=== PATIENT | male | born 1980 | race American Indian/Alaskan Native ===

== ENCOUNTER 2019-12-22 16:12 | Outpatient (REF) | payer MEDICAID, SELFPAY | END 2019-12-22 16:13 | disposition home or self-care (01) | LOC: HO.LAB 16:12 | PROVIDERS: Visit Provider Internal Medicine | DX: Z20.828 Contact with and (suspected) exposure to other viral communicable diseases (principal) | CPT/HCPCS: C9803; U0003 ==

== ENCOUNTER 2020-01-15 12:05 | Outpatient (REF) | payer MEDICAID, SELFPAY ==
--- NOTE | 2020-01-15 12:10 | XR_ITS ---
EXAMINATION: XR CHEST CLINICAL INFORMATION: Cough COMPARISON: Chest radiographs 09/25/2018 TECHNIQUE: 2 views of the chest were obtained. FINDINGS: The lungs are clear. There is no airspace consolidation or groundglass opacity or effusion. The heart is normal in size and the hilar and mediastinal contours are normal. No visible acute bony abnormality. XR/XR chest 2V IMPRESSION: Unremarkable examination.
== END 2020-01-15 12:06 | disposition home or self-care (01) ==
LOC: HO.XRAY 12:05
PROVIDERS: PCP Nurse Practitioner Family; Visit Provider Nurse Practitioner Family
DX: R05 Cough (principal)
CPT/HCPCS: 71046

== ENCOUNTER 2020-02-10 08:47 | Outpatient (REF) | payer MEDICAID, SELFPAY ==
--- NOTE | 2020-02-10 | PFT_ITS ---
INDICATION: Cough. SPIROMETRY: FEV1 to FVC 88% with an FEV1 of 3.21 L which is 83% predicted, and an FVC of 3.67 L, which is 77% predicted. No significant response to bronchodilators. Maximum voluntary ventilation 97% predicted. LUNG VOLUMES: Total lung capacity 75% predicted with an expiratory reserve volume of 50% predicted. DIFFUSION CAPACITY: DLCO 65% predicted. COMPARISONS: None. INTERPRETATION: No obstructive ventilatory defect. No significant response to bronchodilators noted. However, the patient does have a mild restrictive ventilatory defect, therefore underlying interstitial lung conditions and/or neuromuscular conditions cannot be ruled out. The patient also has a mild diffusion impairment secondary to the above. Further imaging will be warranted and pulmonary consultation will be helpful. Clinical correlation warranted. MD JAVIER Florez/MODKlaus / [id number]
== END 2020-02-10 08:48 | disposition home or self-care (01) ==
LOC: HO.RESP 08:47
PROVIDERS: PCP Nurse Practitioner Family; Visit Provider Nurse Practitioner Family
DX: R05 Cough (principal)
CPT/HCPCS: 94060; 94727; 94729

== ENCOUNTER → 2020-03-05 15:27 | Outpatient (BNVA) | payer MEDICAID, SELFPAY | PROVIDERS: PCP Internal Medicine; Visit Provider Hospitalist | DX: J98.4 Other disorders of lung (principal); J45.909 Unspecified asthma, uncomplicated; F17.200 Nicotine dependence, unspecified, uncomplicated | CPT/HCPCS: 99202 ==

== ENCOUNTER → 2020-05-28 15:25 | Outpatient (BNVA) | payer MEDICAID, SELFPAY | PROVIDERS: PCP Nurse Practitioner Family; Visit Provider Hospitalist | DX: J45.40 Moderate persistent asthma, uncomplicated (principal); J98.4 Other disorders of lung; F17.200 Nicotine dependence, unspecified, uncomplicated | CPT/HCPCS: 99212 ==

== ENCOUNTER 2020-07-17 09:47 | Emergency (ER) | payer MEDICAID, SELFPAY ==
--- NOTE | ~2020-07-17 | XR_ITS ---
EXAMINATION: 1. RADIOGRAPHS RIGHT ANKLE 2. RADIOGRAPHS LEFT ANKLE CLINICAL INFORMATION: Bilateral ankle trauma COMPARISON: None TECHNIQUE: 3 views of the right ankle and 3 views of the left ankle were obtained. FINDINGS: Right ankle: Visualized portion of the distal tibia and fibula demonstrate no fracture. Ankle mortise is maintained. Mild soft tissue swelling overlying the lateral malleolus. No gross ankle joint effusion. Left ankle: Visualized portion of the distal tibia and fibula demonstrate no fracture. Ankle mortise is well-maintained. There is no focal soft tissue swelling of the ankle. No ankle joint effusion. XR/XR ankle RT min 3V IMPRESSION: 1. Mild soft tissue swelling overlying the right lateral malleolus. No associated fracture. 2. Unremarkable radiographs of the left ankle.
--- NOTE | ~2020-07-17 | XR_ITS ---
EXAMINATION: 1. RADIOGRAPHS RIGHT ANKLE 2. RADIOGRAPHS LEFT ANKLE CLINICAL INFORMATION: Bilateral ankle trauma COMPARISON: None TECHNIQUE: 3 views of the right ankle and 3 views of the left ankle were obtained. FINDINGS: Right ankle: Visualized portion of the distal tibia and fibula demonstrate no fracture. Ankle mortise is maintained. Mild soft tissue swelling overlying the lateral malleolus. No gross ankle joint effusion. Left ankle: Visualized portion of the distal tibia and fibula demonstrate no fracture. Ankle mortise is well-maintained. There is no focal soft tissue swelling of the ankle. No ankle joint effusion. XR/XR ankle LT min 3V IMPRESSION: 1. Mild soft tissue swelling overlying the right lateral malleolus. No associated fracture. 2. Unremarkable radiographs of the left ankle.
[2020-07-17 10:15] VITALS: BP 138/85; PULSE 88; RESP 16; TEMP 36.9; O2SAT 96; BMI 28.1
--- NOTE | 2020-07-17 11:29 | ED.GENADULT ---
HPI - General Adult General Chief complaint: General Medical Stated complaint: fall Time Seen by Provider: 07/17/20 11:28 History of Present Illness HPI narrative: 39-year-old male status post fall yesterday. Complaining of bilateral ankle pain. The pain is sharp in nature. Worse with ambulation. No head injury. Patient not on blood thinners. No pain to the knees. Question back pain. Worse with movement. There is no bowel urinary incontinence. There is no focal weakness. Patient is from home. Related Data Home Medications Medication Instructions Recorded Confirmed ibuprofen 200 mg tablet 200 mg PO Q6H PRN 03/05/20 05/28/20 Previous Rx's Medication Instructions Recorded fluticasone propionate 110 2 puff INHALATION DAILY 30 Days 03/05/20 mcg/actuation HFA aerosol inhaler #12 g nicotine 10 mg inhalation cartridge 1 inh INHALATION Q2-4H PRN #168 ea 03/05/20 azithromycin 250 mg tablet 250 mg PO 3XW 28 Days #12 tab 05/28/20 fluticasone propionate 50 2 spray INTRANASAL DAILY 30 Days 05/28/20 mcg/actuation nasal #15.8 ml spray,suspension ibuprofen 400 mg PO Q6H PRN #20 tab 07/17/20 Allergies Allergy/AdvReac Type Severity Reaction Status Date / Time Penicillins [PCN] Allergy Unknown HIVES AND Verified 05/28/20 15:59 EDEMA Review of Systems Review of Systems: Constitutional: No Weight loss, No Fever, No Chills, No Night Sweats, No Fatigue, No Malaise ENT/Mouth: No Hearing loss, No Ear Pain, No Nasal Congestion, No Sinus Pain, No Hoarseness, No sore throat, No Rhinorrhea, No Swallowing Difficulty Eyes: No Eye Pain, No Swelling, No Redness, No Foreign Body, No Discharge, No Vision Changes Cardiovascular: No Chest Pain, No SOB, No Dyspnea on Exertion, No Orthopnea, No Edema, No Palpitations Respiratory: No Cough, No Sputum, No Wheezing, No Smoke Exposure, No Dyspnea Gastrointestinal: No Nausea, No Vomiting, No Diarrhea, No Constipation, No abdominal Pain, No Hematochezia, No Melena Genitourinary: no irregular bleeding, No Dysuria, No Urinary Frequency, No Hematuria, No Urinary Incontinence, No Urgency, No Flank Pain, No Urinary Flow Changes, No Hesitancy Musculoskeletal: Positive bilateral ankle pain. Positive back pain Neuro: No Weakness, No Numbness, No Paresthesias, No Loss of Consciousness, No Dizziness, No Headache Psych: No Anxiety/Panic, No Depression, No SI/HI/AH/VH, No Social Issues, Heme/Lymph: No Bruising, No Bleeding,No Lymphadenopathy Endocrine: No Polyuria, No Polydipsia, No Temperature Intolerance [facility] Past Medical History Medical History Asthma Chronic restrictive lung disease Tobacco dependence Social History Social History Cigarettes Per Day: 1 Years Smoked: 18 years old Advance Directives: No Advance Directives Information Provided: No Physical Exam Vital Signs: Vital Signs: Last Vital Signs Temp 98.5 F 07/17/20 10:15 Pulse 88 07/17/20 10:15 Resp 16 07/17/20 10:15 BP 138/85 07/17/20 10:15 Pulse Ox 96 07/17/20 10:15 Body Mass Index 28.1 Appearance: Alert. Oriented X3. No acute distress. Eyes: Pupils equal, round and reactive to light. ENT: Pharynx normal. Neck: Normal inspection. Neck supple. No lymph nodes noted. No crepitus CVS: Normal heart rate and rhythm. Pulses normal. Normal S1 and S2 Respiratory: No respiratory distress. Breath sounds normal. No Wheezing. No rales Abdomen: Soft and nontender. No rigidity. No distention. good BS x4 Skin: Skin warm and dry. Normal skin color. Normal skin turgor. Extremities: Positive pain on palpation of the posterior aspect of the right lateral malleolus. There is no tenderness on palpation of the medial malleolus. There is no tenderness on palpation at the base of the 5th metatarsal. Patient has good sensation. Distal movement intact. Patient also has pain on palpation of the lateral malleolus on the left. There is no tenderness on palpation at the base of the 5th metatarsal. Patient has sensation intact. Capillary refill less than 2 seconds. Skin intact. Neurovascular intact to all extremities. No Lacerations. No Rash Neuro: Oriented X 3. No motor deficit. No sensory deficit. Moving all extermities. No slurred speech Medical Decision Making MDM Narrative Medical decision making narrative: X-ray showed no evidence of fracture. Will discharge patient home. Kee bandage rest close follow-up on outpatient basis. In stable condition. Discharge Plan Discharge Clinical Impression: Sprain and strain of ankle Patient Disposition: Home, Self-Care Instructions: Ankle Sprain (ED) Prescriptions: New ibuprofen 400 mg tablet 400 mg PO Q6H PRN (Reason: pain) Qty: 20 RF: 0 No Action ibuprofen [Advil] 200 mg tablet 200 mg PO Q6H PRNRF: 0 Flovent HFA 110 mcg/actuation HFA aerosol inhaler 2 puff inhalation DAILY 30 Days Qty: 12 RF: 6 Nicotrol 10 mg cartridge 1 inh inhalation Q2-4H PRN (Reason: nicotine cravings) Qty: 168 RF: 6 fluticasone propionate [Flonase Allergy Relief] 50 mcg/actuation spray,suspension 2 spray intranasal DAILY 30 Days Qty: 15.8 RF: 12 azithromycin 250 mg tablet 250 mg PO 3XW 28 Days Qty: 12 RF: 0 Referrals: [facility] [Primary Care Provider] - 2 days
== END 2020-07-17 14:30 | disposition home or self-care (01) ==
PROVIDERS: Emergency Provider Emergency Medicine Emergency Medical Services
DX: S93.402A Sprain of unspecified ligament of left ankle, initial encounter (principal); S93.401A Sprain of unspecified ligament of right ankle, initial encounter; M54.5 Low back pain; M25.572 Pain in left ankle and joints of left foot; M25.571 Pain in right ankle and joints of right foot; F17.210 Nicotine dependence, cigarettes, uncomplicated; X58.XXXA Exposure to other specified factors, initial encounter; Y93.9 Activity, unspecified; Y92.9 Unspecified place or not applicable; Y99.9 Unspecified external cause status; Z79.899 Other long term (current) drug therapy; Z71.6 Tobacco abuse counseling
CPT/HCPCS: 73610; 99283

== ENCOUNTER 2020-08-03 10:20 | Outpatient (REF) | payer MEDICAID, SELFPAY ==
[2020-08-03 12:38] LABS: Anion Gap 12 (12-20); Blood Urea Nitrogen 20 mg/dL (9-16); Calcium 9.3 mg/dL (8.4-10.2); Carbon Dioxide 27 mmol/L (22-29); Chloride 106 mmol/L (96-108); Estimated Glomerular Filt Rate > 60; Glucose Random 125 mg/dL (60-115); Potassium 4.5 mmol/L (3.3-5.1); Sodium 140 mmol/L (135-145)
[2020-08-03 13:13] LABS: Erythrocyte Sedimentation Rate 5 MM/HR (0-15)
[2020-08-05 13:32] LABS: Anti Nuclear Antibody Screen NEGATIVE (NEGATIVE)
[2020-08-08 18:18] LABS: Asperg fumigatus Precip Abs NEGATIVE (NEGATIVE); Micropoly faeni Abs NEGATIVE (NEGATIVE); Pigeon serum Abs NEGATIVE (NEGATIVE); Saccharo pora viridis Abs NEGATIVE (NEGATIVE); Thermo candidus Abs NEGATIVE (NEGATIVE); Thermoa vulgaris #1 NEGATIVE (NEGATIVE)
== END 2020-08-03 10:21 | disposition home or self-care (01) ==
LOC: HO.LAB 10:20
PROVIDERS: PCP Nurse Practitioner Family; Visit Provider Hospitalist
DX: J98.4 Other disorders of lung (principal)
CPT/HCPCS: 36415; 80048; 82785; 85652; 86003; 86038; 86039; 86331; 86606; 86609

== ENCOUNTER → 2020-09-01 10:56 | Outpatient (BNVA) | payer MEDICAID, SELFPAY | PROVIDERS: PCP Nurse Practitioner Family; Visit Provider Hospitalist | DX: J98.4 Other disorders of lung (principal); J45.40 Moderate persistent asthma, uncomplicated; R94.2 Abnormal results of pulmonary function studies; J84.9 Interstitial pulmonary disease, unspecified; R05 Cough | CPT/HCPCS: 99212 ==

== ENCOUNTER 2020-09-13 09:38 | Emergency (ER) | payer MEDICAID, SELFPAY ==
[2020-09-13 10:28] VITALS: BP 132/83; PULSE 77; RESP 18; TEMP 36.8; O2SAT 98; BMI 28.0
--- NOTE | 2020-09-13 11:40 | ED_ITS ---
HPI - Skin/Abscess/Foreign Bdy General Chief complaint: Skin/Abscess/Foreign Body Stated complaint: abcess Time Seen by Provider: 09/13/20 10:44 Source: patient Mode of arrival: ambulatory History of Present Illness HPI narrative: 40-year-old male with a past medical history of asthma, cough, chronic restrictive lung disease, tobacco dependence, to the ED complaining of two abscesses to buttock area x2 days. Admits tried to drain 1 yesterday with minimal improvement, now with worsening pain. Denies fever, chills complaint: abscess/boil Related Data Home Medications Medication Instructions Recorded Confirmed ibuprofen 200 mg tablet (Advil) 200 mg PO Q6H PRN 03/05/20 09/02/20 Previous Rx's Medication Instructions Recorded fluticasone propionate 110 2 puff INHALATION DAILY 30 Days 03/05/20 mcg/actuation HFA aerosol inhaler #12 g (Flovent HFA) nicotine 10 mg inhalation 1 inh INHALATION Q2-4H PRN #168 ea 03/05/20 cartridge (Nicotrol) azithromycin 250 mg tablet 250 mg PO 3XW 28 Days #12 tab 05/28/20 fluticasone propionate 50 2 spray INTRANASAL DAILY 30 Days 05/28/20 mcg/actuation nasal #15.8 ml spray,suspension (Flonase Allergy Relief) ibuprofen 400 mg tablet 400 mg PO Q6H PRN #20 tab 07/17/20 fluticasone fur. 200 mcg-umeclid 1 inh INHALATION DAILY 30 Days #60 09/01/20 62.5 mcg-vilant 25 mcg ea inhalat.powder (Trelegy Ellipta) doxycycline hyclate 100 mg tablet 100 mg PO BID 7 Days #14 tab 09/13/20 Allergies Allergy/AdvReac Type Severity Reaction Status Date / Time Penicillins [PCN] Allergy Severe HIVES AND Verified 09/02/20 08:11 EDEMA Review of Systems Review of Systems: Constitutional: No Fever, No Chills Cardiovascular: No Chest Pain, No SOB Musculoskeletal: No joint pain, No Myalgias Skin: + Skin Lesions, No rash Neuro: No Weakness, No Numbness, No Paresthesias Yes all other systems are reviewed and are negative [facility] Past Medical History Attestation statement: The following information was validated with the patient. Medical History (Updated 09/13/20 @ 11:43 by NEDA Elliott) Abnormal PFTs (pulmonary function tests) Asthma Chronic cough Chronic restrictive lung disease ILD (interstitial lung disease) Tobacco dependence Social History Social History Cigarettes Per Day: 1 Years Smoked: 18 years old Advance Directives: Yes Advance Directives Information Provided: Yes Advance Directives on File: No Physical Exam Vital Signs: Vital Signs: Last Vital Signs Temp 98.2 F 09/13/20 10:28 Pulse 77 09/13/20 10:28 Resp 18 09/13/20 10:28 BP 132/83 09/13/20 10:28 Pulse Ox 98 09/13/20 10:28 Body Mass Index 28.0 Const: General: cooperative and healthy appearing Orientatio n/consciousness: patient oriented x3 Limitations: no limitations HENMT: Head: Yes normal to inspection Ears: hearing grossly normal bilaterally General nose exam: Normal external nose present Face and sinus: Yes normal facial exam Eyes: General: appearance normal, both eyes and all related structures EOM: EOMs intact bilaterally Neck: Neck: Yes normal visual inspection Resp: Effort & Inspection: normal respiratory effort Cardio: Rate: regular rate GI: Inspection: Yes normal to inspection Palpation (GI): Soft to palpation and nontender Skin: Other: + 2 small indurated abscesses noted to top right and left buttock, no fluctuance, no surrounding cellulitis. No rectal involvement, no active drainage Rashes: no rashes Neuro: General: patient oriented x3 Gait exam (Neuro): Normal gait present Extrem: General: Yes normal to inspection MDM - Skin/Abscess/Foreign Bdy MDM Narrative Medical decision making narrative: 40-year-old male with a past medical history of asthma, cough, chronic restrictive lung disease, tobacco dependence, to the ED complaining of two abscesses to buttock area x2 days. On exam vital signs stable, NAD/nontoxic, physical exam as above. Two indurated abscess is noted, unable to I&D at this time Plan to discharge with doxycycline and close follow-up Discharge Plan Discharge Clinical Impression: Abscess of skin or subcutaneous tissue Patient Disposition: Home, Self-Care Instructions: Abscess (ED), Abscess Follow-up (ED) Additional Instructions: You have a couple abscesses on your buttock, doxycycline is an antibiotic, please take as prescribed Keep a close eye on area, begins to grow, worsen, become red, have drainage, or have fever please return to the ED Please follow-up with your doctor Prescriptions: New doxycycline hyclate 100 mg tablet 100 mg PO BID 7 Days Qty: 14 RF: 0 No Action ibuprofen 400 mg tablet 400 mg PO Q6H PRN (Reason: pain) Qty: 20 RF: 0 ibuprofen [Advil] 200 mg tablet 200 mg PO Q6H PRNRF: 0 Flovent HFA 110 mcg/actuation HFA aerosol inhaler 2 puff inhalation DAILY 30 Days Qty: 12 RF: 6 Nicotrol 10 mg cartridge 1 inh inhalation Q2-4H PRN (Reason: nicotine cravings) Qty: 168 RF: 6 fluticasone propionate [Flonase Allergy Relief] 50 mcg/actuation spray,suspension 2 spray intranasal DAILY 30 Days Qty: 15.8 RF: 12 azithromycin 250 mg tablet 250 mg PO 3XW 28 Days Qty: 12 RF: 0 Trelegy Ellipta 200-62.5-25 mcg blister with device 1 inh inhalation DAILY 30 Days Qty: 60 RF: 12 Referrals: Physician,Unknown [Primary Care Provider] - 2 days (For re-evaluation)
== END 2020-09-13 11:51 | disposition home or self-care (01) ==
PROVIDERS: Emergency Provider Emergency Medicine
DX: L02.31 Cutaneous abscess of buttock (principal)
CPT/HCPCS: 99283

== ENCOUNTER 2020-09-15 13:09 | Outpatient (REF) | payer MEDICAID, SELFPAY ==
--- NOTE | ~2020-09-15 | CT_ITS ---
EXAMINATION: CT CHEST WITHOUT CONTRAST CLINICAL INFORMATION: Other disorders of lung. COMPARISON: None. TECHNIQUE: Multidetector volumetric CT imaging of the chest was done. Axial MIP volume rendering provided. Sagittal and coronal reformatted images were obtained. This CT examination was performed using dose optimization techniques as appropriate, variously including the following: *Automated exposure control *Adjustment of mA and/or kV according to patient size (this includes techniques or standardized protocols for targeted exams where dose is matched to indication/reason for exam; i.e. extremities or head) *Use of iterative reconstruction technique DLP: 174 mGy-cm. FINDINGS: NATUROPATHIC ONCOLOGY PROVIDER: Well-inflated lungs. LUNGS: The lungs are well expanded and clear of acute pneumonic process. Patchy reticular/cystic changes seen in the right upper lobe, anteromedial segment. There are no pulmonary nodules, mass or consolidation. MEDIASTINUM: The thyroid lobes are symmetrical and normal. The central trachea and the bronchi are widely patent. Heart size and the great vessels are normal caliber. There are small shotty lymph nodes in the pretracheal and precarinal space. PLEURA: There is no pleural effusion. No pleural mass or thickening. AXILLA: There is a 1.8 x 1.1 cm left axillary lymph node. The chest wall appears unremarkable. UPPER ABDOMEN: Visualized liver, spleen, pancreas and bilateral adrenal glands are unremarkable. OSSEOUS STRUCTURES: No lytic or sclerotic process seen. The paravertebral soft tissues are normal. CT/CT chest wo con IMPRESSION: Patchy reticular/cystic changes in right upper lobe anteromedial segment, likely scarring or atelectasis. The rest of the lungs are clear.
== END 2020-09-15 13:10 | disposition home or self-care (01) ==
LOC: HO.CT 13:09
PROVIDERS: Visit Provider Internal Medicine Pulmonary Disease
DX: J98.4 Other disorders of lung (principal); R05 Cough; R94.2 Abnormal results of pulmonary function studies
CPT/HCPCS: 71250

== ENCOUNTER 2020-10-02 15:33 | Emergency (ER) | payer MEDICAID, SELFPAY ==
[2020-10-02 15:50] VITALS: BP 117/75; PULSE 84; RESP 16; TEMP 37.1; O2SAT 98; BMI 30.5
[2020-10-02 16:29] LABS: COVID-19 Test Negative (Negative); IDNOW Serial# 08D9AD1C
--- NOTE | 2020-10-02 17:53 | ED.GENADULT ---
HPI - General Adult General Chief complaint: Upper Respiratory Symptoms Stated complaint: COVID SYMPTOMS Time Seen by Provider: 10/02/20 17:53 History of Present Illness HPI narrative: Patient complains of mild headache, is concerned as 1 of his children has been mildly sick with a cough and a cold and he is worried about COVID and wants to be checked, no fever no cough no difficulty breathing Related Data Home Medications Medication Instructions Recorded Confirmed ibuprofen 200 mg tablet (Advil) 200 mg PO Q6H PRN 03/05/20 09/02/20 Previous Rx's Medication Instructions Recorded fluticasone propionate 110 2 puff INHALATION DAILY 30 Days 03/05/20 mcg/actuation HFA aerosol inhaler #12 g (Flovent HFA) nicotine 10 mg inhalation 1 inh INHALATION Q2-4H PRN #168 ea 03/05/20 cartridge (Nicotrol) azithromycin 250 mg tablet 250 mg PO 3XW 28 Days #12 tab 05/28/20 fluticasone propionate 50 2 spray INTRANASAL DAILY 30 Days 05/28/20 mcg/actuation nasal #15.8 ml spray,suspension (Flonase Allergy Relief) ibuprofen 400 mg tablet 400 mg PO Q6H PRN #20 tab 07/17/20 fluticasone fur. 200 mcg-umeclid 1 inh INHALATION DAILY 30 Days #60 09/01/20 62.5 mcg-vilant 25 mcg ea inhalat.powder (Trelegy Ellipta) doxycycline hyclate 100 mg tablet 100 mg PO BID 7 Days #14 tab 09/13/20 fluticasone furoate 100 1 inh INHALATION DAILY 30 Days #60 10/05/20 mcg-vilanterol 25 mcg/dose ea inhalation powder (Breo Ellipta) umeclidinium 62.5 mcg/actuation 1 inh INHALATION DAILY 30 Days #30 10/05/20 blister powder for inhalation ea (Incruse Ellipta) Allergies Allergy/AdvReac Type Severity Reaction Status Date / Time Penicillins [PCN] Allergy Severe HIVES AND Verified 10/08/20 10:48 EDEMA Review of Systems Review of Systems: Positive for mild headache Negatives are no fever no chills no dizziness or weakness no fainting no feeling faint no abrupt onset no confusion no vision changes no stiff neck no nausea or vomiting no runny nose no sinus pain no sore throat no cough no chest pain no shortness of breath no abdominal pain no nausea vomiting or diarrhea no skin rashes Yes all other systems are reviewed and are negative [facility] Past Medical History Source: nursing notes reviewed Medical History (Updated 10/10/20 @ 21:27 by Chavez Figueroa MD) Abnormal PFTs (pulmonary function tests) Asthma Chronic cough Chronic restrictive lung disease Emphysema (subcutaneous) (surgical) resulting from a procedure ILD (interstitial lung disease) Tobacco dependence Social History Social History Cigarettes Per Day: 1 Years Smoked: 18 years old Physical Exam Vital Signs: Vital Signs: Last Vital Signs Temp 98.7 F 10/02/20 15:50 Pulse 84 10/02/20 15:50 Resp 16 10/02/20 15:50 BP 117/75 10/02/20 15:50 Pulse Ox 98 10/02/20 15:50 Body Mass Index 30.5 General appearance is comfortable no distress The pupils equal round reactive to light extraocular motions are intact the pharynx is clear with no redness swelling or exudate The nose has no congestion no sinus tenderness The neck is supple The chest is clear to auscultation bilateral Heart no murmur Abdomen soft nontender Extremities full range of motion x4 Neuro gait and balance are normal, interaction both comprehension and expression are normal, cranial nerves 2-12 intact as tested, motor is 5/5 x4, no facial asymmetry Course Course Course Narrative: Well-appearing patient afebrile with mild headache similar to prior with gradual onset has a negative COVIDtest and is discharged Medical Decision Making Lab Data Labs: Lab Results 10/02/20 Range/Units 16:00 COVID-19 (MIKO) Negative (Negative) COVID-19 Clin Com See Note Discharge Plan Discharge Clinical Impression: Headache Patient Disposition: Home, Self-Care Additional Instructions: COVID testing was negative Vital signs were normal as was physical exam Return any time any worse condition or any concerns Tylenol or Motrin can be used if needed Prescriptions: No Action Breo Ellipta 100-25 mcg/dose blister with device 1 inh inhalation DAILY 30 Days Qty: 60 RF: 11 Incruse Ellipta 62.5 mcg/actuation blister with device 1 inh inhalation DAILY 30 Days Qty: 30 RF: 11 ibuprofen 400 mg tablet 400 mg PO Q6H PRN (Reason: pain) Qty: 20 RF: 0 doxycycline hyclate 100 mg tablet 100 mg PO BID 7 Days Qty: 14 RF: 0 ibuprofen [Advil] 200 mg tablet 200 mg PO Q6H PRNRF: 0 Flovent HFA 110 mcg/actuation HFA aerosol inhaler 2 puff inhalation DAILY 30 Days Qty: 12 RF: 6 Nicotrol 10 mg cartridge 1 inh inhalation Q2-4H PRN (Reason: nicotine cravings) Qty: 168 RF: 6 fluticasone propionate [Flonase Allergy Relief] 50 mcg/actuation spray,suspension 2 spray intranasal DAILY 30 Days Qty: 15.8 RF: 12 azithromycin 250 mg tablet 250 mg PO 3XW 28 Days Qty: 12 RF: 0 Trelegy Ellipta 200-62.5-25 mcg blister with device 1 inh inhalation DAILY 30 Days Qty: 60 RF: 12 Stand Alone Forms: Work/School Release Interventions: ED Discharge Assessment Last Done: 10/02/20 18:20 Discharge Date/Time: 10/02/20 18:20
== END 2020-10-02 18:20 | disposition home or self-care (01) ==
PROVIDERS: Emergency Provider Internal Medicine
DX: R51.9 Headache, unspecified (principal); Z20.822 Contact with and (suspected) exposure to COVID-19
CPT/HCPCS: 36415; 87635; 99283

== ENCOUNTER → 2020-10-08 10:40 | Outpatient (BNVA) | payer MEDICAID, SELFPAY | PROVIDERS: Visit Provider Hospitalist | DX: J98.4 Other disorders of lung (principal); J45.40 Moderate persistent asthma, uncomplicated; J84.9 Interstitial pulmonary disease, unspecified; F17.200 Nicotine dependence, unspecified, uncomplicated; R05 Cough; R94.2 Abnormal results of pulmonary function studies; T81.82XA Emphysema (subcutaneous) resulting from a procedure, initial encounter; Z71.6 Tobacco abuse counseling | CPT/HCPCS: 99212 ==

== ENCOUNTER 2020-10-15 08:59 | Emergency (ER) | payer MEDICAID, SELFPAY ==
[2020-10-15 09:02] VITALS: BP 142/87; PULSE 87; RESP 18; TEMP 36.6; O2SAT 96; BMI 30.5
--- NOTE | 2020-10-15 09:10 | ED_ITS ---
HPI - Eye Problem General Chief complaint: Eye Problems Stated complaint: L EYE PAIN Time Seen by Provider: 10/15/20 09:08 Source: patient Mode of arrival: ambulatory Limitations: no limitations History of Present Illness MD chief complaint: eye pain, eye redness and eye injury Onset (ago): day(s) (3) Onset description: sudden Duration: constant Location: left eye Eye Symptoms: redness and pain Place: home Mechanism: direct trauma (reports FB while working with equipment but thinks he got it out) Severity: mild If Pain, Quality: aching Context: trauma Associated symptoms: none Treatments Prior to Arrival: none Related Data Home Medications Medication Instructions Recorded Confirmed ibuprofen 200 mg tablet (Advil) 200 mg PO Q6H PRN 03/05/20 09/02/20 Previous Rx's Medication Instructions Recorded fluticasone propionate 110 2 puff INHALATION DAILY 30 Days 03/05/20 mcg/actuation HFA aerosol inhaler #12 g (Flovent HFA) nicotine 10 mg inhalation 1 inh INHALATION Q2-4H PRN #168 ea 03/05/20 cartridge (Nicotrol) azithromycin 250 mg tablet 250 mg PO 3XW 28 Days #12 tab 05/28/20 fluticasone propionate 50 2 spray INTRANASAL DAILY 30 Days 05/28/20 mcg/actuation nasal #15.8 ml spray,suspension (Flonase Allergy Relief) ibuprofen 400 mg tablet 400 mg PO Q6H PRN #20 tab 07/17/20 fluticasone fur. 200 mcg-umeclid 1 inh INHALATION DAILY 30 Days #60 09/01/20 62.5 mcg-vilant 25 mcg ea inhalat.powder (Trelegy Ellipta) doxycycline hyclate 100 mg tablet 100 mg PO BID 7 Days #14 tab 09/13/20 fluticasone furoate 100 1 inh INHALATION DAILY 30 Days #60 10/05/20 mcg-vilanterol 25 mcg/dose ea inhalation powder (Breo Ellipta) umeclidinium 62.5 mcg/actuation 1 inh INHALATION DAILY 30 Days #30 10/05/20 blister powder for inhalation ea (Incruse Ellipta) doxycycline hyclate 100 mg capsule 100 mg PO BID 7 Days #14 cap 10/15/20 erythromycin 5 mg/gram (0.5 %) eye 0.5 inch OPHTHALMIC (EYE) BID #3.5 10/15/20 ointment g Allergies Allergy/AdvReac Type Severity Reaction Status Date / Time Penicillins [PCN] Allergy Severe HIVES AND Verified 10/08/20 10:48 EDEMA Review of Systems Review of Systems: Constitutional : No Fever, No Chills, Eyes: pos irritation, swelling HENT: no sore throat, no rhinorrhea Cardiovascular : No Chest Pain, No SOB Respiratory : No Dyspnea Gastrointestinal : No abdominal pain Musculoskeletal : No Joint Swelling Skin : No rash, no skin laceration Neuro : No Weakness, No Numbness PMFSH Past Medical History Attestation statement: The following information was validated with the patient. Medical History Abnormal PFTs (pulmonary function tests) Asthma Chronic cough Chronic restrictive lung disease Emphysema (subcutaneous) (surgical) resulting from a procedure ILD (interstitial lung disease) Tobacco dependence Social History Social History Cigarettes Per Day: 1 Years Smoked: 18 years old Advance Directives: No Advance Directives Information Provided: No Physical Exam Vital Signs: Vital Signs: Last Vital Signs Temp 97.9 F 10/15/20 09:02 Pulse 87 10/15/20 09:02 Resp 18 10/15/20 09:02 BP 142/87 H 10/15/20 09:02 Pulse Ox 96 10/15/20 09:02 Body Mass Index 30.5 Appearance: Alert. Oriented X3. No acute distress. Eyes: Pupils equal, round and reactive to light. L eye mild periorbital edema and erythema EOMi, normal sclera ENT: Pharynx normal. Neck: Normal inspection. Neck supple. CVS: Normal heart rate and rhythm. Pulses normal. Respiratory: No respiratory distress. Breath sounds normal. Abdomen: Soft and nontender. Skin: Skin warm and dry. Normal skin color. Extremities: No lower extremity edema. Neuro: Oriented X 3. No motor deficit. No sensory deficit. MDM - Eye Problem MDM Narrative Medical decision making narrative: 40 yo male with eye trauma 3 days ago no contact lens use, thinks FB in eye now with mild periorbital edema no signs of orbital cellulitis, normal vision reported, likely abrasion with mild p eriorbital celluiltis - will stain eye and start on ointment/oral antibiotics Discharge Plan Discharge Clinical Impression: Periorbital cellulitis Qualifiers: Laterality: left Qualified Code(s): L03.213 - Periorbital cellulitis Abrasion, corneal Qualifiers: Encounter type: initial encounter Laterality: left Qualified Code(s): S05.02XA - Injury of conjunctiva and corneal abrasion without foreign body, left eye, initial encounter Patient Disposition: Home, Self-Care Instructions: Corneal Abrasion (ED), Periorbital Cellulitis in Adults (ED) Additional Instructions: return to ED for any worsening symptoms or concerns Prescriptions: New doxycycline hyclate 100 mg capsule 100 mg PO BID 7 Days Qty: 14 RF: 0 erythromycin 5 mg/gram (0.5 %) ointment 0.5 inch ophthalmic (eye) BID Qty: 3.5 RF: 0 No Action Breo Ellipta 100-25 mcg/dose blister with device 1 inh inhalation DAILY 30 Days Qty: 60 RF: 11 Incruse Ellipta 62.5 mcg/actuation blister with device 1 inh inhalation DAILY 30 Days Qty: 30 RF: 11 ibuprofen 400 mg tablet 400 mg PO Q6H PRN (Reason: pain) Qty: 20 RF: 0 doxycycline hyclate 100 mg tablet 100 mg PO BID 7 Days Qty: 14 RF: 0 ibuprofen [Advil] 200 mg tablet 200 mg PO Q6H PRNRF: 0 Flovent HFA 110 mcg/actuation HFA aerosol inhaler 2 puff inhalation DAILY 30 Days Qty: 12 RF: 6 Nicotrol 10 mg cartridge 1 inh inhalation Q2-4H PRN (Reason: nicotine cravings) Qty: 168 RF: 6 fluticasone propionate [Flonase Allergy Relief] 50 mcg/actuation spray,suspension 2 spray intranasal DAILY 30 Days Qty: 15.8 RF: 12 azithromycin 250 mg tablet 250 mg PO 3XW 28 Days Qty: 12 RF: 0 Trelegy Ellipta 200-62.5-25 mcg blister with device 1 inh inhalation DAILY 30 Days Qty: 60 RF: 12 Referrals: Physician,Unknown [Physician] - 2 days (if not better)
[2020-10-15] MEDS: Tetracaine HCl/PF 0.5% Oph Sol 4 ML DROPS 3 DROP EYE-LEFT (09:18)
[2020-10-15] MEDS: Fluorescein Sodium STRIP 1 STRIP EYE-LEFT (09:18)
== END 2020-10-15 09:38 | disposition home or self-care (01) ==
PROVIDERS: Emergency Provider Emergency Medicine
DX: S05.02XA Injury of conjunctiva and corneal abrasion without foreign body, left eye, initial encounter (principal); L03.213 Periorbital cellulitis; X58.XXXA Exposure to other specified factors, initial encounter; Y93.9 Activity, unspecified; Y92.9 Unspecified place or not applicable; Y99.9 Unspecified external cause status; Z79.899 Other long term (current) drug therapy
CPT/HCPCS: 99283

== ENCOUNTER → 2021-01-10 10:57 | Outpatient (BNVA) | payer MEDICAID, SELFPAY | PROVIDERS: Visit Provider Hospitalist | DX: J98.4 Other disorders of lung (principal); J45.40 Moderate persistent asthma, uncomplicated; R05.9 Cough, unspecified; R07.9 Chest pain, unspecified; R59.0 Localized enlarged lymph nodes; F17.200 Nicotine dependence, unspecified, uncomplicated | CPT/HCPCS: 99212 ==

== ENCOUNTER → 2021-01-13 12:57 | Outpatient (BNVA) | payer MEDICAID, SELFPAY | PROVIDERS: Visit Provider Internal Medicine Cardiovascular Disease | DX: R06.00 Dyspnea, unspecified (principal); R07.9 Chest pain, unspecified | CPT/HCPCS: 93005; 99202 ==

== ENCOUNTER → 2021-02-02 10:38 | Outpatient (REF) | payer MEDICAID, SELFPAY ==
--- NOTE | 2021-02-02 10:41 | CA_ITS ---
Acquisition Time: 2021-02-02 11:42:33 Total Exercise Time: 00:06:31 Test Indications: CP, SOB Medications: SEE CHART Protocol: JAYLIN Max HR: 155 BPM 86% of Pred: 180 BPM Max BP: 186/062 mmHG Max Work Load: 7.8 METS Exercise stress test with exercise 6 min 31 sec of Jaylin protocol, with moderate shortness of breath, with minimal right chest pressure at baseline which resolved with exercise, with rare isolated PVC, with normotensive response to exercise, without EKGchanges of ischemia at peak exercise, with nonspecific T wave abnormality at baseline then with T wave inversions inferiorly, V4-V6 in recovery. In recovery his sob resolved and EKG changes gradually improved. Test reviewed with Dr Taylor. Stress echocardiogram ordered for further evaluation. Referred By: Claudio Sherman Overread By: SHARLENE WINN
== END ==
LOC: HO.CARD 10:38
PROVIDERS: Visit Provider Internal Medicine Cardiovascular Disease
DX: R06.00 Dyspnea, unspecified (principal)
CPT/HCPCS: 93017

== ENCOUNTER → 2021-03-02 09:17 | Outpatient (REF) | payer MEDICAID, SELFPAY ==
--- NOTE | 2021-03-02 09:21 | CA_ITS ---
Transthoracic Echocardiogram Patient (Last, First, Middle): Chris Lugo C Gender: Male Date of : 1980 Age: 40 Procedure Date: 03/02/2021 Procedure Type: Transthoracic Echocardiogram Location: OP Height: 170.18 cm Weight: 84.82 kg BSA: 1.97 m2 Heart Rate: bpm BP: 127 / 88 mmHg Field Checker: DEEPA Referring MD: Claudio Sherman MD Supply Aide: Claudio Sherman MD Symptoms: R06.00 - Dyspnea, unspecified Study Quality: Good Conclusions: - Normal left ventricular size and systolic function. - Diastolic function is normal for age. - Normal right ventricular cavity size and systolic function. Findings Left Ventricle Normal left ventricular size and systolic function. There is mildly increased left ventricular wall thickness. The visually estimated ejection fraction is between 60-65%. Diastolic function is normal for age. Right Ventricle Normal right ventricular cavity size and systolic function. Atria Both atria are normal in size. Aortic Valve There is a normal trileaflet aortic valve. There is mild thickening of the aortic valve. There is no aortic valve stenosis. There is no aortic valve regurgitation. Mitral Valve Normal mitral valve structure and function. There is no mitral valve regurgitation. There is no mitral valve stenosis. Pulmonic Valve Normal pulmonic valve structure and function. There is trace pulmonic valve regurgitation. Tricuspid Valve Normal tricuspid valve structure and function. There is trace tricuspid valve regurgitation. Normal right atrial pressure. There is no evidence of pulmonary hypertension. Great Vessels All visible segments of the aorta are normal in size. The visualized portions of the pulmonary artery and branches are normal. Venous The inferior vena cava is normal in size and collapses greater than 50% with inspiration. Pericardium/Pleural There is no evidence of pericardial effusion. Prior Study Comparison No prior study available for comparison. Measurements 2D Linear Measurements IVSd: 1.08 0.6-0.9/0.6-1.0 cm LVIDd: 4.56 3.9-5.3/4.2-5.9 cm LVIDd Index: 2.31 2.4-3.2/2.2-3.1 cm/m2 LVIDs: 3.03 2.0-3.6 cm LVPWd: 1.20 0.7-1.1 cm Ao Root: 3.30 2.1-3.5 cm LA Diam: 3.10 2.7-3.8/3.0-4.0 cm LAIDs Index: 1.57 1.5-2.3 cm/m2 LV Mass: 234.20 67-162/88-224 g LV Mass Index: 118.88 43-95/49-115 g/m2 LVOT Diam: 2.10 3.0+(-)1.3 cm 2D Systolic Function EF 4C: 57.90 >55% EF 2C: 59.50 >55% EF BiP: 59.30 >55% Mitral Valve MV Pk E: 0.89 MV PK A: 0.66 MV Decel Time: 178.00 E/A: 1.30 E'Lateral: 11.50 E'Medial: 8.70 E/E' Med: 10.20 E/E' Lat: 7.70 PHT: 52.00 MVA PHT: 4.23 Decel [place]: 4.98 Aortic Valve AoV Pk Bipin: 1.25 AoV Mn Bipin: 0.96 AoV VTI: 0.28 AoV Pk Grad: 6.00 Aov Mn Grad: 4.00 BOONE Cont.VTI: 2.78 LVOT LVOT Pk Bipin: 1.00 LVOT Mn Bipin: 0.69 LVOT VTI: 0.22 LVOT Pk Grad: 4.00 LVOT Mn Grad: 2.00 LVOT Diam: 2.10 LVOT Area: 3.46 Diastolic Function MV Pk E: 0.89 MV Pk A: 0.66 E/A: 1.30 E'Medial: 8.70 E/E' Med: 10.20 E' Laterial: 11.50 E/E' Lat: 7.70 Right Ventricle TAPSE (mm): 21.90 TVS' Bipin: 13.40 Tricuspid Valve TR Pk Bipin: 2.23 TR Pk Grad: 20.00 RA Press: 8.00 RVSP: 28.00 Great Vessels Aorta Ao Root-2D: 3.30 2.0-3.7 cm Ao Asc: 2.90 2.1-3.4 cm Updated in Other Vendor System with Status of Final Claudio Sherman MD electronically signed on 03/03/2021 4:30:52 PM with status of Final
--- NOTE | 2021-03-02 09:21 | CA_ITS ---
Acquisition Time: 2021-03-02 10:37:11 Total Exercise Time: 00:08:30 Test Indications: CP, SOB, ABN ETT Medications: SEE CHART Protocol: JAYLIN Max HR: 184 BPM 102% of Pred: 180 BPM Max BP: 178/084 mmHG Max Work Load: 10.1 METS Exercise stress test with exercise 8 min 30 sec of Jaylin protocol with moderate shortness of breath, no chest discomfort, without arrythmia, with normotensive response to exercise, without EKG changes meeting criteria for ischemia with exercise, at peak and in early recovery, starting at 5 min recovery there are asymptomatic T wave inversions inferiorly and V3-V6 which persistented throughout remainder of 10 min recovery. Echo images obtained by tech at rest and immediately post peak exercise. Definity contrast used. Test reviewed with Dr Sherman. Referred By: Patricia Brennan Overread By: PATRICIA BRENNAN
== END ==
LOC: HO.CARD 09:17
PROVIDERS: Visit Provider Internal Medicine Cardiovascular Disease
DX: R06.00 Dyspnea, unspecified (principal); R94.39 Abnormal result of other cardiovascular function study
CPT/HCPCS: 93306; 93350; Q9957

== ENCOUNTER → 2021-03-10 10:59 | Outpatient (BNVA) | payer MEDICAID, SELFPAY | PROVIDERS: PCP Internal Medicine; Visit Provider Hospitalist | DX: R05.9 Cough, unspecified (principal); R07.9 Chest pain, unspecified; R06.00 Dyspnea, unspecified; J45.40 Moderate persistent asthma, uncomplicated; J98.4 Other disorders of lung | CPT/HCPCS: 99212 ==

== ENCOUNTER 2021-05-16 11:30 | Outpatient (REF) | payer MEDICAID, SELFPAY ==
--- NOTE | ~2021-05-16 | XR_ITS ---
EXAMINATION: XR SHOULDER, LEFT CLINICAL INFORMATION: Pain COMPARISON: None TECHNIQUE: AP external rotation, Grashey, scapular Y, and axillary views of the left shoulder. FINDINGS: Bone alignment is normal. No fracture or dislocation is seen. There is mild joint space narrowing at the glenohumeral and acromioclavicular joints. There are small osteophytes projecting over the superior glenohumeral joint questionable for intra-articular loose bodies. Soft tissues are otherwise unremarkable. XR/XR shoulder LT min 2V IMPRESSION: Mild joint space narrowing at the glenohumeral and acromioclavicular joints. Several soft tissue ossifications projecting over the superior glenohumeral joint questionable for intra-articular loose bodies.
--- NOTE | ~2021-05-16 | XR_ITS ---
EXAMINATION: XR LUMBOSACRAL SPINE CLINICAL INFORMATION: Low back pain COMPARISON: None TECHNIQUE: Three views of the lumbosacral spine. FINDINGS: The vertebral bodies and posterior elements are normal. The disc spaces are preserved and the vertebral alignment is normal. The paraspinal soft tissues are normal. XR/XR lumbar spine 2-3V IMPRESSION: Unremarkable examination.
--- NOTE | ~2021-05-16 | XR_ITS ---
EXAMINATION: XR CERVICAL SPINE CLINICAL INFORMATION: Neck pain COMPARISON: None TECHNIQUE: 5 views of the cervical spine were obtained. FINDINGS: Bone alignment is normal. No fracture or dislocation is seen. Disc spaces are normal. Neural foramen are patent. Prevertebral soft tissues are normal. XR/XR cervical spine 4V IMPRESSION: Unremarkable examination.
== END 2021-05-16 11:31 | disposition home or self-care (01) ==
LOC: HO.XRAY 11:30
PROVIDERS: PCP Registered Nurse; Visit Provider Registered Nurse
DX: M25.512 Pain in left shoulder (principal); M54.2 Cervicalgia; M54.50 Low back pain, unspecified
CPT/HCPCS: 72050; 72100; 73030

== ENCOUNTER 2021-11-16 09:19 | Emergency (ER) | payer MEDICAID, SELFPAY ==
[2021-11-16 09:38] VITALS: BP 144/84; PULSE 77; RESP 18; TEMP 36.6; O2SAT 98; BMI 29.0
== END 2021-11-16 12:34 | disposition left against medical advice (07) ==
PROVIDERS: Emergency Provider Emergency Medicine; PCP Registered Nurse
DX: R10.9 Unspecified abdominal pain (principal)
CPT/HCPCS: 99281

== ENCOUNTER 2021-12-19 10:28 | Outpatient (REF) | payer MEDICAID, SELFPAY ==
--- NOTE | ~2021-12-19 | XR_ITS ---
EXAMINATION: XR CHEST CLINICAL INFORMATION: Epigastric pain COMPARISON: Previous chest x-ray January 2020 TECHNIQUE: 2 views of the chest were obtained. FINDINGS: No significant abnormality is noted involving the heart, lungs, mediastinum, bony thorax or soft tissues. XR/XR chest 2V IMPRESSION: Unremarkable examination.
[2021-12-19 10:36] LABS: MANUAL DIFF FLAG NO
--- NOTE | 2021-12-19 10:38 | ECG_ITS ---
Test Reason : r07.9 cp Blood Pressure : / mmHG Vent. Rate : 081 BPM Atrial Rate : 081 BPM P-R Int : 142 ms QRS Dur : 082 ms QT Int : 376 ms P-R-T Axes : 073 044 036 degrees QTc Int : 436 ms Normal sinus rhythm Normal ECG No previous ECGs available Referred By: Chavez Figueroa Electronically Signed By:BLANCA BLACKWOOD MD
[2021-12-19 10:58] LABS: Basophils Absolute Auto 0.1 X10*3/uL (0.0-0.2); Eosinophils Absolute Auto 0.1 X10*3/uL (0.0-0.4); Eosinophils Percent Auto 1.4 % (0-4); Hematocrit 44.8 % (42.0-52.0); Hemoglobin 14.3 g/dl (14.0-18.0); Imm Gran Abs Auto 0.04 X10*3/uL (0.00-0.03); Imm Gran Pct Auto 0.5 % (0.0-0.4); Lymphocytes Absolute Auto 2.7 X10*3/uL (1.2-4.9); Lymphocytes Percent Auto 34.7 % (20-40); Mean Corpuscular HGB Conc 31.9 g/dl (31.0-36.0); Mean Corpuscular Hemoglobin 29.9 pg (27.0-33.0); Mean Corpuscular Volume 93.7 fL (80.0-98.0); Mean Platelet Volume 8.8 fL (9.4-12.4); Monocytes Absolute Auto 0.5 X10*3/uL (0.1-1.2); Monocytes Percent Auto 6.5 % (2-11); Neutrophils Absolute Auto 4.4 x10*3/uL (2.0-8.3); Neutrophils Percent Auto 55.9 % (45-73); Platelet Count 336 X10*3/uL (160-400); Red Blood Count 4.78 X10*6/uL (4.60-5.80); Red Cell Distribution Width 12.8 % (11.0-16.0); White Blood Count 7.8 X10*3/uL (4.8-10.8)
[2021-12-19 11:22] LABS: Troponin-I High Sensitivity < 3.5 ng/L (<3.5-35.0)
[2021-12-19 11:24] LABS: Alanine Aminotransferase 20 U/L (0-40); Albumin Level 4.3 g/dL (3.5-5.0); Alkaline Phosphatase 76 U/L (39-117); Anion Gap 16 (12-20); Aspartate Amino Transferase 18 U/L (5-37); Bilirubin Direct < 0.2 mg/dL (0.0-0.5); Bilirubin Total 0.4 mg/dL (0.0-1.0); Blood Urea Nitrogen 22 mg/dL (9-16); Calcium 9.6 mg/dL (8.4-10.2); Carbon Dioxide 25 mmol/L (22-29); Chloride 105 mmol/L (96-108); Estimated Glomerular Filt Rate > 60; Glucose Random 105 mg/dL (60-115); Lipase 36 U/L (8-78); Potassium 4.7 mmol/L (3.3-5.1); Sodium 141 mmol/L (135-145); Total Protein 7.1 g/dL (6.5-8.0)
[2021-12-19 11:37] LABS: Erythrocyte Sedimentation Rate 6 MM/HR (0-15)
== END 2021-12-19 10:29 | disposition home or self-care (01) ==
LOC: HO.LAB 10:28
PROVIDERS: PCP Registered Nurse; Visit Provider Hospitalist
DX: J45.40 Moderate persistent asthma, uncomplicated (principal); J98.4 Other disorders of lung; R05.9 Cough, unspecified; R06.00 Dyspnea, unspecified; R07.9 Chest pain, unspecified; R07.81 Pleurodynia; R10.13 Epigastric pain
CPT/HCPCS: 36415; 71046; 80048; 80076; 83690; 84484; 85025; 85652; 93005; 99212

== ENCOUNTER 2022-01-09 17:23 | Emergency (ER) | payer MEDICAID, SELFPAY ==
--- NOTE | ~2022-01-09 | XR_ITS ---
EXAMINATION: XR FINGER, RIGHT CLINICAL INFORMATION: Laceration to right index finger COMPARISON: None TECHNIQUE: 3 views of the right index finger. FINDINGS: The bones and soft tissues are unremarkable aside from the presence of osteophyte arising from the dorsal surface of the distal phalanx. No fracture. Alignment is anatomic. Joint spaces are maintained. No radiopaque foreign bodies. XR/XR finger RT min 2V IMPRESSION: No evidence of an acute osseous injury.
[2022-01-09 18:30] VITALS: BP 123/80; PULSE 91; RESP 16; TEMP 36.4; O2SAT 96; BMI 27.3
--- NOTE | 2022-01-09 19:11 | ED_ITS ---
HPI - Wound/Laceration General Chief Complaint: Wound/Laceration Stated Complaint: finger lac Time Seen by Provider: 01/09/22 18:55 Source: patient Mode of arrival: ambulatory Limitations: no limitations History of Present Illness HPI narrative: Patient is a 41-year-old male who presents to emergency department for evaluation of a right 2nd digit laceration over the radial aspect of PIP. States that he accidentally cut it on a radiator while at work. 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 States he is able to flex the finger though it is painful, he is holding it in extension. Bleeding is actively controlled. Related Data Previous Rx's Medication Instructions Recorded nicotine 10 mg inhalation 1 inh inhalation Q2-4H PRN 03/05/20 cartridge (Nicotrol) nicotine cravings #168 ea ibuprofen 400 mg tablet 400 mg PO Q6H PRN pain #20 tabs 07/17/20 albuterol sulfate 90 mcg/actuation 2 inh inhalation Q6H PRN shortness 01/10/21 aerosol inhaler of breath or wheezing 30 days #18 grams fluticasone furoate 100 1 inh inhalation DAILY 30 days #60 10/18/21 mcg-vilanterol 25 mcg/dose ea inhalation powder (Breo Ellipta) aluminum-mag hydroxide-simethicone 5 ml PO QID PRN indigestion 30 12/19/21 400 mg-400 mg-40 mg/5 mL oral susp days #355 mL (Maalox Maximum Strength) benzonatate 200 mg capsule 200 mg PO BID PRN cough 30 days 12/19/21 #60 caps omeprazole 40 mg capsule,delayed 40 mg PO BID 30 days #60 caps 12/19/21 release cephalexin 500 mg capsule 500 mg PO QID #28 caps 01/09/22 Allergies Allergy/AdvReac Type Severity Reaction Status Date / Time Penicillins [PCN] Allergy Severe HIVES AND Verified 01/09/22 18:34 EDEMA Review of Systems Review of Systems: Constitutional: No fever, chills Skin: No rash or itching. Positive laceration Cardiovascular: No chest pain. Respiratory: No shortness of breath. No cough Musculoskeletal: No muscle pain, back pain, joint pain. Yes all other systems are reviewed and are negative PMFSH Past Medical History Attestation statement: The following information was validated with the patient. Source: old records reviewed Medical History Abnormal PFTs (pulmonary function tests) Asthma Axillary adenopathy Chest pain Chronic cough Chronic restrictive lung disease Emphysema (subcutaneous) (surgical) resulting from a procedure ILD (interstitial lung disease) Tobacco dependence Surgical History History of vasectomy (~2016) Family History Family History Mother Diabetes Asthma Father No problems noted. Maternal Grandmother Cancer Maternal Aunt Breast cancer Social History Social History Alcohol intake: unknown Patient Tobacco Use Status: Current everyday Tobacco user Tobacco use type: Cigarette Cigarettes Per Day: 7 Years Smoked: 35 +/- Use of substances other than those prescribed or required for medical reasons: Unknown Advance Directives: No Advance Directives Information Provided: No Physical Exam Vital Signs: Vital Signs: Last Vital Signs Temp 97.5 F 01/09/22 18:30 Pulse 91 01/09/22 18:30 Resp 16 01/09/22 18:30 BP 123/80 01/09/22 18:30 Pulse Ox 96 01/09/22 18:30 O2 Del Method 01/09/22 18:30 BMI result Body Mass Index 27.3 Vital signs have been reviewed as normal and appeared to be correct. Blood pressure normal.? Heart rate normal.? Respiration rate normal. Temperature helen l.? Oxygen saturation normal. Appearance: Alert.?Oriented to person, place and time. No acute distress.?Normal affect. Eyes: Pupils equal, round and reactive to light.? ENT: Pharynx normal.?? Neck: Normal inspection.? Neck supple.?? CVS: Heart sounds normal. Normal heart rate and rhythm.? Pulses normal.?? Respiratory: No respiratory distress.? Lung sounds clear to auscultation bilaterally?? Abdomen: Soft and non-tender. Skin: Skin warm and dry.? Normal skin color. Laceration to right second PIP radial aspect, 2cm, bleeding controlled.? ?? Extremities: No lower extremity edema.? Neuro: Moves all extremities spontaneously. Sensation intact bilaterally. No motor deficits.. Ambulates with normal steady gait. Course Course Course Narrative: Patient is a 41 year old male presenting to the emergency department for evaluation of laceration to right hand, he is right-hand dominant. The 2nd digit is held in full extension able to flex the MCP, PIP, DIP although slightly decreased reportedly due to pain. Patient is status post laceration repair with 5 5-0 sutures which will need to be removed in 10 days, cleansed with normal saline, repaired under aseptic technique. Tolerated procedure well. XR Reveals no acute osseous abnormality. TDAP updated. Prophylactic antibiotics sent to patient's pharmacy. Discussed worrisome signs and symptoms to return back to the emergency department for including signs of infection. All questions answered and patient discharged in stable condition. Medications Administered Discontinued Medications Generic Name Dose Route Start Last Admin Trade Name Freq PRN Reason Stop Dose Admin Diphtheria/Tetanus/Acell Pertussis 0.5 ml 01/09/22 19:14 01/09/22 19:32 Diphth,Pertus(Acell),Tet Adult 0.5 Ml Syringe IM 01/09/22 19:15 0.5 ml .ONCE ONE Administration Lidocaine HCl 5 ml 01/09/22 19:14 01/09/22 19:36 Lidocaine Hcl 2 % Mpf 5 Ml Vial INFILTRATI 01/09/22 19:15 5 ml ONCE ONE Administration MDM - Wound/Laceration Medical Records Attestation: I reviewed the patient's medical records. Imaging Data XR hand: Radiologist's impression: XR/XR finger RT min 2V IMPRESSION: No evidence of an acute osseous injury. Procedures Laceration Laceration 1: Site: hand (2nd digit) Side (If applicable): right Size (cm): 2 Description: linear Depth: simple, single layer Local Anesthetic: lidocaine 2% Amount of anesthesia used (mL): 5 Pre-repair: wound explored and irrigated extensively Skin layer closed with: nylon Size (cm): 5-0 Number of sutures: 5 Technique: simple, interrupted Discharge Plan Discharge Clinical Impression: Laceration Patient Disposition: Home, Self-Care Instructions: Laceration (ED) Additional Instructions: Cleanse the wound twice daily with warm water and mild non scented soap. Apply topical bacitracin Sutures need to be removed in 8-10 days, this may be done at your primary care office or return back to the emergency department Your tetanus was updated today. Complete the entire course of antibiotics as prescribed If you develop worsening pain, swelling, redness, pus-like drainage, fevers, chills then this needs to be re-evaluated. Prescriptions: New cephalexin 500 mg capsule 500 mg PO QID Qty: 28 0RF No Action fluticasone furoate-vilanterol [Breo Ellipta] 100-25 mcg/dose blister with device 1 inh inhalation DAILY 30 Days Qty: 60 11RF ibuprofen 400 mg tablet 400 mg PO Q6H PRN (Reason: pain) Qty: 20 0RF Nicotrol 10 mg cartridge 1 inh inhalation Q2-4H PRN (Reason: nicotine cravings) Qty: 168 6RF albuterol sulfate 90 mcg/actuation HFA aerosol inhaler 2 inh inhalation Q6H PRN (Reason: shortness of breath or wheezing) 30 Days Qty: 18 12RF benzonatate 200 mg capsule 200 mg PO BID PRN (Reason: cough) 30 Days Qty: 60 4RF omeprazole 40 mg capsule,delayed release(DR/EC) 40 mg PO BID 30 Days Qty: 60 0RF alum-mag hydroxide-simeth [Maalox Maximum Strength] 400-400-40 mg/5 mL suspension 5 ml PO QID PRN (Reason: indigestion) 30 Days Qty: 355 1RF Referrals: Physician,Unknown J [Primary Care Provider] - Stand Alone Forms: Work/School Release Interventions: ED Discharge Assessment Last Done: 01/09/22 20:54 Discharge Date/Time: 01/09/22 20:56
[2022-01-09] MEDS: Diphth,Pertus(ACell),Tet Adult 0.5 ML SYRINGE IM (19:32)
[2022-01-09] MEDS: Lidocaine HCl 2 % MPF 5 ML VIAL INFILTRATI (19:36)
== END 2022-01-09 20:56 | disposition home or self-care (01) ==
PROVIDERS: Emergency Provider Internal Medicine
DX: S61.210A Laceration without foreign body of right index finger without damage to nail, initial encounter (principal); W31.89XA Contact with other specified machinery, initial encounter; Y93.89 Activity, other specified; Y92.59 Other trade areas as the place of occurrence of the external cause; Y99.0 Civilian activity done for income or pay
CPT/HCPCS: 12041; 73140; 90471; 90715; 99283; 99284

== ENCOUNTER 2022-01-31 09:13 | Outpatient (REF) | payer MEDICAID, SELFPAY ==
--- NOTE | ~2022-01-31 | FL_ITS ---
PROCEDURE: FL BARIUM SWALLOW CLINICAL INFORMATION: Gastroesophageal reflux disease without esophagitis. COMPARISON: None TECHNIQUE: Barium swallow examination is performed using fluoroscopic evaluation in addition to multiple fluoroscopic spot views. The patient is imaged both upright and prone and using both thick and thin sulfate along with effervescent granules. Fluoroscopy time: 1.7 minutes DAP: 13.593 Gycm2 Images: 47 FINDINGS: Following oral administration of thick barium and barium-coated turkey there is normal propagation of bolus from the oral cavity through the pharynx, esophagus into stomach without any evidence of obstruction, narrowing or stricture. The course, caliber and peristalsis of the esophagus is normal. On placing patient prone lying and oral administration of thin barium there is normal distention of the esophagus without obstruction or narrowing. FL/FL barium swallow IMPRESSION: Unremarkable barium swallow exam.
== END 2022-01-31 09:14 | disposition home or self-care (01) ==
LOC: HO.XRAY 09:13
PROVIDERS: PCP Registered Nurse; Visit Provider Hospitalist
DX: K21.9 Gastro-esophageal reflux disease without esophagitis (principal)
CPT/HCPCS: 74220

== ENCOUNTER → 2022-02-21 14:40 | Outpatient (BNVA) | payer MEDICAID, SELFPAY | PROVIDERS: PCP Registered Nurse; Visit Provider Hospitalist | DX: Z23 Encounter for immunization (principal); J45.40 Moderate persistent asthma, uncomplicated; R06.00 Dyspnea, unspecified; R07.9 Chest pain, unspecified; R07.81 Pleurodynia; R10.13 Epigastric pain; R05.3 Chronic cough; J98.4 Other disorders of lung | CPT/HCPCS: 90471; 90686; 99212 ==

== ENCOUNTER → 2022-03-23 12:52 | Outpatient (BNVA) | payer MEDICAID, SELFPAY | PROVIDERS: PCP Registered Nurse; Visit Provider Nurse Practitioner Family | DX: M62.838 Other muscle spasm (principal); M47.816 Spondylosis without myelopathy or radiculopathy, lumbar region; M54.16 Radiculopathy, lumbar region; M47.812 Spondylosis without myelopathy or radiculopathy, cervical region; M53.3 Sacrococcygeal disorders, not elsewhere classified; G56.03 Carpal tunnel syndrome, bilateral upper limbs | CPT/HCPCS: 99202 ==

== ENCOUNTER 2022-04-17 10:47 | Outpatient (REF) | payer MEDICAID, SELFPAY ==
--- NOTE | ~2022-04-17 | XR_ITS ---
EXAMINATION: ORBITS CLINICAL INFORMATION: Pre-MRI screening. History of radiopaque foreign body. COMPARISON: None TECHNIQUE: 3 views of orbits were obtained FINDINGS: There are no radiopaque metallic foreign body seen in the orbits. The paranasal sinuses are well-aerated. XR/XR pre mri screening IMPRESSION: No radiopaque metallic foreign body seen in the orbits.
--- NOTE | ~2022-04-17 | MR_ITS ---
EXAMINATION: MR LUMBAR SPINE WITHOUT CONTRAST CLINICAL INFORMATION: Radiculopathy, lumbar region. COMPARISON: None TECHNIQUE: MRI of the lumbar spine was obtained using routine sequences without contrast. FINDINGS: The lumbar vertebral bodies maintain normal heights and alignment. The disc heights are preserved. No bone marrow edema is seen. There is focal prominence of the central ependymal canal at the L1-L2 level. The conus medullaris is normal in signal and terminates at the L2 level. The cauda equina nerve roots appear normally distributed within the thecal sac. The extraspinal soft tissues appear normal. SPINAL LEVELS: L1-L2: No posterior disc abnormality. No spinal canal or neural foraminal stenosis. L2-L3: No posterior disc abnormality. No spinal canal or neural foraminal stenosis. L3-L4: Mild disc bulging with shallow right foraminal protrusion causing abutment of the exiting right L3 nerve root. No spinal canal stenosis. L4-L5: Disc bulging with shallow central protrusion and moderate facet arthropathy. No spinal canal or neural foraminal stenosis. L5-S1: No posterior disc abnormality. Moderate to severe right and mild to moderate left facet arthropathy. No spinal canal or neural foraminal stenosis. MR/MR lumbar spine wo con IMPRESSION: At L3-L4 there is shallow right foraminal protrusion causing abutment of the exiting right L3 nerve root. At L4-L5 there is shallow central protrusion and moderate facet arthropathy but no spinal canal or neural foraminal stenosis. At L5-S1 there is moderate to severe right and mild to moderate left facet arthropathy. Mild prominence of the central ependymal canal incidentally seen at the L1-L2 level.
== END 2022-04-17 10:48 | disposition home or self-care (01) ==
LOC: HO.MRI 10:47
PROVIDERS: PCP Registered Nurse; Visit Provider Nurse Practitioner Family
DX: M54.16 Radiculopathy, lumbar region (principal); M47.816 Spondylosis without myelopathy or radiculopathy, lumbar region; M62.838 Other muscle spasm
CPT/HCPCS: 72148

== ENCOUNTER → 2022-04-18 14:14 | Outpatient (BNVA) | payer MEDICAID, SELFPAY | PROVIDERS: PCP Registered Nurse; Visit Provider Orthopaedic Surgery | DX: R20.0 Anesthesia of skin (principal); L60.8 Other nail disorders | CPT/HCPCS: 99202 ==

== ENCOUNTER → 2022-05-19 13:35 | Outpatient (BNVA) | payer MEDICAID, SELFPAY | PROVIDERS: PCP Registered Nurse; Visit Provider Physician Assistant | DX: G95.0 Syringomyelia and syringobulbia (principal) | CPT/HCPCS: 99202 ==

== ENCOUNTER 2022-06-08 11:00 | Outpatient (RCR) | payer MEDICAID, SELFPAY ==
--- NOTE | 2022-04-20 15:26 | MHC.PT.EP ---
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 He reports his back is typically worse than his neck. He presents to PT with current impairments in pain, decreased lumbar ROM, decreased neck ROM, soft tissue restrictions, impaired posture, decreased core strength, decreased LE strength. He is limited functionally by prolonged sitting, prolonged standing, bending, head rotation and laying. He is a good candidate for skilled PT in order to address current impairments to facilitate return to PLOF. He is recommended to be seen 2x/week for 4 weeks and will be reassessed at that time. Frequency and Duration: The patient will be seen 2x/week for 4 weeks Short Term Goals: Pt will be I with HEP to promote self management of symptoms Pt will demonstrate improvements in postural awareness throughout the day [employer] Goals: Pt will tolerate sitting with improved posture > 30 min with pain < 4/10 Pt will demonstrate ability to squat and pick object up from the floor with proper mechanics Pt will tolerate prolonged standing and walking > 30 min with pain < 4/10 Treatment Plan: Modalities to reduce pain, spasms and effusion. Manual therapy to restore motion and function. Therapeutic exercise to improve strength and flexibility. Neuromuscular re-education for posture and balance. Therapeutic activities to return to functional activities of daily living. Electronically signed by: Emerita Myers, PT, DPT Please sign and return to therapist. Thank you for your referral.
--- NOTE | 2022-07-19 08:16 | MHC.PT.DC ---
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 His last attended appointment was 06/08/22. Pt is being D/C from skilled PT as he has not attended or called to schedule in > 30 days. Pt current level of function unknown at this time. Electronically signed by: Emerita Myers, PT, DPT Please sign and return to therapist. Thank you for your referral.
== END 2022-07-19 08:16 | disposition home or self-care (01) ==
LOC: HO.PT 11:00
PROVIDERS: PCP Registered Nurse; Visit Provider Nurse Practitioner Family
DX: M47.812 Spondylosis without myelopathy or radiculopathy, cervical region (principal); M47.816 Spondylosis without myelopathy or radiculopathy, lumbar region; M54.16 Radiculopathy, lumbar region; M62.838 Other muscle spasm
CPT/HCPCS: 97110; 97140; 97163

== ENCOUNTER 2022-06-13 13:53 | Outpatient (REF) | payer MEDICAID, SELFPAY ==
--- NOTE | ~2022-06-13 | MR_ITS ---
EXAMINATION: MR CERVICAL AND THORACIC SPINE WITHOUT CONTRAST CLINICAL INFORMATION: Syringomyelia and syringobulbia. COMPARISON: Lumbar spine MRI 04/17/2022. TECHNIQUE: MRI of the cervical and thoracic spine was performed using routine sequences without contrast. FINDINGS: Cervical spine: The cervical vertebral bodies maintain normal heights and alignment. The disc heights are preserved. No bone marrow edema is seen. Allowing for motion artifact, the cervical cord signal appears normal. There is no syrinx. No syringobulbia is seen. There is no significant disc herniation. The spinal canal and neural foramina are patent. The imaged intracranial contents are unremarkable. There is no evidence of Chiari I malformation. The extraspinal soft tissues are unremarkable. Thoracic spine: The thoracic vertebral bodies maintain normal heights. There is mild to moderate disc height loss at T3-T4 and mild disc height loss at T4-T5. There is no bone marrow edema. There is redemonstration of focal dilatation of the central ependymal canal/short segment syrinx at the L1 level, measuring up to 6 mm in maximal transverse dimension and unchanged compared with the MRI from 04/17/2022. The thoracic cord signal is otherwise unremarkable. There is no significant narrowing of spinal canal. There is small central protrusion at T3-T4 and T4-T5 without associated stenosis. There is a small left paracentral protrusion at T9-T10. The neural foramina appear patent. The extraspinal soft tissues are unremarkable. MR/MR cervical spine wo con IMPRESSION: CERVICAL SPINE: No cord signal abnormality, syrinx, or syringobulbia. THORACIC SPINE: Stable appearance of short segment syrinx at the L1 level measuring up to 6 mm in maximal transverse dimension. No significant narrowing of the spinal canal or neural foramina. Small disc protrusions are seen at T3-T4, T4-T5, and T9-T10.
== END 2022-06-13 13:54 | disposition home or self-care (01) ==
LOC: HO.MRI 13:53
PROVIDERS: PCP Registered Nurse; Visit Provider Physician Assistant
DX: G95.0 Syringomyelia and syringobulbia (principal)
CPT/HCPCS: 72141; 72146

== ENCOUNTER 2022-06-28 01:50 | Observation (INO) | payer MEDICAID, SELFPAY ==
[2022-06-28] VITALS (10 sets, daily range): BP systolic 120–141; BP diastolic 70–100; PULSE 92–114; RESP 12–23; TEMP 37.1–39.2; O2SAT 92–98; BMI 28.5
--- NOTE | ~2022-06-28 | CT_ITS ---
EXAMINATION: CT ABDOMEN AND PELVIS WITH CONTRAST CLINICAL INFORMATION: Right lower quadrant pain. Evaluate for appendicitis. COMPARISON: 04/23/2019 TECHNIQUE: Multidetector volumetric images were obtained from the superior aspect of the liver through the pubic symphysis following administration 85 mL of Omnipaque 350 intravenous contrast. Sagittal and coronal reformatted images were obtained on the technologist's workstation. Oral contrast: No This CT examination was performed using dose optimization techniques as appropriate, variously including the following: *Automated exposure control *Adjustment of mA and/or kV according to patient size (this includes techniques or standardized protocols for targeted exams where dose is matched to indication/reason for exam; i.e. extremities or head) *Use of iterative reconstruction technique DLP: 494 mGy-cm FINDINGS: LUNG BASES: Mild lower lung bronchiectatic changes. LIVER, GALLBLADDER, AND BILIARY TREE: The liver is normal in size, shape, and attenuation. No focal hepatic lesion or biliary ductal dilatation is present. The gallbladder is unremarkable with no evidence of radiopaque gallstones, gallbladder wall thickening, or obvious pericholecystic inflammatory changes. PANCREAS: Unremarkable. SPLEEN: Unremarkable. ADRENAL GLANDS: Unremarkable. KIDNEYS AND URETERS: The kidneys are normal in size, shape, and attenuation. No hydronephrosis, hydroureter, or calculi seen. No perinephric stranding. BLADDER: Unremarkable. GASTROINTESTINAL TRACT: Marked submucosal edema within the ascending colon and proximal half of the transverse colon with mild pericolic fat stranding. Mild submucosal edema within the terminal ileum. Normal appendix. Stomach and small bowel unremarkable. ABDOMINAL WALL: No significant hernia is appreciated. LYMPH NODES: Normal. VASCULAR: Unremarkable. PELVIC VISCERA: Unremarkable. OSSEOUS STRUCTURES: No acute or suspicious osseous abnormalities. CT/CT abdomen pelvis w IV con IMPRESSION: * Marked submucosal edema within the ascending colon and proximal half of the transverse colon, with mild submucosal edema and terminal ileum compatible with an enterocolitis whether infectious or inflammatory. * Normal appendix. * Mild lower lung bronchiectatic changes.
--- NOTE | 2022-06-28 02:09 | ECG_ITS ---
Test Reason : abdominal pain Blood Pressure : / mmHG Vent. Rate : 095 BPM Atrial Rate : 095 BPM P-R Int : 128 ms QRS Dur : 084 ms QT Int : 338 ms P-R-T Axes : 071 033 035 degrees QTc Int : 424 ms Normal sinus rhythm with sinus arrhythmia Normal ECG When compared with ECG of 19-DEC-2021 10:44, No significant change was found Referred By: Generic ED Physician Electronically Signed By:Claudio Sherman
--- NOTE | 2022-06-28 02:15 | PC.NURSE ---
Pt A&Ox4, reports 10/10 intermittent epigatric pain and RLQ pain. Pt reports pain as stabbing pain and worsening with movement. Pt reports last BM was today, some what normal, very soft . Pt denies N/V. Pt tender to touch to mid upper ABD and RLQ. IV line placed, blood work collected and sent to lab.
[2022-06-28 02:37] LABS: Basophils Absolute Auto 0.1 X10*3/uL (0.0-0.2); Basophils Percent Auto 0.8 % (0-2); Eosinophils Absolute Auto 0.1 X10*3/uL (0.0-0.4); Eosinophils Percent Auto 0.5 % (0-4); Hematocrit 43.1 % (42.0-52.0); Hemoglobin 14.5 g/dl (14.0-18.0); Imm Gran Abs Auto 0.02 X10*3/uL (0.00-0.03); Imm Gran Pct Auto 0.2 % (0.0-0.4); Lymphocytes Absolute Auto 2.2 X10*3/uL (1.2-4.9); Lymphocytes Percent Auto 24.4 % (20-40); MANUAL DIFF FLAG NO; Mean Corpuscular HGB Conc 33.6 g/dl (31.0-36.0); Mean Corpuscular Volume 92.3 fL (80.0-98.0); Mean Platelet Volume 8.7 fL (9.4-12.4); Monocytes Absolute Auto 0.7 X10*3/uL (0.1-1.2); Monocytes Percent Auto 7.4 % (2-11); Neutrophils Absolute Auto 6.1 x10*3/uL (2.0-8.3); Neutrophils Percent Auto 66.7 % (45-73); Platelet Count 284 X10*3/uL (160-400); Red Blood Count 4.67 X10*6/uL (4.60-5.80); Red Cell Distribution Width 12.6 % (11.0-16.0); White Blood Count 9.1 X10*3/uL (4.8-10.8)
[2022-06-28 03:21] LABS: Alanine Aminotransferase 25 U/L (0-40); Albumin Level 3.9 g/dL (3.5-5.0); Alkaline Phosphatase 86 U/L (39-117); Anion Gap 10 (12-20); Aspartate Amino Transferase 16 U/L (5-37); Bilirubin Total 0.3 mg/dL (0.0-1.0); Blood Urea Nitrogen 12 mg/dL (9-16); Carbon Dioxide 28 mmol/L (22-29); Chloride 107 mmol/L (96-108); Creatinine Clr Calc Pharmacy 109.7; Estimated Glomerular Filt Rate > 60; Glucose Random 100 mg/dL (60-115); Lipase 31 U/L (8-78); Potassium 4.4 mmol/L (3.3-5.1); Sodium 141 mmol/L (135-145); Total Protein 6.5 g/dL (6.5-8.0)
--- NOTE | 2022-06-28 05:28 | ED.ABDPAIN ---
HPI - Abdominal Pain General Chief Complaint: Abdominal Pain Stated Complaint: stomach pain Time Seen by Provider: 06/28/22 05:19 Source: patient Mode of arrival: ambulatory Limitations: no limitations History of Present Illness HPI narrative: 41-year-old male who presents emergency department for evaluation abdominal pain x3 days. Patient states that this pain started 3 days prior after you drink a homemade fruit juice which consisted one pear, two green apples, one orange and two limes that he put through a juicer. He states that the pain started 2-3 hours after you drink the for juice. He states the pain was in his upper stomach, the pain is a constant, stabbing, twisting pain which is greater than 10/10. Patient states that yesterday he did developed loose diarrheal stools, at least 10 stools. Denied any blood in the stools. He has not traveled outside of the country and he has not been on antibiotics recently. He denied fever, chills, nausea, or vomiting. He states that he is passing gas. His pain got worse today so he came to emergency department for evaluation. Patient has no past surgical history. Related Data Home Medications Medication Instructions Recorded Confirmed valacyclovir 1 gram tablet 1,000 mg PO DAILY PRN 04/18/22 acetaminophen 500 mg capsule 500 - 1,000 mg PO Q6H PRN pain 05/19/22 (Mapap (acetaminophen)) umeclidinium 62.5 mcg/actuation 1 inh inhalation DAILY 05/19/22 blister powder for inhalation (Incruse Ellipta) Previous Rx's Medication Instructions Recorded albuterol sulfate 90 mcg/actuation 2 inh inhalation Q6H PRN shortness 01/10/21 aerosol inhaler of breath or wheezing 30 days #18 grams fluticasone furoate 100 1 inh inhalation DAILY 30 days #60 10/18/21 mcg-vilanterol 25 mcg/dose ea inhalation powder (Breo Ellipta) aluminum-mag hydroxide-simethicone 5 ml PO QID PRN indigestion 30 12/19/21 400 mg-400 mg-40 mg/5 mL oral susp days #355 mL (Maalox Maximum Strength) benzonatate 200 mg capsule 200 mg PO BID PRN cough 30 days 12/19/21 #60 caps gabapentin 300 mg capsule 300 mg PO BID for pain 30 days #60 04/24/22 caps omeprazole 40 mg capsule,delayed 40 mg PO DAILY 30 days #30 caps 06/05/22 release tizanidine 4 mg tablet 4 mg PO BID PRN muscle spasticity 06/16/22 30 days #60 tabs Allergies Allergy/AdvReac Type Severity Reaction Status Date / Time Penicillins [PCN] Allergy Severe HIVES AND Verified 06/28/22 02:01 EDEMA Review of Systems Review of Systems Yes all other systems are reviewed and are negative [facility] Past Medical History [facility] Narrative: Social history: The patient smokes 1 pack of cigarettes per day times 31 years. He occasionally drinks alcohol. He denies drug use. Medical History Abnormal PFTs (pulmonary function tests) Asthma Axillary adenopathy Chest pain Chronic cough Chronic restrictive lung disease Emphysema (subcutaneous) (surgical) resulting from a procedure ILD (interstitial lung disease) Tobacco dependence Surgical History History of vasectomy (~2015) Family History Family History Mother Diabetes Asthma Father No problems noted. Maternal Grandmother Cancer Maternal Aunt Breast cancer Social History Social History Alcohol intake: current Alcohol intake frequency: holidays/special occasions only Patient Tobacco Use Status: Current everyday Tobacco user Tobacco use type: Cigarette Cigarettes Per Day: 7 Years Smoked: 35 +/- Smoked in Last 30 Days: No Use of substances other than those prescribed or required for medical reasons: No Advance Directives: No Advance Directives Information Provided: No Physical Exam ED Vital Signs: Vital Signs - 24 hr 06/28/22 02:01 06/28/22 04:00 06/28/22 05:55 Temperature 98.8 F 99.0 F Pulse Rate 103 H 96 Respiratory Rate 20 16 18 Blood Pressure 139/100 H 141/84 H Pulse Oximetry 97 95 Oxygen Delivery Method Room Air Room Air 06/28/22 06:02 06/28/22 07:11 Temperature 99.5 F 99.4 F Pulse Rate 102 H 92 Respiratory Rate 18 12 Blood Pressure 122/74 120/70 Pulse Oximetry 93 95 Oxygen Delivery Method Room Air Room Air BMI result Body Mass Index 28.5 Const General: cooperative and no acute distress Orientation/consciousness: oriented to person and oriented to place Limitations: no limitations HENMT Head: Yes normal to inspection, Yes normocephalic and Yes atraumatic Ears: external ears normal General nose exam: Normal external nose present Face and sinus: Yes normal facial exam Mouth: Normal oral and palatal mucosa present Throat: Yes posterior oropharynx normal Eyes General: appearance normal, both eyes and all related structures Pupils: Equal, round and reactive pupils present Neck Neck: Yes normal visual inspection, Yes no lymphadenopathy, Yes trachea midline and Yes supple Chest Chest palpation & inspection: normal inspection of the chest and normal palpation of entire chest wall Resp Effort & Inspection: normal respiratory effort and able to speak in complete sentences Auscultation: clear to auscultation bilaterally Cardio Rate: regular rate Rhythm: regular rhythm Heart sounds: S1 normal heart sound present, S2 normal heart sound present and no murmurs GI Other: Patient's abdomen does appear to be distended, has hyperactive bowel sounds, the patient has very localized moderate to severe right lower quadrant tenderness, has referred pain to the right with palpation of the left lower quadrant (Rovsing sign). Palpation (GI): Tenderness to palpation present (GI) General: Yes no CVA tenderness Back/Spine/Pelvis Back: no CVA tenderness Skin General skin exam: no rashes or lesions noted Neuro General: oriented to person and oriented to place Cranial nerves: Yes CN's II-XII intact bilaterally and Yes Equal, round and reactive pupils present Cognition (Neuro): normal cognition Motor exam (neuro): 5/5 motor strength present throughout Extrem General: Yes normal to inspection Psych Appearance: grossly normal Speech and movement: Normal speech and movement present Affect: normal affect Attitude: cooperative Medical Decision Making Medical Decision Making MDM Narrative: 41-year-old male who presents emergency department for evaluation of 3 days epigastric pain which started several hours after he made a homemade juice drinking with his juicer. The next day the pain got worse he developed 10 loose diarrheal stools.. Vital signs revealed an elevated blood pressure of 139/100 and elevated pulse of 103 otherwise were unremarkable. Patient's abdomen is distended, he has moderate to severe right lower quadrant tenderness and hyper active bowel sounds. I ordered a CBC, CMP, lipase, CT scan of the abdomen pelvis with IV contrast. Patient's pain was treated with morphine 4 mg IV, Toradol 15 mg IV and Zofran 4 mg IV. Patient was also ordered to get normal saline x1 L 0735: My interpretation patient's laboratory evaluation: CBC was normal. CMP normal except for elevated glucose of 140. Lipase normal. Urinalysis was normal. CT scan of the abdomen pelvis with IV contrast revealed a normal appendix. Patient however does have marked submucosal edema of the terminal ileum, the ascending colon, proximal half the transverse colon. Given this finding, I will treat the patient with Levaquin 500 mg IV and metronidazole 500 mg IV. Differential includes Crohn's disease versus infectious colitis. I will add blood cultures x2, C diff and GI panel. His pain initially improved with the above treatment but he required a 2nd dose of morphine 4 mg IV. I will discuss admission with the covering hospitalist. Differential Diagnosis Differential diagnosis includes was not limited to gastritis, pancreatitis, biliary disease, small-bowel obstruction, diverticulitis, appendicitis, Crohn disease, ulcerative colitis, infectious colitis Admission/Observation Consideration of admission/observation: Escalation of care including admission/observation considered Consult Healthcare Provider Management of the patient was discussed with: Hospitalist Lab Data 06/28/22 02:28 06/28/22 02:28 Labs: Lab Results 06/28/22 06/28/22 06/28/22 Range/Units 02:28 02:28 07:16 WBC 9.1 (4.8-10.8) X10*3/uL RBC 4.67 (4.60-5.80) X10*6/uL Hgb 14.5 (14.0-18.0) g/dl Hct 43.1 (42.0-52.0) % MCV 92.3 (80.0-98.0) fL MCH 31.0 (27.0-33.0) pg MCHC 33.6 (31.0-36.0) g/dl RDW 12.6 (11.0-16.0) % Plt Count 284 (160-400) X10*3/uL MPV 8.7 L (9.4-12.4) fL Immature Gran % (Auto) 0.2 (0.0-0.4) % Neut % (Auto) 66.7 (45-73) % Lymph % (Auto) 24.4 (20-40) % Colbert % (Auto) 7.4 (2-11) % Eos % (Auto) 0.5 (0-4) % Baso % (Auto) 0.8 (0-2) % Lymph # (Auto) 2.2 (1.2-4.9) X10*3/uL Colbert # (Auto) 0.7 (0.1-1.2) X10*3/uL Eos # (Auto) 0.1 (0.0-0.4) X10*3/uL Baso # (Auto) 0.1 (0.0-0.2) X10*3/uL Abs Immat Gran (auto) 0.02 (0.00-0.03) X10*3/uL Absolute Neuts (auto) 6.1 (2.0-8.3) x10*3/uL Absolute Nucleated RBC 0.000 (0.0-0.012) X10*3/uL Nucleated RBC % (auto) 0.0 (0.0-0.2) /100WBC Sodium 141 (135-145) mmol/L Potassium 4.4 (3.3-5.1) mmol/L Chloride 107 (96-108) mmol/L Carbon Dioxide 28 (22-29) mmol/L Anion Gap 10 L (12-20) BUN 12 (9-16) mg/dL Creatinine 0.91 (0.5-1.4) mg/dL Estim Creat Clear Calc 109.7 Estimated GFR > 60 POC Glucose 140 H (60-115) mg/dL Random Glucose 100 (60-115) mg/dL Calcium 9.0 D (8.4-10.2) mg/dL Total Bilirubin 0.3 (0.0-1.0) mg/dL AST 16 (5-37) U/L ALT 25 (0-40) U/L Alkaline Phosphatase 86 (39-117) U/L Total Protein 6.5 (6.5-8.0) g/dL Albumin 3.9 (3.5-5.0) g/dL Lipase 31 (8-78) U/L Medications Administered Discontinued Medications Generic Name Dose Route Start Last Admin Trade Name Freq PRN Reason Stop Dose Admin Sodium Chloride 1,000 mls @ 999 mls/hr 06/28/22 05:28 06/28/22 07:07 Ns IV 06/28/22 06:28 Infused .Q1H1M STA Infusion Iohexol 85 ml 06/28/22 05:46 06/28/22 05:47 Iohexol 350 Mg/Ml 100 Ml Infus..Btl IV 06/28/22 05:47 85 ml ONCE ONE Administration Ketorolac Tromethamine 15 mg 06/28/22 05:28 06/28/22 05:52 Ketorolac Tromethamine 15 Mg/Ml Vial IVPUSH 06/28/22 05:29 15 mg ONCE STA Administration Morphine Sulfate 4 mg 06/28/22 05:28 06/28/22 05:55 Morphine Sulfate 4 Mg/Ml Cartridge IVPUSH 06/28/22 05:29 4 mg ONCE STA Administration Protocol Ondansetron HCl 4 mg 06/28/22 05:28 06/28/22 05:50 Ondansetron Hcl 4 Mg/2 Ml Vial IVPUSH 06/28/22 05:29 4 mg ONCE ONE Administration Discharge Plan Discharge Clinical Impression: Colitis, Abdominal pain, Diarrhea Patient Disposition: Admitted As Inpatient
[2022-06-28] MEDS: iohexoL 350 MG/ML 100 ML INFUS..BTL 85 ML IV (05:47)
[2022-06-28] MEDS: ondansetron HCL 4 MG/2 ML VIAL IVPUSH (05:50)
[2022-06-28] MEDS: Ketorolac Tromethamine 15 MG/ML VIAL IVPUSH (05:52)
[2022-06-28] MEDS: Morphine Sulfate 4 MG/ML CARTRIDGE IVPUSH ×2 (05:55→08:17)
[2022-06-28] MEDS: 0.9 % Sodium Chloride 1,000 ML 999 ML IV (05:58)
--- NOTE | 2022-06-28 06:07 | PC.NURSE ---
Pt states immediate relief after meds given as documented.
--- NOTE | 2022-06-28 07:20 | MHC.EDTECH ---
Patient states he is hypoglycemic. His last food intake was at 11:30pm last night (coffee with extra sugar) his blood sugar was 140. Geeta O
[2022-06-28 07:21] LABS: Glucose, Whole Blood 140 mg/dL (60-115)
[2022-06-28] MEDS: metroNIDAZOLE/NS 500 MG/100 ML PIGGYBACK 100 MG IV ×2 (08:18→17:30)
[2022-06-28] MEDS: levoFLOXacin/D5W 500 MG/100 ML PIGGYBACK 100 MG IV (08:51)
--- NOTE | 2022-06-28 09:31 | PHA.MEDREC ---
Pharmacy Consult ? Medication Reconciliation Pharmacy has completed the medication reconciliation. pATIENT TAKES TIZANIDINE PRN (ONLY ONCE A DAY VS TWICE A DAY) AND ONLY USES VALTREX PRN COLD SORE OUTBREAK DREW
--- NOTE | 2022-06-28 11:14 | PC.NURSE ---
Patient laying on stretcher calm and cooperative. Patient is alert and oriented, denies pain at this time but is feeling cold. Patient with temp 99.8.
--- NOTE | 2022-06-28 11:40 | P.HPHOSP_ITS ---
History of Present Illness Date of Service: 06/28/22 Attending physician on admission: Alverto Gallagher Chief Complaint: abd pain 41-year-old M with copd,active smoker-came with abdominal pain x3 days.? Patient states that this pain started 3 days prior after you drink a homemade fruit juice which consisted one pear, two green apples, one orange and two limes that he put through a juicer.? He states that the pain started 2-3 hours after you drink the for juice. He also ate steak somewhat undercooked- He states the pain was in his upper stomach, the pain is a constant, stabbing, twisting pain which is greater than 10/10.? Patient states that yesterday he did developed loose diarrheal stools, at least 10 stools.? Denied any blood in the stools.? He denied fever, chills, nausea, or vomiting.? He states that he is passing gas.? His pain got worse today so he came to emergency department for evaluation. On further questioning: After receiving antibiotics and pain medications in ED patient still Feels somewhat nauseated and has abdominal pain Denies any new complaint of chest pain or shortness of breath or abdominal pain or fever or chills or vomiting ? He has not traveled outside of the country and he has not been on antibiotics recently, denies to eat anything from outside. Denies any cough Denies any weakness or numbness. Lab imaging reviewed: No leukocytosis, BMP seems fine, CT abdomen: Marked submucosal edema within the ascending colon and proximal half of the transverse colon, with mild submucosal edema and terminal ileum compatible with an enterocolitis whether infectious or inflammatory. Patient got morphine, antibiotics Levaquin and metronidazole in the ED and requested admission for colitis. Review of Systems Review of Systems: As above. [facility] Medical History Abnormal PFTs (pulmonary function tests) Asthma Axillary adenopathy Chest pain Chronic cough Chronic restrictive lung disease Emphysema (subcutaneous) (surgical) resulting from a procedure ILD (interstitial lung disease) Tobacco dependence Family History Mother Diabetes Asthma Father No problems noted. Maternal Grandmother Cancer Maternal Aunt Breast cancer Surgical History History of vasectomy (~2016) Social History Alcohol intake: current Alcohol intake frequency: holidays/special occasions only Patient Tobacco Use Status: Current everyday Tobacco user Tobacco use type: Cigarette Cigarettes Per Day: 7 Years Smoked: 35 +/- Smoked in Last 30 Days: No Use of substances other than those prescribed or required for medical reasons: No Advance Directives: No Advance Directives Information Provided: No Meds Allergies Allergy/AdvReac Type Severity Reaction Status Date / Time Penicillins [PCN] Allergy Severe HIVES AND Verified 06/28/22 02:01 EDEMA Active Medications: Current Medications Albuterol Sulfate (Albuterol Sulfate 90 Mcg 8 Gm Inhaler) 2 puff INHALE Q6H PRN PRN Reason: shortness of breath or wheezing Fluticasone/Vilanterol (Fluticasone/Vilanterol 100/25 Blst.W.Dev) 1 puff INHALE DAILY [facility] Gabapentin (Gabapentin 300 Mg Capsule) 300 mg PO BID [facility] Levofloxacin (Levaquin) 500 mg in 100 mls @ 100 mls/hr IV Q24H [facility] Metronidazole (Flagyl) 500 mg in 100 mls @ 100 mls/hr IV Q8H [facility] Lactated Ringer's (Lr) 1,000 mls @ 80 mls/hr IVCONT .[id number] [facility] Non-Formulary Medication (Acetaminophen [Mapap (Acetaminophen)]) 500 - 1,000 mg PO Q6H PRN PRN Reason: pain Non-Formulary Medication (Umeclidinium [Incruse Ellipta]) 1 inhalation INHALE DAILY [facility] Omeprazole (Omeprazole 40 Mg Capsule.Dr) 40 mg PO BID [facility] Pharmacy Consult (Consult Rx Perform Med Rec) 1 each MISCELLANE ONCE PRN PRN Reason: Consult order Sodium Chloride (0.9 % Sodium Chloride Flush 3 Ml Syringe) 3 ml IVFLUSH QSHIFT [facility] Tizanidine HCl (Tizanidine Hcl 4 Mg Tablet) 4 mg PO DAILY PRN PRN Reason: muscle spasticity Valacyclovir HCl (Valacyclovir Hcl 1,000 Mg Tablet) 1,000 mg PO DAILY PRN PRN Reason: Cold Sores Home Medications Medication Instructions Recorded Confirmed Last Taken Type valacyclovir 1 gram tablet 1,000 mg PO DAILY PRN Cold Sores 04/18/22 06/28/22 2 Days Ago History ~06/26/22 acetaminophen 500 mg capsule 500 - 1,000 mg PO Q6H PRN pain 05/19/22 06/28/22 2 Days Ago History (Mapap (acetaminophen)) ~06/26/22 umeclidinium 62.5 mcg/actuation 1 inh inhalation DAILY 05/19/22 06/28/22 2 Days Ago History blister powder for inhalation ~06/26/22 (Incruse Ellipta) omeprazole 40 mg capsule,delayed 40 mg PO BID 06/28/22 06/28/22 2 Days Ago History release ~06/26/22 tizanidine 4 mg tablet 4 mg PO DAILY PRN muscle spasticity 06/28/22 06/28/22 2 D ays Ago History ~06/26/22 Physical Exam Vital Signs and Narrative: Vital Signs: Last Vital Signs Temp 99.8 F 06/28/22 11:11 Pulse 96 06/28/22 11:11 Resp 15 06/28/22 11:11 BP 138/83 06/28/22 11:11 Pulse Ox 98 06/28/22 11:11 O2 Del Method Room Air 06/28/22 11:11 BMI result Body Mass Index 28.5 Appearance: Alert.? Oriented X3.? has abd pain. Eyes: Pupils equal, round and reactive to light.? Sclera nonicteric.? ENT: Pharynx normal.? Moist mucous membranes. cvs: rrr, [id number]. res: clear to auscultation ,no rhonchii or wheezing abd: no rebound or guarding ,right sided , bs present. ext pulses present , no cyanosis . neuro: axo3 , nonfocal. Results Labs 06/28/22 02:28 06/28/22 02:28 Labs: Laboratory Results - last 24 hr 06/28/22 06/28/22 06/28/22 02:28 02:28 07:16 MCV 92.3 MCH 31.0 MCHC 33.6 RDW 12.6 Plt Count 284 MPV 8.7 L Immature Gran % (Auto) 0.2 Neut % (Auto) 66.7 Lymph % (Auto) 24.4 [place] % (Auto) 7.4 Eos % (Auto) 0.5 Baso % (Auto) 0.8 Lymph # (Auto) 2.2 [place] # (Auto) 0.7 Eos # (Auto) 0.1 Baso # (Auto) 0.1 Abs Immat Gran (auto) 0.02 Absolute Neuts (auto) 6.1 Absolute Nucleated RBC 0.000 Nucleated RBC % (auto) 0.0 Anion Gap 10 L Estim Creat Clear Calc 109.7 Estimated GFR > 60 POC Glucose 140 H Random Glucose 100 Calcium 9.0 D Total Bilirubin 0.3 AST 16 ALT 25 Alkaline Phosphatase 86 Total Protein 6.5 Albumin 3.9 Lipase 31 Imaging Radiologist's Impressions: Impressions Abdomen/Pelvis CT 06/28/22 05:55 IMPRESSION: * Marked submucosal edema within the ascending colon and proximal half of the transverse colon, with mild submucosal edema and terminal ileum compatible with an enterocolitis whether infectious or inflammatory. * Normal appendix. * Mild lower lung bronchiectatic changes. Assessment and Plan (1) Colitis: Status: Acute (2) Abdominal pain: Qualifiers: Abdominal location: right lower quadrant Qualified Code(s): R10.31 - Right lower quadrant pain Status: Acute Plan 41-year-old M with copd,active smoker-came with abdominal pain. 1. Colitis : Patient says that he had previously 1 episode few years ago by eating steak which was slightly undercooked. esr ,crp,blood cultures pending added iv hydration,pain ,antibiotics Levaquin/flagyl day1(06/28/22) GI evaluation 2. copd: not hypoxic continue home meds 3. smoker added nicotein patch Avoid [place] to abstain from smoking dvt prophylax:low risk, ambulation Patient will benefit from stay-due to colitis -significant abdominal pain even with pain medications and unable to tolerate the diet yet, also need GI evaluation. Time Spent With Patient Time: Total time managing care of this patient today ____ minutes. Quality Stroke Does the patient have a stroke diagnosis?: No VTE Prior VTE?: No VTE Risk Level:: Medical - moderate - high VTE Device Contraindication: N/A - Device Ordered VTE Drug Contraindication: N/A - Med Ordered
[2022-06-28] MEDS: Lactated Ringers 1,000 ML 80 ML IVCONT (11:48)
[2022-06-28] MEDS: Acetaminophen 325 MG TABLET 650 MG PO ×2 (11:54→17:29)
[2022-06-28] MEDS: Nicotine 21 MG PATCH.TD24 TRANSDERMA (12:14)
[2022-06-28 12:43] LABS: Erythrocyte Sedimentation Rate 10 MM/HR (0-15)
--- NOTE | 2022-06-28 15:27 | PM.EVENT ---
Event Note Date of Service: 06/28/22 Event Note: GI consult dictated Presentation is c/w acute colitis, likely infectious. Agree with abx await stool studies. Time Spent With Patient Time: Total time managing care of this patient today ____ minutes.
[2022-06-28] MEDS: Omeprazole 40 MG CAPSULE.DR PO (17:29)
[2022-06-28] MEDS: 0.9 % Sodium Chloride Flush 3 ML SYRINGE IVFLUSH (17:30)
[2022-06-28 19:25] LABS: CDiff Gene PCR NEGATIVE (Negative)
--- NOTE | 2022-06-28 20:13 | MHC.EDTECH ---
i took over assignment from giovany,, vitals taken , pt ambulated to restroom he had a med BM he stated
[2022-06-28] MEDS: Gabapentin 300 MG CAPSULE PO (21:59)
[2022-06-29] VITALS (7 sets, daily range): BP systolic 119–148; BP diastolic 73–88; PULSE 78–107; RESP 16–20; TEMP 36–38.7; O2SAT 90–96
[2022-06-29] MEDS: metroNIDAZOLE/NS 500 MG/100 ML PIGGYBACK 100 MG IV ×4 (00:06→23:57)
[2022-06-29] MEDS: Acetaminophen 325 MG TABLET 650 MG PO (00:06)
[2022-06-29] MEDS: Morphine Sulfate 4 MG/ML CARTRIDGE IVPUSH ×3 (00:24→16:33)
[2022-06-29] MEDS: Lactated Ringers 1,000 ML 80 ML IVCONT (00:27)
--- NOTE | 2022-06-29 02:00 | CONS_ITS ---
DATE OF SERVICE: 06/28/2022 REFERRING PHYSICIAN: Alverto Gallagher MD REASON FOR CONSULTATION: Colitis. HISTORY OF PRESENT ILLNESS: The patient is a pleasant 41-year-old man, who was admitted to the hospital after presenting to the emergency room yesterday with complaints of abdominal pain and diarrhea. Symptoms began approximately 3 days prior to admission after he had a homemade food drink. He denies any recent unusual travel, ill contacts, or history of colitis. He was evaluated in the emergency department because he had worsening abdominal pain over the 3-day period that persisted. He did not have nausea or vomiting, but did have some diarrheal symptoms prior to arriving in the emergency department. There was no rectal bleeding. He was evaluated with laboratory studies and CT imaging, which are reviewed. The CT is interpreted as showing changes consistent with an antral colitis. Appendix was normal and bronchiectasis was seen in lung bases. The patient has been started on antibiotics and stool specimens have been ordered. He denies any prior history of colitis. He did have a gastroenteritis over the past year, but this was associated with nausea and vomiting as well. He has never undergone colonoscopy. PAST MEDICAL HISTORY: 1. Asthma. 2. Restrictive lung disease. 3. Chronic cough, for which he takes omeprazole. CURRENT MEDICATIONS: His current medication list is reviewed in the chart. ALLERGIES: PENICILLIN. FAMILY HISTORY: This is reviewed with the patient and is noncontributory. SOCIAL HISTORY: He smokes one pack of cigarettes per day. He denies other substance use. REVIEW OF SYSTEMS: SKIN: No pruritus. HEENT: Negative. CARDIOPULMONARY: No shortness of breath or chest pain currently. GASTROINTESTINAL: As above. GENITOURINARY: Negative. NEUROPSYCHIATRIC: Negative. PHYSICAL EXAMINATION: GENERAL: A pleasant male, lying comfortably on a stretcher. VITAL SIGNS: Reviewed in the electronic medical record and are stable. SKIN: Anicteric. HEENT: No scleral icterus. NECK: Without lymphadenopathy or thyromegaly. LUNGS: Clear. HEART: Regular rate and rhythm. S1, S2. No murmur. ABDOMEN: Slightly protuberant. There seems to be some tenderness to palpation in the right side of the abdomen. Bowel sounds are present. There is no guarding or rebound. No organomegaly is noted. EXTREMITIES: Without edema. LABORATORY AND IMAGING DATA: Laboratory data and CT scanning are reviewed. IMPRESSION: Colitis. His presentation is consistent with acute colitis, likely infectious. Stool studies have been ordered and are pending. I agree with treating him with antibiotics as you are doing. If his symptoms persist and stool studies are nondiagnostic, colonoscopy could be considered, but this may be best deferred until after his acute colitis is over given the degree of submucosal edema on the CAT scan. Thanks for asking me to see him. I will follow him in the hospital with you. MD FATIMAH Wolf/CHANEL / [id number] MTDD
[2022-06-29 02:19] LABS: Lactic Acid 1.2 mmol/L (0.5-2.0)
[2022-06-29] MEDS: Omeprazole 40 MG CAPSULE.DR PO ×2 (06:35→16:27)
[2022-06-29 07:15] LABS: Anion Gap 13 (12-20); Blood Urea Nitrogen 10 mg/dL (9-16); Calcium 8.7 mg/dL (8.4-10.2); Carbon Dioxide 23 mmol/L (22-29); Chloride 106 mmol/L (96-108); Creatinine Clr Calc Pharmacy 117.5; Estimated Glomerular Filt Rate > 60; Glucose Random 96 mg/dL (60-115); Potassium 4.1 mmol/L (3.3-5.1); Sodium 138 mmol/L (135-145)
[2022-06-29] MEDS: Nicotine 21 MG PATCH.TD24 TRANSDERMA (08:24)
[2022-06-29] MEDS: Gabapentin 300 MG CAPSULE PO ×2 (08:26→21:12)
[2022-06-29] MEDS: levoFLOXacin/D5W 500 MG/100 ML PIGGYBACK 100 MG IV (09:37)
[2022-06-29] MEDS: 0.9 % Sodium Chloride Flush 3 ML SYRINGE IVFLUSH ×3 (09:37→21:12)
--- NOTE | 2022-06-29 09:42 | MHC.CM.PN ---
CASTRO 06/29/22 Male 41 DX Numbness+ tingling [place] hands. He lives with his and kids. He uses a cane r/t chronic back pain. He is independent with ADLs. Vaxxed x 3. Declined the offer to document a HCP. DP home self care. Patients will transport home.
--- NOTE | 2022-06-29 12:22 | PM.GIPN ---
Subjective Subjective Date of Service: 06/29/22 Interval History: hungry pain improved Critical Care Time (minutes): 0 Physical Exam Vital Signs: Vital Signs: Last Vital Signs Temp 99.4 F 06/29/22 07:37 Pulse 97 06/29/22 07:37 Resp 18 06/29/22 07:37 BP 135/83 06/29/22 07:37 Pulse Ox 90 L 06/29/22 07:37 O2 Del Method Room Air 06/29/22 07:37 BMI result Body Mass Index 28.5 GI: Other: abdomen is soft without focal tenderness Objective Data Labs 06/28/22 02:28 06/29/22 06:07 Labs: Laboratory Results - last 24 hr 06/28/22 06/28/22 06/29/22 02:28 18:00 01:52 ESR 10 Sodium Potassium Chloride Carbon Dioxide Anion Gap BUN Creatinine Estim Creat Clear Calc Estimated GFR Random Glucose Lactic Acid 1.2 Calcium C. difficile Tox B Gene NEGATIVE 06/29/22 06:07 ESR Sodium 138 Potassium 4.1 Chloride 106 Carbon Dioxide 23 Anion Gap 13 BUN 10 Creatinine 0.85 Estim Creat Clear Calc 117.5 Estimated GFR > 60 Random Glucose 96 Lactic Acid Calcium 8.7 C. difficile Tox B Gene Microbiology Microbiology Results: Microbiology 06/28/22 07:58 Blood - Venous Blood Culture - Preliminary No growth after 24 hours. 06/28/22 08:05 Blood - Venous Blood Culture - Preliminary No growth after 24 hours. Procedures Date of Service Date of Service: 06/29/22 Progress Note: A&P Assessment and plan (1) Colitis: Status: Acute Assessment and Plan: overall improvement advance diet outpatient colonoscopy in about 8 weeks Time Spent With Patient Time: Total time managing care of this patient today ____ minutes. Quality Stroke Does the patient have a stroke diagnosis?: No VTE Prior VTE?: No VTE Risk Level:: Medical - moderate - high VTE Device Contraindication: N/A - Device Ordered VTE Drug Contraindication: N/A - Med Ordered
--- NOTE | 2022-06-29 15:50 | P.PNIM_ITS ---
Subjective Subjective Date of Service: 06/29/22 Interval History: abd pain Review of Systems Still feel nauseated has abdominal pain, overnight also has fever. Blood cultures So far during the day no fevers Physical Exam Vital Signs: Vital Signs: Last Vital Signs Temp 96.8 F 06/29/22 15:35 Pulse 83 06/29/22 15:35 Resp 20 06/29/22 15:35 BP 124/82 06/29/22 15:35 Pulse Ox 96 06/29/22 15:35 O2 Del Method Room Air 06/29/22 15:35 BMI result Body Mass Index 28.5 Appearance: Alert.? Oriented X3.? has abd pain. cvs: rrr, [id number]. res: clear to auscultation ,no rhonchii or wheezing abd: no rebound or guarding ,right sided mild pain, bs present. ext pulses present , no cyanosis . neuro: axo3 , nonfocal. Objective Data Active Medications Acetaminophen (Acetaminophen 325 Mg Tablet) 650 mg PO Q6H PRN PRN Reason: pain Last Admin: 06/29/22 00:06 Dose: 650 mg Documented By: CLAIRE Albuterol Sulfate (Albuterol Sulfate 90 Mcg 8 Gm Inhaler) 2 puff INHALE Q6H PRN PRN Reason: shortness of breath or wheezing Fluticasone/Vilanterol (Fluticasone/Vilanterol 100/25 Blst.W.Dev) 1 puff INHALE RDAILY [facility] Last Admin: 06/29/22 08:31 Dose: Not Given Documented By: JERO Non-Admin Reason: pharmacy called Gabapentin (Gabapentin 300 Mg Capsule) 300 mg PO BID [facility] Last Admin: 06/29/22 08:26 Dose: 300 mg Documented By: JOE Levofloxacin (Levaquin) 500 mg in 100 mls @ 100 mls/hr IV Q24H [facility] Last Infusion: 06/29/22 10:50 Dose: 0 mls/hr Documented By: JOE Metronidazole (Flagyl) 500 mg in 100 mls @ 100 mls/hr IV Q8H [facility] Last Infusion: 06/29/22 09:48 Dose: 0 mls/hr Documented By: JOE Lactated Ringer's (Lr) 1,000 mls @ 80 mls/hr IVCONT .[id number] [facility] Last Admin: 06/29/22 00:27 Dose: 80 mls/hr Documented By: CLAIRE Morphine Sulfate (Morphine Sulfate 4 Mg/Ml Cartridge) 4 mg IVPUSH Q4H PRN; Protocol PRN Reason: Pain, Severe (Pain Scale 7-10) Last Admin: 06/29/22 08:25 Dose: 4 mg Documented By: JOE Nicotine (Nicotine 21 Mg Patch.Td24) 21 mg TRANSDERMA DAILY [facility] Last Admin: 06/29/22 08:24 Dose: 21 mg Documented By: JOE Omeprazole (Omeprazole 40 Mg Capsule.Dr) 40 mg PO BID@0630,1630 [facility] Last Admin: 06/29/22 06:35 Dose: 40 mg Documented By: CLAIRE Pharmacy Consult (Consult Rx Perform Med Rec) 1 each MISCELLANE ONCE PRN PRN Reason: Consult order Sodium Chloride (0.9 % Sodium Chloride Flush 3 Ml Syringe) 3 ml IVFLUSH QSHIFT [facility] Last Admin: 06/29/22 09:37 Dose: 3 ml Documented By: JOE Tiotropium [place] (Tiotropium [place] 18 Mcg Cap.W.Dev) 1 puff INHALE RDAILY [facility] Last Admin: 06/29/22 08:32 Dose: Not Given Documented By: JERO Non-Admin Reason: pharmacy called Tizanidine HCl (Tizanidine Hcl 4 Mg Tablet) 4 mg PO DAILY PRN PRN Reason: muscle spasticity Valacyclovir HCl (Valacyclovir Hcl 1,000 Mg Tablet) 1,000 mg PO DAILY PRN PRN Reason: Cold Sores Labs 06/28/22 02:28 06/29/22 06:07 Labs: Laboratory Results - last 24 hr 06/28/22 06/29/22 06/29/22 18:00 01:52 06:07 Anion Gap 13 Estim Creat Clear Calc 117.5 Estimated GFR > 60 Random Glucose 96 Lactic Acid 1.2 Calcium 8.7 C. difficile Tox B Gene NEGATIVE Microbiology Microbiology Results: Microbiology 06/28/22 07:58 Blood Culture - Preliminary Blood - Venous No growth after 24 hours. 06/28/22 08:05 Blood Culture - Preliminary Blood - Venous No growth after 24 hours. Assessment and Plan (1) Colitis: Status: Acute Plan 41-year-old M with copd,active smoker-came with abdominal pain. 1. Colitis :? has fevers, esr-normal ,crp elevated ,blood cultures pending added iv hydration,pain ,antibiotics Levaquin/flagyl day1(06/28/22) GI evaluation-noted: Ordered GB panel, continue above management with antibiotic, will try to advanced diet. May need outpatient colonoscopy after acute episode colitis subsides 2. copd: not hypoxic continue home meds 3. smoker added nicotein patch Avoid [place] to abstain from smoking dvt prophylax:low risk, ambulation Patient will benefit from stay-due to? colitis -significant abdominal pain even with pain medications and unable to tolerate the diet yet, need to wait for blood cultures negative. Time Spent With Patient Time: Total time managing care of this patient today ____ minutes. Quality Stroke Does the patient have a stroke diagnosis?: No VTE Prior VTE?: No VTE Risk Level:: Medical - moderate - high VTE Device Contraindication: N/A - Device Ordered VTE Drug Contraindication: N/A - Med Ordered
[2022-06-29 16:47] LABS: E. coli EPEC Detected (Not Detect.); Plesiomonas shigelloides Not Detected (Not Detect.); Salmonella Not Detected (Not Detect.); Vibrio Not Detected (Not Detect.); Vibrio Cholerae Not Detected (Not Detect.)
[2022-06-29 16:48] LABS: Adenovirus F 40/41 Not Detected (Not Detect.); Astrovirus Not Detected (Not Detect.); Cryptosporidium Not Detected (Not Detect.); Cyclospora cayetanensis Not Detected (Not Detect.); E. coli EAEC Not Detected (Not Detect.); E. coli ETEC Not Detected (Not Detect.); E. coli STEC Not Detected (Not Detect.); Entamoeba histolytica Not Detected (Not Detect.); Giardia lamblia Not Detected (Not Detect.); Norovirus GI/GII Not Detected (Not Detect.); Rotavirus A Not Detected (Not Detect.); Sapovirus Not Detected (Not Detect.); Shigella sp./EIEC Not Detected (Not Detect.); Yersinia enterocolitica Not Detected (Not Detect.)
[2022-06-29 16:50] LABS: Campylobacter Detected (Not Detect.)
[2022-06-30 02:59] VITALS: BP 149/92; PULSE 84; RESP 18; TEMP 36.2; O2SAT 96
[2022-06-30] MEDS: Morphine Sulfate 4 MG/ML CARTRIDGE IVPUSH (03:10)
[2022-06-30] MEDS: Omeprazole 40 MG CAPSULE.DR PO (06:31)
[2022-06-30] MEDS: metroNIDAZOLE/NS 500 MG/100 ML PIGGYBACK 100 MG IV (07:31)
[2022-06-30] MEDS: 0.9 % Sodium Chloride Flush 3 ML SYRINGE IVFLUSH (07:36)
[2022-06-30 08:00] VITALS: BP 137/93; PULSE 91; RESP 18; TEMP 36.1; O2SAT 97
[2022-06-30] MEDS: Gabapentin 300 MG CAPSULE PO (08:28)
[2022-06-30] MEDS: Nicotine 21 MG PATCH.TD24 TRANSDERMA (08:28)
[2022-06-30] MEDS: levoFLOXacin/D5W 500 MG/100 ML PIGGYBACK 100 MG IV (08:28)
[2022-06-30] MEDS: Fluticasone/Vilanterol 100/25 BLST.W.DEV 1 PUFF INHALE (08:31)
[2022-06-30 08:36] VITALS: PULSE 78; RESP 18; O2SAT 97
[2022-06-30 12:00] VITALS: BP 136/95; PULSE 87; RESP 18; TEMP 36.4; O2SAT 99
--- NOTE | 2022-06-30 12:50 | P.DS_ITS ---
DS: Providers Provider Date of Service: 06/30/22 Date of admission: 06/28/22 11:30 Date of discharge: 06/30/22 Primary care physician: [facility] Consults: 06/28/22 11:39 Consult to Gastroenterology Routine Consulting Provider: [facility] Reason for consultation: colitis Attending physician on discharge: Alverto Gallagher Discharging clinician: Alverto Gallagher DS: Diagnosis Discharge Diagnosis (1) Colitis: Status: Acute DS: Summary Hospital Course Hospital Course: 41-year-old M with copd,active smoker-came with abdominal pain x3 days.? Patient states that this pain started 3 days prior after you drink a homemade fruit juice which consisted one pear, two green apples, one orange and two limes that he put through a juicer.? He states that the pain started 2-3 hours after you drink the for juice.? He also?ate steak somewhat undercooked-?He states the pain was in his upper stomach, the pain is a constant, stabbing, twisting pain which is greater than 10/10.? Patient states that yesterday he did developed loose diarrheal stools, at least 10 stools.? Denied any blood in the stools.? He denied fever, chills, nausea, or vomiting.? He states that he is passing gas.? His pain got worse today so he came to emergency department for evaluation. On further questioning:? After receiving antibiotics and pain medications in ED ?patient still?Feels somewhat nauseated and has abdominal pain Denies any new complaint of chest pain or shortness of breath or abdominal pain or fever or chills or? vomiting ? He has not traveled outside of the country and he has not been on antibiotics recently, denies to eat anything from outside. Denies any cough Denies any weakness or numbness. Lab imaging reviewed: No leukocytosis, BMP seems fine, CT abdomen:??Marked submucosal edema within the ascending colon and proximal half of the transverse colon, with mild submucosal edema and terminal ileum compatible with an enterocolitis whether infectious or inflammatory. Patient got? morphine, antibiotics Levaquin and metronidazole in the ED and requested admission for colitis. Hospital course: Patient came to the hospital because of abdominal pain after eating undercooked steak: Patient was given bowel rest, IV hydration and IV antibiotics and CT abdomen was done in addition blood cultures sent. Patient had fever initially which is subsided. Blood culture negative at [address] of the abdomen: Showed colitis. With supportive care hydration, antibiotics and bowel rest patient seems to be improved significantly, his gastrointestinal panel positive for Campylobacter and E coli: Seen by GI-switched to p.o. antibiotics upon discharge since patient is improved, GI also recommended outpatient colonoscopy once the acute episode of colitis subsided. Patient was strongly advised not to eat undercooked food. Above management discussed with the patient in detail length she understand in agreement with the above plan, time spent 50 minute. Time Spent with Patient Time attestation: Total time managing care of this patient today ____ minutes. Discharge coordination time: Greater than 30 minutes Quality: Safe Use of Opioids Does Pt have an Active Cancer Diagnosis on the Problem List?: No Quality: Stroke Does the patient have a stroke diagnosis?: No Physical Exam Vital Signs: Vital Signs: Last Vital Signs Temp 97.5 F 06/30/22 12:00 Pulse 87 06/30/22 12:00 Resp 18 06/30/22 12:00 BP 136/95 H 06/30/22 12:00 Pulse Ox 99 06/30/22 12:00 O2 Del Method Room Air 06/30/22 12:00 BMI result Body Mass Index 28.5 Appearance: Alert.? Oriented X3.?not any acute distress. cvs: rrr, [id number]. res: clear to auscultation ,no rhonchii or wheezing abd: no rebound or guarding , bs present. ext pulses present , no cyanosis . neuro: axo3 , nonfocal. DS: Data Data Completed and Pending Labs on day of discharge: Laboratory Results - last 24 hr 06/29/22 13:30 Stl C. cayetanensis PCR Not Detected Stool Rotavirus A PCR Not Detected Stl Adenov F 40/41 PCR Not Detected Stool Astrovirus (PCR) Not Detected Stool Campylobacter PCR Detected A Stool Cryptosporidium PCR Not Detected Stl Sh Tox Pr E STEC PCR Not Detected Stool E coli O157 PCR Not applicable Stl Enterotoxigenic E PCR Not Detected Stool EPEC (PCR) Detected A Stool EAEC (PCR) Not Detected Stl E. histolytica PCR Not Detected Stool Giardia Lamblia PCR Not Detected Stl P. shigelloides PCR Not Detected Stool Salmonella PCR Not Detected Stool Sapovirus (PCR) Not Detected Stl Shigella/EIEC PCR Not Detected St Y.enterocolitica PCR Not Detected Stool Vibrio (PCR) Not Detected Stl Vibrio cholerae PCR Not Detected Stl Norovirus GI/GII PCR Not Detected Preliminary micro results at discharge 06/28/22 07:58 Blood Culture - Preliminary Blood - Venous No growth after 48 hours. 06/28/22 08:05 Blood Culture - Preliminary Blood - Venous No growth after 48 hours. 06/29/22 01:03 Blood Culture - Preliminary Blood - Venous No growth after 24 hours. 06/29/22 01:04 Blood Culture - Preliminary Blood - Venous No growth after 24 hours. Discharge Plan Discharge Anticipated Discharge Date/Time: 06/30/22 12:42 Patient Disposition: Home, Self-Care Discharge Diagnosis: COLITIS Referrals: [place] [Primary Care Provider] - 1 Week Discharge Medications: New levofloxacin 500 mg tablet 500 mg PO DAILY Qty: 7 0RF Continued fluticasone furoate-vilanterol [Breo Ellipta] 100-25 mcg/dose blister with device 1 inh inhalation DAILY 30 Days Qty: 60 11RF gabapentin 300 mg capsule 300 mg PO BID 30 Days Qty: 60 2RF omeprazole 40 mg capsule,delayed release(DR/EC) 40 mg PO BID tizanidine 4 mg tablet 4 mg PO DAILY PRN (Reason: muscle spasticity) albuterol sulfate 90 mcg/actuation HFA aerosol inhaler 2 inh inhalation Q6H PRN (Reason: shortness of breath or wheezing) 30 Days Qty: 18 12RF valacyclovir 1 gram tablet 1,000 mg PO DAILY PRN (Reason: Cold Sores) Rx Instructions: use for 5 days Incruse Ellipta 62.5 mcg/actuation blister with device 1 inh inhalation DAILY acetaminophen [Mapap (acetaminophen)] 500 mg capsule 500 - 1,000 mg PO Q6H PRN (Reason: pain) Discharge Orders: Discharge Order (Routine); Ordered 06/30/22 Ordered By: Alverto Gallagher Diet: Advance to usual diet Activity on Discharge: As tolerated Stand Alone Forms: Patient Portal Discharge page Care Plan Goals: Patient came to the hospital because of abdominal pain after eating undercooked steak: Patient was given bowel rest, IV hydration and IV antibiotics and CT abdomen was done in addition blood cultures sent. Patient had fever initially which is subsided. Blood culture negative at [address] of the abdomen: Showed colitis. With supportive care hydration, antibiotics and bowel rest patient seems to be improved significantly, his gastrointestinal panel positive for Campylobacter and E coli: Seen by GI-switched to p.o. antibiotics upon discharge since patient is improved, GI also recommended outpatient colonoscopy once the acute episode of colitis subsided. Patient was strongly advised not to eat undercooked food. Above management discussed with the patient in detail length she understand in agreement with the above plan, time spent 50 minute. Health Concerns: As above. Plan of Treatment: As above. Assessment: As above.
--- NOTE | 2022-06-30 13:00 | MHC.CM.PN ---
CASTRO 06/29/22 Patient is discharged home today self-care. He has arranged for is to drive him home.
[2022-07-07 22:39] LABS: Calprotectin, Fecal 558 mcg/g
== END 2022-06-30 13:05 | disposition home or self-care (01) ==
LOC: HO.ED 07:41 → HO.EDOVER 12:33 → HO.S3 18:50
PROVIDERS: Internal Medicine; Internal Medicine Gastroenterology; Admitting Provider Internal Medicine; Emergency Provider Emergency Medicine Emergency Medical Services; Visit Provider Internal Medicine
DX: K52.9 Noninfective gastroenteritis and colitis, unspecified (principal); R10.31 Right lower quadrant pain; F17.210 Nicotine dependence, cigarettes, uncomplicated; Z79.899 Other long term (current) drug therapy
CPT/HCPCS: 36415; 74177; 80048; 80053; 82947; 83605; 83690; 83993; 85025; 85652; 86140; 87040; 87177; 87209; 87493; 87507; 93005; 94640; 96361; 96365; 96366; 96368; 96375; 96376; 99221; 99285; J1885; J1956; J2270; J2405; Q9967

== ENCOUNTER 2022-08-25 14:44 | Outpatient (AMB) | payer MEDICAID, SELFPAY ==
[2022-08-25 14:50] VITALS: BP 110/70; PULSE 89; O2SAT 97; BMI 28.2
--- NOTE | 2022-08-25 14:50 | MHC.OFFVIS ---
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 The cough tends to be mixed. Typically productive in the morning and nonproductive during the rest of the day. Moderate severity. He does have a rescue inhaler that he uses intermittently with partial resolution of the symptoms. He has been cognizant of the smoke is been bother his breathing so therefore has been trying to cut down. In the meantime he was sent for pulmonary function studies that was personally reviewed by me in the office with him. It appears that he does have a restrictive ventilatory defect of unclear etiology. He did have a repeat chest x-ray that was also personally by me demonstrating some slight increased haziness bilaterally compared to his previous CT scan from a year ago. This suggests the possibility mild pneumonitis which could be resulting in cough. We did talk about smoking related interstitial lung conditions. The patient denies any birds at home he denies any exposure to any fumes or toxins. Denies any significant occupational hazards. Therefore, will have him start a inhaled cortical steroid. He does not like the symptoms or the side effects of the beta agonist so therefore hold off on long-acting beta agonist at this time. Additional blood work with warranted. In the meantime also we did talk about trying out the Nicotrol inhaler as a way to provide tobacco cessation. 10/08/2020 the patient is here for a pulmonary follow-up visit. He continues to have shortness of breath in addition to productive cough. Unfortunately he could also continues to smoke cigarettes. He is in smoking since he was 10 years old. He did have abnormal pulmonary function studies I had him get a CT scan of the chest it appears that he does have the beginnings of emphysema but also has what appears to be some reticular changes suggesting some interstitial lung disease with some cystic changes. In addition to that he does have history small 1 mm pulmonary nodules that are likely to be insignificant. 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 The patient understands that it productive cough will be from the smoking and his lungs she is trying to clear out the smoke and tar. 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 He could have been related to getting vaccinated. In the meantime will follow-up with a ultrasound of the left axilla lymph node and 3 months. If his to enlarge then consider biopsy. 01/10/2021 the patient is here for a pulmonary follow-up visit. Since we last spoke he continues to have significant dyspnea on exertion. He is also describing chest discomfort. He is concerned that when he is performing physical activity such as going up a flight of stairs in even having intimacy with his significant other he is developing significant shortness of breath. Sometimes associated with the left-sided discomfort. The patient continues to smoke cigarettes. He has a hard time cutting down although he has cut down significantly. We did go for brief walking oximetry in the patient did have an increased heart rate up to 130 beats per minute with activity. His pulse ox was between 95-97% during the activity. his symptoms did improve after he rested. At this point the patient will go for blood work in addition to an EKG. I will also refer him to Cardiology for full cardiac evaluation. The other issue was that he had a significant lymphadenopathy based on a CT scan that he had over the summer. Therefore will have to get an ultrasound just to follow up with that lymph node in the near future. The patient stopped using all inhalers. Will make sure that he goes back on maintenance therapy. Also on Wixela to hopefully is covered by his insurance. He should also have her rescue inhaler to have as needed. 03/10/2021 the patient is here for a pulmonary follow-up visit. He still complaining of significant coughing which is productive in nature in addition to dyspnea on exertion. He did follow-up with cardiology and had a full workup which is reassuring. At this point most of his symptoms are pulmonary in nature. The patient does have increased wheezing today on examination. Unfortunately, the patient continues to smoke cigarettes. Explained to him that as he continues to smoke cigarettes his respiratory symptoms will be continued to be present. He did request a letter regarding his respiratory issues which I provided for him. In the meantime the patient will need a prednisone taper to see if he gets any relief in addition to that we will optimize his respiratory therapy. The patient will continue to work on smoking cessation. 12/19/2021 the patient is here for a pulmonary follow-up visit. The patient is complaining of significant pleuritic chest discomfort. He was so uncomfortable that he went to an urgent care. There he had an EKG and was told that he has EKG was well. The patient was given omeprazole for epigastric discomfort. Has not had any significant improvement. He complains of the shortness of breath in addition to the pleuritic discomfort. He is pointing more towards the epigastric area. He also has tenderness over the abdomen epigastric area. He has been using Motrin which may be affecting his stomach. Denies any history of blood clots. Denies any significant cough. Will go ahead and order a chest x-ray for the patient in addition to blood work. I will increase his PPI to twice a day with hopes of improving his symptoms and he is going to stop the nonsteroidal. Will follow-up after his blood work and additional imaging studies. He has been confused about status inhalers. Initially I sent him Trelegy although it was not covered so I sent Breo and Incruse. He has been only using Incruse. Will be starting Breo soon. Therefore, I will go ahead and stop the Incruse and having just use Breo for now. The patient continues smoking cigarettes. 02/21/2022 the patient is here for pulmonary follow-up visit. Again has multiple complaints. Complains of shortness of breath with minimal activity. He is having chest tightness as well. Does get some relief with his inhalers. Unfortunately continues to smoke cigarettes. In addition to that he has had significant issues with his back pain. Previously which is noted to be adjust the lower part and now is extending further to the full back. Complains of neck pain. He has not been able to work because of the pain. he is trying to get to his primary care doctor's office. Unfortunately back pain and his discomfort is limiting him from being able to take deep breaths. Continues with the Trelegy inhaler. In addition to that did undergo a barium swallow which is reassuring. He was taking the additional PPI for the epigastric discomfort before. The patient stop taking nonsteroidals. I will refer him to Pain Management to see that can help him with all this discomfort. 08/25/2022 the patient is here for a pulmonary follow-up visit. The patient continues to complain of cough. Moderate severity. Typically productive in the morning. Explained to him that is likely from his smoking. The patient is still struggling with smoking cessation. We had been maximizing his respiratory therapy at this time with only partial resolution of the symptoms. The patient has tried nicotine patches but have not been helpful. We also talked about considering Chantix. The family member is with him. Explained to the family that if he goes on Chantix he needs to be monitoring closely for any signs of depression. The patient is considering it. I will send the prescription to the pharmacy and he was started without understanding. In the meantime will go ahead and continue to cut my maximize his respiratory therapy. The his chest pain seems to be better at this time. His epigastric discomfort also has been better this time. [facility] Medical History (Updated 08/29/22 @ 08:41 by Chavez Figueroa MD) Abnormal PFTs (pulmonary function tests) Asthma Axillary adenopathy Bronchitis Chest pain Chronic cough Chronic restrictive lung disease COPD (chronic obstructive pulmonary disease) Emphysema (subcutaneous) (surgical) resulting from a procedure ILD (interstitial lung disease) Tobacco dependence Surgical History History of vasectomy (~2015) Family History Mother Diabetes Asthma Father No problems noted. Maternal Grandmother Cancer Maternal Aunt Breast cancer Social History Household Members: Spouse Housing: Apartment Do you presently have visiting nurse or other home services: Yes Alcohol intake: current Alcohol intake frequency: holidays/special occasions only Patient Tobacco Use Status: Current someday Tobacco user Tobacco use type: Cigarette Cigarette Packs Per Day: 1 Cigarettes Per Day: 20.0 Years Smoked: 35 +/- Second Hand Smoke Exposure: No service: No Current occupational status: disabled Review of Systems Const Denies night sweats ENT Denies change in voice, Denies lip swelling, Denies mouth pain, Reports nasal congestion, Reports nasal discharge and Denies tongue swelling Card Denies chest pain and Reports dyspnea on exertion Resp Reports cough, Reports pain on inspiration, Reports pain with cough and Reports dyspnea on exertion GI Reports abdominal pain Musc Denies no additional complaints, Reports back pain and Reports myalgias Neuro Denies Neuro-related abnormal movements Psych Denies no additional complaints Rogers/Lymph Denies easy bleeding and Denies lymphadenopathy Aller/Immun Denies lip swelling and Denies tongue swelling Physical Exam Vital Signs: Last Vital Signs Pulse 89 08/25/22 14:50 BP 110/70 08/25/22 14:50 Pulse Ox 97 08/25/22 14:50 Oxygen Delivery Method Room Air 08/25/22 14:50 BMI result Body Mass Index 28.2 Const General: alert Neck Neck: Yes normal visual inspection, Yes full ROM and Yes no lymphadenopathy Chest Chest palpation & inspection: normal inspection of the chest Resp Auscultation: no wheezes and diminished lung sounds Cardio Rate: regular rate Rhythm: regular rhythm Heart sounds: S1 normal heart sound present and S2 normal heart sound present GI Palpation (GI): Soft to palpation and Tenderness to palpation present (GI) in the epigastrum and in the RUQ Auscultation: normal bowel sounds Skin General skin exam: rashes and/or lesions noted Assessment & Plan Assessment & Plan (1) SUTTON (dyspnea on exertion): Code(s): R06.00 - Dyspnea, unspecified (2) Chest pain: Comment: better Code(s): R07.9 - Chest pain, unspecified (3) Chronic cough: Code(s): R05 - Cough (4) Chronic restrictive lung disease: Code(s): J98.4 - Other disorders of lung (5) Asthma: Code(s): J45.909 - Unspecified asthma, uncomplicated Qualifiers: Asthma complication type: uncomplicated Asthma persistence: persistent Asthma severity: moderate Qualified Code(s): J45.40 - Moderate persistent asthma, uncomplicated Plan continue Breo continue Incruse start azithromycin start chantix short-acting beta agonist as needed continue with tobacco cessation. Needs to quit completely CXR follow-up in 3-4 months Orders: Orders XR chest 2V 08/25/22 J40 - Bronchitis, not specified as acute or chronic Medications: New varenicline (Chantix Starting Month Box) PO PER PKG DIR 42 ea 0RF azithromycin Take 1 tablet on Sunday/Sunday/Sunday 250 mg PO 3XW 28 days 12 tabs 6RF K21.9 - Gastro-esophageal reflux disease without esophagitis Discontinued levofloxacin Discontinued Reason: None 500 mg PO DAILY 7 tabs 0RF tizanidine 4 mg PO BID 30 days PRN 60 tabs 1RF muscle spasticity M47.812 - Spondylosis without myelopathy or radiculopathy, cervical region, M54.16 - Radiculopathy, lumbar region, M62.838 - Other muscle spasm omeprazole 40 mg PO DAILY 30 days 30 caps 0RF Quality Reporting (2019) Adult ([facility] ) Smoking risk assessment performed?: Yes Patient Tobacco Use Status: Current someday Tobacco user Coding Level of Care Code Est Pt Level 4 (41331) Diagnoses SUTTON (dyspnea on exertion) R06.00 Chest pain R07.9 Chronic cough R05 Chronic restrictive lung disease J98.4 Asthma J45.40 Asthma complication type: uncomplicated Asthma persistence: persistent Asthma severity: moderate Time Spent (min) 18
== END 2022-08-25 15:19 | disposition home or self-care (01) ==
PROVIDERS: Visit Provider Hospitalist
DX: R06.00 Dyspnea, unspecified (principal); J98.4 Other disorders of lung; J45.40 Moderate persistent asthma, uncomplicated; R07.9 Chest pain, unspecified
CPT/HCPCS: 99214

== ENCOUNTER → 2022-08-25 14:44 | Outpatient (BNVA) | payer MEDICAID, SELFPAY | PROVIDERS: Visit Provider Hospitalist | DX: R05.3 Chronic cough (principal); J98.4 Other disorders of lung; J45.40 Moderate persistent asthma, uncomplicated; R06.00 Dyspnea, unspecified; R07.9 Chest pain, unspecified | CPT/HCPCS: 99212 ==

== ENCOUNTER 2022-09-07 10:25 | Outpatient (REF) | payer MEDICAID, SELFPAY ==
--- NOTE | 2022-09-07 10:29 | EMG_ITS ---
Bilateral tibial and peroneal motor studies were performed. Bilateral radial sensory studies were performed and paraspinal muscles were tested with a needle. IMPRESSION: 1. [id number] bilateral median neuropathy across carpal tunnel. 2. 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 MD SHERRY Sellers/CHANEL / [id number]
== END 2022-09-07 10:26 | disposition home or self-care (01) ==
LOC: HO.NEURO 10:25
PROVIDERS: Visit Provider Orthopaedic Surgery
DX: R20.0 Anesthesia of skin (principal); R20.2 Paresthesia of skin
CPT/HCPCS: 95886; 95911

== ENCOUNTER 2022-09-12 06:04 | Outpatient (REF) | payer MEDICAID, SELFPAY | END 2022-09-12 06:05 | disposition home or self-care (01) | LOC: HO.LNP 06:04 | PROVIDERS: Visit Provider Hospitalist | DX: J40 Bronchitis, not specified as acute or chronic (principal) | CPT/HCPCS: 87070; 87205 ==

== ENCOUNTER 2023-01-12 13:34 | Outpatient (AMB) | payer MEDICAID, SELFPAY ==
[2023-01-12 13:49] VITALS: BP 126/84; PULSE 97; O2SAT 96
--- NOTE | 2023-01-12 13:49 | A.OFFVIS_ITS ---
Intake Vital Signs 01/12/23 13:49 Weight 179 lb 10.828 oz BP 126/84 Blood Pressure Location Rt brachial Position Sitting Pulse 97 Pulse Source Pulse Oximeter Pulse Oximetry (%) 96 Oxygen Delivery Method Room Air Intake Visit Reasons: cough Allergies Penicillins [PCN] Allergy (Severe, Verified 01/12/23 13:53) HIVES AND EDEMA Medication List - Last Reconciled 01/12/23 by Dianne Washington LPN acetaminophen (Mapap (acetaminophen)) 500 - 1,000 mg PO Q6H PRN albuterol sulfate 90 mcg/actuation 2 inhalations inhalation Q6H PRN 30 days azithromycin 250 mg PO 3XW 28 days fluticasone furoate-vilanterol 100-25 mcg/dose (Breo Ellipta) 1 inh inhalation DAILY 30 days gabapentin 300 mg PO BID PRN omeprazole 40 mg PO DAILY 90 days tizanidine 4 mg PO DAILY PRN umeclidinium 62.5 mcg/actuation (Incruse Ellipta) 1 inh inhalation DAILY valacyclovir 1,000 mg PO DAILY PRN varenicline (Chantix Starting Month Box) PO PER PKG DIR varenicline 1 mg PO BID HPI HPI Comments History of Present Illness Details The patient is a 42-year-old gentleman with a known history of asthma and tobacco dependency who apparently has been complaining of worsening cough in the last several months. The cough tends to be mixed. Typically productive in the morning and nonproductive during the rest of the day. Moderate severity. He does have a rescue inhaler that he uses intermittently with partial resolution of the symptoms. He has been cognizant of the smoke is been bother his breathing so therefore has been trying to cut down. In the meantime he was sent for pulmonary function studies that was personally reviewed by me in the office with him. It appears that he does have a restrictive ventilatory defect of unclear etiology. He did have a repeat chest x-ray that was also personally by me demonstrating some slight increased haziness bilaterally compared to his previous CT scan from a year ago. This suggests the possibility mild pneumonitis which could be resulting in cough. We did talk about smoking related interstitial lung conditions. The patient denies any birds at home he denies any exposure to any fumes or toxins. Denies any significant occupational hazards. Therefore, will have him start a inhaled cortical steroid. He does not like the symptoms or the side effects of the beta agonist so therefore hold off on long-acting beta agonist at this time. Additional blood work with warranted. In the meantime also we did talk about trying out the Nicotrol inhaler as a way to provide tobacco cessation. 10/08/2020 the patient is here for a pul monary follow-up visit. He continues to have shortness of breath in addition to productive cough. Unfortunately he could also continues to smoke cigarettes. He is in smoking since he was 10 years old. He did have abnormal pulmonary function studies I had him get a CT scan of the chest it appears that he does have the beginnings of emphysema but also has what appears to be some reticular changes suggesting some interstitial lung disease with some cystic changes. In addition to that he does have history small 1 mm pulmonary nodules that are likely to be insignificant. He did sisal picker the Trelegy inhaler needs to use it regularly. The patient understands that it productive cough will be from the smoking and his lungs she is trying to clear out the smoke and tar. More significantly the CT scan did sisal picker a large left axillary lymph node of approximately 2 cm. He could have been related to getting vaccinated. In the meantime will follow-up with a ultrasound of the left axilla lymph node and 3 months. If his to enlarge then consider biopsy. 01/10/2021 the patient is here for a pulmonary follow-up visit. Since we last spoke he continues to have significant dyspnea on exertion. He is also describing chest discomfort. He is concerned that when he is performing physical activity such as going up a flight of stairs in even having intimacy with his significant other he is developing significant shortness of breath. Sometimes associated with the left-sided discomfort. The patient continues to smoke cigarettes. He has a hard time cutting down although he has cut down significantly. We did go for brief walking oximetry in the patient did have an increased heart rate up to 130 beats per minute with activity. His pulse ox was between 95-97% during the activity. his symptoms did improve after he rested. At this point the patient will go for blood work in addition to an EKG. I will also refer him to Cardiology for full cardiac evaluation. The other issue was that he had a significant lymphadenopathy based on a CT scan that he had over the summer. Therefore will have to get an ultrasound just to follow up with that lymph node in the near future. The patient stopped using all inhalers. Will make sure that he goes back on maintenance therapy. Also on Wixela to hopefully is covered by his insurance. He should also have her rescue inhaler to have as needed. 03/10/2021 the patient is here for a pulmonary follow-up visit. He still complaining of significant coughing which is productive in nature in addition to dyspnea on exertion. He did follow-up with cardiology and had a full workup which is reassuring. At this point most of his symptoms are pulmonary in nature. The patient does have increased wheezing today on examination. Unfortunately, the patient continues to smoke cigarettes. Explained to him that as he continues to smoke cigarettes his respiratory symptoms will be continued to be present. He did request a letter regarding his respiratory issues which I provided for him. In the meantime the patient will need a prednisone taper to see if he gets any relief in addition to that we will optimize his respiratory therapy. The patient will continue to work on smoking cessation. 12/19/2021 the patient is here for a pulmonary follow-up visit. The patient is complaining of significant pleuritic chest discomfort. He was so uncomfortable that he went to an urgent care. There he had an EKG and was told that he has EKG was well. The patient was given omeprazole for epigastric discomfort. Has not had any significant improvement. He complains of the shortness of breath in addition to the pleuritic discomfort. He is pointing more towards the epigastric area. He also has tenderness over the abdomen epigastric area. He has been using Motrin which may be affecting his stomach. Denies any history of blood clots. Denies any significant cough. Will go ahead and order a chest x- ray for the patient in addition to blood work. I will increase his PPI to twice a day with hopes of improving his symptoms and he is going to stop the nonsteroidal. Will follow-up after his blood work and additional imaging studies. He has been confused about status inhalers. Initially I sent him Trelegy although it was not covered so I sent Breo and Incruse. He has been only using Incruse. Will be starting Breo soon. Therefore, I will go ahead and stop the Incruse and having just use Breo for now. The patient continues smoking cigarettes. 02/21/2022 the patient is here for pulmonary follow-up visit. Again has multiple complaints. Complains of shortness of breath with minimal activity. He is having chest tightness as well. Does get some relief with his inhalers. Unfortunately continues to smoke cigarettes. In addition to that he has had significant issues with his back pain. Previously which is noted to be adjust the lower part and now is extending further to the full back. Complains of neck pain. He has not been able to work because of the pain. he is trying to get to his primary care doctor's office. Unfortunately back pain and his discomfort is limiting him from being able to take deep breaths. Continues with the Trelegy inhaler. In addition to that did undergo a barium swallow which is reassuring. He was taking the additional PPI for the epigastric discomfort before. The patient stop taking nonsteroidals. I will refer him to Pain Management to see that can help him with all this discomfort. 08/25/2022 the patient is here for a pulm onary follow-up visit. The patient continues to complain of cough. Moderate severity. Typically productive in the morning. Explained to him that is likely from his smoking. The patient is still struggling with smoking cessation. We had been maximizing his respiratory therapy at this time with only partial resolution of the symptoms. The patient has tried nicotine patches but have not been helpful. We also talked about considering Chantix. The family member is with him. Explained to the family that if he goes on Chantix he needs to be monitoring closely for any signs of depression. The patient is considering it. I will send the prescription to the pharmacy and he was started without understanding. In the meantime will go ahead and continue to cut my maximize his respiratory therapy. The his chest pain seems to be better at this time. His epigastric discomfort also has been better this time. 01/12/2023 the patient is here for a pulmonary follow-up visit. He continues to have similar complaints. Complains of productive cough moderate severity. Explained to him that is related to his smoking. He is also dealing with issues with his elevated blood pressures. The patient understands that also related to smoking. The patient did start Chantix although he continues to smoke while taking Chantix. We did talk about other potential smoking cessation or drug cessation medications such as clonidine patch. We can try that in conjunction with the Chantix see this provides better tobacco cessation. He does have a blood pressure cough and will measure and monitor his blood pressure closely while taking the clonidine patch. Is at the lowest dose but the patient understands that it can lower his blood pressure and if he develops any dizziness or any symptoms that are new for him he should check his blood pressure stop patch. He continues his respiratory therapy. He still complains of dyspnea on exertion difficulty going up flight of stairs. Partly due to his deconditioning. [facility] Medical History (Updated 01/12/23 @ 13:58 by Chavez Figueroa MD) Bronchitis COPD (chronic obstructive pulmonary disease) Axillary adenopathy Chest pain Emphysema (subcutaneous) (surgical) resulting from a procedure ILD (interstitial lung disease) Abnormal PFTs (pulmonary function tests) Chronic cough Tobacco dependence Asthma Chronic restrictive lung disease Surgical History History of vasectomy (~2015) Family History Mother Diabetes Asthma Father No problems noted. Maternal Grandmother Cancer Maternal Aunt Breast cancer Social History Household Members: Spouse Housing: Apartment Do you presently have visiting nurse or other home services: Yes Alcohol intake: current Alcohol intake frequency: holidays/special occasions only Patient Tobacco Use Status: Current someday Tobacco user Tobacco use type: Cigarette Cigarette Packs Per Day: 1 Cigarettes Per Day: 20.0 Years Smoked: 35 +/- Second Hand Smoke Exposure: No service: No Current occupational status: disabled Review of Systems Const Denies night sweats ENT Denies change in voice, Denies lip swelling, Denies mouth pain, Reports nasal congestion, Reports nasal discharge and Denies tongue swelling Card Denies chest pain and Reports dyspnea on exertion Resp Reports cough, Reports pain on inspiration, Reports pain with cough and Reports dyspnea on exertion GI Reports abdominal pain Musc Denies no additional complaints, Reports back pain and Reports myalgias Neuro Denies Neuro-related abnormal movements Psych Denies no additional complaints Rogers/Lymph Denies easy bleeding and Denies lymphadenopathy Aller/Immun Denies lip swelling and Denies tongue swelling Physical Exam Vital Signs: Last Vital Signs Pulse 97 01/12/23 13:49 BP 126/84 01/12/23 13:49 Pulse Ox 96 01/12/23 13:49 Oxygen Delivery Method Room Air 01/12/23 13:49 Const General: alert Neck Neck: Yes normal visual inspection, Yes full ROM and Yes no lymphadenopathy Chest Chest palpation & inspection: normal inspection of the chest Resp Auscultation: no wheezes and diminished lung sounds Cardio Rate: regular rate Rhythm: regular rhythm Heart sounds: S1 normal heart sound present and S2 normal heart sound present GI Palpation (GI): Soft to palpation and Tenderness to palpation present (GI) in the epigastrum and in the RUQ Auscultation: normal bowel sounds Skin General skin exam: rashes and/or lesions noted Assessment & Plan Assessment & Plan (1) SUTTON (dyspnea on exertion): Code(s): R06.00 - Dyspnea, unspecified (2) Chest pain: Comment: better Code(s): R07.9 - Chest pain, unspecified Qualifiers: Chest pain type: chest pain on breathing Qualified Code(s): R07.1 - Chest pain on breathing (3) Chronic cough: Code(s): R05 - Cough (4) Chronic restrictive lung disease: Code(s): J98.4 - Other disorders of lung (5) Asthma: Code(s): J45.909 - Unspecified asthma, uncomplicated Qualifiers: Asthma complication type: uncomplicated Asthma persistence: persistent Asthma severity: moderate Qualified Code(s): J45.40 - Moderate persistent asthma, uncomplicated Plan continue Breo continue Incruse continue chantix start clonidine patch for smoking cessation too, will monitor BP short-acting beta agonist as needed continue with tobacco cessation. Needs to quit completely CXR follow-up in 3-4 months Medications: New clonidine 1 patch transdermal QWEEK 4 ea 2RF Quality Reporting (2019) Adult ([facility] 138/04/05/68) Smoking risk assessment performed?: Yes Patient Tobacco Use Status: Current someday Tobacco user Coding Level of Care Code Est Pt Level 4 (92865) Diagnoses SUTTON (dyspnea on exertion) R06.00 Chest pain on breathing R07.1 Chest pain type: chest pain on breathing Chronic cough R05 Chronic restrictive lung disease J98.4 Moderate persistent asthma without complication J45.40 Asthma complication type: uncomplicated Asthma persistence: persistent Asthma severity: moderate Time Spent (min) 18
== END 2023-01-12 14:08 | disposition home or self-care (01) ==
PROVIDERS: PCP Registered Nurse; Visit Provider Hospitalist
DX: R06.00 Dyspnea, unspecified (principal); R07.1 Chest pain on breathing; R05.9 Cough, unspecified; J98.4 Other disorders of lung; J45.40 Moderate persistent asthma, uncomplicated
CPT/HCPCS: 99214

== ENCOUNTER → 2023-01-12 13:34 | Outpatient (BNVA) | payer MEDICAID, SELFPAY | PROVIDERS: PCP Registered Nurse; Visit Provider Hospitalist | DX: J45.40 Moderate persistent asthma, uncomplicated (principal); R06.00 Dyspnea, unspecified; R07.1 Chest pain on breathing; R05.3 Chronic cough; J98.4 Other disorders of lung | CPT/HCPCS: 99212 ==

== ENCOUNTER 2023-06-13 12:27 | Emergency (ER) | payer MEDICAID, SELFPAY ==
--- NOTE | ~2023-06-13 | CT_ITS ---
EXAMINATION: CT ABDOMEN AND PELVIS WITH CONTRAST CLINICAL INFORMATION: Right lower quadrant and left flank pain and tenderness. COMPARISON: CT abdomen and pelvis dated 06/28/2022. TECHNIQUE: Multidetector volumetric images were obtained from the superior aspect of the liver through the pubic symphysis following administration 85 mL of Omnipaque 350 intravenous contrast. Sagittal and coronal reformatted images were obtained on the technologist's workstation. Oral contrast: No This CT examination was performed using dose optimization techniques as appropriate, variously including the following: *Automated exposure control *Adjustment of mA and/or kV according to patient size (this includes techniques or standardized protocols for targeted exams where dose is matched to indication/reason for exam; i.e. extremities or head) *Use of iterative reconstruction technique DLP: 653 mGy-cm FINDINGS: LUNG BASES: There is mild bibasilar dependent hypoaeration. LIVER, GALLBLADDER, AND BILIARY TREE: The liver is normal in size, shape, and attenuation. No focal hepatic lesion or biliary ductal dilatation is present. The gallbladder is unremarkable with no evidence of radiopaque gallstones, gallbladder wall thickening, or obvious pericholecystic inflammatory changes. PANCREAS: Unremarkable. SPLEEN: Unremarkable. ADRENAL GLANDS: Unremarkable. KIDNEYS AND URETERS: The kidneys are normal in size, shape, and attenuation. No hydronephrosis, hydroureter, or calculi seen. No perinephric stranding. BLADDER: Decompressed and otherwise unremarkable. GASTROINTESTINAL TRACT: There is a mild to moderate stool burden. There is mild diverticulosis, without acute diverticulitis. No bowel obstruction, free intraperitoneal air or abscess is seen. There is no focal bowel wall thickening. The vermiform appendix appears normal. The small and large bowel are unremarkable. The appendix is unremarkable. ABDOMINAL WALL: No significant hernia is appreciated. LYMPH NODES: Normal. VASCULAR: Unremarkable. PELVIC VISCERA: The prostate and seminal vesicles are unremarkable. OSSEOUS STRUCTURES: There is multi-level thoracolumbar endplate Schmorl's node formation. No acute or aggressive osseous finding is noted. CT/CT abdomen pelvis w IV con IMPRESSION: 1. There is a mild to moderate stool burden. No obstruction, free intraperitoneal air or abscess is seen. There is mild diverticulosis, without acute diverticulitis. The vermiform appendix is normal. 2. No urinary calculus or obstruction is seen. 3. There is no abdominopelvic mass, free fluid or lymphadenopathy. 4. No acute or aggressive osseous finding is seen. Fleischner guidelines were followed.
[2023-06-13 13:11] VITALS: BP 133/88; PULSE 81; RESP 16; TEMP 36.3; O2SAT 97; BMI 30.7
--- NOTE | 2023-06-13 13:12 | ED.GENADULT ---
HPI - General Adult General Chief complaint: Abdominal Pain Stated complaint: Abd & back pain Time Seen by Provider: 06/13/23 16:06 History of Present Illness HPI narrative: The patient is a 42-year-old male who comes to the emergency room for evaluation of pains that started yesterday. He says that he has pains in his left flank region and he also has a separate pain in his right lower abdomen. He denies any trauma or injury. He denies any straining. He says the pain at the left flank is worse when he takes a deep breath and also worse with palpation. He has had some nausea but no vomiting. He says he had some diarrhea yesterday. No dysuria. No fever. He has never had either these pains before. The patient says that he has a smoker's cough generally but does not report an acute coughing event. The patient has surgical history as a vasectomy. He takes omeprazole. He also takes valacyclovir as needed. Related Data Home Medications ?Medication ?Instructions ?Recorded ?Confirmed valacyclovir 1 gram tablet 1,000 mg PO DAILY PRN Cold Sores 04/18/22 01/12/23 acetaminophen 500 mg capsule 500 - 1,000 mg PO Q6H PRN pain 05/19/22 01/12/23 (Mapap (acetaminophen)) umeclidinium 62.5 mcg/actuation 1 inh inhalation DAILY 05/19/22 01/12/23 blister powder for inhalation (Incruse Ellipta) tizanidine 4 mg tablet 4 mg PO DAILY PRN muscle spasticity 06/28/22 01/12/23 Previous Rx's ?Medication ?Instructions ?Recorded albuterol sulfate 90 mcg/actuation 2 inh inhalation Q6H PRN shortness 01/10/21 aerosol inhaler of breath or wheezing 30 days #18 grams omeprazole 40 mg capsule,delayed 40 mg PO DAILY 90 days #90 caps 07/03/22 release azithromycin 250 mg tablet 250 mg PO 3XW 28 days #12 tabs 08/25/22 gabapentin 300 mg capsule 300 mg PO BID PRN for pain #60 caps 08/25/22 varenicline 0.5 mg (11)-1 mg (42) See Rx Instructions PO PER PKG DIR 08/25/22 tablets in a dose pack (Chantix #42 ea Starting Month Box) fluticasone furoate 100 1 inh inhalation DAILY 30 days #60 11/06/22 mcg-vilanterol 25 mcg/dose ea inhalation powder (Breo Ellipta) clonidine 0.1 mg/24 hr weekly 1 patch transdermal QWEEK #4 ea 01/12/23 transdermal patch varenicline 1 mg tablet 1 mg PO BID #56 tabs 01/25/23 ibuprofen 600 mg tablet 600 mg PO Q6H PRN pain #14 tabs 06/13/23 Allergies Allergy/AdvReac Type Severity Reaction Status Date / Time Penicillins [PCN] Allergy Severe HIVES AND Verified 06/13/23 13:12 EDEMA Review of Systems Review of Systems: Yes all other systems are reviewed and are negative [facility] Past Medical History Medical History (Updated 06/14/23 @ 00:01 by Ashkan Anderson) Bronchitis COPD (chronic obstructive pulmonary disease) Axillary adenopathy Chest pain Emphysema (subcutaneous) (surgical) resulting from a procedure ILD (interstitial lung disease) Abnormal PFTs (pulmonary function tests) Chronic cough Tobacco dependence Asthma Chronic restrictive lung disease Surgical History History of vasectomy (~2015) Family History Family History Mother Diabetes Asthma Father No problems noted. Maternal Grandmother Cancer Maternal Aunt Breast cancer Social History Social History Household Members: Spouse Housing: Apartment Do you presently have visiting nurse or other home services: Yes Alcohol intake: current Alcohol intake frequency: holidays/special occasions only Patient Tobacco Use Status: Current someday Tobacco user Tobacco use type: Cigarette Cigarette Packs Per Day: 1 Cigarettes Per Day: 20.0 Years Smoked: 35 +/- Second Hand Smoke Exposure: No Advance Directives: No Advance Directives Information Provided: No Do you have a plan to hurt others: No Plan service: No Current occupational status: disabled Physical Exam ED Vital Signs: Vital Signs - 24 hr 06/13/23 13:11 06/13/23 18:27 06/13/23 22:36 Temperature 97.3 F 98.0 F 97.0 F Pulse Rate 81 76 80 Respiratory Rate 16 16 16 Blood Pressure 133/88 153/97 H 147/105 H Pulse Oximetry 97 97 97 Oxygen Delivery Method Room Air Room Air Room Air 06/13/23 22:42 Temperature 97 F Pulse Rate 80 Respiratory Rate 16 Blood Pressure 147/105 H Pulse Oximetry 97 Oxygen Delivery Method BMI result Body Mass Index 30.7 Const Other: The patient is a healthy looking 42-year-old. He is quite muscular. He looks mildly uncomfortable. HENMT Other: Pupils are round equal, conjunctivae are clear, extraocular movements intact Eyes Other: Pupils are round equal, conjunctivae are clear, extraocular movements intact Neck Other: No JVD Chest Other: Palpation of the left chest wall at the costal margin at the axillary line seems to reproduce the patient's pain. Resp Effort & Inspection: normal respiratory effort Auscultation: clear to auscultation bilaterally Cardio Rate: regular rate Rhythm: regular rhythm Heart sounds: S1 normal heart sound present and S2 normal heart sound present GI Other: Left lower quadrant is nontender. The right lower quadrant is tender. Back/Spine/Pelvis Other: No distinct CVA percussion tenderness on either side Skin Other: Skin is dry and unremarkable Neuro Other: Awake, alert, pleasant, normal mental status, grossly neurologically intact. Extrem Other: No peripheral edema Course Course Course Narrative: RME- 42-year-old male presents for evaluation left flank pain and right lower abdominal pain since yesterday. Reports he had some diarrhea which has resolved. Denies any other complaints or concerns. Plan for labs. Will defer any potential imaging primary provider Medications Administered Discontinued Medications Generic Name Dose Route Start Last Admin Trade Name Freq PRN Reason Stop Dose Admin Sodium Chloride 1,000 mls @ 999 mls/hr 06/13/23 16:15 06/13/23 17:29 Ns IV 06/13/23 17:15 Infused .Q1H1M CHUCKY Infusion Iohexol 85 ml 06/13/23 19:17 06/13/23 19:18 Iohexol 350 Mg/Ml 100 Ml Infus..Btl IV 06/13/23 19:18 85 ml ONCE ONE Administration Ketorolac Tromethamine 10 mg 06/13/23 16:13 06/13/23 16:23 Ketorolac Tromethamine 15 Mg/Ml Vial IVPUSH 06/13/23 16:14 10 mg ONCE ONE Administration Polyethylene Glycol 17 gm 06/13/23 22:22 06/13/23 22:31 Polyethylene Glycol 3350 17 Gm Powd.Pack PO 06/13/23 22:23 17 gm ONCE ONE Administration Medical Decision Making Medical Decision Making [facility] Narrative: The patient is a very pleasant 42-year-old who is generally in good health although he is a smoker. The patient presents with pain in the left flank and left side region and also has what seems to be a separate complaint of right lower quadrant abdominal pain. On his exam he seems to have a lot of reproducible tenderness at the left lower ribcage. His right lower quadrant was distinctly tender. Labs show a white count of 8.8, normal hemoglobin, unremarkable differential on his white count. CRP mildly elevated at 2.44. Urinalysis showed no ketones and no blood. A CT scan of the abdomen and pelvis with IV contrast was done to evaluate either for appendicitis (given the patient's right lower quadrant tenderness) and also to possibly evaluate for a left renal issue. The CT of the abdomen and pelvis does not show any acute surgical or other findings to account for either of the patient's pains. Since the patient's pain was quite reproducible with palpation I think that the left-sided pain is probably musculoskeletal. He says he does a lot of sit-ups and perhaps he strained himself doing sit-ups. I think it is unlikely that he might have a pulmonary source of his pain. Specifically I think it is unlikely has a pulmonary embolism. He is PERC negative. The patient will be discharged with instructions to use ibuprofen and acetaminophen as needed for pain. The CT scan of the abdomen and pelvis suggested the possibility of some degree of constipation although I think his symptoms are probably not related constipation. In any event the patient was eager to take something for possible constipation and he was advised to use propylene glycol. The patient will therefore plan on following up with his regular doctor or return to the ER if worse. Lab Data 06/13/23 14:07 06/13/23 14:07 Labs: Lab Results 06/13/23 06/13/23 Range/Units 14: 19:08 WBC 8.8 (4.8-10.8) X10*3/uL RBC 4.57 L (4.60-5.80) X10*6/uL Hgb 14.1 (14.0-18.0) g/dl Hct 42.4 (42.0-52.0) % MCV 92.8 (80.0-98.0) fL MCH 30.9 (27.0-33.0) pg MCHC 33.3 (31.0-36.0) g/dl RDW 12.8 (11.0-16.0) % Plt Count 299 (160-400) X10*3/uL MPV 8.8 L (9.4-12.4) fL Immature Gran % (Auto) 0.2 (0.0-0.4) % Neut % (Auto) 48.4 (45-73) % Lymph % (Auto) 42.3 H (20-40) % [place] % (Auto) 6.2 (2-11) % Eos % (Auto) 1.6 (0-4) % Baso % (Auto) 1.3 (0-2) % Lymph # (Auto) 3.7 (1.2-4.9) X10*3/uL [place] # (Auto) 0.5 (0.1-1.2) X10*3/uL Eos # (Auto) 0.1 (0.0-0.4) X10*3/uL Baso # (Auto) 0.1 (0.0-0.2) X10*3/uL Abs Immat Gran (auto) 0.02 (0.00-0.03) X10*3/uL Absolute Neuts (auto) 4.2 (2.0-8.3) x10*3/uL Absolute Nucleated RBC 0.000 (0.0-0.012) X10*3/uL Nucleated RBC % (auto) 0.0 (0.0-0.2) /100WBC Sodium 139 (135-145) mmol/L Potassium 4.2 (3.3-5.1) mmol/L Chloride 107 (96-108) mmol/L Carbon Dioxide 25 (22-29) mmol/L Anion Gap 11 L (12-20) BUN 15 (9-16) mg/dL Creatinine 0.99 (0.5-1.4) mg/dL Estim Creat Clear Calc 96.7 Estimated GFR > 60 Random Glucose 123 H (60-115) mg/dL Calcium 9.6 D (8.4-10.2) mg/dL Total Bilirubin 0.5 (0.0-1.0) mg/dL AST 27 (5-37) U/L ALT 17 (0-40) U/L Alkaline Phosphatase 75 (39-117) U/L C-Reactive Protein 2.44 H (< or = 0.50) mg/dL Total Protein 7.1 (6.5-8.0) g/dL Albumin 4.0 (3.5-5.0) g/dL Lipase 33 (8-78) U/L Urine Color Yellow Urine Appearance Clear Urine pH 5.5 (5.0-9.0) Ur Specific [place] 1.020 (1.005-1.025) Urine Protein Negative (Neg-Trace) mg/dL Urine Glucose (UA) Negative (Negative) mg/dL Urine Ketones Negative (Negative) mg/dL Urine Blood Negative (Negative) Urine Nitrite Negative (Negative) Ur Leukocyte Esterase Negative (Negative) Urine RBC 0-2 (0-2) /HPF Urine WBC 0-5 (0-5) /HPF Ur Squamous Epith Cells 0-2 (0-2) /HPF Urine Bacteria None Seen (None Seen) Hyaline Casts 0-2 (0-2) /LPF Discharge Plan Discharge Clinical Impression: Left-sided chest wall pain, Right lower quadrant abdominal pain Patient Disposition: Home, Self-Care Additional Instructions: I think the pain on your left side is probably a musculoskeletal pain. You may use ibuprofen and acetaminophen as needed for this pain. Your CT scan suggested you might be somewhat constipated. You may use MiraLax on a daily basis for a few days to see if this helps with your bowel movements. There are usually store brands of polyethylene glycol which is the same thing as MiraLax. The store brands are usually less expensive. The dose is 1 cap full per day and a large glass of water. Plan on contacting your regular doctor to make a follow up appointment to discuss this further. Please do your best to minimize or eliminate smoking. Point you feel significantly worse, especially if you feel short of breath, return to the emergency room for more evaluation Prescriptions: New ibuprofen 600 mg tablet 600 mg PO Q6H PRN (Reason: pain) Qty: 14 0RF No Action omeprazole 40 mg capsule,delayed release(DR/EC) 40 mg PO DAILY 90 Days Qty: 90 3RF gabapentin 300 mg capsule 300 mg PO BID PRN (Reason: for pain) Qty: 60 2RF fluticasone furoate-vilanterol [Breo Ellipta] 100-25 mcg/dose blister with device 1 inh inhalation DAILY 30 Days Qty: 60 11RF varenicline 1 mg tablet 1 mg PO BID Qty: 56 2RF tizanidine 4 mg tablet 4 mg PO DAILY PRN (Reason: muscle spasticity) albuterol sulfate 90 mcg/actuation HFA aerosol inhaler 2 inh inhalation Q6H PRN (Reason: shortness of breath or wheezing) 30 Days Qty: 18 12RF varenicline [Chantix Starting Month Box] 0.5 mg (11)- 1 mg (42) tablets,dose pack See Rx Instructions PO PER PKG DIR Qty: 42 0RF Rx Instructions: PO PER PKG DIR azithromycin 250 mg tablet 250 mg PO 3XW 28 Days Qty: 12 6RF Rx Instructions: Take 1 tablet on Sunday/Sunday/Sunday valacyclovir 1 gram tablet 1,000 mg PO DAILY PRN (Reason: Cold Sores) Rx Instructions: use for 5 days Incruse Ellipta 62.5 mcg/actuation blister with device 1 inh inhalation DAILY acetaminophen [Mapap (acetaminophen)] 500 mg capsule 500 - 1,000 mg PO Q6H PRN (Reason: pain) clonidine 0.1 mg/24 hr patch weekly 1 patch transdermal QWEEK Qty: 4 2RF Referrals: Umm Huang FNP [Primary Care Provider] - (Left flank pain) Stand Alone Forms: Work/School Release Interventions: ED Discharge Assessment Last Done: 06/13/23 22:42 Discharge Date/Time: 06/13/23 22:43 Print Language: Mauritian
[2023-06-13 14:11] LABS: MANUAL DIFF FLAG NO
[2023-06-13 14:12] LABS: Basophils Absolute Auto 0.1 X10*3/uL (0.0-0.2); Basophils Percent Auto 1.3 % (0-2); Eosinophils Absolute Auto 0.1 X10*3/uL (0.0-0.4); Eosinophils Percent Auto 1.6 % (0-4); Hematocrit 42.4 % (42.0-52.0); Hemoglobin 14.1 g/dl (14.0-18.0); Imm Gran Abs Auto 0.02 X10*3/uL (0.00-0.03); Imm Gran Pct Auto 0.2 % (0.0-0.4); Lymphocytes Absolute Auto 3.7 X10*3/uL (1.2-4.9); Lymphocytes Percent Auto 42.3 % (20-40); Mean Corpuscular HGB Conc 33.3 g/dl (31.0-36.0); Mean Corpuscular Hemoglobin 30.9 pg (27.0-33.0); Mean Corpuscular Volume 92.8 fL (80.0-98.0); Mean Platelet Volume 8.8 fL (9.4-12.4); Monocytes Absolute Auto 0.5 X10*3/uL (0.1-1.2); Monocytes Percent Auto 6.2 % (2-11); Neutrophils Absolute Auto 4.2 x10*3/uL (2.0-8.3); Neutrophils Percent Auto 48.4 % (45-73); Platelet Count 299 X10*3/uL (160-400); Red Blood Count 4.57 X10*6/uL (4.60-5.80); Red Cell Distribution Width 12.8 % (11.0-16.0); White Blood Count 8.8 X10*3/uL (4.8-10.8)
[2023-06-13 14:27] LABS: Alanine Aminotransferase 17 U/L (0-40); Alkaline Phosphatase 75 U/L (39-117); Anion Gap 11 (12-20); Aspartate Amino Transferase 27 U/L (5-37); Bilirubin Total 0.5 mg/dL (0.0-1.0); Blood Urea Nitrogen 15 mg/dL (9-16); Calcium 9.6 mg/dL (8.4-10.2); Carbon Dioxide 25 mmol/L (22-29); Chloride 107 mmol/L (96-108); Creatinine Clr Calc Pharmacy 96.7; Estimated Glomerular Filt Rate > 60; Glucose Random 123 mg/dL (60-115); Lipase 33 U/L (8-78); Potassium 4.2 mmol/L (3.3-5.1); Sodium 139 mmol/L (135-145); Total Protein 7.1 g/dL (6.5-8.0)
[2023-06-13] MEDS: Ketorolac Tromethamine 15 MG/ML VIAL 10 MG IVPUSH (16:23)
[2023-06-13] MEDS: 0.9 % Sodium Chloride 1,000 ML 999 ML IV (16:24)
[2023-06-13 18:23] LABS: C Reactive Protein 2.44 mg/dL (< or = 0.50)
[2023-06-13 18:27] VITALS: BP 153/97; PULSE 76; RESP 16; TEMP 36.7; O2SAT 97
--- NOTE | 2023-06-13 19:01 | PC.NURSE ---
Assumed care of pt.
--- NOTE | 2023-06-13 19:07 | PC.NURSE ---
Assumed care of pt. pt lyuing on stretcher, family at bedside, no acute distress. urine sample sent for testing oper orders. Pt preparing for CT scan.
[2023-06-13 19:16] LABS: Appearance Urine Clear; Color Urine Yellow; Glucose Urine UA Negative (Negative); Leukocyte Esterase Urine Negative (Negative); Nitrite Urine Negative (Negative); PH 5.5 (5.0-9.0); Urine Blood Negative (Negative); Urine Ketones Negative (Negative); Urine Protein Negative (Neg-Trace)
[2023-06-13] MEDS: iohexoL 350 MG/ML 100 ML INFUS..BTL 85 ML IV (19:18)
[2023-06-13 19:19] LABS: Bacteria Urine None Seen (None Seen); Hyaline Casts Urine 0-2 /LPF (0-2); RBC Urine 0-2 /HPF (0-2); Squamous Epithelial Cell Urine 0-2 /HPF (0-2); WBC Urine 0-5 /HPF (0-5)
[2023-06-13] MEDS: polyethylene glycoL 3350 17 GM POWD.PACK PO (22:31)
[2023-06-13 22:36] VITALS: BP 147/105; PULSE 80; RESP 16; TEMP 36.1; O2SAT 97
[2023-06-13 22:42] VITALS: BP 147/105; PULSE 80; RESP 16; TEMP 36.1; O2SAT 97
== END 2023-06-13 22:43 | disposition home or self-care (01) ==
PROVIDERS: Physician Assistant; Emergency Provider Emergency Medicine; PCP Registered Nurse
DX: R07.89 Other chest pain (principal); R10.31 Right lower quadrant pain; J44.9 Chronic obstructive pulmonary disease, unspecified; R05.3 Chronic cough; F17.210 Nicotine dependence, cigarettes, uncomplicated; Z79.899 Other long term (current) drug therapy; R06.00 Dyspnea, unspecified
CPT/HCPCS: 36415; 74177; 80053; 81001; 83690; 85025; 86140; 96361; 96374; 99284; 99285; J1885; Q9967

== ENCOUNTER 2023-06-28 13:08 | Outpatient (AMB) | payer MEDICAID, SELFPAY ==
[2023-06-28 13:20] VITALS: PULSE 86; O2SAT 97; BMI 30.3
--- NOTE | 2023-06-28 13:20 | A.OFFVIS_ITS ---
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 The cough tends to be mixed. Typically productive in the morning and nonproductive during the rest of the day. Moderate severity. He does have a rescue inhaler that he uses intermittently with partial resolution of the symptoms. He has been cognizant of the smoke is been bother his breathing so therefore has been trying to cut down. In the meantime he was sent for pulmonary function studies that was personally reviewed by me in the office with him. It appears that he does have a restrictive ventilatory defect of unclear etiology. He did have a repeat chest x-ray that was also personally by me demonstrating some slight increased haziness bilaterally compared to his previous CT scan from a year ago. This suggests the possibility mild pneumonitis which could be resulting in cough. We did talk about smoking related interstitial lung conditions. The patient denies any birds at home he denies any exposure to any fumes or toxins. Denies any significant occupational hazards. Therefore, will have him start a inhaled cortical steroid. He does not like the symptoms or the side effects of the beta agonist so therefore hold off on long-acting beta agonist at this time. Additional blood work with warranted. In the meantime also we did talk about trying out the Nicotrol inhaler as a way to provide tobacco cessation. 02/21/2022 the patient is here for pulmonary follow-up visit. Again has multiple complaints. Complains of shortness of breath with minimal activity. He is having chest tightness as well. Does get some relief with his inhalers. Unfortunately continues to smoke cigarettes. In addition to that he has had significant issues with his back pain. Previously which is noted to be adjust the lower part and now is extending further to the full back. Complains of neck pain. He has not been able to work because of the pain. he is trying to get to his primary care doctor's office. Unfortunately back pain and his discomfort is limiting him from being able to take deep breaths. Continues with the Trelegy inhaler. In addition to that did undergo a barium swallow which is reassuring. He was taking the additional PPI for the epigastric discomfort before. The patient stop taking nonsteroidals. I will refer him to Pain Management to see that can help him with all this discomfort. 08/25/2022 the patient is here for a pulmonary follow-up visit. The patient continues to complain of cough. Moderate severity. Typically productive in the morning. Explained to him that is likely from his smoking. The patient is still struggling with smoking cessation. We had been maximizing his respiratory therapy at this time with only partial resolution of the symptoms. The patient has tried nicotine patches but have not been helpful. We also talked about considering Chantix. The family member is with him. Explained to the family that if he goes on Chantix he needs to be monitoring closely for any signs of depression. The patient is considering it. I will send the prescription to the pharmacy and he was started without understanding. In the meantime will go ahead and continue to cut my maximize his respiratory therapy. The his chest pain seems to be better at this time. His epigastric discomfort also has been better this time. 01/12/2023 the patient is here for a pulmonary follow-up visit. He continues to have similar complaints. Complains of productive cough moderate severity. Explained to him that is related to his smoking. He is also dealing with issues with his elevated blood pressures. The patient understands that also related to smoking. The patient did start Chantix although he continues to smoke while taking Chantix. We did talk about other potential smoking cessation or drug cessation medications such as clonidine patch. We can try that in conjunction with the Chantix see this provides better tobacco cessation. He does have a blood pressure cough and will measure and monitor his blood pressure closely while taking the clonidine patch. Is at the lowest dose but the patient unders tands that it can lower his blood pressure and if he develops any dizziness or any symptoms that are new for him he should check his blood pressure stop patch. He continues his respiratory therapy. He still complains of dyspnea on exertion difficulty going up flight of stairs. Partly due to his deconditioning. 06/28/2023 the patient is here for a pulmonary follow-up visit. He has been having hard time breathing for the last few days. Developed increasing chest congestion. Also having chest tightness and wheezing. He had not been using his inhalers as prescribed. His is with him. She is trying to make sure that he is more he went with his therapy. We talked about the importance of using the Breo and Incruse in the morning. He also has a nebulizer and a rescue inhaler they can use as needed. Unfortunately, he continues to smoke cigarettes. He has tried multiple different medications to try to quit but he has not been able to do so. He is willing to try the nicotine patch at this time. I will send her the nicotine patch but he knows not to smoke on it. The patient did have a CT scan of the abdomen recently for abdominal discomfort. I did review it personally with him. Looked at the lung windows demonstrating some atelectasis at the bases but otherwise the lung windows local okay. Is about a 4th of the lung though. He also had a chest x-ray back in the fall without any acute disease. On examination he has significant rhonchi and wheezing. Will go ahead and treat him with a Medrol pack and also will require antibiotics. He will be more adherent with therapy and if he has any difficulties worsening of disease he will call for an earlier assessment. The patient should return in 3-4 months with PFTs otherwise. [facility] Medical History (Updated 06/28/23 @ 21:54 by Chavez Figueroa MD) Bronchitis COPD (chronic obstructive pulmonary disease) Axillary adenopathy Chest pain Emphysema (subcutaneous) (surgical) resulting from a procedure ILD (interstitial lung disease) Abnormal PFTs (pulmonary function tests) Chronic cough Tobacco dependence Asthma Chronic restrictive lung disease Surgical History History of vasectomy (~2016) Family History Mother Diabetes Asthma Father No problems noted. Maternal Grandmother Cancer Maternal Aunt Breast cancer Social History Household Members: Spouse Housing: Apartment Do you presently have visiting nurse or other home services: Yes Alcohol intake: current Alcohol intake frequency: holidays/special occasions only Patient Tobacco Use Status: Current someday Tobacco user Tobacco use type: Cigarette Cigarette Packs Per Day: 1 Cigarettes Per Day: 20.0 Years Smoked: 35 +/- Second Hand Smoke Exposure: No service: No Current occupational status: disabled Review of Systems Const Denies night sweats ENT Denies change in voice, Denies lip swelling, Denies mouth pain, Reports nasal congestion, Reports nasal discharge and Denies tongue swelling Card Denies chest pain and Reports dyspnea on exertion Resp Reports chest congestion, Reports cough, Reports dyspnea on exertion and Reports wheezing GI Reports abdominal pain Musc Denies no additional complaints, Reports back pain and Reports myalgias Neuro Denies Neuro-related abnormal movements Psych Denies no additional complaints Rogers/Lymph Denies easy bleeding and Denies lymphadenopathy Aller/Immun Denies lip swelling, Denies tongue swelling and Reports wheezing Physical Exam Vital Signs: Last Vital Signs Pulse 86 06/28/23 13:20 Pulse Ox 97 06/28/23 13:20 Oxygen Delivery Method Room Air 06/28/23 13:20 BMI result Body Mass Index 30.3 Const General: alert Neck Neck: Yes normal visual inspection, Yes full ROM and Yes no lymphadenopathy Chest Chest palpation & inspection: normal inspection of the chest Resp Effort & Inspection: prolonged expiratory phase Auscultation: rhonchi, wheezes and diminished lung sounds Cardio Rate: regular rate Rhythm: regular rhythm Heart sounds: S1 normal heart sound present and S2 normal heart sound present GI Palpation (GI): Soft to palpation and Tenderness to palpation present (GI) in the epigastrum and in the RUQ Auscultation: normal bowel sounds Skin General skin exam: rashes and/or lesions noted Quality Reporting (2019) Adult ([facility] 138/04/05/68) Smoking risk assessment performed?: Yes Patient Tobacco Use Status: Current someday Tobacco user Assessment & Plan Assessment & Plan (1) Asthma: Code(s): J45.909 - Unspecified asthma, uncomplicated Category: Medical Qualifiers: Asthma complication type: with acute exacerbation Asthma persistence: persistent Asthma severity: moderate Qualified Code(s): J45.41 - Moderate persistent asthma with (acute) exacerbation (2) SUTTON (dyspnea on exertion): Code(s): R06.00 - Dyspnea, unspecified Category: Medical (3) Chest pain: Comment: better Code(s): R07.9 - Chest pain, unspecified Category: Medical Qualifiers: Chest pain type: chest pain on breathing Qualified Code(s): R07.1 - Chest pain on breathing (4) Chronic cough: Code(s): R05 - Cough Category: Medical (5) Chronic restrictive lung disease: Code(s): J98.4 - Other disorders of lung Category: Medical (6) Tobacco dependence: Code(s): F17.200 - Nicotine dependence, unspecified, uncomplicated Category: Medical Plan start Doxycycline start medrol pack continue Breo continue Incruse short-acting beta agonist as needed start nicotine patch follow-up in 4-6 months Medications: New doxycycline hyclate 100 mg PO BID 20 caps 0RF 10 days methylprednisolone (Medrol (Renato)) PO PER PKG DIR 21 ea 0RF 6 days nicotine (Nicoderm CQ) 1 patch transdermal DAILY 28 ea 6RF 28 days umeclidinium 62.5 mcg/actuation (Incruse Ellipta) 1 inh inhalation DAILY 30 ea 11RF Coding Level of Care Code Est Pt Level 4 (31901) Diagnoses Moderate persistent asthma with acute exacerbation J45.41 Asthma complication type: with acute exacerbation Asthma persistence: persistent Asthma severity: moderate SUTTON (dyspnea on exertion) R06.00 Chest pain on breathing R07.1 Chest pain type: chest pain on breathing Chronic cough R05 Chronic restrictive lung disease J98.4 Tobacco dependence F17.200 Time Spent (min) 17
== END 2023-06-28 13:44 | disposition home or self-care (01) ==
PROVIDERS: PCP Registered Nurse; Visit Provider Hospitalist
DX: J45.41 Moderate persistent asthma with (acute) exacerbation (principal); R06.00 Dyspnea, unspecified; R07.1 Chest pain on breathing; R05.9 Cough, unspecified; J98.4 Other disorders of lung; F17.200 Nicotine dependence, unspecified, uncomplicated
CPT/HCPCS: 99214

== ENCOUNTER → 2023-06-28 13:08 | Outpatient (BNVA) | payer MEDICAID, SELFPAY | PROVIDERS: PCP Registered Nurse; Visit Provider Hospitalist | DX: J45.41 Moderate persistent asthma with (acute) exacerbation (principal); J98.4 Other disorders of lung; R06.00 Dyspnea, unspecified; R07.1 Chest pain on breathing; R05.3 Chronic cough; F17.210 Nicotine dependence, cigarettes, uncomplicated | CPT/HCPCS: 99212 ==

== ENCOUNTER 2023-08-03 15:22 | Emergency (ER) | payer MEDICAID, SELFPAY ==
[2023-08-03 15:25] VITALS: BP 157/94; PULSE 100; RESP 18; TEMP 36.3; O2SAT 97; BMI 31.5
--- NOTE | 2023-08-03 15:25 | ED.GENADULT ---
HPI - General Adult General Chief complaint: General Medical Stated complaint: Sore throat Time Seen by Provider: 08/03/23 16:03 Source: patient Mode of arrival: ambulatory Limitations: no limitations History of Present Illness ED Provider: María Parr PA-C HPI narrative: Patient is a 43 year old assigned male at with a history of asthma presenting to the emergency department today with a sore throat. Patient states that over the last 2 days he had been having a sore throat. Patient denies any dizziness, lightheadedness, abdominal pain, nausea, vomiting, fever, chills, blurry vision, double vision, loss of vision, chest pain, difficulty breathing, shortness of breath, back pain, night sweats, pain with urination, increased urinary frequency, increased urinary urgency, blood in his urine or stool, syncope or a near syncopal episode, recent trauma or falls, bowel incontinence, bladder incontinence, or any other complaints at this time. Onset (ago): day(s) (2) Severity: mild Severity scale (1-10): 2 Relieving factors: none Exacerbating factors: none Associated symptoms: denies other symptoms Treatments prior to arrival: none Related Data Home Medications ?Medication ?Instructions ?Recorded ?Confirmed valacyclovir 1 gram tablet 1,000 mg PO DAILY PRN Cold Sores 04/18/22 01/12/23 acetaminophen 500 mg capsule 500 - 1,000 mg PO Q6H PRN pain 05/19/22 01/12/23 (Mapap (acetaminophen)) tizanidine 4 mg tablet 4 mg PO DAILY PRN muscle spasticity 06/28/22 01/12/23 Previous Rx's ?Medication ?Instructions ?Recorded albuterol sulfate 90 mcg/actuation 2 inh inhalation Q6H PRN shortness 01/10/21 aerosol inhaler of breath or wheezing 30 days #18 grams gabapentin 300 mg capsule 300 mg PO BID PRN for pain #60 caps 08/25/22 varenicline 0.5 mg (11)-1 mg (42) See Rx Instructions PO PER PKG DIR 08/25/22 tablets in a dose pack (Chantix #42 ea Starting Month Box) fluticasone furoate 100 1 inh inhalation DAILY 30 days #60 11/06/22 mcg-vilanterol 25 mcg/dose ea inhalation powder (Breo Ellipta) clonidine 0.1 mg/24 hr weekly 1 patch transdermal QWEEK #4 ea 01/12/23 transdermal patch varenicline 1 mg tablet 1 mg PO BID #56 tabs 01/25/23 ibuprofen 600 mg tablet 600 mg PO Q6H PRN pain #14 tabs 06/13/23 doxycycline hyclate 100 mg capsule 100 mg PO BID 10 days #20 caps 06/28/23 methylprednisolone 4 mg tablets in See Rx Instructions PO PER PKG DIR 06/28/23 a dose pack (Medrol (Renato)) 6 days #21 ea nicotine 21 mg/24 hr daily 1 patch transdermal DAILY 28 days 06/28/23 transdermal patch (Nicoderm CQ) #28 ea umeclidinium 62.5 mcg/actuation 1 inh inhalation DAILY #30 ea 06/28/23 blister powder for inhalation (Incruse Ellipta) omeprazole 40 mg capsule,delayed 40 mg PO DAILY 90 days #90 caps 07/22/23 release clindamycin HCl 300 mg capsule 300 mg PO TID 10 days #30 caps 08/03/23 Allergies Allergy/AdvReac Type Severity Reaction Status Date / Time Penicillins [PCN] Allergy Severe HIVES AND Verified 08/03/23 15:26 EDEMA Review of Systems Constitutional: Constitutional: Reports no additional constitutional complaints, Denies chills, Denies fever(s) and Denies night sweats Eyes: Eyes: Reports no additional eye complaints, Denies blurry vision, Denies change in vision, Denies diplopia, Denies eye discharge, Denies loss of vision and Denies eye pain ENT: Denies dizziness and Reports sore throat Cardiovascular: Cardiovascular: Reports no additional cardiovascular complaints, Denies chest pain, Denies lightheadedness, Denies Loss of Consciousness and Denies dyspnea Respiratory: Respiratory: Reports no additional respiratory complaints and Denies dyspnea Gastrointestinal: Gastrointestinal: Reports no additional gastrointestinal complaints, Denies abdominal pain, Denies melena, Denies hematochezia, Denies change in bowel habits and Denies change in stool character Genitourinary: Genitourinary: Reports no additional male genitourinary complaints, Denies hematuria, Denies oliguria, Denies difficulty urinating, Denies dysuria, Denies urinary frequency, Denies urinary hesitancy, Denies urinary incontinence and Denies urinary urgency Musculoskeletal: Musculoskeletal: Reports no additional musculoskeletal complaints, Denies numbness and Denies tingling Neurologic: Denies dizziness, Denies loss of vision, Denies numbness and Denies tingling Psychiatric: Psychiatric: Reports no additional psychiatric complaints Endocrine: Endocrine: Reports no additional endocrine complaints Hematologic/Lymphatic: Hematologic/Lymphatic: Reports no additional hematologic/lymphatic complaints Allergic/Immunologic: Allergic/Immunologic: Reports no additional allergic/immunologic complaints PMFSH Past Medical History Attestation statement: The following information was validated with the patient. Source: old records reviewed and nursing notes reviewed Medical History Bronchitis COPD (chronic obstructive pulmonary disease) Axillary adenopathy Chest pain Emphysema (subcutaneous) (surgical) resulting from a procedure ILD (interstitial lung disease) Abnormal PFTs (pulmonary function tests) Chronic cough Tobacco dependence Asthma Chronic restrictive lung disease Surgical History History of vasectomy (~2015) Family History Family History Mother Diabetes Asthma Father No problems noted. Maternal Grandmother Cancer Maternal Aunt Breast cancer Social History Social History Household Members: Spouse Housing: Apartment Do you presently have visiting nurse or other home services: Yes Alcohol intake: current Alcohol intake frequency: holidays/special occasions only Patient Tobacco Use Status: Current someday Tobacco user Tobacco use type: Cigarette Cigarette Packs Per Day: 1 Cigarettes Per Day: 20.0 Years Smoked: 35 +/- Second Hand Smoke Exposure: No Advance Directives: No Advance Directives Information Provided: No Do you have a plan to hurt others: No Plan service: No Current occupational status: disabled Physical Exam ED Vital Signs: Vital Signs - 24 hr 08/03/23 15:25 08/03/23 16:05 Temperature 97.4 F 97.4 F Pulse Rate 100 100 Respiratory Rate 18 18 Blood Pressure 157/94 H 157/94 H Pulse Oximetry 97 97 Oxygen Delivery Method Room Air Room Air BMI result Body Mass Index 31.5 Const General: cooperative, no acute distress, alert and awake Nutritional Appearance: well nourished Orientation/consciousness: patient oriented x3 Limitations: no limitations HENMT Head: Yes normal to inspection and Yes atraumatic Ears: hearing grossly normal bilaterally and external ears normal General nose exam: Normal external nose present, no nasal discharge noted and no epistaxis Face and sinus: Yes normal facial exam, No abrasion and No laceration Mouth: Normal oral and palatal mucosa present, no drooling and no muffled voice Throat: Yes abnormal tonsil (bilateral erythema and exudates) Eyes General: appearance normal, both eyes and all related structures Periorbital: periorbital findings normal Eyelids: Yes eyelids normal Conjunctivae: conjunctivae normal Pupils: Equal, round and reactive pupils present EOM: EOMs intact bilaterally Neck Neck: Yes normal visual inspection, Yes full ROM and Yes no lymphadenopathy Chest Chest palpation & inspection: normal inspection of the chest Resp Effort & Inspection: normal respiratory effort and able to speak in complete sentences GI Inspection: Yes normal to inspection Neuro General: patient oriented x3 and moves all extremities Cranial nerves: Yes Equal, round and reactive pupils present Cognition (Neuro): normal cognition Motor exam (neuro): 5/5 motor strength present throughout Sensory Exam: Normal double simultaneous stimulation for sensation Coordination: [id number] test normal Extrem General: Yes normal to inspection, Yes full ROM and Yes capillary refill normal Psych Appearance: grossly normal Mental Status: mental status grossly normal Affect: normal affect Attitude: cooperative Thought process: Normal thought process present Thought content: Normal thought content present Insight: Good insight present (Psych) Course Course Course Narrative: RME performed by María Parr PA-C. Patient is a 43 year old assigned male at presenting to the emergency department with a sore throat. Patient states he has had a sore throat over the last few days. Detailed physical exam and review of systems are deferred to the rotary shear cutter. Swabs ordered. Patient placed back in the waiting room pending room availability and results. Medical Decision Making Medical Decision Making MDM Narrative: Patient is a 43 year old assigned male at with a history of asthma presenting to the emergency department today with a sore throat. Patient's physical exam was as noted in the physical exam portion of this note. Patient's strep test was positive. Patient's COVID-19, influenza, and RSV tests were negative. I explained my physical exam findings as well as all test results to the patient. I answered all questions asked by the patient. I stressed the importance of the patient taking his medication as prescribed. I stressed the importance of the patient following up with his primary care provider. I stressed the importance of the patient returning to the emergency department immediately if his symptoms were to worsen or if he were to develop any dizziness, shortness of breath, difficulty breathing, chest pain, blurry vision, loss of vision, nausea, vomiting, abdominal pain, fever, chills, back pain, or any other complaints. Patient verbalized agreement and understanding with this treatment plan and discharge. Differential Diagnosis Differential Diagnoses: The differential diagnosis associated with the presentation includes Strep pharyngitis COVID-19 Influenza RSV URI Admission/Observation Consideration of admission/observation: Escalation of care including admission/observation considered Patient would have been admitted to the hospital had his work up had any findings where hospital admission was appropriate and his clinical presentation warranted hospital admission. Lab Data [facility] Lab Attestation statement: I reviewed the patient's lab results. My interpretation of these results are in the [facility] Rationale portion of this note. Labs: Lab Results 08/03/23 Range/Units 15:45 Influenza Type A (PCR) NEGATIVE (Negative) Influenza Type B (PCR) NEGATIVE (Negative) RSV RNA Qual (PCR) NEGATIVE (Negative) SARS-CoV-2 RNA (RT-PCR) NEGATIVE (Negative) S. pyogenes GrpA ALHAJI Positive A (Negative) Prescription Management I considered prescription management with: Antibiotic (patient prescribed an antibiotic for strep pharyngitis) Discharge Plan Discharge Clinical Impression: Strep pharyngitis Patient Disposition: Home, Self-Care Instructions: Strep Throat (DC) Additional Instructions: Take your antibiotic as prescribed. Follow up with your primary care provider. Return to the emergency department immediately if your symptoms worsen or if you develop any dizziness, shortness of breath, difficulty breathing, chest pain, blurry vision, loss of vision, nausea, vomiting, abdominal pain, fever, chills, back pain, or any other complaints. Prescriptions: New clindamycin HCl 300 mg capsule 300 mg PO TID 10 Days Qty: 30 0RF No Action gabapentin 300 mg capsule 300 mg PO BID PRN (Reason: for pain) Qty: 60 2RF fluticasone furoate-vilanterol [Breo Ellipta] 100-25 mcg/dose blister with device 1 inh inhalation DAILY 30 Days Qty: 60 11RF varenicline 1 mg tablet 1 mg PO BID Qty: 56 2RF omeprazole 40 mg capsule,delayed release(DR/EC) 40 mg PO DAILY 90 Days Qty: 90 3RF tizanidine 4 mg tablet 4 mg PO DAILY PRN (Reason: muscle spasticity) ibuprofen 600 mg tablet 600 mg PO Q6H PRN (Reason: pain) Qty: 14 0RF albuterol sulfate 90 mcg/actuation HFA aerosol inhaler 2 inh inhalation Q6H PRN (Reason: shortness of breath or wheezing) 30 Days Qty: 18 12RF varenicline [Chantix Starting Month Box] 0.5 mg (11)- 1 mg (42) tablets,dose pack See Rx Instructions PO PER PKG DIR Qty: 42 0RF Rx Instructions: PO PER PKG DIR valacyclovir 1 gram tablet 1,000 mg PO DAILY PRN (Reason: Cold Sores) Rx Instructions: use for 5 days acetaminophen [Mapap (acetaminophen)] 500 mg capsule 500 - 1,000 mg PO Q6H PRN (Reason: pain) clonidine 0.1 mg/24 hr patch weekly 1 patch transdermal QWEEK Qty: 4 2RF doxycycline hyclate 100 mg capsule 100 mg PO BID 10 Days Qty: 20 0RF methylprednisolone [Medrol (Renato)] 4 mg tablets,dose pack See Rx Instructions PO PER PKG DIR 6 Days Qty: 21 0RF Rx Instructions: PO PER PKG DIR nicotine [Nicoderm CQ] 21 mg/24 hr patch 24 hour 1 patch transdermal DAILY 28 Days Qty: 28 6RF Incruse Ellipta 62.5 mcg/actuation blister with device 1 inh inhalation DAILY Qty: 30 11RF Referrals: Umm Huang FNP [Primary Care Provider] - Stand Alone Forms: Work/School Release Interventions: ED Discharge Assessment Last Done: 08/03/23 16:05 Discharge Date/Time: 08/03/23 16:06 Print Language: Martiniquais
--- NOTE | 2023-08-03 15:49 | MHC.EDTECH ---
rsv/covid swab and strep swab all sent to lab .
[2023-08-03 15:56] LABS: IDNOW Serial# 08D9AD1C; Strep A Nucleic Acid Positive (Negative)
[2023-08-03 16:05] VITALS: BP 157/94; PULSE 100; RESP 18; TEMP 36.3; O2SAT 97
[2023-08-03 16:28] LABS: Influenza A PCR NEGATIVE (Negative); Influenza B PCR NEGATIVE (Negative); Resp Syncy Virus RNA Qual PCR NEGATIVE (Negative); SARS COV2 PCR INHOUSE NEGATIVE (Negative)
== END 2023-08-03 16:06 | disposition home or self-care (01) ==
PROVIDERS: Physician Assistant Medical; Emergency Provider Emergency Medicine; PCP Registered Nurse
DX: J02.0 Streptococcal pharyngitis (principal); Z03.818 Encounter for observation for suspected exposure to other biological agents ruled out
CPT/HCPCS: 0241U; 87651; 99282; 99283

== ENCOUNTER 2023-09-16 13:55 | Emergency (ER) | payer MEDICAID, SELFPAY ==
[2023-09-16 13:57] VITALS: BP 136/91; PULSE 105; RESP 18; TEMP 36.9; O2SAT 97; BMI 27.3
--- NOTE | 2023-09-16 14:03 | ED.GENADULT ---
HPI - General Adult General Chief complaint: Upper Respiratory Symptoms Stated complaint: flu like symptoms Time Seen by Provider: 09/16/23 14:03 Source: patient Mode of arrival: ambulatory Limitations: no limitations History of Present Illness ED Provider: Yesica Morris APRN HPI narrative: 43-year-old male with no known medical history presents the ER with 5 days of body aches, chills, sore throat, headache, back pain, neck pain, cough. Patient denies any shortness of breath, chest pain, fever, vomiting, diarrhea, abdominal pain, skin rash. Related Data Home Medications ?Medication ?Instructions ?Recorded ?Confirmed valacyclovir 1 gram tablet 1,000 mg PO DAILY PRN Cold Sores 04/18/22 01/12/23 acetaminophen 500 mg capsule 500 - 1,000 mg PO Q6H PRN pain 05/19/22 01/12/23 (Mapap (acetaminophen)) tizanidine 4 mg tablet 4 mg PO DAILY PRN muscle spasticity 06/28/22 01/12/23 Previous Rx's ?Medication ?Instructions ?Recorded albuterol sulfate 90 mcg/actuation 2 inh inhalation Q6H PRN shortness 01/10/21 aerosol inhaler of breath or wheezing 30 days #18 grams gabapentin 300 mg capsule 300 mg PO BID PRN for pain #60 caps 08/25/22 varenicline 0.5 mg (11)-1 mg (42) See Rx Instructions PO PER PKG DIR 08/25/22 tablets in a dose pack (Chantix #42 ea Starting Month Box) fluticasone furoate 100 1 inh inhalation DAILY 30 days #60 11/06/22 mcg-vilanterol 25 mcg/dose ea inhalation powder (Breo Ellipta) clonidine 0.1 mg/24 hr weekly 1 patch transdermal QWEEK #4 ea 01/12/23 transdermal patch varenicline 1 mg tablet 1 mg PO BID #56 tabs 01/25/23 ibuprofen 600 mg tablet 600 mg PO Q6H PRN pain #14 tabs 06/13/23 doxycycline hyclate 100 mg capsule 100 mg PO BID 10 days #20 caps 06/28/23 methylprednisolone 4 mg tablets in See Rx Instructions PO PER PKG DIR 06/28/23 a dose pack (Medrol (Renato)) 6 days #21 ea nicotine 21 mg/24 hr daily 1 patch transdermal DAILY 28 days 06/28/23 transdermal patch (Nicoderm CQ) #28 ea umeclidinium 62.5 mcg/actuation 1 inh inhalation DAILY #30 ea 06/28/23 blister powder for inhalation (Incruse Ellipta) omeprazole 40 mg capsule,delayed 40 mg PO DAILY 90 days #90 caps 07/22/23 release clindamycin HCl 300 mg capsule 300 mg PO TID 10 days #30 caps 08/03/23 Allergies Allergy/AdvReac Type Severity Reaction Status Date / Time Penicillins [PCN] Allergy Severe HIVES AND Verified 09/16/23 14:00 EDEMA Review of Systems Review of Systems: Yes all other systems are reviewed and are negative Constitutional: Constitutional: Reports no additional constitutional complaints, Reports body ache(s), Reports chills, Reports fatigue, Denies fever(s), Reports headache(s) and Denies weakness Eyes: Eyes: Reports no additional eye complaints and Denies change in vision ENT: Reports system reviewed and no additional complaints, except as documented, Denies dizziness, Reports headache(s), Denies nasal congestion, Denies nasal discharge, Denies neck pain and Reports sore throat Cardiovascular: Cardiovascular: Reports no additional cardiovascular complaints, Denies chest pain, Denies leg edema and Denies dyspnea Respiratory: Respiratory: Reports no additional respiratory complaints, Reports cough and Denies dyspnea Gastrointestinal: Gastrointestinal: Reports no additional gastrointestinal complaints, Denies abdominal pain, Denies diarrhea, Denies nausea and Denies vomiting Genitourinary: Genitourinary: Denies urinary incontinence Musculoskeletal: Musculoskeletal: Reports no additional musculoskeletal complaints, Denies back pain, Denies arthralgias, Denies joint swelling, Denies neck pain, Denies numbness and Denies tingling Integumentary/Breasts: Skin/Breast: Reports system reviewed and no additional complaints, except as docu and Denies rash Neurologic: Reports system reviewed and no additional complaints, except as documented, Denies Abnormal speech present, Denies dizziness, Reports headache(s), Denies numbness, Denies tingling and Denies weakness Endocrine: Endocrine: Reports fatigue PMFSH Past Medical History Attestation statement: The following information was validated with the patient. Source: old records reviewed and nursing notes reviewed Medical History Bronchitis COPD (chronic obstructive pulmonary disease) Axillary adenopathy Chest pain Emphysema (subcutaneous) (surgical) resulting from a procedure ILD (interstitial lung disease) Abnormal PFTs (pulmonary function tests) Chronic cough Tobacco dependence Asthma Chronic restrictive lung disease Surgical History History of vasectomy (~2016) Family History Family History Mother Diabetes Asthma Father No problems noted. Maternal Grandmother Cancer Maternal Aunt Breast cancer Social History Social History Household Members: Spouse Housing: Apartment Do you presently have visiting nurse or other home services: Yes Alcohol intake: current Alcohol intake frequency: holidays/special occasions only Patient Tobacco Use Status: Current someday Tobacco user Tobacco use type: Cigarette Cigarette Packs Per Day: 1 Cigarettes Per Day: 20.0 Years Smoked: 35 +/- Second Hand Smoke Exposure: No Advance Directives: Yes Advance Directives Information Provided: Yes Advance Directives on File: No Do you have a plan to hurt others: No Plan service: No Current occupational status: disabled Physical Exam ED Vital Signs: Vital Signs - 24 hr 09/16/23 13:57 Temperature 98.5 F Pulse Rate 105 H Respiratory Rate 18 Blood Pressure 136/91 H Pulse Oximetry 97 Oxygen Delivery Method Room Air BMI result Body Mass Index 27.3 Const General: cooperative, healthy appearing, comfortable and no acute distress Orientation/consciousness: patient oriented x3 Limitations: no limitations HENMT Head: Yes normal to inspection Ears: hearing grossly normal bilaterally and TM's normal bilaterally General nose exam: Normal external nose present Face and sinus: Yes normal facial exam Mouth: Normal oral and palatal mucosa present Throat: Yes posterior oropharynx normal, Yes tonsils normal and Yes uvula midline Eyes General: appearance normal, both eyes and all related structures Pupils: Equal, round and reactive pupils present Neck Neck: Yes normal visual inspection, Yes full ROM, Yes no lymphadenopathy and Yes no meningeal signs Chest Chest palpation & inspection: normal inspection of the chest Resp Effort & Inspection: normal respiratory effort Auscultation: clear to auscultation bilaterally Cardio Rate: regular rate Rhythm: regular rhythm Peripheral pulses: Peripheral pulses 2+ throughout GI Inspection: Yes normal to inspection Palpation (GI): Soft to palpation and nontender Auscultation: normal bowel sounds Back/Spine/Pelvis Thoracic/Lumbar Spine: thoracic and lumbar spine normal to inspection Skin General skin exam: no rashes or lesions noted Neuro General: patient oriented x3, no meningeal signs, no focal motor deficits and normal sensation to monofilament Cranial nerves: Yes Equal, round and reactive pupils present Cognition (Neuro): normal cognition Speech: No Abnormal speech present Gait exam (Neuro): Normal gait present Motor exam (neuro): 5/5 motor strength present throughout Extrem General: Yes normal to inspection, Yes no pedal edema and Yes no calf tenderness Course Course Course Narrative: RME: done by Alison Pacheco. 43 yold amel rpesents to the ED for coughing, headache, bodyaches, sore throat, and fatigue for couple of days. lungs clear. no pitting edema of legs. no signs of Peritonsillar abscess on oral exams. SARS and strep ordered Reevaluation(s) Reevaluation #1: COVID screen is positive. Patient instructed of test results. Recommend supportive care at home. Reviewed worrisome signs and symptoms of when to return to the emergency room. Comfortable plan for discharge home Medical Decision Making Medical Decision Making [facility] Narrative: 43-year-old male with no known medical history presents the ER with 5 days of body aches, chills, sore throat, headache, back pain, neck pain, cough. Patient denies any shortness of breath, chest pain, fever, vomiting, diarrhea, abdominal pain, skin rash. Exam is benign. Vitals are stable. Will send viral testing, strep test Differential Diagnosis Differential Diagnoses: The differential diagnosis associated with the presentation includes Viral syndrome, influenza, strep pharyngitis Low suspicion for RPA, CHIP TUNER, epiglottitis, Mango's angina, meningitis Admission/Observation Consideration of admission/observation: Escalation of care including admission/observation considered COVID screen is positive with no hypoxia or tachypnea requiring supplemental oxygen and or admission Lab Data [facility] Lab Attestation statement: I reviewed the patient's lab results. Labs: Lab Results 09/16/23 Range/Units 14:12 Influenza Type A (PCR) NEGATIVE (Negative) Influenza Type B (PCR) NEGATIVE (Negative) RSV RNA Qual (PCR) NEGATIVE (Negative) SARS-CoV-2 RNA (RT-PCR) POSITIVE A (Negative) S. pyogenes GrpA ALHAJI Negative (Negative) Tests considered The following testing was considered but not selected: No hypoxia or tachypnea to suggest need for chest x-ray Prescription Management I considered prescription management with: Antiviral Discharge Plan Discharge Clinical Impression: COVID-19 Patient Disposition: Home, Self-Care Instructions: COVID-19 (Coronavirus Disease 2019) (ED) Additional Instructions: Take Motrin or Tylenol for any pain or fever Increase fluids, rest Return for any worsening symptoms The CDC recommends quarantine for 5 days and then masking up for an additional 5 more days Prescriptions: No Action gabapentin 300 mg capsule 300 mg PO BID PRN (Reason: for pain) Qty: 60 2RF fluticasone furoate-vilanterol [Breo Ellipta] 100-25 mcg/dose blister with device 1 inh inhalation DAILY 30 Days Qty: 60 11RF varenicline 1 mg tablet 1 mg PO BID Qty: 56 2RF omeprazole 40 mg capsule,delayed release(DR/EC) 40 mg PO DAILY 90 Days Qty: 90 3RF tizanidine 4 mg tablet 4 mg PO DAILY PRN (Reason: muscle spasticity) ibuprofen 600 mg tablet 600 mg PO Q6H PRN (Reason: pain) Qty: 14 0RF clindamycin HCl 300 mg capsule 300 mg PO TID 10 Days Qty: 30 0RF albuterol sulfate 90 mcg/actuation HFA aerosol inhaler 2 inh inhalation Q6H PRN (Reason: shortness of breath or wheezing) 30 Days Qty: 18 12RF varenicline [Chantix Starting Month Box] 0.5 mg (11)- 1 mg (42) tablets,dose pack See Rx Instructions PO PER PKG DIR Qty: 42 0RF Rx Instructions: PO PER PKG DIR valacyclovir 1 gram tablet 1,000 mg PO DAILY PRN (Reason: Cold Sores) Rx Instructions: use for 5 days acetaminophen [Mapap (acetaminophen)] 500 mg capsule 500 - 1,000 mg PO Q6H PRN (Reason: pain) clonidine 0.1 mg/24 hr patch weekly 1 patch transdermal QWEEK Qty: 4 2RF doxycycline hyclate 100 mg capsule 100 mg PO BID 10 Days Qty: 20 0RF methylprednisolone [Medrol (Renato)] 4 mg tablets,dose pack See Rx Instructions PO PER PKG DIR 6 Days Qty: 21 0RF Rx Instructions: PO PER PKG DIR nicotine [Nicoderm CQ] 21 mg/24 hr patch 24 hour 1 patch transdermal DAILY 28 Days Qty: 28 6RF Incruse Ellipta 62.5 mcg/actuation blister with device 1 inh inhalation DAILY Qty: 30 11RF Referrals: Umm Huang FNP [Primary Care Provider] - 1 week Stand Alone Forms: Work/School Release Print Language: Albanian
[2023-09-16 14:33] LABS: IDNOW Serial# 08D9AD1C; Strep A Nucleic Acid Negative (Negative)
[2023-09-16 15:10] LABS: Influenza A PCR NEGATIVE (Negative); Influenza B PCR NEGATIVE (Negative); Resp Syncy Virus RNA Qual PCR NEGATIVE (Negative); SARS COV2 PCR INHOUSE POSITIVE (Negative)
[2023-09-16 15:26] VITALS: BP 122/74; PULSE 89; RESP 16; TEMP 36.7; O2SAT 97
[2023-09-16 15:47] VITALS: BP 122/74; PULSE 89; RESP 16; TEMP 36.7; O2SAT 97
== END 2023-09-16 15:48 | disposition home or self-care (01) ==
PROVIDERS: Physician Assistant; Emergency Provider Emergency Medicine; PCP Registered Nurse
DX: U07.1 COVID-19 (principal); M79.10 Myalgia, unspecified site; J02.9 Acute pharyngitis, unspecified; R51.9 Headache, unspecified; M54.50 Low back pain, unspecified; M54.2 Cervicalgia; R05.9 Cough, unspecified
CPT/HCPCS: 0241U; 87651; 99283

== ENCOUNTER 2023-10-12 15:07 | Outpatient (REF) | payer MEDICAID, SELFPAY ==
[2023-10-12 16:24] LABS: MANUAL DIFF FLAG NO
[2023-10-12 16:31] LABS: Basophils Percent Auto 1.4 % (0-2); Eosinophils Percent Auto 1.1 % (0-4); Hematocrit 42.6 % (42.0-52.0); Hemoglobin 14.2 g/dl (14.0-18.0); Imm Gran Pct Auto 0.2 % (0.0-0.4); Lymphocytes Percent Auto 45.6 % (20-40); Mean Corpuscular HGB Conc 33.3 g/dl (31.0-36.0); Mean Corpuscular Hemoglobin 31.2 pg (27.0-33.0); Mean Corpuscular Volume 93.6 fL (80.0-98.0); Mean Platelet Volume 9.2 fL (9.4-12.4); Monocytes Percent Auto 6.2 % (2-11); Neutrophils Percent Auto 45.5 % (45-73); Platelet Count 305 X10*3/uL (160-400); Red Blood Count 4.55 X10*6/uL (4.60-5.80); Red Cell Distribution Width 13.8 % (11.0-16.0); White Blood Count 6.7 X10*3/uL (4.8-10.8)
[2023-10-12 16:32] LABS: Basophils Absolute Auto 0.1 X10*3/uL (0.0-0.2); Eosinophils Absolute Auto 0.1 X10*3/uL (0.0-0.4); Imm Gran Abs Auto 0.01 X10*3/uL (0.00-0.03); Monocytes Absolute Auto 0.4 X10*3/uL (0.1-1.2)
[2023-10-12 16:51] LABS: Alanine Aminotransferase 22 U/L (0-40); Albumin Level 4.3 g/dL (3.5-5.0); Alkaline Phosphatase 72 U/L (39-117); Anion Gap 12 (12-20); Aspartate Amino Transferase 18 U/L (5-37); Bilirubin Total 0.4 mg/dL (0.0-1.0); Blood Urea Nitrogen 10 mg/dL (9-16); Calcium 10.2 mg/dL (8.4-10.2); Carbon Dioxide 25 mmol/L (22-29); Chloride 106 mmol/L (96-108); Cholesterol 168 mg/dL (<200); Estimated Glomerular Filt Rate > 60; Glucose Random 98 mg/dL (60-115); HDL Cholesterol 37 mg/dL (>40); LDL Cholesterol Calculated 108 mg/dL (<100); Potassium 3.9 mmol/L (3.3-5.1); Sodium 139 mmol/L (135-145); Total Protein 7.5 g/dL (6.5-8.0); Triglycerides 116 mg/dL (<150)
[2023-10-12 17:07] LABS: TSH reflex Free T4 1.36 uIU/mL (0.32-4.0); Vitamin D 25-OH Total 54.7 ng/mL (>30)
[2023-10-12 17:36] LABS: Reflex LDLD? No
[2023-10-13 04:18] LABS: HBS Num1 101.59 mIU/mL (0-7.99); HBc Num1 0.08 S/CO (0.00-0.79); HBsAGNum1 0.38 S/CO (0.00-0.99); HIV AB/AG Nonreactive (Nonreactive); HIV Num 1 0.05 S/CO (0.00-0.99); Hepatitis A Antibody IgM 0.22 Index (0-0.79); Hepatitis B Core Antibody Nonreactive (Nonreactive); Hepatitis B Surface Antigen Negative (Negative); ~HepC Num1 0.12 S/CO (0.00-0.79); ~Hepatitis A Antibody IgM Nonreactive (Nonreactive); ~Hepatitis B Surface Antibody REACTIVE (Nonreactive); ~Hepatitis C Antibody Nonreactive (Nonreactive)
[2023-10-14 13:53] LABS: Hepatitis B Surface Ab Qnt 154 mIU/mL (> OR = 10)
[2023-10-15 05:03] LABS: TS Negative Control Passed; TS Panel A 0; TS Panel B 0; TS Positive Control Passed; TSpotTB Negative (Negative)
[2023-10-16 16:32] LABS: RPR Rapid Plasma Reagin NON-REACTIVE (NON-REACTIVE)
[2023-10-16 18:28] LABS: Rubella IgG Antibody 5.38 Index
== END 2023-10-12 15:08 | disposition home or self-care (01) ==
LOC: HO.HHCL 15:07
PROVIDERS: Visit Provider Internal Medicine
DX: Z00.00 Encounter for general adult medical examination without abnormal findings (principal)
CPT/HCPCS: 36415; 80053; 80061; 82306; 84443; 85025; 86317; 86481; 86592; 86704; 86706; 86709; 86735; 86762; 86765; 86787; 86803; 87340; 87389

== ENCOUNTER 2023-11-21 00:42 | Emergency (ER) | payer MEDICAID, SELFPAY ==
--- NOTE | ~2023-11-21 | CT_ITS ---
EXAMINATION: CT ABDOMEN AND PELVIS WITH CONTRAST CLINICAL INFORMATION: Diffuse abdominal pain COMPARISON: 06/13/2023 TECHNIQUE: Multidetector volumetric images were obtained from the superior aspect of the liver through the pubic symphysis following administration 85 mL of Omnipaque 350 intravenous contrast. Sagittal and coronal reformatted images were obtained on the technologist's workstation. Oral contrast: No This CT examination was performed using dose optimization techniques as appropriate, variously including the following: *Automated exposure control *Adjustment of mA and/or kV according to patient size (this includes techniques or standardized protocols for targeted exams where dose is matched to indication/reason for exam; i.e. extremities or head) *Use of iterative reconstruction technique DLP: 417 mGy-cm FINDINGS: LUNG BASES: Minor dependent densities. LIVER, GALLBLADDER, AND BILIARY TREE: The liver is prominent in the left lobe extends into the left upper quadrant. There may be mild fatty change. No focal mass or intrahepatic biliary dilatation. The gallbladder is unremarkable with no evidence of radiopaque gallstones, gallbladder wall thickening, or obvious pericholecystic inflammatory changes. PANCREAS: Unremarkable. SPLEEN: Unremarkable. ADRENAL GLANDS: Unremarkable. KIDNEYS AND URETERS: The kidneys are normal in size, shape, and attenuation. No hydronephrosis, hydroureter, or calculi seen. No perinephric stranding. BLADDER: The bladder is decompressed us suboptimally evaluated. GASTROINTESTINAL TRACT: Appendix is elongated but unremarkable. Moderate stool burden in the colon. No bowel obstruction or right or left lower quadrant inflammatory change. ABDOMINAL WALL: No significant hernia is appreciated. LYMPH NODES: Normal. VASCULAR: Minor atherosclerotic change in the iliac bifurcation. PELVIC VISCERA: Unremarkable. OSSEOUS STRUCTURES: Unremarkable. CT/CT abdomen pelvis w IV con IMPRESSION: Hepatomegaly with mild steatosis. Mild atherosclerotic change observed at the iliac bifurcation, which may be concerning in a patient of this young age. Fleischner guidelines were followed. Electronically signed by: Mc Green MD 11/21/2023 09:10 AM EDT
[2023-11-21 00:43] VITALS: BP 147/76; PULSE 84; RESP 18; TEMP 36.8; O2SAT 100; BMI 28.2
[2023-11-21 01:03] LABS: MANUAL DIFF FLAG NO
[2023-11-21 01:04] LABS: Basophils Absolute Auto 0.1 X10*3/uL (0.0-0.2); Basophils Percent Auto 0.8 % (0-2); Eosinophils Absolute Auto 0.1 X10*3/uL (0.0-0.4); Eosinophils Percent Auto 0.8 % (0-4); Hemoglobin 13.5 g/dl (14.0-18.0); Imm Gran Abs Auto 0.03 X10*3/uL (0.00-0.03); Imm Gran Pct Auto 0.3 % (0.0-0.4); Lymphocytes Absolute Auto 2.8 X10*3/uL (1.2-4.9); Lymphocytes Percent Auto 25.3 % (20-40); Mean Corpuscular HGB Conc 34.6 g/dl (31.0-36.0); Mean Corpuscular Hemoglobin 32.1 pg (27.0-33.0); Mean Corpuscular Volume 92.9 fL (80.0-98.0); Mean Platelet Volume 8.7 fL (9.4-12.4); Monocytes Absolute Auto 0.6 X10*3/uL (0.1-1.2); Monocytes Percent Auto 5.6 % (2-11); Neutrophils Absolute Auto 7.5 x10*3/uL (2.0-8.3); Neutrophils Percent Auto 67.2 % (45-73); Platelet Count 309 X10*3/uL (160-400); Red Cell Distribution Width 12.9 % (11.0-16.0); White Blood Count 11.1 X10*3/uL (4.8-10.8)
[2023-11-21 01:18] LABS: Alanine Aminotransferase 16 U/L (0-40); Albumin Level 4.1 g/dL (3.5-5.0); Alkaline Phosphatase 84 U/L (39-117); Anion Gap 16 (12-20); Aspartate Amino Transferase 17 U/L (5-37); Bilirubin Total 0.3 mg/dL (0.0-1.0); Blood Urea Nitrogen 16 mg/dL (9-16); Calcium 9.9 mg/dL (8.4-10.2); Carbon Dioxide 21 mmol/L (22-29); Chloride 107 mmol/L (96-108); Creatinine Clr Calc Pharmacy 98.4; Estimated Glomerular Filt Rate > 60; Glucose Random 146 mg/dL (60-115); Lipase 18 U/L (8-78); Potassium 3.9 mmol/L (3.3-5.1); Sodium 140 mmol/L (135-145); Total Protein 7.3 g/dL (6.5-8.0)
[2023-11-21 01:41] LABS: Influenza A PCR NEGATIVE (Negative); Influenza B PCR NEGATIVE (Negative); Resp Syncy Virus RNA Qual PCR NEGATIVE (Negative); SARS COV2 PCR INHOUSE NEGATIVE (Negative)
[2023-11-21 02:47] VITALS: BP 131/77; PULSE 85; RESP 16; TEMP 36.8; O2SAT 96
--- NOTE | 2023-11-21 02:50 | PC.NURSE ---
pt is alert and oriented, skin appropriate for ethnicity, respirations even and unlabored, pt reports abd pain that starts on the lower/mid abd and runs all the way to the epigastric area and down to the lef/middle, nausea but no vomiting, denies diarrhea, last bowel movement was yesterday morning, abd soft but tender, bowel sounds in all quadrants
[2023-11-21 04:46] LABS: Appearance Urine Clear; Color Urine Yellow; Glucose Urine UA Negative (Negative); Leukocyte Esterase Urine Trace (Negative); Nitrite Urine Negative (Negative); PH 5.5 (5.0-9.0); Specific Gravity - Urine 1.025 (1.005-1.025); UMIC TRIGGER UACC YES; Urine Blood Negative (Negative); Urine Ketones Trace mg/dL (Negative); Urine Protein Negative (Neg-Trace)
[2023-11-21 04:54] LABS: Bacteria Urine None Seen (None Seen); Hyaline Casts Urine 0-2 /LPF (0-2); RBC Urine 0-2 /HPF (0-2); Squamous Epithelial Cell Urine 0-2 /HPF (0-2); WBC Urine 0-5 /HPF (0-5)
[2023-11-21 06:44] VITALS: BP 124/78; PULSE 78; RESP 16; TEMP 36.9; O2SAT 94
--- NOTE | 2023-11-21 06:53 | ED.ABDPAIN ---
HPI - Abdominal Pain General Chief Complaint: Abdominal Pain Stated Complaint: abd pain Time Seen by Provider: 11/21/23 06:30 Source: patient Mode of arrival: ambulatory Limitations: no limitations History of Present Illness ED Provider: Mayo Schrader PA-C HPI narrative: 43 yo M PMH of pediatric murmur, HTN, cervical and lumbar spondylosis, colitis, HLD, asthma, chronic restrictive lung disease, presents to the ED c/o abdominal pain x3 days. Patient states that since onset 3 days ago pain has been intermittent and worsening. Describes pain as stabbing and a 9/10 currently. Endorses nausea, chills, diarrhea/softer stools. Patient also endorses chronic CP and SOB that is unchanged from baseline currently. Last bowel movement was yesterday. Last PO intake was yesterday night. Denies fevers, vomiting, black or bloody stools, urinary symptoms including pain, burning with urination. No past abdominal surgeries. Patient describes similar symptoms in past after he ate a bad piece of steak, but that time he had nausea, vomiting, diarrhea. Patient has not tried any new foods, new restaurants. No further complaints at this time. MD elicited complaint: abdominal pain Pertinent past history: other (colitis) Onset (ago): day(s) Pain Consistency: intermittent Location: diffuse Severity: moderate Quality: cramping Radiation: none Migration to: no migration Exacerbating factors: eating Relieving factors: nothing Associated symptoms: nausea and diarrhea Related Data Home Medications ?Medication ?Instructions ?Recorded ?Confirmed valacyclovir 1 gram tablet 1,000 mg PO DAILY PRN Cold Sores 04/18/22 01/12/23 acetaminophen 500 mg capsule 500 - 1,000 mg PO Q6H PRN pain 05/19/22 01/12/23 (Mapap (acetaminophen)) tizanidine 4 mg tablet 4 mg PO DAILY PRN muscle spasticity 06/28/22 01/12/23 Previous Rx's ?Medication ?Instructions ?Recorded albuterol sulfate 90 mcg/actuation 2 inh inhalation Q6H PRN shortness 01/10/21 aerosol inhaler of breath or wheezing 30 days #18 grams gabapentin 300 mg capsule 300 mg PO BID PRN for pain #60 caps 08/25/22 varenicline 0.5 mg (11)-1 mg (42) See Rx Instructions PO PER PKG DIR 08/25/22 tablets in a dose pack (Chantix #42 ea Starting Month Box) fluticasone furoate 100 1 inh inhalation DAILY 30 days #60 11/06/22 mcg-vilanterol 25 mcg/dose ea inhalation powder (Breo Ellipta) clonidine 0.1 mg/24 hr weekly 1 patch transdermal QWEEK #4 ea 01/12/23 transdermal patch varenicline 1 mg tablet 1 mg PO BID #56 tabs 01/25/23 ibuprofen 600 mg tablet 600 mg PO Q6H PRN pain #14 tabs 06/13/23 doxycycline hyclate 100 mg capsule 100 mg PO BID 10 days #20 caps 06/28/23 methylprednisolone 4 mg tablets in See Rx Instructions PO PER PKG DIR 06/28/23 a dose pack (Medrol (Renato)) 6 days #21 ea nicotine 21 mg/24 hr daily 1 patch transdermal DAILY 28 days 06/28/23 transdermal patch (Nicoderm CQ) #28 ea umeclidinium 62.5 mcg/actuation 1 inh inhalation DAILY #30 ea 06/28/23 blister powder for inhalation (Incruse Ellipta) omeprazole 40 mg capsule,delayed 40 mg PO DAILY 90 days #90 caps 07/22/23 release clindamycin HCl 300 mg capsule 300 mg PO TID 10 days #30 caps 08/03/23 dicyclomine 10 mg capsule 10 mg PO TID PRN abdominal pain 11/21/23 #10 caps ondansetron 4 mg disintegrating 4 mg PO Q8H PRN nausea and 11/21/23 tablet vomiting #7 tabs Allergies Allergy/AdvReac Type Severity Reaction Status Date / Time Penicillins [PCN] Allergy Severe HIVES AND Verified 11/21/23 00:45 EDEMA Review of Systems Review of Systems Yes all other systems are reviewed and are negative [facility] Past Medical History Medical History Bronchitis COPD (chronic obstructive pulmonary disease) Axillary adenopathy Chest pain Emphysema (subcutaneous) (surgical) resulting from a procedure ILD (interstitial lung disease) Abnormal PFTs (pulmonary function tests) Chronic cough Tobacco dependence Asthma Chronic restrictive lung disease Surgical History History of vasectomy (~2015) Family History Family History Mother Diabetes Asthma Father No problems noted. Maternal Grandmother Cancer Maternal Aunt Breast cancer Social History Social History Household Members: Spouse Housing: Apartment Do you presently have visiting nurse or other home services: Yes Alcohol intake: current Alcohol intake frequency: holidays/special occasions only Patient Tobacco Use Status: Current someday Tobacco user Tobacco use type: Cigarette Cigarette Packs Per Day: 1 Cigarettes Per Day: 20.0 Years Smoked: 35 +/- Smoked in Last 30 Days: Yes Second Hand Smoke Exposure: No Use of substances other than those prescribed or required for medical reasons: No Advance Directives: No Do you have a plan to hurt others: No Plan service: No Current occupational status: disabled Physical Exam ED Vital Signs: Vital Signs - 24 hr 11/21/23 00:43 11/21/23 02:47 11/21/23 06:44 Temperature 98.2 F 98.2 F 98.4 F Pulse Rate 84 85 78 Respiratory Rate 18 16 16 Blood Pressure 147/76 H 131/77 124/78 Pulse Oximetry 100 96 94 Oxygen Delivery Method Room Air Room Air Room Air BMI result Body Mass Index 28.2 Appearance: Alert. Oriented X3. Lying on stretcher in moderate distress, appears to be in pain. HEENT: Normal external inspection. Neck: Normal inspection. Neck supple. CVS: Normal heart rate. Pulses normal. Respiratory: No respiratory distress. Abdomen: Soft, tender to light and deep palpation in all 4 quadrants, guarding and rebound tenderness especially in right upper and lower quadrants. +BS x4 Skin: Skin warm and dry. Normal skin color. Normal skin turgor. No rashes. Extremities: No lower extremity edema. No joint swelling. Neuro/psych: Oriented X 3. CN II-XII grossly intact. Normal speech and cognition. Medical Decision Making Medical Decision Making MDM Narrative: 43 yo M PMH of murmur, HTN, cervical and lumbar spondylosis, colitis, HLD, asthma, chronic restrictive lung disease, presents to the ED c/o abdominal pain x3. On exam, patient is lying on the stretcher, nontoxic appearing, abdomen is soft, tender to light and deep palpation in all 4 quadrants, positive guarding and rebound tenderness especially in right upper and lower quadrants, +BS x4 with concern for acute appendicitis, acute cholecystitis, pancreatitis, colitis, gastro enteritis, gastritis, diverticulitis, nephrolithiasis, pyelonephritis, acute cystitis. Patient's vital signs are stable with a BP of 124/78, a HR of 78, afebrile at 98.4 F, saturating 94% on room air. Labs show mild leukocytosis, mild anemia. Plan:Pain control morphine, CT scan abdomen pelvis. Patient was given morphine and Zofran with improvement in his pain and nausea. He was tolerating p.o.. Abdominal exam is improved on re-evaluation. CT scan returning with no significant acute abnormality. He does have some atherosclerotic disease in his iliac bifurcation. This is not causing any of his symptoms today. Patient reassured of his abdominal workup today. At this time is stable for discharge home with symptomatic and supportive care. Encourage outpatient follow-up with his PCP. Encouraged bland p.o. diet until he is feeling better. Stable for discharge home. Differential Diagnosis Differential Diagnoses: The differential diagnosis associated with the presentation includes acute appendicitis, acute cholecystitis, pancreatitis, colitis, gastro enteritis, gastritis, diverticulitis, nephrolithiasis, pyelonephritis, acute cystitis. Admission/Observation Consideration of admission/observation: Escalation of care including admission/observation considered Lab Data MDM Lab Attestation statement: I reviewed the patient's lab results. mild leukocytosis, normal LFTs and lipase 11/21/23 00:57 11/21/23 00:57 Labs: Lab Results 11/21/23 11/21/23 Range/Units 00:57 04:37 WBC 11.1 H (4.8-10.8) X10*3/uL RBC 4.20 L (4.60-5.80) X10*6/uL Hgb 13.5 L (14.0-18.0) g/dl Hct 39.0 L (42.0-52.0) % MCV 92.9 (80.0-98.0) fL MCH 32.1 (27.0-33.0) pg MCHC 34.6 (31.0-36.0) g/dl RDW 12.9 (11.0-16.0) % Plt Count 309 (160-400) X10*3/uL MPV 8.7 L (9.4-12.4) fL Immature Gran % (Auto) 0.3 (0.0-0.4) % Neut % (Auto) 67.2 (45-73) % Lymph % (Auto) 25.3 (20-40) % [place] % (Auto) 5.6 (2-11) % Eos % (Auto) 0.8 (0-4) % Baso % (Auto) 0.8 (0-2) % Lymph # (Auto) 2.8 (1.2-4.9) X10*3/uL [place] # (Auto) 0.6 (0.1-1.2) X10*3/uL Eos # (Auto) 0.1 (0.0-0.4) X10*3/uL Baso # (Auto) 0.1 (0.0-0.2) X10*3/uL Abs Immat Gran (auto) 0.03 (0.00-0.03) X10*3/uL Absolute Neuts (auto) 7.5 (2.0-8.3) x10*3/uL Absolute Nucleated RBC 0.000 (0.0-0.012) X10*3/uL Nucleated RBC % (auto) 0.0 (0.0-0.2) /100WBC Sodium 140 (135-145) mmol/L Potassium 3.9 (3.3-5.1) mmol/L Chloride 107 (96-108) mmol/L Carbon Dioxide 21 L (22-29) mmol/L Anion Gap 16 (12-20) BUN 16 (9-16) mg/dL Creatinine 0.99 (0.5-1.4) mg/dL Estim Creat Clear Calc 98.4 Estimated GFR > 60 Random Glucose 146 H (60-115) mg/dL Calcium 9.9 (8.4-10.2) mg/dL Total Bilirubin 0.3 (0.0-1.0) mg/dL AST 17 (5-37) U/L ALT 16 (0-40) U/L Alkaline Phosphatase 84 (39-117) U/L Total Protein 7.3 (6.5-8.0) g/dL Albumin 4.1 (3.5-5.0) g/dL Lipase 18 (8-78) U/L Urine Color Yellow Urine Appearance Clear Urine pH 5.5 (5.0-9.0) Ur Specific [place] 1.025 (1.005-1.025) Urine Protein Negative (Neg-Trace) mg/dL Urine Glucose (UA) Negative (Negative) mg/dL Urine Ketones Trace (Negative) mg/dL Urine Blood Negative (Negative) Urine Nitrite Negative (Negative) Ur Leukocyte Esterase Trace H (Negative) Urine RBC 0-2 (0-2) /HPF Urine WBC 0-5 (0-5) /HPF Ur Squamous Epith Cells 0-2 (0-2) /HPF Urine Bacteria None Seen (None Seen) Hyaline Casts 0-2 (0-2) /LPF Influenza Type A (PCR) NEGATIVE (Negative) Influenza Type B (PCR) NEGATIVE (Negative) RSV RNA Qual (PCR) NEGATIVE (Negative) SARS-CoV-2 RNA (RT-PCR) NEGATIVE (Negative) Independent Interpretation I performed an independent interpretation of an: CT Scan Interpretation: CT scan without any air-fluid levels to suggest ileus or small-bowel obstruction, no significant colonic wall thickening or abscess visualized. Radiology Impression Discussion of test interpretation with radiology: I have reviewed the radiologist's reading. Radiologist Impression: CT/CT abdomen pelvis w IV con IMPRESSION: Hepatomegaly with mild steatosis. Mild atherosclerotic change observed at the iliac bifurcation, which may be concerning in a patient of this young age. External Record Review External record reviewed: Outpatient record, Prior outpatient labs and Prior outpatient radiology Prescription Management I considered prescription management with: Pain Medication and Antibiotic Chronic Conditions Patient?s care impacted by: Other (ILD, asthma, recurrent abd pain) Medications Administered Discontinued Medications Generic Name Dose Route Start Last Admin Trade Name Ruddy PRN Reason Stop Dose Admin Iohexol 100 ml 11/21/23 08:22 11/21/23 08:24 Iohexol 350 Mg/Ml 100 Ml Infus..Btl IV 11/21/23 08:23 85 ml ONCE ONE Administration Morphine Sulfate 4 mg 11/21/23 07:22 11/21/23 07:43 Morphine Sulfate 4 Mg/Ml Cartridge IVPUSH 11/21/23 07:23 4 mg ONCE ONE Administration Protocol Ondansetron HCl 4 mg 11/21/23 07:22 11/21/23 07:43 Ondansetron Hcl 4 Mg/2 Ml Vial IVPUSH 11/21/23 07:23 4 mg ONCE ONE Administration Critical Care Time Critical Care Time Critical Care Time: No Discharge Plan Discharge Clinical Impression: Abdominal pain Qualifiers: Abdominal location: generalized Qualified Code(s): R10.84 - Generalized abdominal pain Patient Disposition: Home, Self-Care Instructions: Abdominal Pain (ED) Additional Instructions: Your CT scan today was unremarkable. No acute processes were seen. Your lab work was also unremarkable with normal liver functions, kidney functions, pancreas number. Your urinalysis did not show any evidence of infection. You most likely have a viral GI bug also known as gastroenteritis. Treatment is supportive care, symptoms usually resolve on their own in 48-72 hours. Recommend rest and plenty of oral hydration. Stick to a bland diet like soup and toast while you are not feeling well. Take the prescribed medication as needed for nausea. Recommend over the counter Pepto Bismol or Imodium for upset stomach and diarrhea. Follow up with your doctor as needed. If you develop new or worsening symptoms call 911 or come back to the ER for further evaluation. Prescriptions: New ondansetron 4 mg tablet,disintegrating 4 mg PO Q8H PRN (Reason: nausea and vomiting) Qty: 7 0RF dicyclomine 10 mg capsule 10 mg PO TID PRN (Reason: abdominal pain) Qty: 10 0RF No Action gabapentin 300 mg capsule 300 mg PO BID PRN (Reason: for pain) Qty: 60 2RF fluticasone furoate-vilanterol [Breo Ellipta] 100-25 mcg/dose blister with device 1 inh inhalation DAILY 30 Days Qty: 60 11RF varenicline 1 mg tablet 1 mg PO BID Qty: 56 2RF omeprazole 40 mg capsule,delayed release(DR/EC) 40 mg PO DAILY 90 Days Qty: 90 3RF tizanidine 4 mg tablet 4 mg PO DAILY PRN (Reason: muscle spasticity) ibuprofen 600 mg tablet 600 mg PO Q6H PRN (Reason: pain) Qty: 14 0RF clindamycin HCl 300 mg capsule 300 mg PO TID 10 Days Qty: 30 0RF albuterol sulfate 90 mcg/actuation HFA aerosol inhaler 2 inh inhalation Q6H PRN (Reason: shortness of breath or wheezing) 30 Days Qty: 18 12RF varenicline [Chantix Starting Month Box] 0.5 mg (11)- 1 mg (42) tablets,dose pack See Rx Instructions PO PER PKG DIR Qty: 42 0RF Rx Instructions: PO PER PKG DIR valacyclovir 1 gram tablet 1,000 mg PO DAILY PRN (Reason: Cold Sores) Rx Instructions: use for 5 days acetaminophen [Mapap (acetaminophen)] 500 mg capsule 500 - 1,000 mg PO Q6H PRN (Reason: pain) clonidine 0.1 mg/24 hr patch weekly 1 patch transdermal QWEEK Qty: 4 2RF doxycycline hyclate 100 mg capsule 100 mg PO BID 10 Days Qty: 20 0RF methylprednisolone [Medrol (Renato)] 4 mg tablets,dose pack See Rx Instructions PO PER PKG DIR 6 Days Qty: 21 0RF Rx Instructions: PO PER PKG DIR nicotine [Nicoderm CQ] 21 mg/24 hr patch 24 hour 1 patch transdermal DAILY 28 Days Qty: 28 6RF Incruse Ellipta 62.5 mcg/actuation blister with device 1 inh inhalation DAILY Qty: 30 11RF Referrals: Savannah Milner MD [Primary Care Provider] - Stand Alone Forms: Work/School Release Print Language: Bhutanese
[2023-11-21] MEDS: Morphine Sulfate 4 MG/ML CARTRIDGE IVPUSH (07:43)
[2023-11-21] MEDS: ondansetron HCL 4 MG/2 ML VIAL IVPUSH (07:43)
[2023-11-21] MEDS: iohexoL 350 MG/ML 100 ML INFUS..BTL IV (08:24)
[2023-11-21 09:57] VITALS: BP 116/80; PULSE 67; RESP 16; TEMP 36.4; O2SAT 95
[2023-11-21 10:17] VITALS: BP 116/80; PULSE 67; RESP 16; TEMP 36.4; O2SAT 95
== END 2023-11-21 10:18 | disposition home or self-care (01) ==
PROVIDERS: Emergency Provider Emergency Medicine; PCP Internal Medicine
DX: R10.84 Generalized abdominal pain (principal); F17.210 Nicotine dependence, cigarettes, uncomplicated; Z03.818 Encounter for observation for suspected exposure to other biological agents ruled out; J45.909 Unspecified asthma, uncomplicated
CPT/HCPCS: 0241U; 74177; 80053; 81001; 83690; 85025; 96374; 96375; 99284; J2270; J2405; Q9967

== ENCOUNTER 2023-12-05 13:01 | Outpatient (REF) | payer MEDICAID, SELFPAY ==
--- NOTE | ~2023-12-05 | XR_ITS ---
EXAMINATION: CERVICAL SPINE, LUMBOSACRAL SPINE CLINICAL INFORMATION: Chronic neck pain and chronic low back pain with right-sided sciatica COMPARISON: CT abdomen pelvis 11/21/2023, x-ray cervical spine 05/16/2021 TECHNIQUE: 3 views cervical spine, 3 views lumbar spine FINDINGS: Cervical spine: No abnormality is seen. No significant disc space narrowing is seen. Vertebral body heights are well maintained. No prevertebral soft tissue swelling Lumbar spine: There is some very minimal endplate changes with a tiny osteophyte arising from the ventral superior endplate of L4. There is mild narrowing at L3-L4. There is minimal anterior wedging of T11 and T12. No fractures, subluxations or bony destructive lesions are seen. There is spina bifida occulta present at L5, better seen on prior CT imaging. XR/XR lumbar spine 2-3V IMPRESSION: 1. No significant abnormality is seen in the cervical spine. 2. Minimal degenerative changes in the lumbar spine. Electronically signed by: Rock Mckeon MD 12/06/2023 09:31 AM EDT
--- NOTE | ~2023-12-05 | XR_ITS ---
EXAMINATION: CERVICAL SPINE, LUMBOSACRAL SPINE CLINICAL INFORMATION: Chronic neck pain and chronic low back pain with right-sided sciatica COMPARISON: CT abdomen pelvis 11/21/2023, x-ray cervical spine 05/16/2021 TECHNIQUE: 3 views cervical spine, 3 views lumbar spine FINDINGS: Cervical spine: No abnormality is seen. No significant disc space narrowing is seen. Vertebral body heights are well maintained. No prevertebral soft tissue swelling Lumbar spine: There is some very minimal endplate changes with a tiny osteophyte arising from the ventral superior endplate of L4. There is mild narrowing at L3-L4. There is minimal anterior wedging of T11 and T12. No fractures, subluxations or bony destructive lesions are seen. There is spina bifida occulta present at L5, better seen on prior CT imaging. XR/XR cervical spine 3V IMPRESSION: 1. No significant abnormality is seen in the cervical spine. 2. Minimal degenerative changes in the lumbar spine. Electronically signed by: Rock Mckeon MD 12/06/2023 09:31 AM EDT
== END 2023-12-05 13:02 | disposition home or self-care (01) ==
LOC: HO.HHCX 13:01
PROVIDERS: Visit Provider Internal Medicine
DX: M54.2 Cervicalgia (principal); G89.29 Other chronic pain
CPT/HCPCS: 72040; 72100

== ENCOUNTER 2024-03-11 12:59 | Outpatient (REF) | payer MEDICAID, SELFPAY ==
--- NOTE | 2024-03-11 13:04 | PFT_ITS ---
Flows: FEV1: 80 % of predicted at 3.01 L FVC: 77 % of predicted at 3.61 L FEV1/FVC: 83 % Bronchodilator response: Present in small to medium airways only Volumes: Total lung capacity: 76 % of predicted at 4.91 L Residual volume: 86 % of predicted at 1.31 L Slow vital capacity: 72 % of predicted at 3.60 L Expiratory reserve volume: 62 % of predicted at 0.83 L Diffusion capacity: Mildly decreased, corrects to normal after adjustment for alveolar ventilation. Impression: Mild restrictive ventilatory defect with bronchodilator response present in small to medium airways only. Decreased expiratory reserve volume suggests extrathoracic restriction likely secondary to abdominal obesity. Combination of restrictive ventilatory defect with decreased diffusion capacity suggests pulmonary parenchymal disease. Clinical correlation is advised. [facility]
--- OUTSIDE RECORDS SUMMARY | 2024-03-11 13:53 | XMS_ITS | Clinical Summary ---
Author Organization [employer] Address [address] 7[address] [place] [address] Care Team Providers Care Delimer Name Role Phone Savannah Milner MD Primary Care Provide r Allergies Active Allergy Reactions Criticality Noted Date Comments Penicillin G Hives 12/18/2018 Medications * This document contains information received from the source organization and may not represent a complete record from that organization. omeprazole (PriLOSEC) [address] capsule TAKE 1 CAPSULE BY MOUTH EVERY DAY 30 MINUTES TO 1 HOUR BEFORE A MEAL 90 capsule 05/20/19 23 Active Incruse Ellipta 62.5 MCG/ACT aerosol powder INHALE 1 PUFF BY MOUTH DAILY FOR 30 DAYS 07/31/19 23 Active albuterol (2.5 MG/3ML) 0.083% nebulizer solution Take 3 mL (2.5 mg) by nebulization every 6 (six) hours if needed for wheezing or shortness of breath. 75 mL 1 12/30/19 23 Active psyllium (Metamucil) 400 MG capsule Take 6 capsules (2.4 g) by mouth Once per day. 180 capsule 1 10/19/19 24 2024 Active losartan (Cozaar) 25 MG tabletIndicatio ns:Primary hypertension Take 1 tablet (25 mg) by mouth Once per day. 30 tablet 11 12/05/19 24 2024 Active sildenafil (Viagra) 50 MG tabletIndicatio ns:Erectile dysfunction, unspecified erectile dysfunction type Take 1 tablet (50 mg) by mouth if needed each day for erectile dysfunction. 10 tablet 12/05/19 24 Active pravastatin (Pravachol) 20 MG tabletIndicatio ns:Primary hypertension Take 1 tablet (20 mg) by mouth Once per day. 30 tablet 11 12/05/19 24 2024 Active traZODone (Desyrel) 50 MG tabletIndicatio ns:Depression with anxiety TAKE 1 TABLET BY MOUTH AT BEDTIME 30 tablet 1 03/10/19 25 Active traZODone (Desyrel) 50 MG tabletIndicatio ns:Depression with anxiety TAKE 1 TABLET BY MOUTH AT BEDTIME 30 tablet 1 01/02/20 24 2024 Discontinued Active Problems Problem Noted Date Diagnosed Date Erectile dysfunction 12/05/2023 Depression with anxiety 12/05/2023 Assessment & Plan (12/05/2023 1:49 PM EDT): Counseling done I will start him on trazodone 50mg at bed time [facility] referral today Chronic neck pain 12/05/2023 Chronic bilateral low back pain with right-sided sciatica 12/05/2023 Epigastric pain 12/05/2023 Assessment & Plan (12/05/2023 1:48 PM EDT): I advise patient to avoid NSAIDs, spicy and acid food, I advise to eat at the same time every day, I advise to elevate the head of the bed and take medications as prescribe H pylori test and GI referral Diminished vision 12/05/2023 Encounter for preventive care 10/12/2023 Assessment & Plan (10/12/2023 2:43 PM EDT): See HPI Primary hypertension 10/12/2023 Assessment & Plan (12/05/2023 1:49 PM EDT): I discontinue his amlodipine and I started him on losartan 25mg daily I will start him on pravastatin 20mg daily Assessment & Plan (10/12/2023 2:42 PM EDT): Maintenance: BMP: ordered today Lipid Panel: ordered today ASCVD Risk: Calculate pending updated labs -I started him on amlodipine 5mg daily and ask him to bring BP log for next appointment - Aerobic exercise to reduce BP. Initial goal of 30 min walk 3-5x/week. Increase as tolerated. - low-sodium diet (goal: <2g/day) and heart healthy diet such as DASH to reduce BP and prevent ASCVD. - Home BP monitoring 1-2 x day with goal of <140/90. - Seek immediate medical attention for chest pain, palpitations, SOB, syncope, or sudden changes in mental status. - Do not change or discontinue current prescriptions without first consulting health care provider COPD (chronic obstructive pulmonary disease) Assessment & Plan (10/12/2023 2:40 PM EDT): Being follow closely by pulmonology Other constipation 10/12/2023 Assessment & Plan (10/12/2023 2:42 PM EDT): Increase water and fiber on diet Fiber supplements Heart murmur 12/29/2022 12/29/2022 Prediabetes 12/29/2022 12/29/2022 Assessment & Plan (10/12/2023 2:43 PM EDT): Today extensive discussion was done about life style modifications I advise healthy diet (low calorie) and cardiovascular exercise Vitamin D deficiency 12/29/2022 12/29/2022 Carpal tunnel syndrome 12/29/2022 Chronic cough 12/29/2022 12/29/2022 Herpes simplex 12/29/2022 12/29/2022 Moderate persistent asthma 03/13/202112/29 Encounters Date Type Department Care Team Description 03/08/2024 Refill [facility] [address] [place], [place] [phone] Savannah Milner MD Depression with anxiety 02/04/2024 Telephone [facility] [address] [place], [place] [phone] Sri Ariza [place] Provider Out 01/02/2024 Refill [facility] [address] [place], [place] [phone] Savannah Milner MD Depression with anxiety 01/01/2024 Orders Only [facility] [address] [place], [place] [phone] Savannah Milner MD Diminished vision (Primary Dx) 12/28/2023 Telephone [facility] [address] [facility], [place] [phone] Savannah Milner MD Referral 12/12/2023 Telephone [facility] [address] [facility], [place] [phone] Savannah Milner MD from Last 3 Months Immunizations Name Administration Dates Next Due HepB-CpG 10/10/2023 Influenza Injectable Quadriv alant Preservative Free IIV4 MDCK 09/30/2022,11/13/2018 Influenza injectable quadriv alent preservative free 02/21/2022,11/25/2020,01/13/2020 Influenza, Recombinant, inje ctable, preservative free 09/29/2023 Meningococcal Polysaccharide A,C,Y,W-135 TT Conjugate 10/18/2023 TD (adult), 2 Lf tetanus tox oid, preservative free, adsorbed 06/03/2018 Tdap 01/09/2022,01/13/2020 Social History Tobacco Use Types Packs/Day Years Used Date Smoking Tobacco: Every Day Cigarettes Passive Smoke Exposure: Past Tobacco Cessation:Ready to Q uit: Not Asked; Counseling Given: Not Answered Alcohol Use Standard Drinks/Week Comments Never 0 (1 standard drink = 0.6 oz pur e alcohol) Alcohol Answer Date Recorded Frequency of Alcohol Consumption Not on file 12/05/2023 Average Number of Drinks Not on file 024 Frequency of Binge Drinking Not on file 11/13 Score 0 12/05/2023 Depression Answer Date Recorded Patient Health Questionnaire-9 Score 8 10/12/2023 Patient Health Questionnaire-9 Score 8 10/12/2023 Last PHQ-9: Questionnaire Data Not on file 0 10/12/2023 Housing Stability Answer Date Recorded What is your housing situation today? I have mary ann sterling 10/12/[address] you li ve. Do you have problems with any of the following? None of the above 10/12/2023 Food Insecurity Answer Date Recorded Within the past 12 months, y ou worried that your food would run out before you got money to buy more: Never True 10/12/2023 Within the past 12 months,th e food you bought just didn't last and you didn't have enough money to get more: Never True Transportation Answer Date Recorded In the past 12 months, has l ack of transportation kept you from medical appts, meetings, work or from getting things needed for daily living? No 10/12/2023 Utilities Answer Date Recorded In the past 12 months, has t he electric, gas, oil or water company threatened to shut off services in your home? No 10/12/2023 Depression Answer Date Recorded Patient Health Questionnaire-2 Score 1 10/12/2023 Internet Access Answer Date Recorded Internet Access Q1 No 12/05/2023 Internet Access Q2 I do not want or need it 11/13 Sex and Gender Information Value Date Recorded Sex Assigned at Male 12/12/2021 10:36 AM EDT Legal Sex Male 10:36 AM EDT Gender Identity Male 12/12/2021 10:36 AM EDT Sexual Orientation Straight 12/12/2021 10 :36 AM EDT Last Filed Vital Signs Vital Sign Reading Time Taken Comments Blood Pressure 145/92 12/05/2023 10:56 AM EDT Pulse 89 12/05/2023 10:56 AM EDT Temperature 37.1 ??C (98.7 ??F) 12/05/2023 10:56 AM E DT Respiratory Rate 14 12/05/2023 10:56 AM EDT Oxygen Saturation 97% 12/05/2023 10:56 AM EDT Inhaled Oxygen Concentration - - Weight 79.9 kg (176 lb 3.2 oz) 12/05/2023 10:56 AM EDT Height 170.2 cm (5' 7 ) 12/05/2023 10:56 AM EDT Body Mass Index 27.6 12/05/2023 10:56 AM EDT Plan of Treatment Upcoming Encounters Date Type Department Care Team (Late st Contact Info) Description 03/20/2024 9:45 AM EST Office Visit [facility] [address] [place] [address] Mare Luna, OD [address] [place] [address] 03/27/2024 9:00 AM EST Office Visit [facility] [address] [place] [address] Savannah Milner MD [address] [place] [address] Health Maintenance Due Date Last Done Comments Pneumococcal Vaccine: Pediatrics (0 to 5 Years) and At-Risk Patients (6 to 64 Years) (1 of 2 - PCV) 1986 Family Planning (PISQ) 07/29/1995 Depression Screening 10/11/2024 10/12/2023, 10/12/19 24 Diabetes: Hemoglobin A1C 10/11/2024 024, 04/01/2021, 07/18/2019 Alcohol/Substance Use Screening 12/04/2024 12/05/2023 SDOH Screening 12/04/2024 12/05/2023 Tobacco Screening 12/04/2024 12/05/2023 Lipid Panel 10/11/2028 10/12/2023, 03/15, 07/18/2019 Zoster Vaccines (1 of 2) 2030 DTaP/Tdap/Td Vaccines (3 - Td or Tdap) 01/10/2032 01/09/2022, 01/13/2020, 06/03/2018 RSV Patients and Patients Aged 60 years or older (1 - 1-dose 75+ series) 07/29/2055 Influenza Vaccine Completed 09/29/2023, , 02/21/2022, Additional history exists COVID-19 Vaccine Completed 10/10/2023, , 08/19/2020, Additional history exists HIV Screening Completed 10/12/2023, 04/01/2021 Hepatitis C Screening Completed 10/12/2023 , 04/01/2021, 07/18/2019 Meningococcal Vaccine Aged Out 10/18/2023 No jd leela eligible based on patient's age to complete this topic Hepatitis B Vaccines Completed 11/09/2023, 10/10/19 24 HIB Vaccines Aged Out No longer eligi ble based on patient's age to complete this topic HPV Vaccines Aged Out No longer eligi ble based on patient's age to complete this topic Hepatitis A Vaccines Aged Out No long er eligible based on patient's age to complete this topic IPV Vaccines Aged Out No longer eligi ble based on patient's age to complete this topic RSV under 20 months Aged Out No longe r eligible based on patient's age to complete this topic Rotavirus Vaccines Aged Out No longer eligible based on patient's age to complete this topic Procedures Procedure Name Priority Date/Time Associated Diagnosis Comments HEPATITIS PANEL, GENERAL Routine 10/12/2023 3:08 PM EDT Encounter for preventive care HIV 1/2 ANTIGEN/ANTIBODY, FOURTH GENERATION W/RFL Routine 10/12/2023 3:08 PM EDT Encounter for preventive care LIPID PANEL WITH REFLEX TO DIRECT LDL Routine 10/12/2023 3:08 PM EDT Encounter for preventive care POCT GLYCATED HEMOGLOBIN, TOTAL Routine 10/12/2023 2:22 PM EDT Prediabetes from Last 3 Months or Most Recently Relevant to Health Maintenance Results * (ABNORMAL) Lipid Panel with Reflex to Direct LDL (10/12/2023 3:08 PM EDT) Triglycerides 116 <150 mg/dL [facility] Comment:Desirable Triglyceri de: less than 150 mg/dLBorderline High Triglyceride 150-199 mg/dLHigh Triglyceride: 200-499 mg/dLVery High Triglyceride: greater than or equal to 5OO mg/dL Cholesterol 168 <200 mg/dL [facility] Comment:Desirable Cholestero l: less than 200 mg/dLBorderline High Cholesterol: 200-239 mg/dLHigh Cholesterol: greater than 239 mg/dL LDL Cholesterol Calculated 108(H) <100 mg/dL [facility] Comment:Desirable LDL: less than 100 mg/dLNear Optimal/Above Optimal LDL: 110- 129 mg/dLBorderline High LDL: 130-159 mg/dLHigh LDL: 160-189 mg/dLVery High LDL: greater than or equal to 190 mg/dL HDL Cholesterol 37(L) >40 mg/dL [facility] Comment:Desirable HDL: great er than 40 mg/dL Note: This HDL assay may give artificially low results in patients with liver disease. Blood 10/12/2023 3:08 PM EDT 10/12/2023 4:18 PM EDT Savannah Licea MD LAB BLOOD ORDERABLES Final Result Performing Organization Address [facility] de Phone Number [facility] [address] [place] [phone] * Hepatitis Panel, General (10/12/2023 3:08 PM EDT) Hepatitis A IgM Nonreactive Nonreactive [facility] Comment:IgM antibodies to FLORES V not detected; does not exclude earlyacute or recovered HAV infection. ~Hepatitis B Surface Antibody REACTIVE Nonreactive [facility] Comment:REACTIVE: > 11.99 mI U/mL Hepatitis B Core Antibody Nonreactive Nonreactive [facility] Hepatitis C Antibody Nonreactive Nonreactive [facility] Comment:Antibodies to HCV no t detected; does not exclude early acuteHCV infection. Hepatitis B Surface Ag Negative Negative [facility] Blood 10/12/2023 3:08 PM EDT 10/12/2023 4:18 PM EDT Savannah Licea MD LAB BLOOD ORDERABLES Final Result Performing Organization Address [facility] Phone Number [facility] [address] [place] [phone] * HIV-1/2 Antigen and Antibodies, Fourth Generation, with Reflexes (10/12/2023 3:08 PM EDT) HIV AB/AG Nonreactive Nonreactive [facility] Comment:HIV-1 p24 Ag and/or HIV-1/HIV-2 Ab not detected.A test result that is nonreactive does not exclude thepossibility of exposure to or infection with HIV-1 and/orHIV-2. Nonreactive results in this assay for individualswith prior exposure to HIV-1 and/or HIV-2 may be due toantigen and antibody levels that are below the limit ofdetection of this assay.The [employer] HIV Ag/Ab Combo assay result andsupplemental assay results should be interpreted inconjunction with the patient's clinical presentation,history and other laboratory results. If the results areinconsistent with clinical evidence, additional testing issuggested to confirm the result. Blood Venous blood specimen / Unknown 10/12/2023 3:08 PM EDT 10/12/2023 4:18 PM EDT us Savannah Licea MD LAB BLOOD ORDERABLES Final Result [facility] [address] [place] [phone] * (ABNORMAL) POCT HGB A1C (10/12/2023 2:22 PM EDT) Hemoglobin A1C 6.3(A) 4.0 - 6.0 % QC Media Lot # [id number] Lot# Expiration Date [id number] Blood 10/12/2023 2:22 PM EDT Savannah Licea MD POINT OF CARE TEST EN TER/EDIT ORDERABLES Final Result from Last 3 Months or Most Recently Relevant to Health Maintenance Insurance [facility] C3 Care Teams Delimer Relationship Specialty Start Date End Date Savannah Milner MD [address] [place] [phone] PCP - General Internal Medicine 10/19/23
--- OUTSIDE RECORDS SUMMARY | 2024-03-11 13:53 | XMS_ITS | Encounter Summary ---
Author Organization [employer] Address [address] [place] [address] Care Team Providers Care Ornamental Ironworker Name Role Phone Savannah Milner MD Primary Care Provide r Reason for Visit * Reason Comments Med Refill Encounter Details Date Type Department Care Team ([facility] st Contact Info) Description 03/08/2024 Refill [facility] [address] [place] [address] Savannah Milner MD [address] [place] [address] Depression with anxiety Social History Tobacco Use Types Packs/Day Years Used Date Smoking Tobacco: Every Day Cigarettes Passive Smoke Exposure: Past Alcohol Use Standard Drinks/Week Comments Never 0 [...] Orientation Straight 12/12/2021 10 :36 AM EDT documented as of this encounter Plan of Treatment Upcoming Encounters Date Type Department Care Team (Late st Contact Info) Description 03/20/2024 9:45 AM EST Office Visit [facility] [address] [place] [address] Mare Luna, OD [address] [place] [address] 03/27/2024 9:00 AM EST Office Visit [facility] [address] [place] [address] Savannah Milner MD [address] [place] [address] documented as of this encounter Visit Diagnoses Diagnosis Depression with anxiety Dysthymic disorder documented in this encounter Additional Health Concerns Assessment Noted Time PHQ-9 Depression Total Score: 8 10/12/19 24 2:03 PM EDT documented as of this encounter Care Teams Ornamental Ironworker Relationship Specialty Start Date End Date Savannah Milner MD [address] [place] [phone] PCP - General Internal Medicine 10/19/23 documented as of this encounter
--- OUTSIDE RECORDS SUMMARY | 2024-03-11 13:53 | XMS_ITS | Encounter Summary ---
Author Organization [employer] Address [address] [place] [address] Care Team Providers Care Goldsmith Apprentice Name Role Phone Umm Huang ISABEL Primary Care Provider [phone] Savannah Milner MD Primary Care Provide r Encounter Details Date Type Department Care Team (Late st Contact Info) Description 02/24/2022 Orders Only [facility] [address] [place] [address] Annabel Peoples LPN Social History Tobacco Use Types Packs/Day Years Used Date Smoking Tobacco: Never Assessed Sex and Gender Information Value Date Recorded Sex Assigned at Male 12/12/2021 10:36 AM EDT Legal Sex Male 10:36 AM EDT Gender Identity Male 12/12/2021 10:36 AM EDT Sexual Orientation Straight 12/12/2021 10 :36 AM EDT documented as of this encounter Plan of Treatment Upcoming Encounters Date Type Department Care Team (Late Contact Info) Description 03/20/2024 9:45 AM EST Office Visit [facility] OPTOMETRY [address] [place] [address] Mare Luna, OD [address] [place] [address] 03/27/2024 9:00 AM EST Office Visit [facility] MEDICINE [address] [place] [address] Savannah Milner MD [address] [place], [place] [phone] documented as of this encounter Procedures Procedure Name Priority Date/Time Associated Diagnosis Comments GRAM STAIN Routine 09/12/2022 6:04 AM EDT GLUCOSE, WHOLE BLOOD Routine 06/28/2022 7:16 AM EDT CBC WITH AUTO DIFFERENTIAL Routine 06/28/2022 2:28 AM EDT C-REACTIVE PROTEIN Routine 06/28/2022 2: 28 AM EDT LIPASE Routine 06/28/2022 2:28 AM EDT COMPREHENSIVE METABOLIC PANEL Routine 06/28/2022 2:28 AM EDT documented in this encounter Results * Gram stain (09/12/2022 6:04 AM EDT) 09/12/2022 6:04 AM EDT 09/13/2022 12:45 PM EDT Comment:Sputum Narrative [facility] - 09/15/2022 11:47 AM EDT Gram stain results: 1+ polys 2+ Gram-positive cocci Sputum Culture BAP Sputum Culture 3+ Mixed respiratory tyler. Specimen Source: Sputum [facility] Exter nal Provider LAB MICROBIOLOGY - GENERAL ORDERABLES Final Result Performing Organization Address City/[facility]/ZIP Co de Phone Number [facility] [address] [place] [address] [phone] * (ABNORMAL) GLUCOSE, WHOLE BLOOD (06/28/2022 7:16 AM EDT) Glucose, Whole Blood 140(H) 60 - 115 mg/dL [facility] Comment:METER #: [id number] 06/28/2022 7:16 AM EDT 06/28/2022 7:20 AM EDT [facility] External Provider LAB BLO OD ORDERABLES Final Result [facility] [address] [place] [address] [phone] * (ABNORMAL) C-reactive Protein (06/28/2022 2:28 AM EDT) Pathologist [facility] C Reactive Protein 7.80(H) < or = 0.50 mg/dL [facility] 06/28/2022 2:28 AM EDT 06/28/2022 3:04 AM EDT [facility] External Provider LAB BLO OD ORDERABLES Final Result Performing Organization Address [facility] Co de Phone Number [facility] [address] [place] [phone] * Lipase (06/28/2022 2:28 AM EDT) Pathologist [facility] Lipase 31 8 - 78 U/L [facility] 06/28/2022 2:28 AM EDT 06/28/2022 3:04 AM EDT [facility] External Provider LAB BLO OD ORDERABLES Final Result Performing Organization Address [facility] Co de Phone Number [facility] [address] [place] [phone] * (ABNORMAL) Comprehensive Metabolic Panel (06/28/2022 2:28 AM EDT) Pathologist [facility] Sodium 141 135 - 145 mmol/L [facility] Potassium 4.4 3.3 - 5.1 mmol/L [facility] Chloride 107 96 - 108 mmol/L [facility] Carbon Dioxide 28 22 - 29 mmol/L [facility] Anion Gap 10(L) 12 - 20 [facility] Urea Nitrogen (BUN) 12 9 - 16 mg/dL [facility] Creatinine, Serum 0.91 0.5 - 1.4 mg/dL [facility] Creatinine Clr Calc Pharmacy 109.7 [facility] Comment:eGFR (calculated fro m the MDRD study equation) and eCrCl(calculated from the Cockcroft-Gault equation) are based ondifferent parameters and may not yield comparable results.If eCrCl result is absurd, please check patient'sheight/weight. Estimated Glomerular Filt Rate >60 [facility] Comment:NOTE: For -Am erican individuals, multiply the result by 1.210.Chronic Kidney Disease: Estimated GFR < 60 mL/min/1.68d9Vyaugl Kidney Disease: Estimated GFR < 15 mL/min/1.73m2 Glucose 100 60 - 115 mg/dL [facility] Calcium 9.0 8.4 - 10.2 mg/dL [facility] Bilirubin, Total 0.3 0.0 - 1.0 mg/dL [facility] Aspartate Amino Transferase 16 5 - 37 U/L [facility] Alanine Aminotransferase 25 0 - 40 U/L [facility] Total Protein 6.5 6.5 - 8.0 g/dL [facility] Albumin Level 3.9 3.5 - 5.0 g/dL [facility] Alkaline Phosphatase 86 39 - 117 U/L [facility] 06/28/2022 2:28 AM EDT 06/28/2022 3:04 AM EDT us [facility] External Provider LAB BLO OD ORDERABLES Final Result [facility] [address] [place] [address] [phone] * (ABNORMAL) CBC auto differential (06/28/2022 2:28 AM EDT) White Blood Count 9.1 4.8 - 10.8 X10*3/uL [facility] Red Blood Count 4.67 4.60 - 5.80 X10*6/uL [facility] Hemoglobin 14.5 14.0 - 18.0 g/dl [facility] Hematocrit 43.1 42.0 - 52.0 % [facility] Mean Corpuscular Volume 92.3 80.0 - 98.0 fL [facility] Mean Corpuscular Hemoglobin 31.0 27.0 - 33.0 pg [facility] Mean Corpuscular HGB Conc 33.6 31.0 - 36.0 g/dl [facility] Red Cell Distribution Width 12.6 11.0 - 16.0 % [facility] Platelet Count 284 160 - 400 X10*3/uL [facility] Mean Platelet Volume 8.7(L) 9.4 - 12.4 fL [facility] Neutrophils Percent Auto 66.7 45 - 73 % [facility] Imm Gran Pct Auto 0.2 0.0 - 0.4 % [facility] Lymphocytes Percent Auto 24.4 20 - 40 % [facility] Monocytes Percent Auto 7.4 2 - 11 % [facility] Eosinophils Percent Auto 0.5 0 - 4 % [facility] Basophils Percent Auto 0.8 0 - 2 % [facility] NRBC Pct Auto 0.0 0.0 - 0.2 /100WBC [facility] Neutrophils Absolute Auto 6.1 2.0 - 8.3 x10*3/uL [facility] Imm Gran Abs Auto 0.02 0.00 - 0.03 X10*3/uL [facility] Lymphocytes Absolute Auto 2.2 1.2 - 4.9 X10*3/uL [facility] Monocytes Absolute Auto 0.7 0.1 - 1.2 X10*3/uL [facility] Eosinophils Absolute Auto 0.1 0.0 - 0.4 X10*3/uL [facility] Basophils Absolute Auto 0.1 0.0 - 0.2 X10*3/uL [facility] NRBC Abs Auto 0.000 0.0 - 0.012 X10*3/uL [facility] 06/28/2022 2:28 AM EDT 06/28/2022 3:04 AM EDT us [facility] External Provider LAB BLO OD ORDERABLES Final Result [facility] [address] [place] [address] [phone] documented in this encounter Visit Diagnoses Not on filedocumented in this encounter Care Teams Goldsmith Apprentice Relationship Specialty Start Date End Date Umm Huang FNP [address] [place] [address] PCP - General Family Medicine 12/06/20 10/18/23 Savannah Milner MD [address] [place] [address] PCP - General Internal Medicine 10/19/23 documented as of this encounter
--- OUTSIDE RECORDS SUMMARY | 2024-03-11 13:53 | XMS_ITS | Encounter Summary ---
Author Organization [employer] Address [address] [place] [address] Care Team Providers Care Orchard Worker Name Role Phone Savannah Milner MD Primary Care Provide r Reason for Visit * Reason Onset Date Comments Referral 12/28/2023 Encounter Details Date Type Department Care Team ([facility] st Contact Info) Description 12/28/2023 Telephone [facility] MEDICINE [address] [place] [address] Savannah Milner MD [address] [place] [address] Referral Social History Tobacco Use Types Packs/Day Years [...] AM EDT documented as of this encounter Miscellaneous Notes * Telephone Encounter - Andrei Rainey - 12/28/2023 11:52 AM EST TC from pt was referred to Eye center here at [facility] . Says they are currently booking out 2 months , but calendar not open yet . Pt would like referral modified to go to [facility] [address] [address] (P) [phone] documented in this encounter Plan of Treatment Upcoming Encounters Date Type Department Care Team (Late st Contact Info) Description 03/20/2024 9:45 AM EST Office Visit [facility] OPTOMETRY [address] [place] [address] Mare Luna, OD [address] [place] [address] 03/27/2024 9:00 AM EST Office Visit [facility] MEDICINE [address] [place] [address] Savannah Milner MD [address] [place] [address] documented as of this encounter Visit Diagnoses Not on filedocumented in this encounter Additional Health Concerns Assessment Noted Time PHQ-9 Depression Total Score: 8 10/12/19 24 2:03 PM EDT documented as of this encounter Care Teams Orchard Worker Relationship Specialty Start Date End Date Savannah Milner MD [address] [place] [address] PCP - General Internal Medicine 10/19/23 documented as of this encounter
== END 2024-03-11 13:00 | disposition home or self-care (01) ==
LOC: HO.RESP 12:59
PROVIDERS: Visit Provider Hospitalist
DX: J40 Bronchitis, not specified as acute or chronic (principal)

== ENCOUNTER → 2024-03-11 13:04 | Outpatient (BNV) | payer MEDICAID, SELFPAY | PROVIDERS: Visit Provider Internal Medicine Pulmonary Disease | DX: J40 Bronchitis, not specified as acute or chronic (principal) | CPT/HCPCS: 94060; 94727; 94729 ==

== ENCOUNTER 2024-04-04 13:52 | Outpatient (AMB) | payer MEDICAID, SELFPAY ==
[2024-04-04 13:58] VITALS: BP 132/84; PULSE 96; O2SAT 97; BMI 29.0
--- NOTE | 2024-04-04 13:58 | A.OFFVIS_ITS ---
Vital Signs 04/04/24 13:58 Height 5 ft 7 in Weight 185 lb 3.013 oz BMI 29.0 BP 132/84 Blood Pressure Location Rt brachial Position Sitting Pulse 96 Pulse Source Pulse Oximeter Pulse Oximetry (%) 97 Oxygen Delivery Method Room Air Intake Visit Reasons: Bronchitis Allergies Penicillins [PCN] Allergy (Severe, Verified 04/04/24 14:03) HIVES AND EDEMA HPI Comments Details: The patient is a 43-year-old gentleman with a known history of asthma and tobacco dependency who apparently has been complaining of worsening cough in the last several months. The cough tends to be mixed. Typically productive in the morning and nonproductive during the rest of the day. Moderate severity. He does have a rescue inhaler that he uses intermittently with partial resolution of the symptoms. He has been cognizant of the smoke is been bother his breathing so therefore has been trying to cut down. In the meantime he was sent for pulmonary function studies that was personally reviewed by me in the office with him. It appears that he does have a restrictive ventilatory defect of unclear etiology. He did have a repeat chest x-ray that was also personally by me demonstrating some slight increased haziness bilaterally compared to his previous CT scan from a year ago. This suggests the possibility mild pneumonitis which could be resulting in cough. We did talk about smoking related interstitial lung conditions. The patient denies any birds at home he denies any exposure to any fumes or toxins. Denies any significant occupational hazards. Therefore, will have him start a inhaled cortical steroid. He does not like the symptoms or the side effects of the beta agonist so therefore hold off on long-acting beta agonist at this time. Additional blood work with warranted. In the meantime also we did talk about trying out the Nicotrol inhaler as a way to provide tobacco cessation. 02/21/2022 the patient is here for pulmonary follow-up visit. Again has multiple complaints. Complains of shortness of breath with minimal activity. He is having chest tightness as well. Does get some relief with his inhalers. Unf ortunately continues to smoke cigarettes. In addition to that he has had significant issues with his back pain. Previously which is noted to be adjust the lower part and now is extending further to the full back. Complains of neck pain. He has not been able to work because of the pain. he is trying to get to his primary care doctor's office. Unfortunately back pain and his discomfort is limiting him from being able to take deep breaths. Continues with the Trelegy inhaler. In addition to that did undergo a barium swallow which is reassuring. He was taking the additional PPI for the epigastric discomfort before. The patient stop taking nonsteroidals. I will refer him to Pain Management to see that can help him with all this discomfort. 08/25/2022 the patient is here for a pulmonary follow-up visit. The patient continues to complain of cough. Moderate severity. Typically productive in the morning. Explained to him that is likely from his smoking. The patient is still struggling with smoking cessation. We had been maximizing his respiratory therapy at this time with only partial resolution of the symptoms. The patient has tried nicotine patches but have not been helpful. We also talked about considering Chantix. The family member is with him. Explained to the family that if he goes on Chantix he needs to be monitoring closely for any signs of depression. The patient is considering it. I will send the prescription to the pharmacy and he was started without understanding. In the meantime will go ahead and continue to cut my maximize his respiratory therapy. The his chest pain seems to be better at this time. His epigastric discomfort also has been better this time. 01/12/2023 the patient is here for a pulmonary follow-up visit. He continues to have similar complaints. Complains of productive cough moderate severity. Explained to him that is related to his smoking. He is also dealing with issues with his elevated blood pressures. The patient understands that also related to smoking. The patient did start Chantix although he continues to smoke while taking Chantix. We did talk about other potential smoking cessation or drug cessation medications such as clonidine patch. We can try that in conjunction with the Chantix see this provides better tobacco cessation. He does have a blood pressure cough and will measure and monitor his blood pressure closely while taking the clonidine patch. Is at the lowest dose but the patient understands that it can lower his blood pressure and if he develops any dizziness or any symptoms that are new for him he should check his blood pressure stop patch. He continues his respiratory therapy. He still complains of dyspnea on exertion difficulty going up flight of stairs. Partly due to his deconditioning. 06/28/2023 the patient is here for a pulmonary follow-up visit. He has been having hard time breathing for the last few days. Developed increasing chest congestion. Also having chest tightness and wheezing. He had not been using his inhalers as prescribed. His is with him. She is trying to make sure that he is more he went with his therapy. We talked about the importance of using the Breo and Incruse in the morning. He also has a nebulizer and a rescue inhaler they can use as needed. Unfortunately, he continues to smoke cigarettes. He has tried multiple different medications to try to quit but he has not been able to do so. He is willing to try the nicotine patch at this time. I will send her the nicotine patch but he knows not to smoke on it. The patient did have a CT scan of the abdomen recently for abdominal discomfort. I did review it personally with him. Looked at the lung windows demonstrating some atelectasis at the bases but otherwise the lung windows local okay. Is about a 4th of the lung though. He also had a chest x-ray back in the fall without any acute disease. On examination he has significant rhonchi and wheezing. Will go ahead and treat him with a Medrol pack and also will require antibiotics. He will be more adherent with therapy and if he has any difficulties worsening of disease he will call for an earlier assessment. The patient should return in 3-4 months with PFTs otherwise. 04/04/2024 the patient is here for a pulmonary follow-up visit. Overall he is doing okay. Still having coughing episodes. Nonproductive in nature moderate severity. Also some shortness of breath at times. He has been using his inhalers we partial response. Unfortunately continues to smoke cigarettes. He has been tolerating the Chantix and with that he has been able to cut down. Will go ahead and provide him with the Nicotrol nasal spray to see if this provides relief. He can also look into getting [id number] Nicotrol inhalers to help him with his cravings. Hopefully cutting down further. 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 We did review his PFTs he does have some minimal restriction but otherwise no evidence of any obstruction. Mild diffusion impairment. He does have significant pharyn gitis. Will treat with azithromycin 3 times a week for the chronic bronchitis and also will try the chlorhexidine mouthwash to see if this provides him relief. In the meantime he is going to continue with his current respiratory therapy. Will follow-up in 3-4 months. [facility] Medical History (Updated 04/04/24 @ 14:23 by Chavez Figueroa MD) Pulmonary nodules Bronchitis COPD (chronic obstructive pulmonary disease) Axillary adenopathy Chest pain Emphysema (subcutaneous) (surgical) resulting from a procedure ILD (interstitial lung disease) Abnormal PFTs (pulmonary function tests) Chronic cough Tobacco dependence Asthma Chronic restrictive lung disease Surgical History History of vasectomy (~2016) Family History Mother Diabetes Asthma Father No problems noted. Maternal Grandmother Cancer Maternal Aunt Breast cancer Social History Household Members: Spouse Housing: Apartment Do you presently have visiting nurse or other home services: Yes Alcohol intake: current Alcohol intake frequency: holidays/special occasions only Patient Tobacco Use Status: Current someday Tobacco user Tobacco use type: Cigarette Cigarette Packs Per Day: 1 Cigarettes Per Day: 20.0 Years Smoked: 35 +/- Second Hand Smoke Exposure: No service: No Current occupational status: disabled Review of Systems Const Denies night sweats ENT Denies change in voice, Denies lip swelling, Denies mouth pain, Reports nasal congestion, Reports nasal discharge and Denies tongue swelling Card Denies chest pain and Reports dyspnea on exertion Resp Reports chest congestion, Reports cough, Reports dyspnea on exertion and Reports wheezing GI Reports abdominal pain Musc Denies no additional complaints, Reports back pain and Reports myalgias Neuro Denies Neuro-related abnormal movements Psych Denies no additional complaints Rogers/Lymph Denies easy bleeding and Denies lymphadenopathy Aller/Immun Denies lip swelling, Denies tongue swelling and Reports wheezing Physical Exam Vital Signs: Last Vital Signs Pulse 96 04/04/24 13:58 BP 132/84 04/04/24 13:58 Pulse Ox 97 04/04/24 13:58 Oxygen Delivery Method Room Air 04/04/24 13:58 BMI result Body Mass Index 29.0 Const General: alert Neck Neck: Yes normal visual inspection, Yes full ROM and Yes no lymphadenopathy Chest Chest palpation & inspection: normal inspection of the chest Resp Effort & Inspection: prolonged expiratory phase Auscultation: no rhonchi, no wheezes and diminished lung sounds Cardio Rate: regular rate Rhythm: regular rhythm Heart sounds: S1 normal heart sound present and S2 normal heart sound present GI Palpation (GI): Soft to palpation and Tenderness to palpation present (GI) in the epigastrum and in the RUQ Auscultation: normal bowel sounds Skin General skin exam: rashes and/or lesions noted Quality Reporting (2019) Adult ([facility] 13804/05/68) Smoking risk assessment performed?: Yes Patient Tobacco Use Status: Current someday Tobacco user Assessment & Plan Assessment & Plan (1) Asthma: Code(s): J45.909 - Unspecified asthma, uncomplicated Category: Medical Qualifiers: Asthma complication type: with acute exacerbation Asthma persistence: persistent Asthma severity: moderate Qualified Code(s): J45.41 - Moderate persistent asthma with (acute) exacerbation (2) SUTTON (dyspnea on exertion): Code(s): R06.00 - Dyspnea, unspecified Category: Medical (3) Chest pain: Comment: better Code(s): R07.9 - Chest pain, unspecified Category: Medical Qualifiers: Chest pain type: chest pain on breathing Qualified Code(s): R07.1 - Chest pain on breathing (4) Chronic cough: Code(s): R05 - Cough Category: Medical (5) Chronic restrictive lung disease: Code(s): J98.4 - Other disorders of lung Category: Medical (6) Tobacco dependence: Code(s): F17.200 - Nicotine dependence, unspecified, uncomplicated Category: Medical (7) Pulmonary nodules: Code(s): R91.8 - Other nonspecific abnormal finding of lung field Category: Medical Plan Azithromycin MWF short-acting beta agonist as needed start nicotine spray continue chantix Chlorhexadine MW daily x [address] chest to assess pulmonary nodules follow-up in 4-6 months Orders: Orders CT chest wo IV con 04/04/24 R91.8 - Other nonspecific abnormal finding of lung field Medications: New nicotine (Nicotrol NS) administer into each nostril 1 spray intranasal Q3-4H 30 days 40 mL 9RF chlorhexidine gluconate 0.12% 15 mL buccal DAILY 14 days 210 mL 0RF Coding Level of Care Code Est Pt Level 4 (41474) Diagnoses Moderate persistent asthma with acute exacerbation J45.41 Asthma complication type: with acute exacerbation Asthma persistence: persistent Asthma severity: moderate SUTTON (dyspnea on exertion) R06.00 Chest pain on breathing R07.1 Chest pain type: chest pain on breathing Chronic cough R05 Chronic restrictive lung disease J98.4 Tobacco dependence F17.200 Pulmonary nodules R91.8 Time Spent (min) 17
--- OUTSIDE RECORDS SUMMARY | 2024-04-04 14:20 | XMS_ITS | Clinical Summary ---
Author Organization [employer] Address [address] [place] [address] Care Team Providers Care Supervisor Gear Repair Name Role Phone Savannah Milner MD Primary [...] prescribe H pylori test and GI referral Encounter for preventive care 10/12/2023 Assessment & [...] simplex 12/29/2022 12/29/2022 Moderate persistent asthma 03/13/202112/29 Resolved Problems Problem Noted Date Diagnosed Date Resolved Date Diminished vision 12/05/2023 03/20/2024 Encounters Date Type Department Care Team Description 03/27/2024 Telephone [facility] MEDICINE [address] [place], [place] [phone] Savannah Milner MD No Show 03/20/2024 9:45 AM EST Office Visit [facility] OPTOMETRY [address] [place], [place] [phone] TarMare turner, OD Regular astigmatism, bilateral (Primary Dx); Dry eyes, bilateral; Elevated IOP, bilateral 03/20/2024 Travel 03/08/2024 Refill [facility] MEDICINE [address] [place], [place] [phone] Savannah Milner MD Depression with anxiety 02/04/2024 Telephone [facility] MEDICINE [address] [place] [address] Sri Ariza [place] Provider Out from Last 3 Months Immunizations Name Administration Dates Next Due HepB-CpG 11/09/2023,10/10/2023 Influenza Injectable Quadriv alant Preservative Free IIV4 MDCK 09/30/2022,11/13/2018 Influenza injectable quadriv alent preservative free 02/21/2022,11/25/2020,01/13/2020 Influenza, Recombinant, inje ctable, preservative free 09/29/2023 Meningococcal Polysaccharide A,C,Y,W-135 TT Conjugate 10/18/2023 TD (adult), 2 Lf tetanus tox oid, preservative free, adsorbed 06/03/2018 Tdap 01/09/2022,01/13/2020 Family History Medical History Relation Name Comments Diabetes Maternal Grandmother Diabetes Mother Diabetes Sister Relation Name Status Comments Maternal Grandmother Mother Sister Social History Tobacco Use Types Packs/Day Years [...] Care Team (Late st Contact Info) Description 06/20/2024 9:15 AM EDT Office Visit [facility] OPTOMETRY [address] [place] [address] Mare Luna, OD [address] [place] [address] 07/03/2024 10:15 AM EDT Office Visit [facility] MEDICINE [address] [place] [address] Savannah Milner MD [address] [place] [address] Health Maintenance Due Date Last Done Comments Family Planning (PISQ) 07/29/1995 Pneumococcal Vaccine: Pediatrics (0 to 5 Years) and At-Risk Patients (6 to 49) Years) (1 of 2 - PCV) 07/29/1999 Depression Screening 10/11/2024 10/12/2023, 10/12/19 24 Diabetes: Hemoglobin A1C 10/11/2024 024, 04/01/2021, 07/18/2019 Alcohol/Substance Use Screening 12/04/2024 12/05/2023 SDOH Screening 12/04/2024 12/05/2023 Tobacco Screening 03/20/2025 03/20/2024 Lipid Panel 10/11/2028 10/12/2023, 0209/2021, 07/18/2019 Zoster Vaccines (1 of 2) 2030 [...] Procedure Name Priority Date/Time Associated Diagnosis Comments OCT, OPTIC NERVE - OU - BOTH EYES Routine 03/20/2024 11:35 AM EST Elevated IOP, bilateral HEPATITIS PANEL, GENERAL Routine 10/12/2023 3:08 PM [...] Recently Relevant to Health Maintenance Results * OCT, Optic Nerve - OU - Both Eyes (03/20/2024 11:35 AM EST) Mare Del Valle, OD - 03/20/2024 11:35 AM EST OCT OPTIC NERVE INTERPRETATION Optical Coherence Tomography Interpretation Report Reliability: OD: 48 (good quality image) OS: 47 (good quality image) Measurements: Avg RNFL thickness OD: ??128 microns OS: ??128 microns Test findings: OD: Robust RNFL 360 OS: Robust RNFL 360 Impression and Plan: No evidence of glaucomatous damage. Monitor. us Mare Luna OD OPHTH TOMOGRAPHY Final Result * (ABNORMAL) Lipid Panel with Reflex to Direct LDL (10/12/2023 3:08 PM EDT) Triglycerides 116 <150 mg/dL [facility] Comment:Desirable Triglyceri de: less than 150 mg/dLBorderline High Triglyceride 150-199 mg/dLHigh Triglyceride: 200-499 mg/dLVery High Triglyceride: greater than or equal to 5OO mg/dL Cholesterol 168 <200 mg/dL [facility] Comment:Desirable Cholestero l: less than 200 mg/dLBorderline High Cholesterol: 200-239 mg/dLHigh Cholesterol: greater than 239 mg/dL LDL Cholesterol Calculated 108(H) <100 mg/dL [facility] Comment:Desirable LDL: less than 100 mg/dLNear Optimal/Above Optimal LDL: 110- 129 mg/dLBorderline High LDL: 130-159 mg/dLHigh LDL: 160-189 mg/dLVery High LDL: greater than or equal to 190 mg/dL HDL Cholesterol 37(L) >40 mg/dL [facility] Comment:Desirable HDL: great er than 40 mg/dL Note: This HDL assay may give artificially low results in patients with liver disease. Blood 10/12/2023 3:08 PM EDT 10/12/2023 4:18 PM EDT us Savannah Licea MD LAB BLOOD ORDERABLES Final Result Performing Organization Address City/[facility] Co de Phone Number [facility] [address] [place] [address] [phone] * Hepatitis Panel, General (10/12/2023 3:08 PM EDT) Hepatitis A IgM Nonreactive Nonreactive [facility] Comment:IgM antibodies to FLORES V not detected; does not exclude earlyacute or recovered HAV infection. ~Hepatitis B Surface Antibody REACTIVE Nonreactive [facility] Comment:REACTIVE: > 11.99 mI U/mL Hepatitis B Core Antibody Nonreactive Nonreactive [facility] Hepatitis C Antibody Nonreactive Nonreactive [facility] Comment:Antibodies to HCV no t detected; does not exclude early acuteHCV infection. Hepatitis B Surface Ag Negative Negative [facility] Blood 10/12/2023 3:08 PM EDT 10/12/2023 4:18 PM EDT Savannah Licea MD LAB BLOOD ORDERABLES Final Result Performing Organization Address City/State/[facility] Co de Phone Number [facility] [address] [place] [phone] * HIV-1/2 Antigen and Antibodies, Fourth Generation, with Reflexes (10/12/2023 3:08 PM EDT) HIV AB/AG Nonreactive Nonreactive [facility] Comment:HIV-1 p24 Ag and/or HIV-1/HIV-2 Ab not detected.A test result that is nonreactive does not exclude thepossibility of exposure to or infection with HIV-1 and/orHIV-2. Nonreactive results in this assay for individualswith prior exposure to HIV-1 and/or HIV-2 may be due toantigen and antibody levels that are below the limit ofdetection of this assay.[employer] HIV Ag/Ab Combo assay result andsupplemental assay results should be interpreted inconjunction with the patient's clinical presentation,history and other laboratory results. If the results areinconsistent with clinical evidence, additional testing issuggested to confirm the result. Blood Venous blood specimen / Unknown 10/12/2023 3:08 PM EDT 10/12/2023 4:18 PM EDT us Savannah Licea MD LAB BLOOD ORDERABLES Final Result Performing Organization Address [facility] Co de Phone Number [facility] [address] [place] [phone] * (ABNORMAL) POCT HGB A1C (10/12/2023 2:22 PM EDT) Hemoglobin A1C 6.3(A) 4.0 - 6.0 % QC Media Lot # [id number] Lot# Expiration Date [id number] Blood 10/12/2023 2:22 PM EDT us Savannah Licea MD POINT OF CARE TEST EN TER/EDIT ORDERABLES Final Result from Last 3 Months or Most Recently Relevant to Health Maintenance Insurance [facility] C3 Care Teams Supervisor Gear Repair Relationship Specialty Start Date End Date Savannah Milner MD [address] [place] [phone] PCP - General Internal Medicine 10/19/23
--- OUTSIDE RECORDS SUMMARY | 2024-04-04 14:20 | XMS_ITS | Encounter Summary ---
Author Organization [employer] Address [address] [place] [address] Care Team Providers Care Product Development Technician Name Role Phone Savannah Milner MD Primary Care Provide r Reason for Visit * Reason Onset Date Comments No Show 03/27/2024 Encounter Details Date Type Department Care Team ([facility] st Contact Info) Description 03/27/2024 Telephone [facility] MEDICINE [address] [place] [address] Savannah Milner MD [address] [place] [address] No Show Social History Tobacco Use Types Packs/Day Years [...] encounter Miscellaneous Notes * Telephone Encounter - An Sommer - 03/27/2024 10:26 AM EST Pt no showed to appt on 03/27/24 documented in this encounter Plan of Treatment Upcoming Encounters Date Type Department Care Team (Late st Contact Info) Description 06/20/2024 9:15 AM EDT Office Visit [facility] OPTOMETRY [address] [place] [address] Mare Luna, OD [address] [place] [address] 07/03/2024 10:15 AM EDT Office Visit [facility] MEDICINE [address] [place] [address] Savannah Milner MD [address] [place] [address] documented as of this encounter Visit Diagnoses Not on filedocumented in this encounter Additional Health Concerns Assessment Noted Time PHQ-9 Depression Total Score: 8 10/12/19 24 2:03 PM EDT documented as of this encounter Care Teams Product Development Technician Relationship Specialty Start Date End Date Savannah Milner MD [address] [place] [address] PCP - General Internal Medicine 10/19/23 documented as of this encounter
--- OUTSIDE RECORDS SUMMARY | 2024-04-04 14:20 | XMS_ITS | Encounter Summary ---
Author Organization [employer] Address [address] [place] [address] Care Team Providers Care Audio Video Mechanic Name Role Phone Savannah Milner MD Primary Care Provide r Reason for Visit * Reason Onset Date Comments Referral 12/28/2023 Encounter Details Date Type Department Care Team ([facility] st Contact Info) Description 12/28/2023 Telephone [facility] MEDICINE [address] [place] [address] Savannah Milner MD [address] [place] [address] Referral Social History Tobacco Use Types Packs/Day [...] was referred to Eye center here at [facility] . Says they are currently booking out 2 months , but calendar not open yet . Pt would like referral modified to go to [facility] Eye [address] [address] (P) [phone] documented in this encounter Plan of Treatment Upcoming Encounters Date Type Department Care Team (Late st Contact Info) Description 06/20/2024 9:15 AM EDT Office Visit [facility] OPTOMETRY [address] [place] [address] Mare Luna, OD [address] [place] [address] 07/03/2024 10:15 AM EDT Office Visit [facility] MEDICINE [address] [place] [address] Savannah Milner MD [address] [place] [address] documented as of this encounter Visit Diagnoses Not on filedocumented in this encounter Additional Health Concerns Assessment Noted Time PHQ-9 Depression Total Score: 8 10/12/19 24 2:03 PM EDT documented as of this encounter Care Teams Audio Video Mechanic Relationship Specialty Start Date End Date Savannah Milner MD [address] [place] [address] PCP - General Internal Medicine 10/19/23 documented as of this encounter
--- OUTSIDE RECORDS SUMMARY | 2024-04-04 14:20 | XMS_ITS | Encounter Summary ---
Author Organization [employer] Address [address] 7[address] [place] [address] Care Team Providers Care Technical Solutions Consultant Name Role Phone Savannah Milner MD Primary Care Provide r Encounter Details Date Type Department Care Team ([facility] st Contact Info) Description 03/20/2024 9:45 AM EST Office Visit [facility] OPTOMETRY [address] [place], [place] [phone] Mare Luna, OD [address] [place] [address] Regular astigmatism, bilateral (Primary Dx); Dry eyes, bilateral; Elevated IOP, bilateral Social History Tobacco Use Types Packs/Day Years [...] AM EDT documented as of this encounter Progress Notes * Mare Luna, OD - 03/20/2024 9:45 AM EST Eye Care Progress Note Patient ID: Chris Lugo is a 43 y.o. male. HPI Patient reports blurry vision both eyes (OU) at near. Patient has had glasses before but has not worn them for a long time. SEBLE: 3 years ago Last edited by Mare Luna, OD on 03/20/2024 11:28 AM. Current Outpatient Medications Medication Sig Dispense Refill albuterol (2.5 MG/3ML) 0.083% nebulizer solution Take 3 mL (2.5 mg) by nebulization every 6 (six) hours if needed for wheezing or shortness of breath. 75 mL 1 Incruse Ellipta 62.5 MCG/ACT aerosol powder INHALE 1 PUFF BY MOUTH DAILY FOR 30 DAYS losartan (Cozaar) 25 MG tablet Take 1 tablet (25 mg) by mouth Once per day. 30 tablet 11 omeprazole (PriLOSEC) [address] capsule TAKE 1 CAPSULE BY MOUTH EVERY DAY 30 MINUTES TO 1 HOUR BEFORE A MEAL 90 capsule 0 pravastatin (Pravachol) 20 MG tablet Take 1 tablet (20 mg) by mouth Once per day. 30 tablet 11 psyllium (Metamucil) 400 MG capsule Take 6 capsules (2.4 g) by mouth Once per day. 180 capsule 1 sildenafil (Viagra) 50 MG tablet Take 1 tablet (50 mg) by mouth if needed each day for erectile dysfunction. 10 tablet 0 traZODone (Desyrel) 50 MG tablet TAKE 1 TABLET BY MOUTH AT BEDTIME 30 tablet 1 No current facility-administered medications for this visit. History reviewed. No pertinent past medical history. History reviewed. No pertinent surgical history. Family History Problem Relation Name Age of Onset Diabetes Mother Diabetes Sister Diabetes Maternal Grandmother Tobacco Use: High Risk (03/20/2024) Tobacco Smoking Tobacco Use: Every Day Smokeless Tobacco Use: Unknown Passive Exposure: Past Allergies Allergen Reactions Penicillin G Hives ROS Positive for: Eyes Negative for: Constitutional, Gastrointestinal, Neurological, Skin, Genitourinary, Musculoskeletal,HENT, Endocrine, Cardiovascular, Respiratory, Psychiatric, Allergic/Imm, Heme/Lymph Last edited by Mare Luna OD on 03/20/2024 10:30 AM. Base Eye Exam Visual Acuity (Snellen - Linear) Right Left Both Dist sc 20/20 -2 20/40+2 Near sc 20/30 Tonometry (Applanation, 10:49 AM) Right Left Pressure 26 24 Pupils Pupils APD Right PERRL None Left PERRL None Visual Dejesus (Counting fingers) Left Right Full Full Extraocular Movement Right Left Full Full Neuro/Psych Oriented x3: Yes Mood/Affect: Normal Dilation Both eyes: 1.0% tropicamide @ 10:53 AM Slit Lamp and Fundus Exam External Exam Right Left External Normal Normal Slit Lamp Exam Right Left Lids/Lashes Clean and clear Clean and clear Conjunctiva/Sclera White and quiet White and quiet Cornea 1+ interpalpebral SPK, TBUT: 4 seconds 1+ interpalpebral SPK, TBUT: 2 seconds Anterior Chamber Deep and quiet, angles open Deep and quiet, angles open Iris Flat, round Flat, round Lens Clear Clear Fundus Exam Right Left Vitreous Clear Clear Disc [place] and healthy [place]ilo and healthy C/D Ratio Vertical 0.50 0.40 C/D Ratio Horizontal 0.50 0.40 Macula Flat, even pigmentation Flat, even pigmentation Vessels AV 2/3, normal course and caliber AV 2/3, normal course and caliber Periphery No holes/tears/detachments 360 No holes/tears/detachments 360 Refraction Manifest Refraction (Subjective) Sphere Cylinder [place] Dist VA Add Right +0.00 -0.50 100 20/20 +1.25 Left +0.50 -2.25 067 20/20 +1.25 Near VA Both: 20/20 Manifest Refraction #2 (Subjective) Sphere Cylinder [place] Dist VA Add Right +0.00 -0.50 100 20/20 +1.25 Left +0.25 -1.25 067 20/20 +1.25 Near VA Both: 20/20 Comments: Trial frame demo'd MRx #2; patient reports clear and comfortable vision Final Rx Sphere Cylinder [place] Add Right +0.00 -0.50 100 +1.25 Left +0.25 -1.25 067 +1.25 Expiration Date: 03/20/2025 Assessment and Plan Diagnoses and all orders for this visit: Regular astigmatism, bilateral - Dispensed updated spec Rx Dry eyes, bilateral - Recommended use of artifical tears 2-4x/day both eyes (OU), pt given dry eye handout with drop suggestions Elevated IOP bilateral - Glaucoma risk profile/summary - POAG suspect due to: elevated intraocular pressure (IOP) - Fhx glaucoma: none - IOP today (GAT): (baseline) - RNFL OCT (03/20/24): WNL 360 both eyes (OU) - Very low risk suspect at this time. RTC in 3 months for repeat intraocular pressure (IOP) measurement RTC 3 months for intraocular pressure (IOP) check or sooner PRN Mare Luna OD 03/20/2024, 11:29 AM documented in this encounter Plan of Treatment Upcoming Encounters Date Type Department Care Team (Late st Contact Info) Description 06/20/2024 9:15 AM EDT Office Visit [facility] OPTOMETRY [address] [place], [place] [phone] Mare Luna OD [address] [place] [address] 07/03/2024 10:15 AM EDT Office Visit [facility] MEDICINE [address] [place] [address] Savannah Milner MD [address] [place] [address] documented as of this encounter Procedures Procedure Name Priority Date/Time Associated Diagnosis Comments OCT, OPTIC NERVE - OU - BOTH EYES Routine 03/20/2024 11:35 AM EST Elevated IOP, bilateral documented in this encounter Results * OCT, Optic Nerve - OU [...] Plan: No evidence of glaucomatous damage. Monitor. Mare Luna OD OPHTH TOMOGRAPHY Final Result documented in this encounter Visit Diagnoses Diagnosis Regular astigmatism, bilateral- Primary Dry eyes, bilateral Elevated IOP, bilateral documented in this encounter Additional Health Concerns Assessment Noted Time PHQ-9 Depression Total Score: 8 10/12/19 24 2:03 PM EDT documented as of this encounter Care Teams Technical Solutions Consultant Relationship Specialty Start Date End Date Savannah Milner MD [address] [place] [phone] PCP - General Internal Medicine 10/19/23 documented as of this encounter
--- OUTSIDE RECORDS SUMMARY | 2024-04-04 14:20 | XMS_ITS | Encounter Summary ---
Author Organization [employer] Address [address] 7[address] [place] [address] Care Team Providers Care Product Manager Name Role Phone Savannah Milner MD Primary Care Provide r Encounter Details Date Type Department Care Team (Latest Contact Info) Description 03/20/2024 Travel Social History Tobacco Use Types Packs/Day Years [...] Description 06/20/2024 9:15 AM EDT Office Visit [facility] OPTOMETRY [address] [place] [address] Mare Luna, OD [address] [place] [address] 07/03/2024 10:15 AM EDT Office Visit [facility] MEDICINE [address] [place] [address] Savannah Milner MD [address] [place] [address] documented as of this encounter Visit Diagnoses Not on filedocumented in this encounter Additional Health Concerns Assessment Noted Time PHQ-9 Depression Total Score: 8 10/12/19 24 2:03 PM EDT documented as of this encounter Care Teams Product Manager Relationship Specialty Start Date End Date Savannah Milner MD [address] [place] [phone] PCP - General Internal Medicine 10/19/23 documented as of this encounter
--- OUTSIDE RECORDS SUMMARY | 2024-04-04 14:20 | XMS_ITS | Encounter Summary ---
Author Organization [employer] Address [address] 7[address] [place] [address] Care Team Providers Care Supervisor Spinning Name Role Phone Savannah Milner MD Primary Care Provide r Reason for Visit * Reason Comments Med Refill Encounter Details Date Type Department Care Team ([facility] st Contact Info) Description 03/08/2024 Refill [facility] MEDICINE [address] [place] [address] Savannah Milner MD [address] [place] [address] Depression with anxiety Social History Tobacco Use [...] Description 06/20/2024 9:15 AM EDT Office Visit [facility] OPTOMETRY [address] [place] [address] Mare Luna, OD [address] [place] [address] 07/03/2024 10:15 AM EDT Office Visit [facility] MEDICINE [address] [place] [address] Savannah Milner MD [address] [place] [address] documented as of this encounter Visit Diagnoses Diagnosis Depression with anxiety Dysthymic disorder documented in this encounter Additional Health Concerns Assessment Noted Time PHQ-9 Depression Total Score: 8 10/12/19 24 2:03 PM EDT documented as of this encounter Care Teams Supervisor Spinning Relationship Specialty Start Date End Date Savannah Milner MD [address] [place] [phone] PCP - General Internal Medicine 10/19/23 documented as of this encounter
--- OUTSIDE RECORDS SUMMARY | 2024-04-04 14:20 | XMS_ITS | Encounter Summary ---
Author Organization [employer] Address [address] [place] [address] Care Team Providers Care Ob/Gyn Nurse Name Role Phone Umm Huang ISABEL Primary Care Provider [phone] Savannah Milner MD Primary Care Provide r Encounter Details Date Type Department Care Team (Late st Contact Info) Description 02/24/2022 Orders Only [facility]EDS [address] [place] [address] Annabel Peoples LPN Social History Tobacco Use [...] Department Care Team (Late Contact Info) Description 06/20/2024 9:15 AM EDT Office Visit [facility] OPTOMETRY [address] [place] [address] Mare Luna, OD [address] [place] [address] 07/03/2024 10:15 AM EDT Office Visit [facility] MEDICINE [address] [place] [address] Savannah Milner MD [address] [place], [place] [phone] documented as of this encounter Procedures Procedure [...] EDT 09/13/2022 12:45 PM EDT Comment:Sputum Narrative [facility] - 09/15/2022 11:47 AM EDT Gram stain results: 1+ polys 2+ Gram-positive cocci Sputum Culture BAP Sputum Culture 3+ Mixed respiratory tyler. Specimen Source: Sputum [facility] Exter nal Provider LAB MICROBIOLOGY - GENERAL ORDERABLES Final Result [facility] [address] [place] [phone] * (ABNORMAL) GLUCOSE, WHOLE BLOOD (06/28/2022 7:16 AM EDT) Glucose, Whole Blood 140(H) 60 - 115 mg/dL [facility] Comment:METER #: [id number] 06/28/2022 7:16 AM EDT 06/28/2022 7:20 AM EDT [facility] External Provider LAB BLO OD ORDERABLES Final Result [facility] [address] [place] [phone] [phone] * (ABNORMAL) C-reactive Protein (06/28/2022 2:28 AM EDT) C Reactive Protein 7.80(H) < or = 0.50 mg/dL [facility] 06/28/2022 2:28 AM EDT 06/28/2022 3:04 AM EDT [facility] External Provider LAB BLO OD ORDERABLES Final Result Performing Organization Address [facility] Co de Phone Number [facility] [address] [place] [phone] * Lipase (06/28/2022 2:28 AM EDT) Pathologist [facility] Lipase 31 8 - 78 U/L [facility] 06/28/2022 2:28 AM EDT 06/28/2022 3:04 AM EDT [facility] External Provider LAB BLO OD ORDERABLES Final Result Performing Organization Address [facility] de Phone Number [facility] [address] [place] [address] [phone] * (ABNORMAL) Comprehensive Metabolic Panel (06/28/2022 2:28 AM EDT) Pathologist [facility] Sodium 141 135 - 145 mmol/L [facility] Potassium 4.4 3.3 - 5.1 mmol/L [facility] Chloride 107 96 - 108 mmol/L [facility] Carbon Dioxide 28 22 - 29 mmol/L [facility] Anion Gap 10(L) 12 - 20 [facility] Urea Nitrogen (BUN) 12 9 - 16 mg/dL [facility] Creatinine, Serum 0.91 0.5 - 1.4 mg/dL [facility] Creatinine Clr Calc Pharmacy 109.7 [facility] Comment:eGFR (calculated fro m the MDRD study equation) and eCrCl(calculated from the Cockcroft-Gault equation) are based ondifferent parameters and may not yield comparable results.If eCrCl result is absurd, please check patient'sheight/weight. Estimated Glomerular Filt Rate >60 [facility] Comment:NOTE: For -Am erican individuals, multiply the result by 1.210.Chronic Kidney Disease: Estimated GFR < 60 mL/min/[id number] Kidney Disease: Estimated GFR < 15 mL/min/1.73m2 Glucose 100 60 - 115 mg/dL [facility] Calcium 9.0 8.4 - 10.2 mg/dL [facility] Bilirubin, Total 0.3 0.0 - 1.0 mg/dL [facility] Aspartate Amino Transferase 16 5 - 37 U/L [facility] Alanine Aminotransferase 25 0 - 40 U/L [facility] Total Protein 6.5 6.5 - 8.0 g/dL [facility] Albumin Level 3.9 3.5 - 5.0 g/dL [facility] Alkaline Phosphatase 86 39 - 117 U/L [facility] 06/28/2022 2:28 AM EDT 06/28/2022 3:04 AM EDT us [facility] External Provider LAB BLO OD ORDERABLES Final Result [facility] [address] [place] [phone] * (ABNORMAL) CBC auto differential (06/28/2022 2:28 AM EDT) White Blood Count 9.1 4.8 - 10.8 X10*3/uL [facility] Red Blood Count 4.67 4.60 - 5.80 X10*6/uL [facility] Hemoglobin 14.5 14.0 - 18.0 g/dl [facility] Hematocrit 43.1 42.0 - 52.0 % [facility] Mean Corpuscular Volume 92.3 80.0 - 98.0 fL [facility] Mean Corpuscular Hemoglobin 31.0 27.0 - 33.0 pg [facility] Mean Corpuscular HGB Conc 33.6 31.0 - 36.0 g/dl [facility] Red Cell Distribution Width 12.6 11.0 - 16.0 % [facility] Platelet Count 284 160 - 400 X10*3/uL [facility] Mean Platelet Volume 8.7(L) 9.4 - 12.4 fL [facility] Neutrophils Percent Auto 66.7 45 - 73 % [facility] Imm Gran Pct Auto 0.2 0.0 - 0.4 % [facility] Lymphocytes Percent Auto 24.4 20 - 40 % [facility] Monocytes Percent Auto 7.4 2 - 11 % [facility] Eosinophils Percent Auto 0.5 0 - 4 % [facility] Basophils Percent Auto 0.8 0 - 2 % [facility] NRBC Pct Auto 0.0 0.0 - 0.2 /100WBC [facility] Neutrophils Absolute Auto 6.1 2.0 - 8.3 x10*3/uL [facility] Imm Gran Abs Auto 0.02 0.00 - 0.03 X10*3/uL [facility] Lymphocytes Absolute Auto 2.2 1.2 - 4.9 X10*3/uL [facility] Monocytes Absolute Auto 0.7 0.1 - 1.2 X10*3/uL [facility] Eosinophils Absolute Auto 0.1 0.0 - 0.4 X10*3/uL [facility] Basophils Absolute Auto 0.1 0.0 - 0.2 X10*3/uL [facility] NRBC Abs Auto 0.000 0.0 - 0.012 X10*3/uL [facility] 06/28/2022 2:28 AM EDT 06/28/2022 3:04 AM EDT us [facility] External Provider LAB BLO OD ORDERABLES Final Result [facility] [address] [place] [phone] documented in this encounter Visit Diagnoses Not on filedocumented in this encounter Care Teams Ob/Gyn Nurse Relationship Specialty Start Date End Date Umm Huang FNP [address] [place] [address] PCP - General Family Medicine 12/06/20 10/18/23 Savannah Milner MD [address] [place] [address] PCP - General Internal Medicine 10/19/23 documented as of this encounter
== END 2024-04-04 14:25 | disposition home or self-care (01) ==
PROVIDERS: PCP Internal Medicine; Visit Provider Hospitalist
DX: J45.41 Moderate persistent asthma with (acute) exacerbation (principal); R06.00 Dyspnea, unspecified; R07.1 Chest pain on breathing; R05.9 Cough, unspecified; J98.4 Other disorders of lung; F17.200 Nicotine dependence, unspecified, uncomplicated; R91.8 Other nonspecific abnormal finding of lung field
CPT/HCPCS: 99214

== ENCOUNTER → 2024-04-04 13:52 | Outpatient (BNVA) | payer MEDICAID, SELFPAY | PROVIDERS: PCP Internal Medicine; Visit Provider Hospitalist | DX: J45.41 Moderate persistent asthma with (acute) exacerbation (principal); J98.4 Other disorders of lung; R06.00 Dyspnea, unspecified; R07.1 Chest pain on breathing; R05.3 Chronic cough; R91.8 Other nonspecific abnormal finding of lung field; F17.210 Nicotine dependence, cigarettes, uncomplicated | CPT/HCPCS: 99212 ==

== ENCOUNTER 2024-04-07 15:51 | Outpatient (REF) | payer MEDICAID, SELFPAY ==
--- OUTSIDE RECORDS SUMMARY | 2024-04-08 19:32 | XMS_ITS | Encounter Summary ---
Author Organization [employer] Address [address] [place] [address] Care Team Providers Care Biomedical Electronics Technician Name Role Phone Savannah Milner MD Primary Care Provide r Reason for Visit * Reason Onset Date Comments No Show 03/27/2024 Encounter Details Date Type Department Care Team ([facility] st Contact Info) Description 03/27/2024 Telephone [facility] MEDICINE [address] [place] [address] Savannah Milner MD [address] [place] [address] No Show Social History Tobacco Use Types [...] Description 06/20/2024 9:15 AM EDT Office Visit [facility] OPTOMETRY [address] [place] [address] Mare Luna, OD [address] [place] [address] 07/03/2024 10:15 AM EDT Office Visit [facility] MEDICINE [address] [place] [address] Savannah Milner MD [address] [place] [address] documented as of this encounter Visit Diagnoses Not on filedocumented in this encounter Additional Health Concerns Assessment Noted Time PHQ-9 Depression Total Score: 8 10/12/19 24 2:03 PM EDT documented as of this encounter Care Teams Biomedical Electronics Technician Relationship Specialty Start Date End Date Savannah Milner MD [address] [place] [address] PCP - General Internal Medicine 10/19/23 documented as of this encounter
--- OUTSIDE RECORDS SUMMARY | 2024-04-08 19:32 | XMS_ITS | Encounter Summary ---
Author Organization [employer] Address [address] [place] [address] Care Team Providers Care Distributor Sales Consultant Name Role Phone Savannah Milner MD Primary Care Provide r Reason for Visit * Reason Comments Med Refill Encounter Details Date Type Department Care Team ([facility] st Contact Info) Description 03/08/2024 Refill [facility] MEDICINE [address] [place] [address] Savannah Milner MD [address] [place] [address] Depression with anxiety Social History Tobacco Use [...] Description 06/20/2024 9:15 AM EDT Office Visit [facility] OPTOMETRY [address] [place] [address] Mare Luna, OD [address] [place] [address] 07/03/2024 10:15 AM EDT Office Visit [facility] MEDICINE [address] [place] [address] Savannah Milner MD [address] [place] [address] documented as of this encounter Visit Diagnoses Diagnosis Depression with anxiety Dysthymic disorder documented in this encounter Additional Health Concerns Assessment Noted Time PHQ-9 Depression Total Score: 8 10/12/19 24 2:03 PM EDT documented as of this encounter Care Teams Distributor Sales Consultant Relationship Specialty Start Date End Date Savannah Milner MD [address] [place] [phone] PCP - General Internal Medicine 10/19/23 documented as of this encounter
--- OUTSIDE RECORDS SUMMARY | 2024-04-08 19:32 | XMS_ITS | Encounter Summary ---
Author Organization [employer] Address [address] [place] [address] Care Team Providers Care Disability Attorney Name Role Phone Savannah Milner MD Primary [...] Description 06/20/2024 9:15 AM EDT Office Visit [facility] OPTOMETRY [address] [place] [address] Mare Luna, OD [address] [place] [address] 07/03/2024 10:15 AM EDT Office Visit [facility] MEDICINE [address] [place] [address] Savannah Milner MD [address] [place] [address] documented as of this encounter Visit Diagnoses Not on filedocumented in this encounter Additional Health Concerns Assessment Noted Time PHQ-9 Depression Total Score: 8 10/12/19 24 2:03 PM EDT documented as of this encounter Care Teams Disability Attorney Relationship Specialty Start Date End Date Savannah Milner MD [address] [place] [phone] PCP - General Internal Medicine 10/19/23 documented as of this encounter
--- OUTSIDE RECORDS SUMMARY | 2024-04-08 19:32 | XMS_ITS | Encounter Summary ---
Author Organization [employer] Address [address] [place] [address] Care Team Providers Care Welding Pantograph Machine Operator Name Role Phone Umm Huang ISABEL Primary Care Provider [phone] Savannah Milner MD Primary Care Provide r Encounter Details Date Type Department Care Team (Late st Contact Info) Description 02/24/2022 Orders Only [facility] [address] [place] [address] Annabel Peoples LPN Social History Tobacco Use [...] Description 06/20/2024 9:15 AM EDT Office Visit [facility] OPTOMETRY [address] [place] [address] Mare Luna, OD [address] [place] [address] 07/03/2024 10:15 AM EDT Office Visit [facility]IC[facility] [address] [place] [address] Savannah Milner MD [address] [place], [place] [phone] documented as of this encounter Procedures Procedure [...] EDT 09/13/2022 12:45 PM EDT Comment:Sputum Narrative [facility] - 09/15/2022 11:47 AM EDT Gram stain results: 1+ polys 2+ Gram-positive cocci Sputum Culture BAP Sputum Culture 3+ Mixed respiratory tyler. Specimen Source: Sputum [facility] Exter nal Provider LAB MICROBIOLOGY - GENERAL ORDERABLES Final Result [facility] [address] [place] [phone] * (ABNORMAL) GLUCOSE, WHOLE BLOOD (06/28/2022 7:16 AM EDT) Glucose, Whole Blood 140(H) 60 - 115 mg/dL [facility] Comment:METER #: [id number] 06/28/2022 7:16 AM EDT 06/28/2022 7:20 AM EDT [facility] External Provider LAB BLO OD ORDERABLES Final Result [facility] [address] [place] [phone] * (ABNORMAL) C-reactive Protein (06/28/2022 2:28 AM EDT) C Reactive Protein 7.80(H) < or = 0.50 mg/dL [facility] 06/28/2022 2:28 AM EDT 06/28/2022 3:04 AM EDT [facility] External Provider LAB BLO OD ORDERABLES Final Result Performing Organization Address [facility] Co de Phone Number [facility] [address] [place] [phone] * Lipase (06/28/2022 2:28 AM EDT) Pathologist [facility] Lipase 31 8 - 78 U/L [facility] 06/28/2022 2:28 AM EDT 06/28/2022 3:04 AM EDT [facility] External Provider LAB BLO OD ORDERABLES Final Result Performing Organization Address [facility] de Phone Number [facility] [address] [place] [address] [phone] * (ABNORMAL) Comprehensive Metabolic Panel (06/28/2022 2:28 AM EDT) Pathologist [facility] Sodium 141 135 - 145 mmol/L [facility] Potassium 4.4 3.3 - 5.1 mmol/L [facility] Chloride 107 96 - 108 mmol/L [facility] Carbon Dioxide 28 22 - 29 mmol/L [facility] Anion Gap 10(L) 12 - 20 [facility] Urea Nitrogen (BUN) 12 9 - 16 mg/dL [facility] Creatinine, Serum 0.91 0.5 - 1.4 mg/dL [facility] Creatinine Clr Calc Pharmacy 109.7 [facility] Comment:eGFR (calculated fro m the MDRD study equation) and eCrCl(calculated from the Cockcroft-Gault equation) are based ondifferent parameters and may not yield comparable results.If eCrCl result is absurd, please check patient'sheight/weight. Estimated Glomerular Filt Rate >60 [facility] Comment:NOTE: For -Am erican individuals, multiply the result by 1.210.Chronic Kidney Disease: Estimated GFR < 60 mL/min/[id number] Kidney Disease: Estimated GFR < 15 mL/min/1.73m2 Glucose 100 60 - 115 mg/dL [facility] Calcium 9.0 8.4 - 10.2 mg/dL [facility] Bilirubin, Total 0.3 0.0 - 1.0 mg/dL [facility] Aspartate Amino Transferase 16 5 - 37 U/L [facility] Alanine Aminotransferase 25 0 - 40 U/L [facility] Total Protein 6.5 6.5 - 8.0 g/dL [facility] Albumin Level 3.9 3.5 - 5.0 g/dL [facility] Alkaline Phosphatase 86 39 - 117 U/L [facility] 06/28/2022 2:28 AM EDT 06/28/2022 3:04 AM EDT us [facility] External Provider LAB BLO OD ORDERABLES Final Result [facility] [address] [place] [phone] * (ABNORMAL) CBC auto differential (06/28/2022 2:28 AM EDT) White Blood Count 9.1 4.8 - 10.8 X10*3/uL [facility] Red Blood Count 4.67 4.60 - 5.80 X10*6/uL [facility] Hemoglobin 14.5 14.0 - 18.0 g/dl [facility] Hematocrit 43.1 42.0 - 52.0 % [facility] Mean Corpuscular Volume 92.3 80.0 - 98.0 fL [facility] Mean Corpuscular Hemoglobin 31.0 27.0 - 33.0 pg [facility] Mean Corpuscular HGB Conc 33.6 31.0 - 36.0 g/dl [facility] Red Cell Distribution Width 12.6 11.0 - 16.0 % [facility] Platelet Count 284 160 - 400 X10*3/uL [facility] Mean Platelet Volume 8.7(L) 9.4 - 12.4 fL [facility] Neutrophils Percent Auto 66.7 45 - 73 % [facility] Imm Gran Pct Auto 0.2 0.0 - 0.4 % [facility] Lymphocytes Percent Auto 24.4 20 - 40 % [facility] Monocytes Percent Auto 7.4 2 - 11 % [facility] Eosinophils Percent Auto 0.5 0 - 4 % [facility] Basophils Percent Auto 0.8 0 - 2 % [facility] NRBC Pct Auto 0.0 0.0 - 0.2 /100WBC [facility] Neutrophils Absolute Auto 6.1 2.0 - 8.3 x10*3/uL [facility] Imm Gran Abs Auto 0.02 0.00 - 0.03 X10*3/uL [facility] Lymphocytes Absolute Auto 2.2 1.2 - 4.9 X10*3/uL [facility] Monocytes Absolute Auto 0.7 0.1 - 1.2 X10*3/uL [facility] Eosinophils Absolute Auto 0.1 0.0 - 0.4 X10*3/uL [facility] Basophils Absolute Auto 0.1 0.0 - 0.2 X10*3/uL [facility] NRBC Abs Auto 0.000 0.0 - 0.012 X10*3/uL [facility] 06/28/2022 2:28 AM EDT 06/28/2022 3:04 AM EDT us [facility] External Provider LAB BLO OD ORDERABLES Final Result [facility] [address] [place] [phone] [phone] documented in this encounter Visit Diagnoses Not on filedocumented in this encounter Care Teams Welding Pantograph Machine Operator Relationship Specialty Start Date End Date Umm Huang FNP [address] [place] [address] PCP - General Family Medicine 12/06/20 10/18/23 Savannah Milner MD [address] [place] [address] PCP - General Internal Medicine 10/19/23 documented as of this encounter
--- OUTSIDE RECORDS SUMMARY | 2024-04-08 19:32 | XMS_ITS | Clinical Summary ---
Author Organization [employer] Address [address] [place] [address] Care Team Providers Care Manager Testing Name Role Phone Savannah Milner MD Primary [...] Type Department Care Team Description 03/27/2024 Telephone [facility] MED[facility] [address] [place], [place] [phone] Savannah Milner MD No Show 03/20/2024 9:45 AM EST Office Visit [facility] OPTOMETRY [address] [place], [place] [phone] TarMare turner, OD Regular astigmatism, bilateral (Primary Dx); Dry eyes, bilateral; Elevated IOP, bilateral 03/20/2024 Travel 03/08/2024 Refill [facility] MED[facility]INE [address] [place], [place] [phone] Savannah Milner MD Depression with anxiety 02/04/2024 Telephone [facility] MEDICINE [address] [place] [address] Sri Ariza [place] Provider Out from Last [...] Visit [facility] OPTOMETRY [address] [place] [address] Mare Luna, OD [address] [place] [address] 07/03/2024 10:15 AM EDT Office Visit [facility] MEDICINE [address] [place] [address] Savannah Milner MD [address] [place] [address] Health Maintenance Due Date Last Done Comments [...] 3:08 PM EDT) Triglycerides 116 <150 mg/dL [facility] Comment:Desirable Triglyceri de: less than 150 mg/dLBorderline High Triglyceride 150-199 mg/dLHigh Triglyceride: 200-499 mg/dLVery High Triglyceride: greater than or equal to 5OO mg/dL Cholesterol 168 <200 mg/dL [facility] Comment:Desirable Cholestero l: less than 200 mg/dLBorderline High Cholesterol: 200-239 mg/dLHigh Cholesterol: greater than 239 mg/dL LDL Cholesterol Calculated 108(H) <100 mg/dL [facility] Comment:Desirable LDL: less than 100 mg/dLNear Optimal/Above Optimal LDL: 110- 129 mg/dLBorderline High LDL: 130-159 mg/dLHigh LDL: 160-189 mg/dLVery High LDL: greater than or equal to 190 mg/dL HDL Cholesterol 37(L) >40 mg/dL [facility] Comment:Desirable HDL: great er than 40 mg/dL Note: This HDL assay may give artificially low results in patients with liver disease. Blood 10/12/2023 3:08 PM EDT 10/12/2023 4:18 PM EDT us Savannah Licea MD LAB BLOOD ORDERABLES Final Result Performing Organization Address City/[facility] Co de Phone Number [facility] [address] [place] [address] [phone] Hepatitis Panel, General (10/12/2023 3:08 PM EDT) Hepatitis A IgM Nonreactive Nonreactive [facility] Comment:IgM antibodies to FLORES V not detected; does not exclude earlyacute or recovered HAV infection. ~Hepatitis B Surface Antibody REACTIVE Nonreactive [facility] Comment:REACTIVE: > 11.99 mI U/mL Hepatitis B Core Antibody Nonreactive Nonreactive [facility] Hepatitis C Antibody Nonreactive Nonreactive [facility] Comment:Antibodies to HCV no t detected; does not exclude early acuteHCV infection. Hepatitis B Surface Ag Negative Negative [facility] Blood 10/12/2023 3:08 PM EDT 10/12/2023 4:18 PM EDT Savannah Licea MD LAB BLOOD ORDERABLES Final Result Performing Organization Address City/State/[facility] Co de Phone Number [facility] [address] [place] [address] [phone] * HIV-1/2 Antigen and Antibodies, Fourth Generation, with Reflexes (10/12/2023 3:08 PM EDT) HIV AB/AG Nonreactive Nonreactive [facility] Comment:HIV-1 p24 Ag and/or HIV-1/HIV-2 Ab not detected.A test result that is nonreactive does not exclude thepossibility of exposure to or infection with HIV-1 and/orHIV-2. Nonreactive results in this assay for individualswith prior exposure to HIV-1 and/or HIV-2 may be due toantigen and antibody levels that are below the limit ofdetection of this assay.The [employer] HIV Ag/Ab Combo assay result andsupplemental assay results should be interpreted inconjunction with the patient's clinical presentation,history and other laboratory results. If the results areinconsistent with clinical evidence, additional testing issuggested to confirm the result. Blood Venous blood specimen / Unknown 10/12/2023 3:08 PM EDT 10/12/2023 4:18 PM EDT us Savannah Licea MD LAB BLOOD ORDERABLES Final Result Performing Organization Address [facility] Co de Phone Number [facility] [address] [place] [phone] * (ABNORMAL) POCT HGB A1C (10/12/2023 2:22 PM EDT) Hemoglobin A1C 6.3(A) 4.0 - 6.0 % QC Media Lot # [id number] Lot# Expiration Date [id number] Blood 10/12/2023 2:22 PM EDT us Savannah Licea MD POINT OF CARE TEST EN TER/EDIT ORDERABLES Final Result from Last 3 Months or Most Recently Relevant to Health Maintenance Insurance [facility] C3 Care Teams Manager Testing Relationship Specialty Start Date End Date Savannah Milner MD [address] [place] [phone] PCP - General Internal Medicine 10/19/23
--- OUTSIDE RECORDS SUMMARY | 2024-04-08 19:32 | XMS_ITS | Encounter Summary ---
Author Organization [employer] Address [address] 7[address] [place] [address] Care Team Providers Care Longitudinal Float Operator Name Role Phone Savannah Milner MD Primary Care Provide r Reason for Visit * Reason Onset Date Comments Referral 12/28/2023 Encounter Details Date Type Department Care Team ([facility] st Contact Info) Description 12/28/2023 Telephone [facility] MEDICINE [address] [place] [address] Savannah Milner MD [address] [place] [address] Referral Social History Tobacco Use Types Packs/Day [...] was referred to Eye center here at [facility] . Says they are currently booking out 2 months , but calendar not open yet . Pt would like referral modified to go to [facility] [address] [address] (P) [phone] documented in this encounter Plan of Treatment Upcoming Encounters Date Type Department Care Team (Late st Contact Info) Description 06/20/2024 9:15 AM EDT Office Visit [facility] OPTOMETRY [address] [place] [address] Mare Luna, OD [address] [place] [address] 07/03/2024 10:15 AM EDT Office Visit [facility] MEDICINE [address] [place] [address] Savannah Milner MD [address] [place] [address] documented as of this encounter Visit Diagnoses Not on filedocumented in this encounter Additional Health Concerns Assessment Noted Time PHQ-9 Depression Total Score: 8 10/12/19 24 2:03 PM EDT documented as of this encounter Care Teams Longitudinal Float Operator Relationship Specialty Start Date End Date Savannah Milner MD [address] [place] [phone] PCP - General Internal Medicine 10/19/23 documented as of this encounter
--- OUTSIDE RECORDS SUMMARY | 2024-04-08 19:32 | XMS_ITS | Encounter Summary ---
Author Organization [employer] Address [address] [facility] [address] [facility] [address] [place] [address] Care Team Providers Care Gps Navigation Installer Name Role Phone Savannah Milner MD Primary Care Provide r Encounter Details Date Type Department Care Team ([facility] st Contact Info) Description 03/20/2024 9:45 AM EST Office Visit [facility] OPTOMETRY [address] [place], [place] [phone] Mare Luna, OD [address] [place] [address] Regular astigmatism, bilateral (Primary Dx); Dry eyes, [...] Exam Right Left Vitreous Clear Clear Disc Fielding and healthy Fielding and healthy C/D Ratio Vertical 0.50 0.40 C/D Ratio Horizontal 0.50 0.40 Macula Flat, even pigmentation Flat, even pigmentation Vessels AV 2/3, normal course and caliber AV 2/3, normal course and caliber Periphery No holes/tears/detachments 360 No holes/tears/detachments 360 Refraction Manifest Refraction (Subjective) Sphere Cylinder [place] Dist [place] Add Right +0.00 -0.50 100 20/20 +1.25 Left +0.50 -2.25 067 20/20 +1.25 Near VA Both: 20/20 Manifest Refraction #2 (Subjective) Sphere Cylinder [place] Dist VA Add Right +0.00 -0.50 100 20/20 +1.25 Left +0.25 -1.25 067 20/20 +1.25 Near VA Both: 20/20 Comments: Trial frame demo'd MRx #2; patient reports clear and comfortable vision Final Rx Sphere Cylinder [place] Add Right +0.00 -0.50 100 +1.25 Left [...] EDT Office Visit [facility] OPTOMETRY [address] [place], [place] [phone] Mare Luna OD [address] [place] [address] 07/03/2024 10:15 AM EDT Office Visit [facility] MEDICINE [address] [place] [address] Savannah Milner MD [address] [place] [address] documented as of this encounter Procedures Procedure [...] documented as of this encounter Care Teams Gps Navigation Installer Relationship Specialty Start Date End Date Savannah Milner MD [address] [place] [phone] PCP - General Internal Medicine 10/19/23 documented as of this encounter
== END 2024-04-07 15:52 | disposition home or self-care (01) ==
LOC: HO.HHCLNP 15:51
PROVIDERS: Visit Provider Internal Medicine
DX: R10.13 Epigastric pain (principal)
CPT/HCPCS: 87338

== ENCOUNTER 2024-05-14 07:22 | Outpatient (REF) | payer MEDICAID, SELFPAY ==
--- NOTE | ~2024-05-14 | CT_ITS ---
CLINICAL HISTORY: R91.8 - Other nonspecific abnormal finding of lung field CT chest without contrast Comparison: 09/15/2020 Findings: Emphysema without acute infiltrates. No significant mediastinal adenopathy. Stable 1.5 cm pretracheal node. No significant free pleural fluid. No significant focal bony abnormalities. Impression: No acute processes This document has been electronically signed by: Wing Damian MD on 05/14/2024 20:04:39
--- OUTSIDE RECORDS SUMMARY | 2024-05-14 07:26 | XMS_ITS | Encounter Summary ---
Author Organization [employer] Address [address] [place] [address] Care Team Providers Care It Support Manager Name Role Phone Umm Huang ISABEL Primary Care Provider [phone] Savannah Milner MD Primary Care Provide r Encounter Details Date Type Department Care Team (Late st Contact Info) Description 02/24/2022 Orders Only [facility] MED [facility] PEDS [address] [place] [address] Annabel Peoples LPN Social History Tobacco Use [...] Office Visit [facility] OPTOMETRY [address] [place] [address] Mare Luna, OD [address] [place] [address] 07/03/2024 10:15 AM EDT Office Visit [facility] MEDICINE [address] [place] [address] Savannah Milner MD [address] [place], [place] [phone] documented as of this encounter Procedures Procedure [...] EDT 09/13/2022 12:45 PM EDT Comment:Sputum Narrative [facility] - 09/15/2022 11:47 AM EDT Gram stain results: 1+ polys 2+ Gram-positive cocci Sputum Culture BAP Sputum Culture 3+ Mixed respiratory tyler. Specimen Source: Sputum [facility] Exter nal Provider LAB MICROBIOLOGY - GENERAL ORDERABLES Final Result [facility] [address] [place] [phone] * (ABNORMAL) GLUCOSE, WHOLE BLOOD (06/28/2022 7:16 AM EDT) Glucose, Whole Blood 140(H) 60 - 115 mg/dL [facility] Comment:METER #: [id number] 06/28/2022 7:16 AM EDT 06/28/2022 7:20 AM EDT [facility] External Provider LAB BLO OD ORDERABLES Final Result [facility] [address] [place] [address] [phone] * (ABNORMAL) C-reactive Protein (06/28/2022 2:28 AM EDT) C Reactive Protein 7.80(H) < or = 0.50 mg/dL [facility] 06/28/2022 2:28 AM EDT 06/28/2022 3:04 AM EDT [facility] External Provider LAB BLO OD ORDERABLES Final Result Performing Organization Address [facility] Co de Phone Number [facility] [address] [place] [phone] * Lipase (06/28/2022 2:28 AM EDT) Pathologist [facility] Lipase 31 8 - 78 U/L [facility] 06/28/2022 2:28 AM EDT 06/28/2022 3:04 AM EDT [facility] External Provider LAB BLO OD ORDERABLES Final Result Performing Organization Address [facility] de Phone Number [facility] [address] [place] [address] [phone] * (ABNORMAL) Comprehensive Metabolic Panel (06/28/2022 2:28 AM EDT) Pathologist [facility] Sodium 141 135 - 145 mmol/L [facility] Potassium 4.4 3.3 - 5.1 mmol/L [facility] Chloride 107 96 - 108 mmol/L [facility] Carbon Dioxide 28 22 - 29 mmol/L [facility] Anion Gap 10(L) 12 - 20 [facility] Urea Nitrogen (BUN) 12 9 - 16 mg/dL [facility] Creatinine, Serum 0.91 0.5 - 1.4 mg/dL [facility] Creatinine Clr Calc Pharmacy 109.7 [facility] Comment:eGFR (calculated fro m the MDRD study equation) and eCrCl(calculated from the Cockcroft-Gault equation) are based ondifferent parameters and may not yield comparable results.If eCrCl result is absurd, please check patient'sheight/weight. Estimated Glomerular Filt Rate >60 [facility] Comment:NOTE: For -Am erican individuals, multiply the result by 1.210.Chronic Kidney Disease: Estimated GFR < 60 mL/min/1.33z2Ebwsus Kidney Disease: Estimated GFR < 15 mL/min/1.73m2 Glucose 100 60 - 115 mg/dL [facility] Calcium 9.0 8.4 - 10.2 mg/dL [facility] Bilirubin, Total 0.3 0.0 - 1.0 mg/dL [facility] Aspartate Amino Transferase 16 5 - 37 U/L [facility] Alanine Aminotransferase 25 0 - 40 U/L [facility] Total Protein 6.5 6.5 - 8.0 g/dL [facility] Albumin Level 3.9 3.5 - 5.0 g/dL [facility] Alkaline Phosphatase 86 39 - 117 U/L [facility] 06/28/2022 2:28 AM EDT 06/28/2022 3:04 AM EDT us [facility] External Provider LAB BLO OD ORDERABLES Final Result [facility] [address] [place] [phone] * (ABNORMAL) CBC auto differential (06/28/2022 2:28 AM EDT) White Blood Count 9.1 4.8 - 10.8 X10*3/uL [facility] Red Blood Count 4.67 4.60 - 5.80 X10*6/uL [facility] Hemoglobin 14.5 14.0 - 18.0 g/dl [facility] Hematocrit 43.1 42.0 - 52.0 % [facility] Mean Corpuscular Volume 92.3 80.0 - 98.0 fL [facility] Mean Corpuscular Hemoglobin 31.0 27.0 - 33.0 pg [facility] Mean Corpuscular HGB Conc 33.6 31.0 - 36.0 g/dl [facility] Red Cell Distribution Width 12.6 11.0 - 16.0 % [facility] Platelet Count 284 160 - 400 X10*3/uL [facility] Mean Platelet Volume 8.7(L) 9.4 - 12.4 fL [facility] Neutrophils Percent Auto 66.7 45 - 73 % [facility] Imm Gran Pct Auto 0.2 0.0 - 0.4 % [facility] Lymphocytes Percent Auto 24.4 20 - 40 % [facility] Monocytes Percent Auto 7.4 2 - 11 % [facility] Eosinophils Percent Auto 0.5 0 - 4 % [facility] Basophils Percent Auto 0.8 0 - 2 % [facility] NRBC Pct Auto 0.0 0.0 - 0.2 /100WBC [facility] Neutrophils Absolute Auto 6.1 2.0 - 8.3 x10*3/uL [facility] Imm Gran Abs Auto 0.02 0.00 - 0.03 X10*3/uL [facility] Lymphocytes Absolute Auto 2.2 1.2 - 4.9 X10*3/uL [facility] Monocytes Absolute Auto 0.7 0.1 - 1.2 X10*3/uL [facility] Eosinophils Absolute Auto 0.1 0.0 - 0.4 X10*3/uL [facility] Basophils Absolute Auto 0.1 0.0 - 0.2 X10*3/uL [facility] NRBC Abs Auto 0.000 0.0 - 0.012 X10*3/uL [facility] 06/28/2022 2:28 AM EDT 06/28/2022 3:04 AM EDT us [facility] External Provider LAB BLO OD ORDERABLES Final Result [facility] [address] [place] [address] [phone] documented in this encounter Visit Diagnoses Not on filedocumented in this encounter Care Teams It Support Manager Relationship Specialty Start Date End Date Umm Huang FNP [address] [place] [address] PCP - General Family Medicine 12/06/20 10/18/23 Savannah Milner MD [address] [place] [address] PCP - General Internal Medicine 10/19/23 documented as of this encounter
--- OUTSIDE RECORDS SUMMARY | 2024-05-14 07:26 | XMS_ITS | Encounter Summary ---
Author Organization [employer] Address [address] [address] [place] [address] Care Team Providers Care Shredder Tender Peat Name Role Phone Savannah Milner MD Primary Care Provide r Encounter Details Date Type Department Care Team (Latest Contact Info) Description 05/12/2024 Outside Procedure [facility] [address] [place] [address] Tapan, Rosita, OD [address] [place] [address] Presbyopia (Primary Dx) Social History Tobacco Use Types Packs/Day Years [...] as of this encounter Progress Notes * Rosita Phelan OD - 05/12/2024 9:37 AM EDT MH glasses were dispensed, 2 of 2. documented in this encounter Plan of Treatment Upcoming Encounters Date Type Department Care Team (Late st Contact Info) Description 06/20/2024 9:15 AM EDT Office Visit [facility] [address] [place] [address] Mare Luna OD [address] [place] [address] 07/03/2024 10:15 AM EDT Office Visit [facility] [address] [place] [address] Savannah Milner MD [address] [place] [address] documented as of this encounter Visit Diagnoses Diagnosis Presbyopia- Primary documented in this encounter Additional Health Concerns Assessment Noted Time PHQ-9 Depression Total Score: 8 10/12/19 24 2:03 PM EDT documented as of this encounter Care Teams Shredder Tender Peat Relationship Specialty Start Date End Date Savannah Milner MD [address] [place] [address] PCP - General Internal Medicine 10/19/23 documented as of this encounter
--- OUTSIDE RECORDS SUMMARY | 2024-05-14 07:26 | XMS_ITS | Clinical Summary ---
Author Organization [employer] Address [address] [place] [address] Care Team Providers Care Installation Helper Name Role Phone Savannah Milner MD Primary [...] 1 HOUR BEFORE A MEAL 90 capsule 3 Active Incruse Ellipta 62.5 MCG/ACT aerosol powder INHALE 1 PUFF BY MOUTH DAILY FOR 30 DAYS 3 Active albuterol (2.5 MG/3ML) 0.083% nebulizer solution Take 3 mL (2.5 mg) by nebulization every 6 (six) hours if needed for wheezing or shortness of breath. 75 mL 1 3 Active psyllium (Metamucil) 400 MG capsule Take 6 capsules (2.4 g) by mouth Once per day. 180 capsule 1 4 025 Active losartan (Cozaar) 25 MG tabletIndication s:Primary hypertension Take 1 tablet (25 mg) by mouth Once per day. 30 tablet 11 4 025 Active sildenafil (Viagra) 50 MG tabletIndication s:Erectile dysfunction, unspecified erectile dysfunction type Take 1 tablet (50 mg) by mouth if needed each day for erectile dysfunction. 10 tablet 4 Active pravastatin (Pravachol) 20 MG tabletIndication s:Primary hypertension Take 1 tablet (20 mg) by mouth Once per day. 30 tablet 11 4 025 Active traZODone (Desyrel) 50 MG tabletIndication s:Depression with anxiety TAKE 1 TABLET BY MOUTH AT BEDTIME 30 tablet 1 5 Active Active Problems Problem Noted Date Diagnosed Date [...] Encounters Date Type Department Care Team Description 05/14/2024 Refill [facility] [address] [place] [address] Araceli Martin MD Depression with anxiety 05/12/2024 Outside Procedure [facility] [address] [place] [address] Rosita Phelan, OD Presbyopia (Primary Dx) 05/07/2024 10:00 AM EDT Office Visit [facility] [address] [place] [address] Rosita Phelan, OD Regular astigmatism, bilateral (Primary Dx) 05/07/2024 Travel 04/25/2024 Population Health Risk Score [facility] ([facility]) Department [address] [phone] Provider, Population Health Generic 03/27/2024 Telephone [facility] [address] [place] [address] Savannah Milner MD No Show 03/20/2024 9:45 AM EST Office Visit [facility] [address] [place] [address] Mare Luna, OD Regular astigmatism, bilateral (Primary Dx); Dry eyes, bilateral; Elevated IOP, bilateral 03/20/2024 Travel 03/08/2024 Refill [facility] [address] [place] [address] Savannah Milner MD Depression with anxiety from Last 3 Months Immunizations Name Administration [...] Description 06/20/2024 9:15 AM EDT Office Visit [facility] [address] [place], [place] [phone] Cheryl Mare, OD [address] [place] [address] 07/03/2024 10:15 AM EDT Office Visit [facility] [address] [place] [address] Savannah Milner MD [address] [place], [place] [phone] Health Maintenance Due Date Last Done Comments Family Planning (PISQ) 07/29/1995 Pneumococcal Vaccine: Pediatrics (0 to 5 Years) and At-Risk Patients (6 to 49) Years) (1 of 2 - PCV) 07/29/1999 Depression Screening 10/11/2024 10/12/2023, 10/12/19 24 Diabetes: Hemoglobin A1C 10/11/2024 024, 04/01/2021, 07/18/2019 Alcohol/Substance Use Screening 12/04/2024 12/05/2023 SDOH Screening 12/04/2024 12/05/2023 Tobacco Screening 03/20/2025 03/20/2024 Lipid Panel 10/11/2028 10/12/2023, 03/15, 07/18/2019 Zoster [...] Procedure Name Priority Date/Time Associated Diagnosis Comments HELICOBACTER PYLORI AG, EIA, STOOL Routine 04/07/2024 9:30 AM EST Epigastric pain OCT, OPTIC NERVE - OU - BOTH [...] Recently Relevant to Health Maintenance Results * Helicobacter pylori??Antigen, EIA, Stool (04/07/2024 9:30 AM EST) H pylori Ag Stool SEE NOTE [facility] Comment:HELICOBACTER PYLORI AG, EIA, STOOL Micro Number: [id number] Test Status: Final Specimen Source: Not given Specimen Quality: Adequate H.pylori Ag: Not Detected Antimicrobials, proton pump inhibitors, and bismuth preparations inhibit H. pylori and ingestion up to two weeks prior to testing may cause false negative results. If clinically indicated the test should be repeated on a new specimen obtained two weeks after discontinuing treatment. Reference Range: Not DetectedTHIS TEST WAS PERFORMED AT:[employer] [place] [phone] SANTIAGO MD Stool Rectal contents / Unknown 04/07/2024 9:30 AM EST 04/08/2024 3:52 PM EST us Savannah Licea MD LAB BODY FLUIDS AND S TOOLS ORDERABLES Final Result [facility] [address] [place] [phone] * OCT, Optic Nerve - OU - Both Eyes (03/20/2024 11:35 AM EST) Narrative Mare Luna, OD - 03/20/2024 11:35 AM EST OCT [...] 3:08 PM EDT) Triglycerides 116 <150 mg/dL [facility] Comment:Desirable Triglyceri de: less than 150 mg/dLBorderline High Triglyceride 150-199 mg/dLHigh Triglyceride: 200-499 mg/dLVery High Triglyceride: greater than or equal to 5OO mg/dL Cholesterol 168 <200 mg/dL [facility] Comment:Desirable Cholestero l: less than 200 mg/dLBorderline High Cholesterol: 200-239 mg/dLHigh Cholesterol: greater than 239 mg/dL LDL Cholesterol Calculated 108(H) <100 mg/dL [facility] Comment:Desirable LDL: less than 100 mg/dLNear Optimal/Above Optimal LDL: 110- 129 mg/dLBorderline High LDL: 130-159 mg/dLHigh LDL: 160-189 mg/dLVery High LDL: greater than or equal to 190 mg/dL HDL Cholesterol 37(L) >40 mg/dL [facility] Comment:Desirable HDL: great er than 40 mg/dL Note: This HDL assay may give artificially low results in patients with liver disease. Blood 10/12/2023 3:08 PM EDT 10/12/2023 4:18 PM EDT us Savannah Licea MD LAB BLOOD ORDERABLES Final Result Performing Organization Address [facility] Co de Phone Number [facility] [address] [place] [phone] * Hepatitis Panel, General (10/12/2023 3:08 PM EDT) Hepatitis A IgM Nonreactive Nonreactive [facility] Comment:IgM antibodies to FLORES V not detected; does not exclude earlyacute or recovered HAV infection. ~Hepatitis B Surface Antibody REACTIVE Nonreactive [facility] Comment:REACTIVE: > 11.99 mI U/mL Hepatitis B Core Antibody Nonreactive Nonreactive [facility] Hepatitis C Antibody Nonreactive Nonreactive [facility] Comment:Antibodies to HCV no t detected; does not exclude early acuteHCV infection. Hepatitis B Surface Ag Negative Negative [facility] Blood 10/12/2023 3:08 PM EDT 10/12/2023 4:18 PM EDT us Savannah Licea MD LAB BLOOD ORDERABLES Final Result Performing Organization Address City/[facility]/ZIP Co de Phone Number [facility] [address] [place] [phone] * HIV-1/2 Antigen and Antibodies, Fourth Generation, with Reflexes (10/12/2023 3:08 PM EDT) HIV AB/AG Nonreactive Nonreactive [facility] Comment:HIV-1 p24 Ag and/or HIV-1/HIV-2 Ab not detected.A test result that is nonreactive does not exclude thepossibility of exposure to or infection with HIV-1 and/orHIV-2. Nonreactive results in this assay for individualswith prior exposure to HIV-1 and/or HIV-2 may be due toantigen and antibody levels that are below the limit ofdetection of this assay.The [employer] HIV Ag/Ab Combo assay result andsupplemental assay results should be interpreted inconjunction with the patient's clinical presentation,history and other laboratory results. If the results areinconsistent with clinical evidence, additional testing issuggested to confirm the result. Blood Venous blood specimen / Unknown 10/12/2023 3:08 PM EDT 10/12/2023 4:18 PM EDT us Savannah Lciea MD LAB BLOOD ORDERABLES Final Result [facility] [address] [place] [phone] * (ABNORMAL) POCT HGB A1C (10/12/2023 2:22 PM EDT) [facility] Hemoglobin A1C 6.3(A) 4.0 - 6.0 % QC Media Lot # [id number] Lot# Expiration Date [id number] Blood 10/12/2023 2:22 PM EDT Savannah Licea MD POINT OF CARE TEST EN TER/EDIT ORDERABLES Final Result from Last 3 Months or Most Recently Relevant to Health Maintenance Insurance [place] [address] C3 Care Teams Installation Helper Relationship Specialty Start Date End Date Savannah Milner MD [address] [place] [phone] PCP - General Internal Medicine 10/19/23
--- OUTSIDE RECORDS SUMMARY | 2024-05-14 07:26 | XMS_ITS | Encounter Summary ---
Author Organization [employer] Address [address] [place] [address] Care Team Providers Care Trim Mechanic Name Role Phone Savannah Milner MD Primary Care Provide r Reason for Visit * Reason Comments Med Refill Encounter Details Date Type Department Care Team ([facility] st Contact Info) Description 05/14/[address] [facility] [address] [place] [address] Araceli Martin MD [address] [place] [address] Depression with anxiety Social History Tobacco Use [...] 9:15 AM EDT Office Visit [facility] [address] [place] [address] Mare Luna, OD [address] [place] [address] 07/03/2024 10:15 AM EDT Office Visit [facility] [address] [place] [address] Savannah Milner MD [address] [place] [address] documented as of this encounter Visit Diagnoses Diagnosis Depression with anxiety Dysthymic disorder documented in this encounter Additional Health Concerns Assessment Noted Time PHQ-9 Depression Total Score: 8 10/12/19 24 2:03 PM EDT documented as of this encounter Care Teams Trim Mechanic Relationship Specialty Start Date End Date Savannah Milner MD [address] [place] [phone] PCP - General Internal Medicine 10/19/23 documented as of this encounter
--- OUTSIDE RECORDS SUMMARY | 2024-05-14 07:27 | XMS_ITS | Encounter Summary ---
Author Organization [employer] Address [address] [facility] [place] [address] Care Team Providers Care Foreign Food Cook Specialty Name Role Phone Savannah Milner MD Primary Care Provide r Reason for Visit * Reason Onset Date Comments Referral 12/28/2023 Encounter Details Date Type Department Care Team ([facility] st Contact Info) Description 12/28/2023 Telephone [facility] [address] [place] [address] Savannah Milner MD [address] [place] [address] Referral Social History Tobacco Use Types Packs/Day [...] was referred to Eye center here at [facility] . Says they are currently booking out 2 months , but calendar not open yet . Pt would like referral modified to go to [facility] [address] [address] (P) [phone] documented in this encounter Plan of Treatment Upcoming Encounters Date Type Department Care Team (Late st Contact Info) Description 06/20/2024 9:15 AM EDT Office Visit [facility] [address] [place] [address] Mare Luna, OD [address] [place] [address] 07/03/2024 10:15 AM EDT Office Visit [facility] [address] [place] [address] Savannah Milner MD [address] [place] [address] documented as of this encounter Visit Diagnoses Not on filedocumented in this encounter Additional Health Concerns Assessment Noted Time PHQ-9 Depression Total Score: 8 10/12/19 24 2:03 PM EDT documented as of this encounter Care Teams Foreign Food Cook Specialty Relationship Specialty Start Date End Date Savannah Milner MD [address] [place] [address] PCP - General Internal Medicine 10/19/23 documented as of this encounter
== END 2024-05-14 07:23 | disposition home or self-care (01) ==
LOC: HO.CT 07:22
PROVIDERS: PCP Internal Medicine; Visit Provider Hospitalist
DX: R91.8 Other nonspecific abnormal finding of lung field (principal)
CPT/HCPCS: 71250

== ENCOUNTER → 2024-05-14 07:24 | Outpatient (BNV) | payer MEDICAID, SELFPAY | PROVIDERS: PCP Internal Medicine; Visit Provider Radiology Diagnostic Radiology | DX: R91.8 Other nonspecific abnormal finding of lung field (principal) | CPT/HCPCS: 71250 ==

== ENCOUNTER 2024-06-29 10:31 | Emergency (ER) | payer MEDICAID, SELFPAY ==
[2024-06-29 10:38] VITALS: BP 133/96; PULSE 95; RESP 18; TEMP 36.4; O2SAT 96; BMI 28.2
--- NOTE | 2024-06-29 11:29 | ED_ITS ---
HPI - General Adult General Chief complaint: Extremity Injury, Lower Stated complaint: arm pain Time Seen by Provider: 06/29/24 11:28 Source: patient Mode of arrival: ambulatory Limitations: no limitations History of Present Illness ED Provider: María Parr PA-C HPI narrative: Patient is a 43 year old assigned male at with a history of asthma, ILD, tobacco use, emphysema, and lumbar spondylosis, presenting to the emergency department today with right arm pain. Patient states that he attempted to lift a 60lbs bag of concrete with his right arm when he felt and heard a pop in his right elbow. Patient states that he is now unable to fully flex his right arm. Patient denies any dizziness, lightheadedness, abdominal pain, nausea, vomiting, fever, chills, blurry vision, double vision, loss of vision, chest pain, difficulty breathing, shortness of breath, back pain, night sweats, pain with urination, increased urinary frequency, increased urinary urgency, blood in his urine or stool, syncope or a near syncopal episode, bowel incontinence, bladder incontinence, or any other complaints at this time. Exacerbating factors: movement Associated symptoms: denies other symptoms Treatments prior to arrival: none Related Data Home Medications ?Medication ?Instructions ?Recorded ?Confirmed valacyclovir 1 gram tablet 1,000 mg PO DAILY PRN Cold Sores 04/18/22 01/12/23 acetaminophen 500 mg capsule 500 - 1,000 mg PO Q6H PRN pain 05/19/22 01/12/23 (Mapap (acetaminophen)) tizanidine 4 mg tablet 4 mg PO DAILY PRN muscle spasticity 06/28/22 01/12/23 Previous Rx's ?Medication ?Instructions ?Recorded albuterol sulfate 90 mcg/actuation 2 inh inhalation Q6H PRN shortness 01/10/21 aerosol inhaler of breath or wheezing 30 days #18 grams gabapentin 300 mg capsule 300 mg PO BID PRN for pain #60 caps 08/25/22 varenicline tartrate 0.5 mg (11)-1 See Rx Instructions PO PER PKG DIR 08/25/22 mg (42) tablets in a dose pack #42 ea (Chantix Starting Month Box) fluticasone furoate 100 1 inh inhalation DAILY 30 days #60 11/06/22 mcg-vilanterol 25 mcg/dose ea inhalation powder (Breo Ellipta) varenicline tartrate 1 mg tablet 1 mg PO BID #56 tabs 01/25/23 ibuprofen 600 mg tablet 600 mg PO Q6H PRN pain #14 tabs 06/13/23 nicotine 21 mg/24 hr daily 1 patch transdermal DAILY 28 days 06/28/23 transdermal patch (Nicoderm CQ) #28 ea umeclidinium 62.5 mcg/actuation 1 inh inhalation DAILY #30 ea 06/28/23 blister powder for inhalation (Incruse Ellipta) omeprazole 40 mg capsule,delayed 40 mg PO DAILY 90 days #90 caps 07/22/23 release dicyclomine 10 mg capsule 10 mg PO TID PRN abdominal pain 11/21/23 #10 caps ondansetron 4 mg disintegrating 4 mg PO Q8H PRN nausea and 11/21/23 tablet vomiting #7 tabs chlorhexidine gluconate 0.12 % 15 ml buccal DAILY 14 days #210 mL 04/04/24 mouthwash nicotine 10 mg/mL nasal spray 1 spray intranasal Q3-4H 30 days 04/04/24 (Nicotrol NS) #40 mL Allergies Allergy/AdvReac Type Severity Reaction Status Date / Time Penicillins [PCN] Allergy Severe HIVES AND Verified 06/29/24 10:41 EDEMA Review of Systems Constitutional: Constitutional: Reports no additional constitutional complaints, Denies chills, Denies fever(s) and Denies night sweats Eyes: Eyes: Reports no additional eye complaints, Denies blurry vision, Denies change in vision, Denies diplopia, Denies eye discharge, Denies loss of vision and Denies eye pain ENT: Denies dizziness Cardiovascular: Cardiovascular: Reports no additional cardiovascular complaints, Denies chest pain, Denies lightheadedness, Denies Loss of Consciousness and Denies dyspnea Respiratory: Respiratory: Reports no additional respiratory complaints and Denies dyspnea Gastrointestinal: Gastrointestinal: Reports no additional gastrointestinal complaints, Denies abdominal pain, Denies melena, Denies hematochezia, Denies change in bowel habits and Denies change in stool character Genitourinary: Genitourinary: Reports no additional male genitourinary complaints, Denies hematuria, Denies oliguria, Denies difficulty urinating, Denies dysuria, Denies urinary frequency, Denies urinary hesitancy, Denies urinary incontinence and Denies urinary urgency Musculoskeletal: Musculoskeletal: Reports no additional musculoskeletal complaints, Denies numbness and Denies tingling Comments: right elbow / arm pain inability to flex right arm Neurologic: Denies dizziness, Denies loss of vision, Denies numbness and Denies tingling Psychiatric: Psychiatric: Reports no additional psychiatric complaints Endocrine: Endocrine: Reports no additional endocrine complaints Hematologic/Lymphatic: Hematologic/Lymphatic: Reports no additional hematologic/lymphatic complaints Allergic/Immunologic: Allergic/Immunologic: Reports no additional allergic/immunologic complaints [facility] Past Medical History Attestation statement: The following information was validated with the patient. Source: old records reviewed and nursing notes reviewed Medical History Pulmonary nodules Bronchitis COPD (chronic obstructive pulmonary disease) Axillary adenopathy Chest pain Emphysema (subcutaneous) (surgical) resulting from a procedure ILD (interstitial lung disease) Abnormal PFTs (pulmonary function tests) Chronic cough Tobacco dependence Asthma Chronic restrictive lung disease Surgical History History of vasectomy (~2015) Family History Family History Mother Diabetes Asthma Father No problems noted. Maternal Grandmother Cancer Maternal Aunt Breast cancer Social History Social History Household Members: Spouse Housing: Apartment Do you presently have visiting nurse or other home services: Yes Alcohol intake: current Alcohol intake frequency: holidays/special occasions only Patient Tobacco Use Status: Current someday Tobacco user Tobacco use type: Cigarette Cigarette Packs Per Day: 1 Cigarettes Per Day: 20.0 Years Smoked: 35 +/- Second Hand Smoke Exposure: No Advance Directives: No Advance Directives Information Provided: Yes service: No Current occupational status: disabled Physical Exam ED Vital Signs: Vital Signs - 24 hr 06/29/24 10:38 06/29/24 12:15 Temperature 97.6 F 97.6 F Pulse Rate 95 95 Respiratory Rate 18 18 Blood Pressure 133/96 H 133/96 H Pulse Oximetry 96 96 Oxygen Delivery Method Room Air Room Air BMI result Body Mass Index 28.2 Const General: cooperative, no acute distress, alert and awake Nutritional Appearance: well nourished Orientation/consciousness: patient oriented x3 HENMT Head: Yes normal to inspection and Yes atraumatic Ears: hearing grossly normal bilaterally and external ears normal General nose exam: Normal external nose present, no nasal discharge noted and no epistaxis Face and sinus: Yes normal facial exam, No abrasion and No laceration Mouth: Normal oral and palatal mucosa present, no drooling and no muffled voice Eyes General: appearance normal, both eyes and all related structures Periorbital: periorbital findings normal Eyelids: Yes eyelids normal Conjunctivae: conjunctivae normal Pupils: Equal, round and reactive pupils present EOM: EOMs intact bilaterally Neck Neck: Yes normal visual inspection, Yes full ROM and Yes no lymphadenopathy Resp Effort & Inspection: normal respiratory effort and able to speak in complete sentences Neuro General: patient oriented x3, moves all extremities and CN's II-XI intact bilaterally Cranial nerves: Yes Equal, round and reactive pupils present Cognition (Neuro): normal cognition Extrem Other: pain with palpation of the medial aspect of the right forearm at the elbow joint inability to fully flex the right arm without significant pain pain with right arm extension General: Yes normal to inspection and Yes capillary refill normal Psych Appearance: grossly normal Mental Status: mental status grossly normal Affect: normal affect Attitude: cooperative Thought process: Normal thought process present Thought content: Normal thought content present Insight: Good insight present (Psych) Medications Administered Discontinued Medications Generic Name Dose Route Start Last Admin Trade Name Oswaldoq PRN Reason Stop Dose Admin Ketorolac Tromethamine 15 mg 06/29/24 11:59 06/29/24 12:09 Ketorolac Tromethamine 15 Mg/Ml Vial IM 06/29/24 12:00 15 mg ONCE ONE Administration Procedures Orthopedic Splinting/Casting Injury #1: Side: right Upper Extremity Injury Location: elbow and forearm Upper Extremity Immobilizer: sling/shoulder immobilizer Medical Decision Making Medical Decision Making [facility] Narrative: Patient is a 43 year old assigned male at with a history of asthma, ILD, tobacco use, emphysema, and lumbar spondylosis, presenting to the emergency department today with right arm pain. Patient's physical exam was as noted in the physical exam portion of this note. Patient's examination and mechanism of injury is concerning for a right bicep tendon injury / rupture. I spoke with the orthopedic team who recommended a sling as needed for comfort and outpatient follow up. I explained my physical exam findings to the patient. I answered all questions asked by the patient. Patient's right upper extremity was placed in a sling, without incident. Patient's PMS was intact prior to and after sling placement. I stressed the importance of the patient taking his medication as directed (either prescribed or as the over the counter packaging recommends). I stressed the importance of the patient following up with his primary care provider and the orthopedic team. I stressed the importance of the patient returning to the emergency department immediately if his symptoms were to worsen or if he were to develop any dizziness, shortness of breath, difficulty breathing, chest pain, blurry vision, loss of vision, nausea, vomiting, abdominal pain, fever, chills, back pain, or any other complaints. Patient verbalized agreement and understanding with this treatment plan and discharge. Differential Diagnosis Differential Diagnoses: The differential diagnosis associated with the pre sentation includes Bicep tendon injury Bicep tendon rupture Admission/Observation Consideration of admission/observation: Escalation of care including admission/observation considered Patient would have been admitted to the hospital had his clinical presentation warranted hospital admission. Consult Healthcare Provider Management of the patient was discussed with: Ecommerce Marketing Specialist (spoke with the orthopedic team as noted in the MDM Rationale portion of this note. ) External Record Review External record reviewed: Inpatient record, Office record and Outpatient record Tests considered The following testing was considered but not selected: I considered getting an x-ray of the right elbow however, the patient's examination and mechanism of injury did not warrant this. I discussed this with the patient who verbalized understanding and agreement. Critical Care Time Critical Care Time Critical Care Time: Yes Total Critical Care Time: 32 Attestation: I spent 32 minutes of Critical Care Time with this patient. This does not include time spent on separately reported billable procedures. Discharge Plan Discharge Clinical Impression: Biceps tendon rupture, Arm pain Patient Disposition: Home, Self-Care Instructions: How to Use a Sling (ED), Tendon Rupture (ED), Arm Pain (ED) Additional Instructions: Your examination is concerning for a right bicep tendon injury / rupture. Use the sling as needed for comfort. Follow up with your primary care provider and the orthopedic team. Return to the emergency department immediately if your symptoms worsen or if you develop any numbness, tingling, dizziness, shortness of breath, difficulty breathing, chest pain, blurry vision, loss of vision, nausea, vomiting, abdominal pain, fever, chills, back pain, or any other complaints. Please see the information below about our Patient Portal. If you are not yet enrolled in the [facility] Patient Portal, you will receive an enrollment email invitation following your visit to any [facility] setting. You may also self-enroll in the Patient Portal by visiting our website: [email or web address] The following information is required to access the Patient Portal: - Your [facility] Medical Record Number - Your personal home email address (must match what is in your electronic medical record, Registration staff can assist with this) - Name - Date of Capabilities of the Patient Portal: - Message some providers - View upcoming appointments - Access your health summary, medical history, and visit history - View current conditions and allergies - View procedure and lab results - View your medications, including guidelines, side effects, and precautions - Complete pre-appointment questionnaires requested by your provider - Ready summary reports of your office visits and procedures To access the Patient Portal Mobile Gi, follow these directions: - Search [employer] in the Gi Store or [employer] Store - Download the Gi - Search for [facility] - Enter your login/password Prescriptions: No Action gabapentin 300 mg capsule 300 mg PO BID PRN (Reason: for pain) Qty: 60 2RF fluticasone furoate-vilanterol [Breo Ellipta] 100-25 mcg/dose blister with device 1 inh inhalation DAILY 30 Days Qty: 60 11RF varenicline tartrate 1 mg tablet 1 mg PO BID Qty: 56 2RF omeprazole 40 mg capsule,delayed release(DR/EC) 40 mg PO DAILY 90 Days Qty: 90 3RF tizanidine 4 mg tablet 4 mg PO DAILY PRN (Reason: muscle spasticity) ibuprofen 600 mg tablet 600 mg PO Q6H PRN (Reason: pain) Qty: 14 0RF ondansetron 4 mg tablet,disintegrating 4 mg PO Q8H PRN (Reason: nausea and vomiting) Qty: 7 0RF dicyclomine 10 mg capsule 10 mg PO TID PRN (Reason: abdominal pain) Qty: 10 0RF albuterol sulfate 90 mcg/actuation HFA aerosol inhaler 2 inh inhalation Q6H PRN (Reason: shortness of breath or wheezing) 30 Days Qty: 18 12RF varenicline tartrate [Chantix Starting Month Box] 0.5 mg (11)- 1 mg (42) tablets,dose pack See Rx Instructions PO PER PKG DIR Qty: 42 0RF Rx Instructions: PO PER PKG DIR valacyclovir 1 gram tablet 1,000 mg PO DAILY PRN (Reason: Cold Sores) Rx Instructions: use for 5 days acetaminophen [Mapap (acetaminophen)] 500 mg capsule 500 - 1,000 mg PO Q6H PRN (Reason: pain) nicotine [Nicoderm CQ] 21 mg/24 hr patch 24 hour 1 patch transdermal DAILY 28 Days Qty: 28 6RF Incruse Ellipta 62.5 mcg/actuation blister with device 1 inh inhalation DAILY Qty: 30 11RF Nicotrol NS 10 mg/mL spray,non-aerosol 1 spray intranasal Q3-4H 30 Days Qty: 40 9RF Rx Instructions: administer into each nostril chlorhexidine gluconate 0.12 % mouthwash 15 ml buccal DAILY 14 Days Qty: 210 0RF Referrals: [facility] [Provider Group] (Call to establish and follow up with the orthopedic team. ) Savannah Milner MD [Primary Care Provider] - Stand Alone Forms: Work/School Release Interventions: ED Discharge Assessment Last Done: 06/29/24 12:15 Discharge Date/Time: 06/29/24 12:16 Print Language: Kiswahili
--- OUTSIDE RECORDS SUMMARY | 2024-06-29 11:43 | XMS_ITS | Clinical Summary ---
Author Organization [employer] Address 75 [facility] 7t [place] [address] Care Team Providers Care Admitting Counselor Name Role Phone Savannah Milner MD Primary [...] with anxiety TAKE 1 TABLET BY MOUTH EVERYDAY AT BEDTIME 30 tablet 1 5 Active [...] Encounters Date Type Department Care Team Description 06/20/2024 9:15 AM EDT Office Visit [facility] [address] [place], [place] [phone] Tarka, Mare, OD Elevated IOP, bilateral (Primary Dx); Presbyopia 06/20/2024 Travel 05/14/2024 Orders Only [facility] External Provider, [facility] 05/14/2024 Refill [facility] [address] [place], [place] [phone] Araceli Martin MD Depression with anxiety 05/12/2024 Outside Procedure [facility] [address] [place], [place] [phone] Tapan, Rosita, OD Presbyopia (Primary Dx) 05/07/2024 10:00 AM EDT Office Visit [facility] [address] [place] [address] Tapan, Rosita, OD Regular astigmatism, bilateral (Primary Dx) 05/07/2024 Travel 04/25/2024 Population Health Risk Score [facility] (C3) Department [address] [place] [phone] Provider, Population Health Generic from Last 3 Months Immunizations Immunization Administration Dates Next Due HepB-CpG 11/09/2023,10/10/2023 Influenza [...] Care Team (Late st Contact Info) Description 07/03/2024 10:15 AM EDT Office Visit [facility] [address] [place] [address] Savannah Milner MD [address] [place], [place] [phone] Health Maintenance Due Date Last Done Comments [...] on patient's age to complete this topic Meningococcal B Vaccine Aged Out No l onger eligible based on patient's age to complete this topic RSV under 20 months Aged Out No longe r eligible based on patient's age to complete this topic Rotavirus Vaccines Aged Out No longer eligible based on patient's age to complete this topic Procedures Procedure Name Priority Date/Time Associated Diagnosis Comments CT CHEST WO CONTRAST Routine 05/14/2024 8:04 PM EDT HELICOBACTER PYLORI AG, EIA, STOOL Routine 04/07/2024 9:30 AM EST Epigastric pain HEPATITIS PANEL, GENERAL Routine 10/12/2023 3:08 PM [...] Recently Relevant to Health Maintenance Results * CT Chest w/o Contrast (05/14/2024 8:04 PM EDT) Anatomical Region Laterality Modality Body, Chest Computed Tomogra phy 05/14/2024 8:04 PM EDT Narrative 05/14/2024 8:06 PM EDT ? [facility] ?[address] ?[place] [address] ? CT Scan Report ? Signed ? Patient: Lugo Perez,Jemme C ?MR#: ?? [id number] ? : 1980 ?Acct:[id number] ? Age/Sex: 43 / M ?ADM Date: 04/02/25 ? Loc: HO.CT ? Attending Dr: Chavez Figueroa MD ? Ordering Physician: Chavez Figueroa MD ?? Date of Service: 05/14/24 ?? Procedure(s): CT chest wo IV con ?? Accession Number(s): [id number] ? cc: Savannah Milner MD; Chavez Figueroa MD ? Report Number: ?? [id number]: Total DLP = ??175.00 mGy-cm ? CLINICAL HISTORY: R91.8 - Other nonspecific abnormal finding of lung field ? CT chest without contrast ? Comparison: 09/15/2020 ? Findings: ? Emphysema without acute infiltrates. ?? No significant mediastinal adenopathy. ?? Stable 1.5 cm pretracheal node. ?? No significant free pleural fluid. ?? No significant focal bony abnormalities. ? Impression: ? No acute processes ? This document has been electronically signed by: Wing Damian MD on ?? 05/14/2024 20:04:39 ? Dictated By: ?Wing Damian MD ? Signed By: ?<Electronically signed by Wing Damian MD in OV> ? 05/14/242005 ? DD/ 03 ? TD/TT: 05/14/242003 ? Early Childhood Special Educator: ? Procedure Note Donashlie, Image - 05/14/[address] [place] [address] [address] Scan Report Signed Patient: Chris Klein CMR#: [id number] : 1980Acct:[id number] Age/Sex: 43 / MADM Date: 05/14/24 Loc: HO.CT Attending Dr: Chavez Figueroa MD Ordering Physician: Chavez Figueroa MD Date of Service: 05/14/24 Procedure(s): CT chest wo IV con Accession Number(s): [id number] cc: Savannah Milner MD; Chavez Figueroa MD Report Number: [id number]: Total DLP = 175.00 mGy-cm CLINICAL HISTORY: R91.8 - Other nonspecific abnormal finding of lung field CT chest without contrast Comparison: 09/15/2020 Findings: Emphysema without acute infiltrates. No significant mediastinal adenopathy. Stable 1.5 cm pretracheal node. No significant free pleural fluid. No significant focal bony abnormalities. Impression: No acute processes This document has been electronically signed by: Wing Damian MD on 05/14/2024 20:04:39 Dictated By: Wing Damian MD Signed By: <Electronically signed by Wing Damian MD in OV> 05/14/242005 DD/ 03 TD/TT: 05/14/242003 Early Childhood Special Educator: us [facility] External Provider IMG CT PROCEDURES Final Result * Helicobacter pylori??Antigen, EIA, Stool (04/07/2024 9:30 AM EST) H pylori Ag Stool SEE NOTE [facility] Comment:HELICOBACTER PYLORI AG, EIA, STOOL Micro Number: [id number] Test Status: Final Specimen Source: Not given Specimen Quality: Adequate H.pylori Ag: Not Detected Antimicrobials, proton pump inhibitors, and bismuth preparations inhibit H. pylori and ingestion up to two weeks prior to testing may cause false negative results. If clinically indicated the test should be repeated on a new specimen obtained two weeks after discontinuing treatment. Reference Range: Not DetectedTHIS TEST WAS PERFORMED AT:[employer] [place] [id number] SANTIAGO MD Stool Rectal contents / Unknown 04/07/2024 9:30 AM EST 04/08/2024 3:52 PM EST Savannah Licea MD LAB BODY FLUIDS AND S TOOLS ORDERABLES Final Result [facility] [address] [place] [phone] * (ABNORMAL) Lipid Panel with Reflex to Direct LDL (10/12/2023 3:08 PM EDT) Triglycerides 116 <150 mg/dL [facility] Comment:Desirable Triglyceri de: less than 150 mg/dLBorderline High Triglyceride 150-199 mg/dLHigh Triglyceride: 200-499 mg/dLVery High Triglyceride: greater than or equal to 5OO mg/dL Cholesterol 168 <200 mg/dL [facility] Comment:Desirable Cholestero l: less than 200 mg/dLBorderline High Cholesterol: 200-239 mg/dLHigh Cholesterol: greater than 239 mg/dL LDL Cholesterol Calculated 108(H) <100 mg/dL [facility] Comment:Desirable LDL: less than 100 mg/dLNear Optimal/Above Optimal LDL: 110- 129 mg/dLBorderline High LDL: 130-159 mg/dLHigh LDL: 160-189 mg/dLVery High LDL: greater than or equal to 190 mg/dL HDL Cholesterol 37(L) >40 mg/dL [facility] Comment:Desirable HDL: great er than 40 mg/dL Note: This HDL assay may give artificially low results in patients with liver disease. Blood 10/12/2023 3:08 PM EDT 10/12/2023 4:18 PM EDT Savannah Licea MD LAB BLOOD ORDERABLES Final Result Performing Organization Address [facility] Co de Phone Number [facility] [address] [place] [phone] * Hepatitis Panel, General (10/12/2023 3:08 PM EDT) Hepatitis A IgM Nonreactive Nonreactive [facility] Comment:IgM antibodies to FLORES V not detected; does not exclude earlyacute or recovered HAV infection. ~Hepatitis B Surface Antibody REACTIVE Nonreactive [facility] Comment:REACTIVE: > 11.99 mI U/mL Hepatitis B Core Antibody Nonreactive Nonreactive [facility] Hepatitis C Antibody Nonreactive Nonreactive [facility] Comment:Antibodies to HCV no t detected; does not exclude early acuteHCV infection. Hepatitis B Surface Ag Negative Negative [facility] Blood 10/12/2023 3:08 PM EDT 10/12/2023 4:18 PM EDT us Savannah Licea MD LAB BLOOD ORDERABLES Final Result Performing Organization Address [facility] Co de Phone Number [facility] [address] [place] [phone] * HIV-1/2 Antigen and Antibodies, Fourth Generation, with Reflexes (10/12/2023 3:08 PM EDT) HIV AB/AG Nonreactive Nonreactive [facility] Comment:HIV-1 p24 Ag and/or HIV-1/HIV-2 Ab not detected.A test result that is nonreactive does not exclude thepossibility of exposure to or infection with HIV-1 and/orHIV-2. Nonreactive results in this assay for individualswith prior exposure to HIV-1 and/or HIV-2 may be due toantigen and antibody levels that are below the limit ofdetection of this assay.The [employer] HIV Ag/Ab Combo assay result andsupplemental assay results should be interpreted inconjunction with the patient's clinical presentation,history and other laboratory results. If the results areinconsistent with clinical evidence, additional testing issuggested to confirm the result. Blood Venous blood specimen / Unknown 10/12/2023 3:08 PM EDT 10/12/2023 4:18 PM EDT us Savannah Licea MD LAB BLOOD ORDERABLES Final Result [facility] [address] [place] [phone] * (ABNORMAL) POCT HGB A1C (10/12/2023 2:22 PM EDT) Pathologist [facility] Hemoglobin A1C 6.3(A) 4.0 - 6.0 % QC Media Lot # [id number] Lot# Expiration Date [id number] Blood 10/12/2023 2:22 PM EDT us Savannah Licea MD POINT OF CARE TEST EN TER/EDIT ORDERABLES Final Result from Last 3 Months or Most Recently Relevant to Health Maintenance Insurance [address] [place], [place] [address] Care Teams Admitting Counselor Relationship Specialty Start Date End Date Savannah Milner MD [address] [place] [address] PCP - General Internal Medicine 10/19/23
--- OUTSIDE RECORDS SUMMARY | 2024-06-29 11:43 | XMS_ITS | Encounter Summary ---
Author Organization [employer] Address [address] [facility] [address] 7t [place] [address] Care Team Providers Care Doll Wig Maker Name Role Phone Savannah Milner MD Primary Care Provide r Encounter Details Date Type Department Care Team ([facility] Contact Info) Description 06/20/2024 9:15 AM EDT Office Visit [facility] [address] [place] [address] Mare Luna, OD [address] [place] [address] Elevated IOP, bilateral (Primary Dx); Presbyopia Social History Tobacco Use Types Packs/Day Years [...] Progress Notes * Mare Luna, OD - 06/20/2024 9:15 AM EDT Eye Care Progress Note Patient ID: Chris Lugo is a 43 y.o. male. HPI Patient presents for 3 month doctor directed intraocular pressure (IOP) check Patient is happy with vision OU through new distance specs but reports dizziness with reading glasses. 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 Last edited by Mare Luna, OD on 06/20/2024 11:20 AM. Current Outpatient Medications Medication Sig Dispense [...] MG tablet TAKE 1 TABLET BY MOUTH EVERYDAY AT BEDTIME 30 tablet 1 No current facility-administered medications for this visit. No past medical history on file. No past surgical history on file. Family History Problem Relation Name Age of [...] Last edited by Mare Luna OD on 06/20/2024 11:20 AM. Base Eye Exam Visual Acuity (Snellen - Linear) Right Left Dist cc 20/20 20/25 Dist ph cc NI Tonometry (Applanation, 9:38 AM) Right Left Pressure 21 19 Pachymetry (06/20/2024) Right Left Thickness 538 531 Pupils Pupils APD Right PERRL None Left PERRL None Visual Dejesus (Counting fingers) Left Right Full Full Extraocular Movement Right Left Full Full Neuro/Psych Oriented x3: Yes Mood/Affect: Normal Slit Lamp and Fundus Exam External Exam Right Left External Normal Normal Slit Lamp Exam Right Left Lids/Lashes Clean and clear Clean and clear Conjunctiva/Sclera White and quiet White and quiet Cornea TBUT: 4 seconds TBUT: 4 seconds Anterior Chamber Deep and quiet, angles open Deep and quiet, angles open Iris Flat, round Flat, round Lens Clear Clear Fundus Exam Right Left Vitreous Clear Clear Disc Witmer and healthy Witmer and healthy C/D Ratio Vertical 0.50 0.40 C/D Ratio Horizontal 0.50 0.40 Refraction Manifest Refraction (Subjective) Sphere Cylinder [place] Add Right +0.00 -0.50 100 +0.75 Left +0.50 -1.25 067 +0.75 Comments: Patient reports improved visual comfort with lower ADD Final Rx Sphere Cylinder [place] Right +0.75 -0.50 100 Left +1.00 -1.25 067 Type: Reading Expiration Date: 06/20/2025 Assessment and Plan Diagnoses and all orders for this visit: Elevated IOP, bilateral - Glaucoma risk profile/summary - POAG suspect due to: h/o elevated intraocular pressure (IOP) - Fhx glaucoma: none - IOP today (GAT): (Tmax 03/20/24) - Pachymetry today (06/20/24): 538/531 - slightly thin OU - RNFL OCT (03/20/24): WNL 360 both eyes (OU) - Very low risk suspect at this time. Monitor at annual eye exam Presbyopia - Dispensed updated reading Rx with lower ADD power RTC in 1 year for comprehensive eye exam or soon as needed Mare Luna, OD 06/24/2024, 3:20 PM documented in this encounter Plan of Treatment Upcoming Encounters Date Type Department Care Team (Late st Contact Info) Description 07/03/2024 10:15 AM EDT Office Visit [facility] [address] [place] [address] Savannah Milner MD [address] [place] [address] documented as of this encounter Visit Diagnoses Diagnosis Elevated IOP, bilateral- Primary Presbyopia documented in this encounter Additional Health Concerns Assessment Noted Time PHQ-9 Depression Total Score: 8 10/12/19 24 2:03 PM EDT documented as of this encounter Care Teams Doll Wig Maker Relationship Specialty Start Date End Date Savannah Milner MD [address] [place] [phone] PCP - General Internal Medicine 10/19/23 documented as of this encounter
--- OUTSIDE RECORDS SUMMARY | 2024-06-29 11:43 | XMS_ITS | Encounter Summary ---
Author Organization [employer] Address 75 [facility] 7t [place] [address] Care Team Providers Care Core Mounter Name Role Phone Umm Huang ISABEL Primary Care Provider Savannah Milner MD Primary Care Provide r Encounter Details Date Type Department Care Team (Late st Contact Info) Description 02/24/2022 Orders Only [facility] [address] [place] [address] Annabel Peoples LPN Social History Tobacco Use [...] Description 07/03/2024 10:15 AM EDT Office Visit [facility] [address] [place] [address] Savannah Milner MD [address] [place], [place] [phone] documented as of this encounter Procedures Procedure [...] EDT 09/13/2022 12:45 PM EDT Comment:Sputum Narrative [facility] - 09/15/2022 11:47 AM EDT Gram stain results: 1+ polys 2+ Gram-positive cocci Sputum Culture BAP Sputum Culture 3+ Mixed respiratory tyler. Specimen Source: Sputum [facility] Exter nal Provider LAB MICROBIOLOGY - GENERAL ORDERABLES Final Result Performing Organization Address [facility]/ZIP Co de Phone Number [facility] [address] [place] [address] [phone] * (ABNORMAL) GLUCOSE, WHOLE BLOOD (06/28/2022 7:16 AM EDT) Glucose, Whole Blood 140(H) 60 - 115 mg/dL [facility] Comment:METER #: [id number] 06/28/2022 7:16 AM EDT 06/28/2022 7:20 AM EDT [facility] External Provider LAB BLO OD ORDERABLES Final Result Performing Organization Address [facility]/ZIP Co de Phone Number [facility] [address] [place] [address] [phone] * (ABNORMAL) C-reactive Protein (06/28/2022 2:28 AM EDT) C Reactive Protein 7.80(H) < or = 0.50 mg/dL [facility] 06/28/2022 2:28 AM EDT 06/28/2022 3:04 AM EDT [facility] External Provider LAB BLO OD ORDERABLES Final Result Performing Organization Address [facility] de Phone Number [facility] [address] [place] [phone] * Lipase (06/28/2022 2:28 AM EDT) Lipase 31 8 - 78 U/L [facility] 06/28/2022 2:28 AM EDT 06/28/2022 3:04 AM EDT [facility] External Provider LAB BLO OD ORDERABLES Final Result Performing Organization Address [facility] de Phone Number [facility] [address] [place] [phone] * (ABNORMAL) Comprehensive Metabolic Panel (06/28/2022 2:28 AM EDT) Sodium 141 135 - 145 mmol/L [facility] Potassium 4.4 3.3 - 5.1 mmol/L [facility] Chloride 107 96 - 108 mmol/L [facility] Carbon Dioxide 28 22 - 29 mmol/L [facility] Anion Gap 10(L) 12 - 20 [facility] Urea Nitrogen (BUN) 12 9 - 16 mg/dL [facility] Creatinine, Serum 0.91 0.5 - 1.4 mg/dL [facility] Creatinine Clr Calc Pharmacy 109.7 [facility] Comment:eGFR (calculated fro m the MDRD study equation) and eCrCl(calculated from the Cockcroft-Gault equation) are based ondifferent parameters and may not yield comparable results.If eCrCl result is absurd, please check patient'sheight/weight. Estimated Glomerular Filt Rate >60 [facility] Comment:NOTE: For -Am erican individuals, multiply the result by 1.210.Chronic Kidney Disease: Estimated GFR < 60 mL/min/1.39w9Etgubr Kidney Disease: Estimated GFR < 15 mL/min/1.73m2 Glucose 100 60 - 115 mg/dL [facility] Calcium 9.0 8.4 - 10.2 mg/dL [facility] Bilirubin, Total 0.3 0.0 - 1.0 mg/dL [facility] Aspartate Amino Transferase 16 5 - 37 U/L [facility] Alanine Aminotransferase 25 0 - 40 U/L [facility] Total Protein 6.5 6.5 - 8.0 g/dL [facility] Albumin Level 3.9 3.5 - 5.0 g/dL [facility] Alkaline Phosphatase 86 39 - 117 U/L [facility] 06/28/2022 2:28 AM EDT 06/28/2022 3:04 AM EDT us [facility] External Provider LAB BLO OD ORDERABLES Final Result [facility] [address] [place] [phone] * (ABNORMAL) CBC auto differential (06/28/2022 2:28 AM EDT) White Blood Count 9.1 4.8 - 10.8 X10*3/uL [facility] Red Blood Count 4.67 4.60 - 5.80 X10*6/uL [facility] Hemoglobin 14.5 14.0 - 18.0 g/dl [facility] Hematocrit 43.1 42.0 - 52.0 % [facility] Mean Corpuscular Volume 92.3 80.0 - 98.0 fL [facility] Mean Corpuscular Hemoglobin 31.0 27.0 - 33.0 pg [facility] Mean Corpuscular HGB Conc 33.6 31.0 - 36.0 g/dl [facility] Red Cell Distribution Width 12.6 11.0 - 16.0 % [facility] Platelet Count 284 160 - 400 X10*3/uL [facility] Mean Platelet Volume 8.7(L) 9.4 - 12.4 fL [facility] Neutrophils Percent Auto 66.7 45 - 73 % [facility] Imm Gran Pct Auto 0.2 0.0 - 0.4 % [facility] Lymphocytes Percent Auto 24.4 20 - 40 % [facility] Monocytes Percent Auto 7.4 2 - 11 % [facility] Eosinophils Percent Auto 0.5 0 - 4 % [facility] Basophils Percent Auto 0.8 0 - 2 % [facility] NRBC Pct Auto 0.0 0.0 - 0.2 /100WBC [facility] Neutrophils Absolute Auto 6.1 2.0 - 8.3 x10*3/uL [facility] Imm Gran Abs Auto 0.02 0.00 - 0.03 X10*3/uL [facility] Lymphocytes Absolute Auto 2.2 1.2 - 4.9 X10*3/uL [facility] Monocytes Absolute Auto 0.7 0.1 - 1.2 X10*3/uL [facility] Eosinophils Absolute Auto 0.1 0.0 - 0.4 X10*3/uL [facility] Basophils Absolute Auto 0.1 0.0 - 0.2 X10*3/uL [facility] NRBC Abs Auto 0.000 0.0 - 0.012 X10*3/uL [facility] 06/28/2022 2:28 AM EDT 06/28/2022 3:04 AM EDT us [facility] External Provider LAB BLO OD ORDERABLES Final Result [facility] [address] [place] [phone] documented in this encounter Visit Diagnoses Not on filedocumented in this encounter Care Teams Core Mounter Relationship Specialty Start Date End Date Umm Hunag FNP [address] [place] [address] PCP - General Family Medicine 12/06/20 10/18/23 Savannah Milner MD [address] [place] [phone] PCP - General Internal Medicine 10/19/23 documented as of this encounter
--- OUTSIDE RECORDS SUMMARY | 2024-06-29 11:43 | XMS_ITS | Encounter Summary ---
Author Organization [employer] Address [address] [facility] [address] [place] [address] Care Team Providers Care Medical Consultant Name Role Phone Savannah Milner MD Primary Care Provide r Reason for Visit * Reason Onset Date Comments Referral 12/28/2023 Encounter Details Date Type Department Care Team ([facility] Contact Info) Description 12/28/2023 Telephone [facility] [address] [place] [address] Savannah Milner MD [address] [place] [address] Referral Social History Tobacco Use Types Packs/Day [...] was referred to Eye center here at [facility] . Says they are currently booking out 2 months , but calendar not open yet . Pt would like referral modified to go to [facility] [address] [address] [phone] documented in this encounter Plan of Treatment Upcoming Encounters Date Type Department Care Team (Late st Contact Info) Description 07/03/2024 10:15 AM EDT Office Visit [facility] [address] [place], [place] [phone] Savannah Milner MD [address] [place] [address] documented as of this encounter Visit Diagnoses Not on filedocumented in this encounter Additional Health Concerns Assessment Noted Time PHQ-9 Depression Total Score: 8 10/12/19 2:03 PM EDT documented as of this encounter Care Teams Medical Consultant Relationship Specialty Start Date End Date Savannah Milner MD [address] [place] [phone] PCP - General Internal Medicine 10/19/23 documented as of this encounter
[2024-06-29] MEDS: Ketorolac Tromethamine 15 MG/ML VIAL IM (12:09)
[2024-06-29 12:15] VITALS: BP 133/96; PULSE 95; RESP 18; TEMP 36.4; O2SAT 96
== END 2024-06-29 12:16 | disposition home or self-care (01) ==
PROVIDERS: Emergency Provider Emergency Medicine; PCP Internal Medicine
DX: S46.211A Strain of muscle, fascia and tendon of other parts of biceps, right arm, initial encounter (principal); X50.0XXA Overexertion from strenuous movement or load, initial encounter; M79.601 Pain in right arm; Y93.89 Activity, other specified; Y92.9 Unspecified place or not applicable; Y99.9 Unspecified external cause status
CPT/HCPCS: 96372; 99283; 99284; J1885

== ENCOUNTER 2024-07-04 11:48 | Outpatient (AMB) | payer MEDICAID, SELFPAY ==
--- OUTSIDE RECORDS SUMMARY | 2024-07-04 11:50 | XMS_ITS | Encounter Summary ---
Author Organization [email or web address] Address [address] [facility] [address] 7[address] [place] [address] Care Team Providers Care Munitions Worker Name Role Phone Savannah Milner MD Primary Care Provide r Cande Lewis RN Unavailable [phone] Melida Figueroa Unavailable Encounter Details Date Type Department Care Team (Late st Contact Info) Description 06/30/2024 Patient Outreach [facility] MED[facility]INE [address] [place] [address] Savannah Milner MD [address] [place] [address] Social History Tobacco Use Types Packs/Day Years [...] as of this encounter Plan of Treatment Not on file documented as of this encounter Visit Diagnoses Not on filedocumented in this encounter Additional Health Concerns Assessment Noted Time PHQ-9 Depression Total Score: 8 10/12/19 24 2:03 PM EDT documented as of this encounter Care Teams Munitions Worker Relationship Specialty Start Date End Date Savannah Milner MD [address] [place] [address] PCP - General Internal Medicine 10/19/23 Cande Lewis RN [address] [place] [phone] Registered Nurse Family Medicine 06/30/24 Melida Figueroa 06/30/24 documented as of this encounter
--- NOTE | 2024-07-04 11:51 | MHC.OFFVIS ---
Intake Visit Reasons: ER f/u- Right bicep tendon injury Intake Note: Chris 43 year old right hand dominant male presents today for an emergency department follow up for for his right bicep injury, DOI: 06/29/24. Expresses he attempted to lift a 60lbs bag of concrete with his right arm to put it on his shoulder, half way up he felt a pop in the right elbow. After this injury patient reports he fell to the ground in extreme pain. Patient states pulling, pushing, or lifting give him pain on the anterior aspect of his right elbow. Flexion, extension and contraction of his bicep also exacerbates his pain. Reports wiping after the bathroom is hard due to pain. He states moving his fingers and making a fist does not cause pain. Intermittent numbness and tingling at the tip of his right hand finger tips and in wrist, hx of CTS he says. Allergies Penicillins [PCN] Allergy (Severe, Verified 07/04/24 11:58) HIVES AND EDEMA HPI HPI ER f/u- Right bicep tendon injury: Details: Chris 43 year old right hand dominant male presents today for an emergency department follow up for for his right bicep injury, DOI: 06/29/24. Expresses he attempted to lift a 60lbs bag of concrete with his right arm to put it on his shoulder, half way up he felt a pop in the right elbow. After this injury patient reports he fell to the ground in extreme pain. Patient states pulling, pushing, or lifting give him pain on the anterior aspect of his right elbow. Flexion, extension and contraction of his bicep also exacerbates his pain. Reports wiping after the bathroom is hard due to pain. He states moving his fingers and making a fist does not cause pain. Pain with supination of the right wrist, but is able to supinate fully. Intermittent numbness and tingling at the tip of his right hand finger tips and in wrist, hx of CTS he says. [facility] Medical History Pulmonary nodules Bronchitis COPD (chronic obstructive pulmonary disease) Axillary adenopathy Chest pain Emphysema (subcutaneous) (surgical) resulting from a procedure ILD (interstitial lung disease) Abnormal PFTs (pulmonary function tests) Chronic cough Tobacco dependence Asthma Chronic restrictive lung disease Surgical History History of vasectomy (~2016) Family History Mother Diabetes Asthma Father No problems noted. Maternal Grandmother Cancer Maternal Aunt Breast cancer Social History Household Members: Spouse Housing: Apartment Do you presently have visiting nurse or other home services: Yes Alcohol intake: current Alcohol intake frequency: holidays/special occasions only Patient Tobacco Use Status: Current someday Tobacco user Tobacco use type: Cigarette Cigarette Packs Per Day: 1 Cigarettes Per Day: 20.0 Years Smoked: 35 +/- Second Hand Smoke Exposure: No service: No Current occupational status: disabled Review of Systems Const All systems reviewed & are unremarkable except as noted in HPI and below Physical Exam Extrem Other: Patient's right elbow normal to inspection No erythema, ecchymosis, edema noted No lacerations, abrasions, open areas No evidence of infection Patient reports significant tenderness to palpation of the distal biceps tendon of the right elbow Patient is able to flex to approximately 150 degrees and extend to 0 degrees, but reports pain with all range of motion Negative hook test No palpable deformity or absence of distal biceps tendon Pain with resisted supination Distal sensation intact Capillary refill brisk Assessment & Plan Assessment & Plan (1) Tear of distal tendon of biceps: Code(s): S46.219A - Strain of muscle, fascia and tendon of other parts of biceps, unspecified arm, initial encounter Category: Medical Plan 1. Distal right biceps tendon tear Extent unclear Patient is seen with Dr. 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
== END 2024-07-04 12:17 | disposition home or self-care (01) ==
PROVIDERS: PCP Internal Medicine
DX: S46.219A Strain of muscle, fascia and tendon of other parts of biceps, unspecified arm, initial encounter (principal)
CPT/HCPCS: 99203

== ENCOUNTER → 2024-07-04 11:48 | Outpatient (BNVA) | payer MEDICAID, SELFPAY | PROVIDERS: PCP Internal Medicine | DX: S46.219D Strain of muscle, fascia and tendon of other parts of biceps, unspecified arm, subsequent encounter (principal) | CPT/HCPCS: 99212 ==

== ENCOUNTER 2024-07-11 19:40 | Outpatient (REF) | payer MEDICAID, SELFPAY ==
--- NOTE | ~2024-07-11 | MR_ITS ---
CLINICAL HISTORY: S46.219A - Strain of muscle, fascia and tendon of other parts of biceps,... --- Add itional Notes or Special Instructions: Early next week MR right elbow without gadolinium Comparison: None Findings: No fracture or dislocation. Minimal ulnohumeral osteoarthritis. No elbow joint effusion. A multilocular synovial cyst at the volar aspect of the radiocapitellar joint and radial head measures 0.4 x 1.4 x 1.8 cm. The ulnar collateral ligament and lateral collateral ligament complex are intact. The biceps tendon insertion is partially torn and is retracted up to 1.3 cm from the radial tuberosity. This is favored to involve the long head component of the biceps tendon. The orthotopic inserting biceps fibers are thickened and abnormal in signal. The lacertus fibrosus appears intact. Fluid and edema signal are present within and adjacent to the bicipitoradial bursa. The insertions of the brachialis and triceps tendons are intact. The origins of the common flexor and extensor tendons are intact. The course, caliber, and signal intensity of the ulnar nerve are unremarkable. IMPRESSION: Partial tear of the biceps tendon insertion with some fibers retracted up to 1.3 cm from the radial tuberosity. Bicipitoradial bursitis. This document has been electronically signed by: Flex Boykin DO on 07/13/2024 10:25:32
== END 2024-07-11 19:41 | disposition home or self-care (01) ==
LOC: HO.MRI 19:40
PROVIDERS: PCP Internal Medicine
DX: S46.211D Strain of muscle, fascia and tendon of other parts of biceps, right arm, subsequent encounter (principal)
CPT/HCPCS: 73221

== ENCOUNTER → 2024-07-11 19:49 | Outpatient (BNV) | payer MEDICAID, SELFPAY | PROVIDERS: PCP Internal Medicine; Visit Provider Radiology Diagnostic Radiology | DX: S46.211A Strain of muscle, fascia and tendon of other parts of biceps, right arm, initial encounter (principal) | CPT/HCPCS: 73221 ==

== ENCOUNTER 2024-07-24 09:31 | Outpatient (AMB) | payer MEDICAID, SELFPAY ==
[2024-07-24 09:33] VITALS: BMI 28.2
--- NOTE | 2024-07-24 09:33 | MHC.OFFVIS ---
Vital Signs 07/24/24 09:33 Height 5 ft 7 in Weight 180 lb BMI 28.2 Intake Visit Reasons: OV-RT bicep tendon MRI review DOI 06/29/24 Intake Note: Chris is a 43 year old right hand dominant male who presents today for a follow up visit and an MRI review of the right bicep/elbow. DOI: 06/29/24. Expresses he attempted to lift a 60lbs bag of concrete with his right arm to put it on his shoulder, half way up he felt a pop in the right elbow. 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 Allergies Penicillins [PCN] Allergy (Severe, Verified 07/24/24 09:37) HIVES AND EDEMA HPI HPI OV-RT bicep tendon MRI review DOI 06/29/24: Details: Chris is a 43 year old right hand dominant male who presents today for a follow up visit and an MRI review of the right bicep/elbow. DOI: 06/29/24. Expresses he attempted to lift a 60lbs bag of concrete with his right arm to put it on his shoulder, half way up he felt a pop in the right elbow. 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 Patient states he is still in a lot of pain, and is interested in any intervention to reduce his pain. MRI wo con of right elbow 07/13/24 IMPRESSION: Partial tear of the biceps tendon insertion with some fibers retracted up to 1.3 cm from the radial tuberosity. Bicipitoradial bursitis. [facility] Medical History Pulmonary nodules Bronchitis COPD (chronic obstructive pulmonary disease) Axillary adenopathy Chest pain Emphysema (subcutaneous) (surgical) resulting from a procedure ILD (interstitial lung disease) Abnormal PFTs (pulmonary function tests) Chronic cough Tobacco dependence Asthma Chronic restrictive lung disease Surgical History History of vasectomy (~2016) Family History Mother Diabetes Asthma Father No problems noted. Maternal Grandmother Cancer Maternal Aunt Breast cancer Social History Household Members: Spouse Housing: Apartment Do you presently have visiting nurse or other home services: Yes Alcohol intake: current Alcohol intake frequency: holidays/special occasions only Patient Tobacco Use Status: Current someday Tobacco user Tobacco use type: Cigarette Cigarette Packs Per Day: 1 Cigarettes Per Day: 20.0 Years Smoked: 35 +/- Second Hand Smoke Exposure: No service: No Current occupational status: disabled Review of Systems Const All systems reviewed & are unremarkable except as noted in HPI and below Physical Exam Vital Signs: BMI result Body Mass Index 28.2 Extrem Other: Patient's right elbow normal to inspection No erythema, ecchymosis, edema noted No lacerations, abrasions, open areas No evidence of infection Patient reports significant tenderness to palpation of the distal biceps tendon of the right elbow Patient is able to flex to approximately 150 degrees and extend to 0 degrees, but reports pain with all range of motion Negative hook test No palpable deformity or absence of distal biceps tendon Pain with resisted supination Distal sensation intact Capillary refill brisk Assessment & Plan Assessment & Plan (1) Tear of distal tendon of biceps: Code(s): S46.219A - Strain of muscle, fascia and tendon of other parts of biceps, unspecified arm, initial encounter Category: Medical Plan 1. Partial biceps tendon tear of right elbow The case was discussed with Dr. Hernandez, and a collaborative treatment plan was formed: I educated the patient about the condition. I discussed both operative and nonoperative treatment options. The patient would like to proceed with surgery. The risks and benefits of operative treatment were discussed with the patient and the patient wishes to proceed with surgery. These risks include, but are not limited to, risk of damage to blood vessels, nerves, tendons, infection, recurrence, incomplete relief of preoperative symptoms, persistent pain, possible need for further surgery, and the risks associated with regional blocks and/or anesthesia. Plan is to take the patient to the operating room at some point in the next few weeks for the following procedures: 1. Right distal biceps tendon exploration and repair under general All of the preoperative paperwork including the consent was discussed today. All of the patient's questions were answered in the clinic today. The patient understands that they will be in contact with our director surgical to discuss scheduling their procedure. Patient denies diabetes, blood thinners, asthma, heart issues, lung issues, kidney issues, or current smoking. Coding Level of Care Code Est Pt Level 4 (54400) Diagnoses Tear of distal tendon of biceps S46.219Y
== END 2024-07-24 10:03 | disposition home or self-care (01) ==
LOC: HO.HOS 09:32
PROVIDERS: PCP Internal Medicine
DX: S46.211A Strain of muscle, fascia and tendon of other parts of biceps, right arm, initial encounter (principal)
CPT/HCPCS: 99214

== ENCOUNTER → 2024-07-24 09:31 | Outpatient (BNVA) | payer MEDICAID, SELFPAY | PROVIDERS: PCP Internal Medicine | DX: S46.211A Strain of muscle, fascia and tendon of other parts of biceps, right arm, initial encounter (principal); M25.521 Pain in right elbow | CPT/HCPCS: 99212 ==

== ENCOUNTER 2024-07-29 08:31 | Day surgery (SDC) | payer MEDICAID, SELFPAY ==
--- OUTSIDE RECORDS SUMMARY | 2024-07-24 12:42 | XMS_ITS ---
Author Organization [employer] Address [address] [place] [address] Care Team Providers Care Dumbwaiter Operator Name Role Phone Savannah Milner MD Primary Care Provide r Cande Lewis RN Unavailable [phone] Melida Figueroa Unavailable [facility] Complex Status:Outreach In Progress (Enrolling) Start date:06/30/2024 Enrollment reason:ADT Feed Overview ED- Pt went to [facility] ED on 06/29/24. Please outreach for enrollment. Case Team Name Relationship Phone Melida Figueroa(Responsible Staff) [phone] Continued Care and Services Coordination
--- NOTE | 2024-07-28 09:57 | P.CONAN_ITS ---
Documented by User: Berenice Tripp NP 07/28/24 10:02 HPI - Anesthesia Eval Consult details Narrative: 44yo M for Right Bicep Tendon Repair - Distal Follows [facility] Pulmo for COPD/cough. Last office visit 03/202404/04/2024 the patient is here for a pulmonary follow-up visit. Overall he is doing okay. Still having coughing episodes. Nonproductive in nature moderate severity. Also some shortness of breath at times. He has been using his inhalers we partial response. Unfortunately continues to smoke cigarettes. He has been tolerating the Chantix and with that he has been able to cut down. Will go ahead and provide him with the Nicotrol nasal spray to see if this provides relief. He can also look into getting [id number] Nicotrol inhalers to help him with his cravings. Hopefully cutting down further. 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 We did review his PFTs he does have some minimal restriction but otherwise no evidence of any obstruction. Mild diffusion impairment. He does have significant pharyngitis. Will treat with azithromycin 3 times a week for the chronic bronchitis and also will try the chlorhexidine mouthwash to see if this provides him relief. In the meantime he is going to continue with his current respiratory therapy. Will follow-up in 3-4 months. PMFSH Active Problems Active Problems: All Active Problems Tear of distal tendon of biceps (Acute) Pulmonary nodules (Acute) COVID-19 (Acute) Bronchitis (Acute) SUTTON (dyspnea on exertion) (Acute) Pleuritic chest pain (Acute) Epigastric pain (Acute) Back pain (Acute) Lumbar back pain with radiculopathy affecting right lower extremity (Acute) Lumbar spondylosis (Acute) Muscle spasm (Acute) Cervical spondylosis (Acute) Carpal tunnel syndrome on both sides (Acute) Sacroiliac joint pain (Acute) Syringomyelia (Acute) Bilateral hand numbness (Acute) Longitudinal melanonychia (Acute) Syrinx of spinal cord (Acute) Colitis (Acute) Abdominal pain (Acute) Diarrhea (Acute) Axillary adenopathy (Acute) Chest pain (Acute) Emphysema (subcutaneous) (surgical) resulting from a procedure (Acute) ILD (interstitial lung disease) (Acute) Abnormal PFTs (pulmonary function tests) (Acute) Chronic cough (Acute) Tobacco dependence (Acute) Asthma (Acute) Chronic restrictive lung disease (Acute) Past Medical History Medical History Pulmonary nodules Bronchitis COPD (chronic obstructive pulmonary disease) Axillary adenopathy Chest pain Emphysema (subcutaneous) (surgical) resulting from a procedure ILD (interstitial lung disease) Abnormal PFTs (pulmonary function tests) Chronic cough Tobacco dependence Asthma Chronic restrictive lung disease Family History Family History Mother Diabetes Asthma Father No problems noted. Maternal Grandmother Cancer Maternal Aunt Breast cancer Surgical History Surgical History History of vasectomy (~2015) Social History Social History Household Members: Spouse Housing: Apartment Do you presently have visiting nurse or other home services: Yes Alcohol intake: current Alcohol intake frequency: holidays/special occasions only Patient Tobacco Use Status: Current someday Tobacco user Tobacco use type: Cigarette Cigarette Packs Per Day: 1 Cigarettes Per Day: 20.0 Years Smoked: 35 +/- Second Hand Smoke Exposure: No Advance Directives: No Advance Directives Information Provided: Yes service: No Current occupational status: disabled Meds Allergies Allergy/AdvReac Type Severity Reaction Status Date / Time Penicillins [PCN] Allergy Severe HIVES AND Verified 07/24/24 09:37 EDEMA Home Medications ?Medication ?Instructions ?Recorded ?Confirmed ?Last Taken ?Type valacyclovir 1 gram tablet 1,000 mg PO DAILY PRN Cold Sores 04/18/22 07/29/24 2 Days Ago History ~06/26/22 acetaminophen 500 mg capsule 500 - 1,000 mg PO Q6H PRN pain 05/19/22 07/29/24 07/29/24 07:30 History (Mapap (acetaminophen)) 1000 mg tizanidine 4 mg tablet 4 mg PO DAILY PRN muscle spasticity 06/28/22 07/29/24 2 Days Ago History ~06/26/22 Exam Narrative Narrative: CT chest without contrast 05/2024 Comparison: 09/15/2020 Findings: Emphysema without acute infiltrates. No significant mediastinal adenopathy. Stable 1.5 cm pretracheal node. No significant free pleural fluid. No significant focal bony abnormalities. Impression: No acute processes Assessment and Plan Assessment Anesthesia Assessment: Chart Reviewed Documented by User: Olimpia Steele MD 07/29/24 09:19 [facility] Past Medical History Medical History Pulmonary nodules Bronchitis COPD (chronic obstructive pulmonary disease) Axillary adenopathy Chest pain Emphysema (subcutaneous) (surgical) resulting from a procedure ILD (interstitial lung disease) Abnormal PFTs (pulmonary function tests) Chronic cough Tobacco dependence Asthma Chronic restrictive lung disease Family History Family History Mother Diabetes Asthma Father No problems noted. Maternal Grandmother Cancer Maternal Aunt Breast cancer Family history of problems with anesthesia: No Surgical History Surgical History History of vasectomy (~2016) History of Problems with Anesthesia: No Social History Social History Household Members: Spouse Housing: Apartment Do you presently have visiting nurse or other home services: Yes Alcohol intake: current Alcohol intake frequency: holidays/special occasions only Patient Tobacco Use Status: Current someday Tobacco user Tobacco use type: Cigarette Cigarette Packs Per Day: 1 Cigarettes Per Day: 20.0 Years Smoked: 35 +/- Second Hand Smoke Exposure: No Advance Directives: No Advance Directives Information Provided: Yes service: No Current occupational status: disabled Meds Allergies Allergy/AdvReac Type Severity Reaction Status Date / Time Penicillins [PCN] Allergy Severe HIVES AND Verified 07/24/24 09:37 EDEMA Home Medications ?Medication ?Instructions ?Recorded ?Confirmed ?Last Taken ?Type valacyclovir 1 gram tablet 1,000 mg PO DAILY PRN Cold Sores 04/18/22 07/29/24 2 Days Ago History ~06/26/22 acetaminophen 500 mg capsule 500 - 1,000 mg PO Q6H PRN pain 05/19/22 07/29/24 07/29/24 07:30 History (Mapap (acetaminophen)) 1000 mg tizanidine 4 mg tablet 4 mg PO DAILY PRN muscle spasticity 06/28/22 07/29/24 2 Days Ago History ~06/26/22 Exam Airway Mallampati Class: II TM Dist: >3cm Neck ROM: Full Heart: rrr Lungs: cta Assessment and Plan Assessment Anesthesia Assessment: Anesthesia Plan Discussed Final Anesthetic Review Family History of Problems with Anesthesia: No History of Problems with Anesthesia: No NPO: Yes ASA Class: III Final Preanesthetic Review: No Changes in Pt Med Stat, Meds/Allgs Chart Reviewed, Consent Obtained/Reviewed and Anes Risks/Benef Reviewed Patient Risk: Intermediate Procedure Risk: Intermediate Anesthetic Plan Anesthetic Plan: GA, Regional Block and Agree w/ Assess. and Plan Disposition: Standard PACU
[2024-07-29] VITALS (8 sets, daily range): BP systolic 108–142; BP diastolic 75–85; PULSE 75–88; RESP 12–18; TEMP 36–36.9; O2SAT 92–99; BMI 27.0
--- NOTE | ~2024-07-29 | FL_ITS ---
EXAMINATION: XR FLUOROSCOPY WITH IMAGES CLINICAL INFORMATION: Right bicep repair. COMPARISON: MR right elbow 07/11/2024. TECHNIQUE: Fluoroscopy provided to: Dr. Hernandez Fluoroscopy time: 11.96 seconds DAP: [id number] Gycm2 Images: 1 FINDINGS: Solitary image obtained during right distal biceps repair. Please refer to the full operative report for details. FL/FL guidance in OR IMPRESSION: Fluoroscopic guidance. Electronically signed by: Thuan Mooney MD 07/29/2024 04:40 PM EDT
[2024-07-29] MEDS: Lactated Ringers 1,000 ML 100 ML IVCONT (09:57)
[2024-07-29] MEDS: Albuterol Sulfate (0.083%) 2.5 MG/3 ML VIAL.NEB INHALE (11:17)
--- NOTE | 2024-07-29 11:46 | MHC.SHP ---
Pre-Procedural Eval Section A - 24 Hr Update-Section A only Date of Service: 07/29/24 The patient is an INPATIENT: No Changes since office visit: No Cold of Flu in the past 2 weeks, No New Medical Problems, No Changes in Medication and No Patient answered all questions The patient has been examined within 24 hours of the surgical procedure. The History & Physical has been completed within 30 days and I have reviewed it.: Yes Section B - Complete if H&P > 30 days Chief Complaint: Strain of muscle, fascia and tendon of other parts Allergies: Allergies Allergy/AdvReac Type Severity Reaction Status Date / Time Penicillins [PCN] Allergy Severe HIVES AND Verified 07/29/24 09:21 EDEMA Plan I have reviewed the history and physical and performed a pertinent physical examination on my patient. No changes have occurred unless specified. Time Spent With Patient Time: Total time managing care of this patient today ____ minutes.
[2024-07-29] MEDS: Clindamycin Phosphate/D5W 600 MG/50 ML PIGGYBACK 100 MG IV (12:05)
--- NOTE | 2024-07-29 13:50 | P.OP_ITS ---
Operative Note Operative Note Date of Service: 07/29/24 Narrative: Date of Service: 07/29/24 Pre-op diagnosis: Right biceps tear Post-op diagnosis: same Procedure: Right biceps repair Implants: Arthrex endobutton with interference screw Surgeon: Zac Hernandez MD Anesthesia: GLMA and regional Was an Sales Office Manager used for this Procedure?: Yes Sales Office Manager: Yudi Jordan Estimated blood loss (mL): 20 IV fluids (mL): 750 Pathology: none sent Condition: stable Disposition: PACU Patient was brought to the operating room placed supine on the hand table and prepped and draped in standard sterile fashion. A time-out was called to identify proper site, proper procedure and proper surgeon. IV antibiotics per weight were administered. I began by making a transverse incision at the level of the bicipital tuberosity. Perpendicular dissection was taken down between the cephalic vasculature to the biceps sheath. The biceps was identified and tracked distally. There was a high-grade partial tear. I dissected out the tendon and while protecting the surrounding soft tissues uses a used a Littler scissors to tenotomize the remaining tendon at the level of the radial tuberosity. Once this was done I cleaned up the tendon ends and whip stitched the newly tenotomized tendon to the previously ruptured portion of the tendon and made 1 normal-sized tendon. This had good excursion I was satisfied with the whip stitching. I then dissected back down bluntly to the insertion site and drilled bicortically with a beef pin using biplanar fluoroscopy to confirm drill site. Once this was done I measured the graft and then over-drilled with a 6.5 mm Reamer unicortically. I then attached the endo button and using the endo button delivery device threaded this through both cortices and then flipped the button at the far cortex and tightened the tendon down until it was into the canal of the proximal radius. Once this was done I placed the interference screw alongside the tendon and then tied the FiberWire. There was full range of motion. The tendon could be palpated entering the insertion site in the radius and I was satisfied not only with the tension but with the stability of the repair. This was done without tourniquet and there was no brisk bleeding. I then irrigated copiously and closed with absorbable suture and skin glue. Patient was placed into sterile dressings. Patient was placed into a small posterolateral splint in approximately 70 degrees of flexion and a sling. Patient was brought to the recovery room in stable condition. There were no known complications.
[2024-07-29] MEDS: HYDROmorphone HCl 0.5 MG/0.5 ML SYRINGE 0.25 MG IVPUSH (14:14)
== END 2024-07-29 14:48 | disposition home or self-care (01) ==
PROVIDERS: PCP Internal Medicine; Visit Provider Orthopaedic Surgery
PROC: (CPT 24341; principal; 2024-07-29 11:30)
DX: S46.211A Strain of muscle, fascia and tendon of other parts of biceps, right arm, initial encounter (principal); X50.0XXA Overexertion from strenuous movement or load, initial encounter; X50.9XXA Other and unspecified overexertion or strenuous movements or postures, initial encounter; Y93.89 Activity, other specified; Y92.9 Unspecified place or not applicable; Y99.9 Unspecified external cause status; M70.31 Other bursitis of elbow, right elbow; J44.9 Chronic obstructive pulmonary disease, unspecified; R91.8 Other nonspecific abnormal finding of lung field; J98.2 Interstitial emphysema; R05.3 Chronic cough; Z79.899 Other long term (current) drug therapy; Z88.0 Allergy status to penicillin; F17.210 Nicotine dependence, cigarettes, uncomplicated
CPT/HCPCS: 24342; C1713; J0665; J0690; J0736; J1100; J1171; J2003; J2250; J2405; J2704; J2795

== ENCOUNTER → 2024-07-29 08:31 | Outpatient (BNV) | payer MEDICAID, SELFPAY | PROVIDERS: PCP Internal Medicine; Visit Provider Orthopaedic Surgery | DX: S46.211A Strain of muscle, fascia and tendon of other parts of biceps, right arm, initial encounter (principal) | CPT/HCPCS: 24342 ==

== ENCOUNTER 2024-08-06 00:15 | Emergency (ER) | payer MEDICAID, SELFPAY ==
[2024-08-06 00:18] VITALS: BP 142/67; PULSE 98; RESP 16; TEMP 37.4; O2SAT 98; BMI 29.0
[2024-08-06 00:44] LABS: MANUAL DIFF FLAG NO
[2024-08-06 00:53] LABS: Basophils Absolute Auto 0.1 X10*3/uL (0.0-0.2); Basophils Percent Auto 1.1 % (0-2); Eosinophils Absolute Auto 0.1 X10*3/uL (0.0-0.4); Eosinophils Percent Auto 1.4 % (0-4); Hematocrit 37.2 % (42.0-52.0); Hemoglobin 12.7 g/dl (14.0-18.0); Imm Gran Abs Auto 0.03 X10*3/uL (0.00-0.03); Imm Gran Pct Auto 0.4 % (0.0-0.4); Lymphocytes Absolute Auto 2.8 X10*3/uL (1.2-4.9); Lymphocytes Percent Auto 34.7 % (20-40); Mean Corpuscular HGB Conc 34.1 g/dl (31.0-36.0); Mean Corpuscular Hemoglobin 31.4 pg (27.0-33.0); Mean Corpuscular Volume 91.9 fL (80.0-98.0); Mean Platelet Volume 8.8 fL (9.4-12.4); Monocytes Absolute Auto 0.8 X10*3/uL (0.1-1.2); Monocytes Percent Auto 9.8 % (2-11); Neutrophils Absolute Auto 4.2 x10*3/uL (2.0-8.3); Neutrophils Percent Auto 52.6 % (45-73); Platelet Count 340 X10*3/uL (160-400); Red Blood Count 4.05 X10*6/uL (4.60-5.80); Red Cell Distribution Width 12.7 % (11.0-16.0)
--- NOTE | 2024-08-06 01:02 | ED.EXTPRO ---
HPI - Extremity Problem General Chief complaint: Extremity Injury, Upper Stated complaint: pain post op Time Seen by Provider: 08/06/24 00:51 History of Present Illness ED Provider: edwin HPI Narrative: 44 M R arm swelling and redness. Post op R biceps distal insertion repair here at [facility]. Started swelling several days ago.swelling, warmth, redness. Related Data Home Medications ?Medication ?Instructions ?Recorded ?Confirmed valacyclovir 1 gram tablet 1,000 mg PO DAILY PRN Cold Sores 04/18/22 07/29/24 acetaminophen 500 mg capsule 500 - 1,000 mg PO Q6H PRN pain 05/19/22 07/29/24 (Mapap (acetaminophen)) tizanidine 4 mg tablet 4 mg PO DAILY PRN muscle spasticity 06/28/22 07/29/24 Previous Rx's ?Medication ?Instructions ?Recorded albuterol sulfate 90 mcg/actuation 2 inh inhalation Q6H PRN shortness 01/10/21 aerosol inhaler of breath or wheezing 30 days #18 grams gabapentin 300 mg capsule 300 mg PO BID PRN for pain #60 caps 08/25/22 varenicline tartrate 0.5 mg (11)-1 See Rx Instructions PO PER PKG DIR 08/25/22 mg (42) tablets in a dose pack #42 ea (Chantix Starting Month Box) fluticasone furoate 100 1 inh inhalation DAILY 30 days #60 11/06/22 mcg-vilanterol 25 mcg/dose ea inhalation powder (Breo Ellipta) varenicline tartrate 1 mg tablet 1 mg PO BID #56 tabs 01/25/23 ibuprofen 600 mg tablet 600 mg PO Q6H PRN pain #14 tabs 06/13/23 nicotine 21 mg/24 hr daily 1 patch transdermal DAILY 28 days 06/28/23 transdermal patch (Nicoderm CQ) #28 ea umeclidinium 62.5 mcg/actuation 1 inh inhalation DAILY #30 ea 06/28/23 blister powder for inhalation (Incruse Ellipta) omeprazole 40 mg capsule,delayed 40 mg PO DAILY 90 days #90 caps 07/22/23 release dicyclomine 10 mg capsule 10 mg PO TID PRN abdominal pain 11/21/23 #10 caps ondansetron 4 mg disintegrating 4 mg PO Q8H PRN nausea and 11/21/23 tablet vomiting #7 tabs chlorhexidine gluconate 0.12 % 15 ml buccal DAILY 14 days #210 mL 04/04/24 mouthwash oxycodone 5 mg tablet 5 mg PO Q4H PRN pain 7 days #42 07/29/24 tabs Allergies Allergy/AdvReac Type Severity Reaction Status Date / Time Penicillins (PCN) Allergy Severe HIVES AND Verified 08/06/24 00:23 EDEMA PMFSH Past Medical History Medical History (Updated 08/06/24 @ 05:52 by David Hernandez MD) Pulmonary nodules Bronchitis COPD (chronic obstructive pulmonary disease) Axillary adenopathy Chest pain Emphysema (subcutaneous) (surgical) resulting from a procedure ILD (interstitial lung disease) Abnormal PFTs (pulmonary function tests) Chronic cough Tobacco dependence Asthma Chronic restrictive lung disease Surgical History (Updated 08/06/24 @ 03:19 by DEEPTI Amaro) S/P tendon repair History of vasectomy (~2015) Family History Family History Mother Diabetes Asthma Father No problems noted. Maternal Grandmother Cancer Maternal Aunt Breast cancer Social History Social History Household Members: Spouse Housing: Apartment Are you a primary long term care administrator to a significant other at home: No Do you presently have visiting nurse or other home services: No Alcohol intake: current Alcohol intake frequency: holidays/special occasions only Patient Tobacco Use Status: Current everyday Tobacco user Tobacco use type: Cigarette Cigarette Packs Per Day: 1 Cigarettes Per Day: 10 Years Smoked: 30 Second Hand Smoke Exposure: No Advance Directives: No Advance Directives Information Provided: Yes Do you have a plan to hurt others: No Plan service: No Current occupational status: disabled Physical Exam Vital Signs: Vital Signs: Last Vital Signs Temp 98.5 F 08/06/24 05:45 Pulse 78 08/06/24 05:45 Resp 16 08/06/24 05:45 BP 120/75 08/06/24 05:45 Pulse Ox 95 08/06/24 05:45 O2 Del Method Room Air 08/06/24 05:45 BMI result Body Mass Index 29.0 Const: Other: Right arm: Diffuse erythema and swelling. Fluctuance underlying the surgical incision volar proximal forearm. No streaking or tracking up the upper arm. Intact flexion-extension at the elbow. Intact radial and ulnar pulses well-perfused hand. Swollen forearm but compartments appear soft at this time. GENERAL: Well appearing. No apparent distress. Alert. HEAD/NECK: No visual trauma. EYES: Normal to inspection. No conjunctival erythema. No discharge. ENMT: Hearing grossly normal. External nose normal. RESPIRATORY: Respiratory effort normal. CARDIOVASCULAR: Additional details (Grossly well perfused). SKIN: No jaundice. NEUROLOGICAL: Alert. Moving all extremities x4. Additional details (No gross motor deficits. Normal tone. ). PSYCHIATRIC: Alert. Appearance appropriate for situation. Medications Administered Generic Name Dose Route Start Last Admin Trade Name Freq PRN Reason Stop Dose Admin Lactated Ringer's 1,000 mls @ 100 mls/hr 08/06/24 01:51 08/06/24 04:38 Lr IVCONT 100 mls/hr .Q10H CHUCKY Administration Discontinued Medications Generic Name Dose Route Start Last Admin Trade Name Freq PRN Reason Stop Dose Admin Hydromorphone HCl 1 mg 08/06/24 04:01 08/06/24 04:33 Hydromorphone Hcl 1 Mg/Ml Syringe IVPUSH 08/06/24 04:02 1 mg ONCE ONE Administration Protocol Vancomycin HCl 2,000 mg in 500 mls @ 250 mls/hr 08/06/24 00:58 08/06/24 03:34 Vancomycin/Ns IV 08/06/24 02:57 Infused ONCE ONE Infusion Clindamycin Phosphate 900 mg in 50 mls @ 50 mls/hr 08/06/24 01:00 08/06/24 03:05 Cleocin IV 08/06/24 01:59 Infused ONCE ONE Infusion Ketorolac Tromethamine 15 mg 08/06/24 00:58 08/06/24 01:32 Ketorolac Tromethamine 15 Mg/Ml Vial IVPUSH 08/06/24 00:59 15 mg ONCE ONE Administration Lidocaine/Epinephrine 10 ml 08/06/24 00:58 08/06/24 01:32 Lidocaine Hcl 1%/Epi 1:100,000 10 Ml Vial INFILTRATI 08/06/24 00:59 10 ml ONCE ONE Administration Morphine Sulfate 4 mg 08/06/24 00:58 08/06/24 01:32 Morphine Sulfate 4 Mg/Ml Cartridge IVPUSH 08/06/24 00:59 4 mg ONCE ONE Administration Protocol Medical Decision Making Medical Decision Making MDM Narrative: 44-year-old male postop day 7 from orthopedic biceps surgery. Clear infection with abscess seen on ultrasound. Needle aspiration with 5 cc of purulent and bloody drainage sent for culture. Orthopedic consultation. CRP elevated no leukocytosis however. Blood cultures are drawn. Broad-spectrum antibiotics, severe penicillin allergy with angioedema so tracy started vanco and clinda Admission/Observation Postop infection, skin abscess, cellulitis, seroma, hematoma Consult Healthcare Provider Management of the patient was discussed with: Palliative Medicine Physician (Orthopedic. I spoke with a PA on-call Sarahy Rojas) Lab Data 08/06/24 00:35 08/06/24 00:35 Labs: Lab Results 08/06/24 Range/Units 00:35 WBC 8.0 (4.8-10.8) X10*3/uL RBC 4.05 L (4.60-5.80) X10*6/uL Hgb 12.7 L (14.0-18.0) g/dl Hct 37.2 L (42.0-52.0) % MCV 91.9 (80.0-98.0) fL MCH 31.4 (27.0-33.0) pg MCHC 34.1 (31.0-36.0) g/dl RDW 12.7 (11.0-16.0) % Plt Count 340 (160-400) X10*3/uL MPV 8.8 L (9.4-12.4) fL Immature Gran % (Auto) 0.4 (0.0-0.4) % Neut % (Auto) 52.6 (45-73) % Lymph % (Auto) 34.7 (20-40) % [place] % (Auto) 9.8 (2-11) % Eos % (Auto) 1.4 (0-4) % Baso % (Auto) 1.1 (0-2) % Lymph # (Auto) 2.8 (1.2-4.9) X10*3/uL [place] # (Auto) 0.8 (0.1-1.2) X10*3/uL Eos # (Auto) 0.1 (0.0-0.4) X10*3/uL Baso # (Auto) 0.1 (0.0-0.2) X10*3/uL Abs Immat Gran (auto) 0.03 (0.00-0.03) X10*3/uL Absolute Neuts (auto) 4.2 (2.0-8.3) x10*3/uL Absolute Nucleated RBC 0.000 (0.0-0.012) X10*3/uL Nucleated RBC % (auto) 0.0 (0.0-0.2) /100WBC ESR 32 H (0-15) MM/HR Sodium 140 (135-145) mmol/L Potassium 3.9 (3.3-5.1) mmol/L Chloride 108 (96-108) mmol/L Carbon Dioxide 24 (22-29) mmol/L Anion Gap 12 (12-20) BUN 19 H (9-16) mg/dL Creatinine 0.91 (0.5-1.4) mg/dL Estim Creat Clear Calc 107.2 Estimated GFR > 60 Random Glucose 147 H (60-115) mg/dL Lactic Acid 1.1 (0.5-2.0) mmol/L Calcium 9.6 (8.4-10.2) mg/dL Total Bilirubin 0.2 (0.0-1.0) mg/dL AST 24 (5-37) U/L ALT 25 (0-40) U/L Alkaline Phosphatase 90 (39-117) U/L C-Reactive Protein 7.29 H (< or = 0.50) mg/dL Total Protein 6.8 (6.5-8.0) g/dL Albumin 3.9 (3.5-5.0) g/dL Procedures Procedure Narrative Procedure Narrative: EMERGENCY ULTRASOUND INTERPRETATION- Limited skin and soft tissue [This study was ordered, performed, and interpreted by myself. The study reveals: Impression: ?Evidence of fluid collection proximally 1 cm x 1.5 cm x 2 cm suggestive of abscess versus postoperative serous or bloody collection. [Indication: ?Redness and swelling Skin: Complex collection underlying surgical wound site surrounded by edematous fluid thickened skin Performed by: ?David Hernandez MD ?Images were stored ] Abscess I/D Site: upper extremity Side (if applicable): right Local Anesthetic: lidocaine 1% and with epi Amount of anesthesia used (mL): 8 Technique: needle aspiration Amount of fluid expressed (mL): 5 Sent for culture/gram staining?: Yes Irrigation: No Packing used?: none Complications: pain Discharge Plan Discharge Clinical Impression: Abscess Patient Disposition: Admitted As Inpatient
[2024-08-06 01:05] LABS: Lactic Acid 1.1 mmol/L (0.5-2.0)
[2024-08-06 01:12] LABS: Alanine Aminotransferase 25 U/L (0-40); Albumin Level 3.9 g/dL (3.5-5.0); Alkaline Phosphatase 90 U/L (39-117); Anion Gap 12 (12-20); Aspartate Amino Transferase 24 U/L (5-37); Bilirubin Total 0.2 mg/dL (0.0-1.0); Blood Urea Nitrogen 19 mg/dL (9-16); Calcium 9.6 mg/dL (8.4-10.2); Carbon Dioxide 24 mmol/L (22-29); Chloride 108 mmol/L (96-108); Creatinine Clr Calc Pharmacy 107.2; Estimated Glomerular Filt Rate > 60; Glucose Random 147 mg/dL (60-115); Potassium 3.9 mmol/L (3.3-5.1); Sodium 140 mmol/L (135-145); Total Protein 6.8 g/dL (6.5-8.0)
--- OUTSIDE RECORDS SUMMARY | 2024-08-06 01:24 | XMS_ITS ---
Author Organization [employer] Address [address] [place] [address] Care Team Providers Care Still Tender Name Role Phone Savannah Milner MD Primary Care Provide r Cande Lewis RN Unavailable [phone] Melida Figueroa Unavailable CHW Complex Status:Outreach In Progress (Enrolling) Start date:06/30/2024 Enrollment reason:ADT Feed Overview ED- Pt went [place] [facility] [place] on 06/29/24. Please outreach for enrollment. Case Team Name Relationship Phone Melida Figueroa(Responsible Staff) [phone] Continued Care and Services Coordination
[2024-08-06 01:28] LABS: C Reactive Protein 7.29 mg/dL (< or = 0.50)
[2024-08-06 01:32] VITALS: RESP 16
[2024-08-06] MEDS: Ketorolac Tromethamine 15 MG/ML VIAL IVPUSH (01:32)
[2024-08-06] MEDS: Lidocaine HCl 1%/Epi 1:100,000 10 ML VIAL INFILTRATI (01:32)
[2024-08-06] MEDS: Morphine Sulfate 4 MG/ML CARTRIDGE IVPUSH (01:32)
[2024-08-06] MEDS: vancomycin/NS 2,000 MG/500 ML PLAST..BAG 250 MG IV (01:34)
[2024-08-06 02:02] LABS: Erythrocyte Sedimentation Rate 32 MM/HR (0-15)
[2024-08-06] MEDS: Clindamycin Phosphate/D5W 900 MG/50 ML PIGGYBACK 50 MG IV (02:04)
--- NOTE | 2024-08-06 03:11 | P.CONHOSP_ITS ---
History of Present Illness Data of Consult Service Date: 08/06/24 Requesting physician: Sarahy Rojas Primary Care Provider: Unknown Physician HPI Reason for consult: right arm cellulitis s/p distal bicep repair 07/29 Patient is a 44-year-old male with past medical history tobacco use, COPD/emphysema, interstitial lung disease, allergic rhinitis, GERD, chronic back pain with lumbar spondylosis, cervical spondylosis, carpal tunnel syndrome came into the emergency department status post bicep repair for partial rupture 7 days prior here at [facility]. Pt states he moved his arm yesterday and suddenly a large amount of pus was expelled from the incision. Patient has had no fever or chills and has been using oxycodone for pain relief. On arrival to the ED patient states the pain was an 18 to 19/10 and patient required morphine with minimal effect. Patient has currently no leukocytosis but CRP is elevated at 7.29 and ESR is 32. Wound cultures were collected by ED provider along with blood cultures x2. Orthopedics accepted patient for admission and hospitalist has been consulted for medical management. Patient was started on clindamycin and vancomycin due to PCN allergy. Because no hardware is in place, it is recommended that patient resume only vancomycin for now. ID consult recommended as well. Orders updated. Patient provided synopsis since the day of surgery. Patient did return home same day. On day 2 patient noted some hand swelling only and patient decided on his own to wash the area with soap and water and patient began to apply bacitracin to the incision. By the 4th day patient could barely move his right hand and reported that there were no obvious skin openings. And then over the next 2 days, patient reported warmth at the incision site and noted that the incision site was raised. Than yesterday patient had a burst of pus from the incision with arm movement. Patient has not been cleared to return to work as his next appointment with Orthopedics was scheduled for August 11. 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 Patient is right-hand dominant. This casualty underwriter was not able to view the actual incision site as it is currently dressed status post intervention for wound culture collection by the ED provider. Currently the right arm appears edematous and warm to the touch below and above the dressing. There are no red streaks and patient has sensation intact neurovascularly in the digits. Radial and brachial pulses are palpable. Patient continues to report high levels of pain. A 1 time dose of Dilaudid will be ordered. Pain management will be through orthopedics. Also no diagnostic studies were ordered so far in the ED and this will be deferred to Orthopedics for a.m. review. Please see assessment and plan for further medical recommendations. Review of Systems 2 Review of Systems: Patient currently denies any chest pain, shortness of breath at rest or with exertion. Patient is reporting 3/10 in the right mid extremity secondary to interventions today and previous surgery. Patient denies any fever, chills or night sweats. Patient denies any recent injury to the surgical arm. Yes all other systems are reviewed and are negative [facility] Medical History (Updated 08/06/24 @ 04:02 by DEEPTI Amaro) Pulmonary nodules Bronchitis COPD (chronic obstructive pulmonary disease) Axillary adenopathy Chest pain Emphysema (subcutaneous) (surgical) resulting from a procedure ILD (interstitial lung disease) Abnormal PFTs (pulmonary function tests) Chronic cough Tobacco dependence Asthma Chronic restrictive lung disease Cognitive capacity: Alert and orientated x3 Family History Mother Diabetes Asthma Father No problems noted. Maternal Grandmother Cancer Maternal Aunt Breast cancer Surgical History (Updated 08/06/24 @ 03:19 by DEEPTI Amaro) S/P tendon repair History of vasectomy (~2015) Social History Household Members: Spouse Housing: Apartment Are you a primary home care aide to a significant other at home: No Do you presently have visiting nurse or other home services: No Alcohol intake: current Alcohol intake frequency: holidays/special occasions only Patient Tobacco Use Status: Current everyday Tobacco user Tobacco use type: Cigarette Cigarette Packs Per Day: 1 Cigarettes Per Day: 10 Years Smoked: 30 Second Hand Smoke Exposure: No Advance Directives: No Advance Directives Information Provided: Yes Do you have a plan to hurt others: No Plan service: No Current occupational status: disabled Ebola Risk: Travel/Contact With Anyone From Affected Area/s: No Has Patient Experienced Ebola Symptoms: No Meds Allergies Allergy/AdvReac Type Severity Reaction Status Date / Time Penicillins (PCN) Allergy Severe HIVES AND Verified 08/06/24 00:23 EDEMA Active Medications: Current Medications Acetaminophen (Acetaminophen 325 Mg Tablet) 650 mg PO Q6H PRN PRN Reason: Pain, Mild 1-3,fever,headache Calcium Carbonate (Calcium Carbonate 750 Mg Tab.Chew) 750 mg PO Q4H PRN PRN Reason: Heartburn Docusate Sodium (Docusate Sodium 100 Mg Capsule) 100 mg PO BID [facility] Lactated Ringer's (Lr) 1,000 mls @ 100 mls/hr IVCONT .Q10H CHUCKY Magnesium Hydroxide (Milk Of Magnesia 30 Ml Oral.Susp) 30 ml PO DAILY PRN PRN Reason: Constipation Melatonin (Melatonin 3 Mg Tablet) 6 mg PO BEDTIME PRN PRN Reason: Insomnia Ondansetron HCl (Ondansetron Hcl 4 Mg/2 Ml Vial) 4 mg IVPUSH Q8H PRN PRN Reason: Nausea and Vomiting Oxycodone HCl (Oxycodone Hcl Immed Release 5 Mg Tablet) 5 mg PO Q4H PRN PRN Reason: Pain, Moderate(Pain Scale 4-6) Pharmacy Consult (Consult Rx Vancomycin Dosing) 1 each MISCELLANE DAILY PRN PRN Reason: Consult order Sodium Chloride (0.9 % Sodium Chloride Flush 3 Ml Syringe) 3 ml IVFLUSH QSHIFT [facility] Home Medications ?Medication ?Instructions ?Recorded ?Confirmed ?Last Taken ?Type valacyclovir 1 gram tablet 1,000 mg PO DAILY PRN Cold Sores 04/18/22 07/29/24 2 Days Ago History ~06/26/22 acetaminophen 500 mg capsule 500 - 1,000 mg PO Q6H PRN pain 05/19/22 07/29/24 07/29/24 07:30 History (Mapap (acetaminophen)) 1000 mg tizanidine 4 mg tablet 4 mg PO DAILY PRN muscle spa sticity 06/28/22 07/29/24 2 Days Ago History ~06/26/22 Physical Exam 2 Vital Signs and Narrative: Vital Signs: Last Vital Signs Temp 99.3 F 08/06/24 00:18 Pulse 98 08/06/24 00:18 Resp 16 08/06/24 01:32 BP 142/67 H 08/06/24 00:18 Pulse Ox 98 08/06/24 00:18 O2 Del Method Room Air 08/06/24 00:18 BMI result Body Mass Index 29.0 Alert and orientated X3, able to give good history. Neuro: CN II-X11 intact, no deficits, visual acuity intact EYES: PERRLA, EOM intact ENT: hearing intact, no issues with swallowing, uvula midline, lips moist, nares patent no epistaxis Cardiac: S1 S2 RRR, no murmur, no JVD, no edema in Lower ext Pulmonary: lungs clear to ausculation B Abdominal: BS active in all 4 quadrants, no guarding, tenderness, rebounding MSK: strength 5/5 upper and lower extremities : no CVA tenderness no bladder distension Extremities: no edema in lower extremities, PT and DP pulses palpable +2 Right arm is currently wrapped and per ED provider assessment prior to aspiration is noted as: Right arm: Diffuse erythema and swelling. Fluctuance underlying the surgical incision volar proximal forearm. No streaking or tracking up the upper arm. Intact flexion-extension at the elbow. Intact radial and ulnar pulses well-perfused hand. Swollen forearm but compartments appear soft at this time. Psych: mood stable, judgement and insight good Results Labs 08/06/24 00:35 08/06/24 00:35 Labs: Laboratory Results - last 24 hr 08/06/24 00:35 MCV 91.9 MCH 31.4 MCHC 34.1 RDW 12.7 Plt Count 340 MPV 8.8 L Immature Gran % (Auto) 0.4 Neut % (Auto) 52.6 Lymph % (Auto) 34.7 [place] % (Auto) 9.8 Eos % (Auto) 1.4 Baso % (Auto) 1.1 Lymph # (Auto) 2.8 [place] # (Auto) 0.8 Eos # (Auto) 0.1 Baso # (Auto) 0.1 Abs Immat Gran (auto) 0.03 Absolute Neuts (auto) 4.2 Absolute Nucleated RBC 0.000 Nucleated RBC % (auto) 0.0 ESR 32 H Anion Gap 12 Estim Creat Clear Calc 107.2 Estimated GFR > 60 Random Glucose 147 H Lactic Acid 1.1 Calcium 9.6 Total Bilirubin 0.2 AST 24 ALT 25 Alkaline Phosphatase 90 C-Reactive Protein 7.29 H Total Protein 6.8 Albumin 3.9 Assessment and Plan (1) S/P tendon repair: Status: Acute (2) Cellulitis: Qualifiers: Laterality: right Site of cellulitis: extremity Site of cellulitis of extremity: upper extremity Qualified Code(s): L03.113 - Cellulitis of right upper limb Status: Acute Plan Patient is a 44-year-old male with past medical history tobacco use, COPD/emphysema, interstitial lung disease, allergic rhinitis, GERD, cold sores, chronic back pain with lumbar spondylosis, cervical spondylosis, carpal tunnel syndrome came into the emergency department status post bicep repair 7 days prior here at [facility] with complaints of weeping/ sudden burst of pus from the incision of R mid arm earlier on Sunday08/05/2024. Hospitalist group consulted for medical management regarding cellulitis of surgical site and overall medical needs. Cellulitis surgical site right arm from biceps tendon repair for partial rupture -Continue vancomycin, consult placed with pharmacy -Currently no hardware in place, recommend stopping clindamycin until patient is seen by ID -Imaging per Orthopedics, if indicated -Cultures from site pending -Blood cultures x2 pending -ID consultation recommended and ordered -Pain management per Orthopedics, Dilaudid 1 mg IV x1 provided -No evidence of sepsis at this time COPD/emphysema -Duo nebs p.r.n. -Await medication reconciliation and continue patient's home inhalers -No evidence of hypoxia, no indication for oxygen or continuous pulse ox Chronic tobacco dependence -NRT recommended, nicotine patch 21 mg ordered -Patient no longer takes Chantix. -Patient counseled on the benefits versus risk of smoking cessation GERD -Continue omeprazole once med rec completed Cold sores -Valacyclovir p.r.n., patient currently asymptomatic DVT prophylaxis: Consider Lovenox if indicated, may be contraindicated if procedures required for right upper extremity -PPI prophylaxis: Omeprazole Full Code status Hospitalist group will sign off at this time. Follow recommendations of Infectious Disease. Please consult hospitalist group with any additional concerns regarding patient's medical problems. We appreciate this consultation.
[2024-08-06 04:33] VITALS: RESP 14
[2024-08-06] MEDS: HYDROmorphone HCl 1 MG/ML SYRINGE IVPUSH (04:33)
[2024-08-06] MEDS: Lactated Ringers 1,000 ML 100 ML IVCONT (04:38)
[2024-08-06 05:45] VITALS: BP 120/75; PULSE 78; RESP 16; TEMP 36.9; O2SAT 95
[2024-08-06 06:07] LABS: MANUAL DIFF FLAG NO
[2024-08-06 06:16] LABS: Basophils Absolute Auto 0.1 X10*3/uL (0.0-0.2); Basophils Percent Auto 1.1 % (0-2); Eosinophils Absolute Auto 0.1 X10*3/uL (0.0-0.4); Eosinophils Percent Auto 1.9 % (0-4); Hematocrit 33.9 % (42.0-52.0); Hemoglobin 11.5 g/dl (14.0-18.0); Imm Gran Abs Auto 0.03 X10*3/uL (0.00-0.03); Imm Gran Pct Auto 0.4 % (0.0-0.4); Lymphocytes Absolute Auto 2.9 X10*3/uL (1.2-4.9); Lymphocytes Percent Auto 38.3 % (20-40); Mean Corpuscular HGB Conc 33.9 g/dl (31.0-36.0); Mean Corpuscular Hemoglobin 31.4 pg (27.0-33.0); Mean Corpuscular Volume 92.6 fL (80.0-98.0); Mean Platelet Volume 8.6 fL (9.4-12.4); Monocytes Absolute Auto 0.7 X10*3/uL (0.1-1.2); Monocytes Percent Auto 8.7 % (2-11); Neutrophils Absolute Auto 3.7 x10*3/uL (2.0-8.3); Neutrophils Percent Auto 49.6 % (45-73); Platelet Count 295 X10*3/uL (160-400); Red Blood Count 3.66 X10*6/uL (4.60-5.80); Red Cell Distribution Width 12.6 % (11.0-16.0); White Blood Count 7.5 X10*3/uL (4.8-10.8)
[2024-08-06 06:23] LABS: Anion Gap 11 (12-20); Blood Urea Nitrogen 19 mg/dL (9-16); Calcium 9.1 mg/dL (8.4-10.2); Carbon Dioxide 24 mmol/L (22-29); Chloride 108 mmol/L (96-108); Estimated Glomerular Filt Rate > 60; Glucose Fasting 120 mg/dL (60-99); Potassium 4.2 mmol/L (3.3-5.1); Sodium 139 mmol/L (135-145)
--- NOTE | 2024-08-06 08:00 | PC.NURSE ---
Dr Hernandez at pt bedside to take down dressing/examine surgical area; scant sersang. drainage noted from suture line; dressing applied per surgeon and pt placed in a sling; pt reports pain to area as 15/10 ; pt only has oxycodone ordered for 4-6/10 pain; surgical PA aware/declines to write for anything stronger at this time; pt made aware
[2024-08-06] MEDS: oxyCODONE HCl Immed Release 5 MG TABLET PO (08:41)
--- NOTE | 2024-08-06 09:20 | MHC.CM.PN ---
CM met with Patient, his /HCP/Gisselle and 2 minor children at bedside, in the ED. 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 Home/self care is Patient's goal and CM has initiated and will follow for dc planning. PCP is Dr. Savannah Urbano and will transport to home at time of dc.
--- NOTE | 2024-08-06 09:35 | PHA.MEDREC ---
Addendum entered by Enrico Bloom, [facility] 08/06/24 09:41: update - Patient states he doesn't take any inhalers except as needed proair Original Note: Pharmacy Consult ? Medication Reconciliation Pharmacy has completed the medication reconciliation.Patient knew medications. Said he was taking omeprazole 40mg bid and not takign the pravastatin anymore becuase he didnt know what it was for. Left on med rec just in case provider wanted to restart as patient thinks they should be on it
--- NOTE | 2024-08-06 10:52 | PC.NURSE ---
Pt awaiting DC from ortho service; ortho /JATINDER are in surgery at this time; pt resting in room
--- NOTE | 2024-08-06 11:37 | MHC.CM.PN ---
Patient has been medically cleared for dc to home today, self care.
[2024-08-06 11:45] VITALS: BP 132/76; PULSE 82; RESP 16; TEMP 36.7; O2SAT 98
[2024-08-06 12:00] VITALS: BP 132/76; PULSE 82; RESP 16; TEMP 36.7; O2SAT 98
--- NOTE | 2024-08-06 12:03 | PC.NURSE ---
Pt declined repeat dose of Oxycodone at time of DC; sling in place; vss; cap refill to R digits brisk; strong palpable radial pulse; pt reminded of activity restrictions with R arm and to wear sling until otherwise directed by surgery; pt verbalized understanding of this and was DC'd in stable condition with family
== END 2024-08-06 11:45 | disposition admitted as inpatient to this hospital (09) ==
LOC: HO.ED 01:22 → HO.EDOVER 05:52
PROVIDERS: Emergency Provider Emergency Medicine; PCP Internal Medicine; Visit Provider Physician Assistant
DX: L02.413 Cutaneous abscess of right upper limb (principal); G89.18 Other acute postprocedural pain; F17.210 Nicotine dependence, cigarettes, uncomplicated; Z98.890 Other specified postprocedural states; Z79.899 Other long term (current) drug therapy
CPT/HCPCS: 10060; 36415; 80048; 80053; 83605; 85025; 85652; 86140; 87040; 87070; 87077; 87186; 87205; 96365; 96366; 96375; 99284; 99285; J0736; J1171; J1885; J2004; J2270; J3370; J7120

== ENCOUNTER → 2024-08-06 01:40 | Outpatient (BNV) | payer MEDICAID, SELFPAY | PROVIDERS: Admitting Provider Physician Assistant; Emergency Provider Emergency Medicine; Visit Provider Nurse Practitioner Family | DX: Z98.890 Other specified postprocedural states (principal); L03.113 Cellulitis of right upper limb | CPT/HCPCS: 99222 ==

== ENCOUNTER 2024-08-08 14:52 | Outpatient (AMB) | payer MEDICAID, SELFPAY ==
--- NOTE | 2024-08-08 14:55 | MHC.OFFVIS ---
Intake Visit Reasons: PO: Rt Biceps Tendon Repair 07/29/24 NE Intake Note: Chris is a 44 year old right hand dominant male who presents today for a wound check status post right biceps repair, DOS: 07/24/24, by Dr Zac Hernandez. Patient presented to [facility] on 08/06/24 for an increase of pain, swelling and redness in the right arm. Denies any trauma or injury. Allergies Penicillins (PCN) Allergy (Severe, Verified 08/08/24 14:56) HIVES AND EDEMA HPI HPI PO: Rt Biceps Tendon Repair 07/29/24 NE: Details: Mr. Parish Obregon is a 44-year-old male status post right distal biceps tendon repair performed on 07/29/[address] Hernandez. Patient presented to the emergency department on 08/06/2024 where the ED physician performed a needle aspiration. It was reported via tiger text that the fluid was ?at first cloudy serous, later bloody?, 5 cc of fluid was sent for culture. While looking at the documentation from that visit today in the office the ED provider had changed his assessment after consultation with orthopedic to purulent and bloody drainage that was collected. The forearm also had developing cellulitis surrounding the incision site. Orthopedics was consulted and myself and Dr. Hernandez evaluated the patient. The patient was then discharged home on oral doxycycline and instructed to follow up with orthopedics outpatient for further evaluation and treatment. Since presenting to the emergency department he reports that there has been no drainage. However the erythema and swelling around the incision site still persist. He endorses pain in his requesting a refill of oxycodone. [facility] Medical History Pulmonary nodules Bronchitis COPD (chronic obstructive pulmonary disease) Axillary adenopathy Chest pain Emphysema (subcutaneous) (surgical) resulting from a procedure ILD (interstitial lung disease) Abnormal PFTs (pulmonary function tests) Chronic cough Tobacco dependence Asthma Chronic restrictive lung disease Surgical History S/P tendon repair History of vasectomy (~2015) Family History Mother Diabetes Asthma Father No problems noted. Maternal Grandmother Cancer Maternal Aunt Breast cancer Social History Household Members: Spouse Housing: Apartment Are you a primary direct support professional caregiver to a significant other at home: No Do you presently have visiting nurse or other home services: No Unable to assess alcohol history related to: Unable to respond Alcohol intake: unknown Patient Tobacco Use Status: Current everyday Tobacco user Tobacco use type: Cigarette Cigarette Packs Per Day: 1 Cigarettes Per Day: 10 Years Smoked: 30 Second Hand Smoke Exposure: No service: No Current occupational status: disabled Review of Systems Const All systems reviewed & are unremarkable except as noted in HPI and below Physical Exam Const General: cooperative, healthy appearing and no acute distress Resp Effort & Inspection: normal respiratory effort and able to speak in complete sentences Extrem Other: Right forearm over the distal biceps tendon incision site is erythematous and edematous. There is no active drainage at this time. There is no surrounding cellulitis noted at this time. NVI. Office Procedures Incision and Drainage Details: Right forearm incision site irrigation and debridement performed in office Incision and drainage performed by: Zac Hernandez Informed consent given: Yes Time out checklist: patient, procedure, site marked/identified, positioning of patient, supplies available, allergies confirmed and team agrees on procedure Time out staff in room: Yes Time out verified: Yes Time out date: 08/08/24 Time out time: 15:55 Location: Orthopedic office Anesthesia: local Incision with: #15 blade Drainage quality: serous and bloody Probed cavity: Yes Culture taken: No Cavity management: irrigated and packing Dressing: gauze Patient tolerated procedure: with discomfort Complications: No Assessment & Plan Assessment & Plan (1) Tear of distal tendon of biceps: Code(s): S46.219A - Strain of muscle, fascia and tendon of other parts of biceps, unspecified arm, initial encounter Category: Medical (2) S/P tendon repair: Code(s): Z98.890 - Other specified postprocedural states Category: Surgical (3) Cellulitis: Code(s): L03.90 - Cellulitis, unspecified Category: Medical Qualifiers: Laterality: right Site of cellulitis: extremity Site of cellulitis of extremity: upper extremity Qualified Code(s): L03.113 - Cellulitis of right upper limb Plan Mr. Parish Obregon is a 44-year-old male status post right distal biceps tendon repair performed on 07/29/[address] Hernandez. Patient presented to the emergency department on 08/06/2024 where the ED physician performed a needle aspiration. It was reported via tiger text that the fluid was ?at first cloudy serous, later bloody?, 5 cc of fluid was sent for culture. While looking at the documentation from that visit today in the office the ED provider had changed his assessment after consultation with orthopedic to purulent and bloody drainage that was collected. The forearm also had developing cellulitis surrounding the incision site. Orthopedics was consulted and myself and Dr. Hernandez evaluated the patient. The patient was then discharged home on oral doxycycline and instructed to follow up with orthopedics outpatient for further evaluation and treatment. Since presenting to the emergency department he reports that there has been no drainage. However the erythema and swelling around the incision site still persist. He endorses pain in his requesting a refill of Oxycodone. Infectious Disease was consulted while in the office today and an antibiotic will be sent to the office per their recommendations. While in the office today the incision site was numbed with 2% plain lidocaine and a scalpel was used to make an opening along the medial incision site to allow for drainage. There was copious amounts of bloody and serous drainage that was expressed from the area. After this was performed, the incision site was packed. The patient was provided with instructions on how to pull the packing tomorrow. The patient demonstrates understanding. The remaining open area were then sutured with 3-0 Nylon. The site was dressed with gauze, an ABD and wrapped with an Kee bandage for slight compression. Instructed the patient to perform daily dressing changes and given supplies to take home to do so appropriately. He will follow up on 08/14/2024 to monitor for improving infection. Oxycodone 5 mg Q 6 hours p.r.n. pain was sent to the patient's pharmacy. Medications: New oxycodone Partial Fill upon patient request. 5 mg PO Q6H PRN 28 tabs 0RF pain 7 days Coding Level of Care Code Global (15043) Diagnoses Tear of distal tendon of biceps S46.219A S/P tendon repair Z98.890 Cellulitis of right upper extremity L03.113 Laterality: right Site of cellulitis: extremity Site of cellulitis of extremity: upper extremity
--- OUTSIDE RECORDS SUMMARY | 2024-08-08 15:05 | XMS_ITS ---
Author Organization [employer] Address [address] [facility] [address] [place] [address] Care Team Providers Care Slime Plant Operator Name Role Phone Savannah Milner MD Primary Care Provide r Cande Lewis RN Unavailable Melida Figueroa Unavailable CHW Complex Status:Outreach In Progress (Enrolling) Start date:06/30/2024 Enrollment reason:ADT Feed Overview ED- [place] [facility] [place]. Please outreach for enrollment. Case Team Name Relationship Phone Melida Figueroa(Responsible Staff) [phone] Continued Care and Services Coordination
== END 2024-08-08 16:12 | disposition home or self-care (01) ==
LOC: HO.HOS 14:53
PROVIDERS: PCP Internal Medicine; Visit Provider Physician Assistant
DX: L03.113 Cellulitis of right upper limb (principal); S46.219A Strain of muscle, fascia and tendon of other parts of biceps, unspecified arm, initial encounter; Z98.890 Other specified postprocedural states
CPT/HCPCS: 99024

== ENCOUNTER → 2024-08-08 14:52 | Outpatient (BNVA) | payer MEDICAID, SELFPAY | PROVIDERS: PCP Internal Medicine; Visit Provider Physician Assistant | DX: Z09 Encounter for follow-up examination after completed treatment for conditions other than malignant neoplasm (principal); S46.211A Strain of muscle, fascia and tendon of other parts of biceps, right arm, initial encounter; Z98.890 Other specified postprocedural states; L03.113 Cellulitis of right upper limb | CPT/HCPCS: 99212; J2003 ==

== ENCOUNTER 2024-08-14 09:11 | Outpatient (AMB) | payer MEDICAID, SELFPAY ==
--- NOTE | 2024-08-14 09:17 | MHC.OFFVIS ---
Intake Visit Reasons: PO: Rt Biceps Tendon Repair 07/29/24 NE Intake Note: Chris is a 44 year old male right hand dominant male who presents today for a wound check status post right biceps repair, DOS: 07/24/24, by Dr Zac Hernandez. Patient reports he is doing well, he has numbness in his and a tingling sensation in his index finger. He has concerns of his hand turning purple. Allergies Penicillins (PCN) Allergy (Severe, Verified 08/14/24 09:28) HIVES AND EDEMA HPI HPI PO: Rt Biceps Tendon Repair 07/29/24 NE: Details: 44-year-old gentleman returns to the office today for a wound check status post right biceps tendon repair on 07/29/2024. The patient is postop recovery was complicated by a superficial hematoma which she had evacuated in the office earlier last week. Patient states he performs daily dressing changes and applies triple antibiotic ointment. Continues to take antibiotics. Denies fever or chills. [facility] Medical History Pulmonary nodules Bronchitis COPD (chronic obstructive pulmonary disease) Axillary adenopathy Chest pain Emphysema (subcutaneous) (surgical) resulting from a procedure ILD (interstitial lung disease) Abnormal PFTs (pulmonary function tests) Chronic cough Tobacco dependence Asthma Chronic restrictive lung disease Surgical History S/P tendon repair History of vasectomy (~2015) Family History Mother Diabetes Asthma Father No problems noted. Maternal Grandmother Cancer Maternal Aunt Breast cancer Social History Household Members: Spouse Housing: Apartment Are you a primary critical care nurse practitioner to a significant other at home: No Do you presently have visiting nurse or other home services: No Unable to assess alcohol history related to: Unable to respond Alcohol intake: unknown Patient Tobacco Use Status: Current everyday Tobacco user Tobacco use type: Cigarette Cigarette Packs Per Day: 1 Cigarettes Per Day: 10 Years Smoked: 30 Second Hand Smoke Exposure: No service: No Current occupational status: disabled Review of Systems Const All systems reviewed & are unremarkable except as noted in HPI and below Physical Exam Extrem Other: Right biceps tendon incision is clean dry and intact. There is no active drainage. There is a firm hematoma around the incision with mild tenderness. There is no fluctuance. Assessment & Plan Assessment & Plan (1) Tear of distal tendon of biceps: Code(s): S46.219A - Strain of muscle, fascia and tendon of other parts of biceps, unspecified arm, initial encounter Category: Medical Plan: I encouraged him to apply a warm compress 4 times a day for 20 minutes. He should also perform massaging of the hematoma area. If there is any worsening pain or discharge he should contact our office immediately. I strongly encouraged him to remain out of work until I see him back on Sunday for another wound check. Sutures will also remain intact until Sunday. He will discontinue the triple antibiotic ointment and allow the incision area to dry out. Coding Level of Care Code Global (55647) Diagnoses Tear of distal tendon of biceps S46.219A
--- OUTSIDE RECORDS SUMMARY | 2024-08-14 09:28 | XMS_ITS ---
Author Organization [employer] Address [address] [facility] [address] [place] [address] Care Team Providers Care Supervisor Claims Name Role Phone Savannah Milner MD Primary Care Provide r Cande Lewis RN Unavailable [phone] Melida Figueroa Unavailable CHW Complex Status:Outreach In Progress (Enrolling) Start date:06/30/2024 Enrollment reason:ADT Feed Overview ED- [place] [facility] [place]. Please outreach for enrollment. Case Team Name Relationship Phone Melida Figuerao(Responsible Staff) [phone] Continued Care and Services Coordination
== END 2024-08-14 09:39 | disposition home or self-care (01) ==
LOC: HO.HOS 09:12
PROVIDERS: PCP Internal Medicine; Visit Provider Physician Assistant
DX: S46.219A Strain of muscle, fascia and tendon of other parts of biceps, unspecified arm, initial encounter (principal)
CPT/HCPCS: 99024

== ENCOUNTER → 2024-08-14 09:11 | Outpatient (BNVA) | payer MEDICAID, SELFPAY | PROVIDERS: PCP Internal Medicine; Visit Provider Physician Assistant | DX: S46.211A Strain of muscle, fascia and tendon of other parts of biceps, right arm, initial encounter (principal); Z98.890 Other specified postprocedural states | CPT/HCPCS: 99212 ==

== ENCOUNTER 2024-08-18 09:41 | Outpatient (AMB) | payer MEDICAID, SELFPAY ==
--- NOTE | 2024-08-18 09:48 | A.OFFVIS_ITS ---
Intake Visit Reasons: PO:Rt Biceps Tendon Repair 07/29/24 NE-wound check Intake Note: Chris is a 44 year old male who presents today for a post operative wound check status post right Biceps Tendon Repair 07/29/[address] Hernandez. Patient reports he continues to take antibiotics as prescribed. He has concerns of discomfort in his wrist located at the radial side of wrist. Allergies Penicillins (PCN) Allergy (Severe, Verified 08/18/24 09:49) HIVES AND EDEMA Medication List - Last Reconciled 08/18/24 by Yudi Jordan PA-C acetaminophen 650 mg (2 x 325 mg) PO Q6H PRN 30 days albuterol sulfate 90 mcg/actuation 2 inhalations inhalation Q6H PRN 30 days doxycycline hyclate 100 mg PO BID 10 days losartan 25 mg PO DAILY omeprazole 40 mg PO BID oxycodone 5 mg PO Q6H PRN 7 days pravastatin 20 mg PO DAILY sulfamethoxazole-trimethoprim 800-160 mg (Bactrim DS) 1 tab PO BID 14 days trazodone 100 mg PO BEDTIME HPI HPI PO:Rt Biceps Tendon Repair 07/29/24 NE-wound check: Details: 44-year-old gentleman returns to the office today for a wound check right biceps tendon repair on 07/29/2024. He was advised to apply warm compress and continue antibiotics. He states that he has been doing this and there has been some serous drainage but no purulence. No worsening pain. [facility] Medical History Pulmonary nodules Bronchitis COPD (chronic obstructive pulmonary disease) Axillary adenopathy Chest pain Emphysema (subcutaneous) (surgical) resulting from a procedure ILD (interstitial lung disease) Abnormal PFTs (pulmonary function tests) Chronic cough Tobacco dependence Asthma Chronic restrictive lung disease Surgical History S/P tendon repair History of vasectomy (~2015) Family History Mother Diabetes Asthma Father No problems noted. Maternal Grandmother Cancer Maternal Aunt Breast cancer Social History Household Members: Spouse Housing: Apartment Are you a primary career resource technician to a significant other at home: No Do you presently have visiting nurse or other home services: No Unable to assess alcohol history related to: Unable to respond Alcohol intake: unknown Patient Tobacco Use Status: Current everyday Tobacco user Tobacco use type: Cigarette Cigarette Packs Per Day: 1 Cigarettes Per Day: 10 Years Smoked: 30 Second Hand Smoke Exposure: No service: No Current occupational status: disabled Review of Systems Const All systems reviewed & are unremarkable except as noted in HPI and below Physical Exam Const General: cooperative and no acute distress Orientation/consciousness: patient oriented x3 Resp Effort & Inspection: normal respiratory effort and able to speak in complete sentences Cardio Peripheral pulses: Peripheral pulses 2+ throughout Neuro General: patient oriented x3 Extrem Other: Right biceps tendon incision is clean dry and intact. There is no active drainage. There is a firm hematoma around the incision with mild tenderness. There is no fluctuance. Assessment & Plan Assessment & Plan (1) Tear of distal tendon of biceps: Code(s): S46.219A - Strain of muscle, fascia and tendon of other parts of biceps, unspecified arm, initial encounter Category: Medical Plan: Sutures removed today he will continue with warm compress and antibiotics. He will limit his activities no pushing pulling or carrying with the right hand more than a cell phone. He will see us back in 1 week for routine follow-up wound check and potential return to work. Coding Level of Care Code Global (71916) Diagnoses Tear of distal tendon of biceps S46.219A
== END 2024-08-18 15:47 | disposition home or self-care (01) ==
LOC: HO.HOS 09:41
PROVIDERS: PCP Internal Medicine; Visit Provider Physician Assistant
DX: S46.219A Strain of muscle, fascia and tendon of other parts of biceps, unspecified arm, initial encounter (principal)
CPT/HCPCS: 99024

== ENCOUNTER → 2024-08-18 09:41 | Outpatient (BNVA) | payer MEDICAID, SELFPAY | PROVIDERS: PCP Internal Medicine; Visit Provider Physician Assistant | DX: S46.211A Strain of muscle, fascia and tendon of other parts of biceps, right arm, initial encounter (principal); X50.0XXA Overexertion from strenuous movement or load, initial encounter; Y93.H3 Activity, building and construction; Y92.69 Other specified industrial and construction area as the place of occurrence of the external cause; Y99.0 Civilian activity done for income or pay | CPT/HCPCS: 99212 ==

== ENCOUNTER 2024-08-25 08:38 | Outpatient (AMB) | payer MEDICAID, SELFPAY ==
--- NOTE | 2024-08-25 08:43 | MHC.OFFVIS ---
Vital Signs 08/25/24 08:47 Height 5 ft 7 in Weight 180 lb BMI 28.2 Intake Visit Reasons: PO:Rt Biceps Tendon Repair 07/29/24 NE-wound check Intake Note: Chris is a 44 year old right hand dominant male who presents today for a post operative wound check about 4 weeks s/p Rt Biceps Tendon Repair 07/29/24. An in office I&D was done on 08/08/24 with NE. At his last visit he was instructed to continue warm compress and antibiotics. He remains out of work at this time - No lifting, pushing, pulling or carrying anything heavier than a cell phone with his right arm. Today he complains of pain with twisting motions mostly in his wrist. His wound becomes black after prolong use his right hand, however after relaxing his wound returns back to normal. Allergies Penicillins (PCN) Allergy (Severe, Verified 08/25/24 08:51) HIVES AND EDEMA HPI HPI PO:Rt Biceps Tendon Repair 07/29/24 NE-wound check: Details: 44-year-old gentleman returns to the office today 4 weeks status post right biceps tendon repair on 07/29/[address] Hernandez. He has been coming in weekly for wound checks as he had a hematoma develop postoperatively followed by a debridement. 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 He states the arm become swollen and bruised toward the end of the day. [facility] Medical History Pulmonary nodules Bronchitis COPD (chronic obstructive pulmonary disease) Axillary adenopathy Chest pain Emphysema (subcutaneous) (surgical) resulting from a procedure ILD (interstitial lung disease) Abnormal PFTs (pulmonary function tests) Chronic cough Tobacco dependence Asthma Chronic restrictive lung disease Surgical History S/P tendon repair History of vasectomy (~2015) Family History Mother Diabetes Asthma Father No problems noted. Maternal Grandmother Cancer Maternal Aunt Breast cancer Social History Household Members: Spouse Housing: Apartment Are you a primary care rep to a significant other at home: No Do you presently have visiting nurse or other home services: No Unable to assess alcohol history related to: Unable to respond Alcohol intake: unknown Patient Tobacco Use Status: Current everyday Tobacco user Tobacco use type: Cigarette Cigarette Packs Per Day: 1 Cigarettes Per Day: 10 Years Smoked: 30 Second Hand Smoke Exposure: No service: No Current occupational status: disabled Review of Systems Const All systems reviewed & are unremarkable except as noted in HPI and below Physical Exam Vital Signs: BMI result Body Mass Index 28.2 Const General: cooperative and no acute distress Orientation/consciousness: patient oriented x3 Resp Effort & Inspection: normal respiratory effort and able to speak in complete sentences Cardio Peripheral pulses: Peripheral pulses 2+ throughout Neuro General: patient oriented x3 Extrem Other: Right biceps incision is clean dry and intact. There is surrounding hematoma but no fluctuance or drainage. He is able to activate supination against resistance with mild discomfort. Neurovascularly intact. Assessment & Plan Assessment & Plan (1) Tear of distal tendon of biceps: Code(s): S46.219A - Strain of muscle, fascia and tendon of other parts of biceps, unspecified arm, initial encounter Category: Medical Plan: Dr. Hernandez was available to see the patient with me today. We discussed with the patient today the routine protocol for biceps tendon repair which is typically no lifting for the 1st 6 weeks followed by gradual return to lifting for the next 6 weeks. The patient would like to return to work however he can return with light duty restrictions of no lifting with the right arm for the next 2 weeks at that time he can return full duty with no restrictions. Does understand the risk associated with this as he has been using the arm more than expected where he could rerupture which may require a further surgery or a tendon that is irrepairable. He does express understanding. Work note was given today. He will see us back in 6-[address] Hernandez, sooner if needed. Coding Level of Care Code Global (23949) Diagnoses Tear of distal tendon of biceps S46.219A
--- OUTSIDE RECORDS SUMMARY | 2024-08-25 08:44 | XMS_ITS ---
Author Organization [employer] Address [address] [facility] [address] [place] [address] Care Team Providers Care Parts Sales Manager Name Role Phone Savannah Milner MD Primary Care Provide r Cande Lewis RN Unavailable [phone] Melida Figueroa Unavailable CHW Complex Status:Outreach In Progress (Enrolling) Start date:06/30/2024 Enrollment reason:ADT Feed Overview ED- Pt went [place] [facility] [place]29[place]24. Please outreach for enrollment. Case Team Name Relationship Phone Melida Figueroa(Responsible Staff) [phone] Continued Care and Services Coordination
[2024-08-25 08:47] VITALS: BMI 28.2
== END 2024-08-25 09:10 | disposition home or self-care (01) ==
LOC: HO.HOS 08:38
PROVIDERS: PCP Internal Medicine; Visit Provider Physician Assistant
DX: S46.219A Strain of muscle, fascia and tendon of other parts of biceps, unspecified arm, initial encounter (principal)
CPT/HCPCS: 99024

== ENCOUNTER → 2024-08-25 08:38 | Outpatient (BNVA) | payer MEDICAID, SELFPAY | PROVIDERS: PCP Internal Medicine; Visit Provider Physician Assistant | DX: S46.211A Strain of muscle, fascia and tendon of other parts of biceps, right arm, initial encounter (principal); Z98.890 Other specified postprocedural states | CPT/HCPCS: 99212 ==

== ENCOUNTER 2024-10-06 07:57 | Outpatient (AMB) | payer MEDICAID, SELFPAY ==
--- OUTSIDE RECORDS SUMMARY | 2024-10-06 07:59 | XMS_ITS ---
Author Organization [employer] Address [address] [facility] [address] [place] [address] Care Team Providers Care Back Tender Cylinder Name Role Phone Savannah Milner MD Primary Care Provide r Cande Lewis RN Unavailable [phone] Melida Fgiueroa Unavailable CHW Complex Status:Outreach In Progress (Enrolling) Start date:06/30/2024 Enrollment reason:ADT Feed Overview ED- Pt went to [facility] on 06/29/24. Please outreach for enrollment. Case Team Name Relationship Phone Melida Figueroa(Responsible Staff) [phone] Continued Care and Services Coordination
[2024-10-06 08:14] VITALS: BMI 28.2
--- NOTE | 2024-10-06 08:14 | MHC.OFFVIS ---
Vital Signs 10/06/24 08:14 10/06/24 08:17 Height 5 ft 7 in 5 ft 7 in Weight 180 lb 180 lb BMI 28.2 28.2 Intake Visit Reasons: OV-Rt Biceps Tendon Repair 07/29/24 NE Intake Note: Chris is a 44 year old right hand dominant male who presents today for a post operative appointment about 6 weeks s/p Right biceps Tendon Repair 07/29/24 & In office I&D done 08/08/24. At his last visit he was returned to work on light duty with no lifting with the right arm for two weeks and then return to work [employer]. 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 He has some nerve sensations/ electric shock feelings that come and go at random. Allergies Penicillins (PCN) Allergy (Severe, Verified 10/06/24 08:17) HIVES AND EDEMA HPI HPI OV-Rt Biceps Tendon Repair 07/29/24 NE: Details: Chris is a 44 year old right hand dominant male who presents today for a post operative appointment about 6 weeks s/p Right biceps Tendon Repair 07/29/24 & In office I&D done 08/08/24. At his last visit he was returned to work on light duty with no lifting with the right arm for two weeks and then return to work [employer]. 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 He has some nerve sensations/ electric shock feelings that come and go at random. [facility] Medical History Pulmonary nodules Bronchitis COPD (chronic obstructive pulmonary disease) Axillary adenopathy Chest pain Emphysema (subcutaneous) (surgical) resulting from a procedure ILD (interstitial lung disease) Abnormal PFTs (pulmonary function tests) Chronic cough Tobacco dependence Asthma Chronic restrictive lung disease Surgical History S/P tendon repair History of vasectomy (~2015) Family History Mother Diabetes Asthma Father No problems noted. Maternal Grandmother Cancer Maternal Aunt Breast cancer Social History Household Members: Spouse Housing: Apartment Are you a primary director career services to a significant other at home: No Do you presently have visiting nurse or other home services: No Unable to assess alcohol history related to: Unable to respond Alcohol intake: unknown Patient Tobacco Use Status: Current everyday Tobacco user Tobacco use type: Cigarette Cigarette Packs Per Day: 1 Cigarettes Per Day: 10 Years Smoked: 30 Second Hand Smoke Exposure: No service: No Current occupational status: disabled Physical Exam Vital Signs: BMI result Body Mass Index 28.2 Extrem Other: inc c/d/i full ROM 4+/5 strength in resisted supination with intact distal biceps Assessment & Plan Assessment & Plan (1) Tear of distal tendon of biceps: Code(s): S46.219A - Strain of muscle, fascia and tendon of other parts of biceps, unspecified arm, initial encounter Category: Medical Plan: 44-year-old gentleman now 10 weeks status post distal biceps tendon repair complicated by superficial infection which was treated with local wound care and antibiotics. There is no evidence of infection and he h as needed. s full range motion. There is mild pain and mild weakness. He has returned to full duty really against my advice but he seems to be doing well regardless. At this point there are no formal restrictions but I do recommend that he avoid painful lifting. He may follow up PRN Coding Level of Care Code Global (78916) Diagnoses Tear of distal tendon of biceps S46.219A
[2024-10-06 08:17] VITALS: BMI 28.2
== END 2024-10-06 08:40 | disposition home or self-care (01) ==
LOC: HO.HOS 07:57
PROVIDERS: PCP Internal Medicine; Visit Provider Orthopaedic Surgery
DX: S46.219A Strain of muscle, fascia and tendon of other parts of biceps, unspecified arm, initial encounter (principal)
CPT/HCPCS: 99024

== ENCOUNTER → 2024-10-06 07:57 | Outpatient (BNVA) | payer MEDICAID, SELFPAY | PROVIDERS: PCP Internal Medicine; Visit Provider Orthopaedic Surgery | DX: Z98.890 Other specified postprocedural states (principal); S46.211A Strain of muscle, fascia and tendon of other parts of biceps, right arm, initial encounter | CPT/HCPCS: 99212 ==

== ENCOUNTER 2024-11-05 13:31 | Emergency (ER) | payer MEDICAID, SELFPAY ==
--- NOTE | ~2024-11-05 | XR_ITS ---
EXAMINATION: XR CHEST CLINICAL INFORMATION: congestion, SOB COMPARISON: 12/19/2021. CT chest 05/14/2024. TECHNIQUE: 2 views of the chest were obtained. FINDINGS: The cardiac, hilar, and mediastinal contours are normal. The lungs are clear bilaterally. There is no pneumothorax or pleural effusion. There is no focal osseous or soft tissue abnormality. XR/XR chest 2V IMPRESSION: Normal chest. Electronically signed by: Thuan Mooney MD 11/05/2024 03:12 PM EDT
[2024-11-05 13:32] VITALS: BP 164/88; PULSE 91; RESP 16; TEMP 36.7; O2SAT 99; BMI 28.2
--- NOTE | 2024-11-05 13:33 | ED_ITS ---
HPI - General Adult General Chief complaint: Upper Respiratory Symptoms Stated complaint: Congestion, cough, upper respiratory symptoms Time Seen by Provider: 11/05/24 13:48 Source: patient and RN notes reviewed Mode of arrival: ambulatory Limitations: no limitations History of Present Illness ED Provider: Cheli Garcia PA-C HPI narrative: This is a 44 year old male with a PMH of emphysema, asthma, HTN, hyperlipidemia, who presents emergency department with concerns of cough, congestion, headache, body aches that began sunday (11/01/24) and worsened by sunday (11/03/24). He also endorses decreased hearing from his right ear. Patient reports he has been using albuterol inhaler every 4 hours with only brief relief and taking DayQuil and acetaminophen without relief. Denies fever, chills, sore throat, abdominal pain, diarrhea, or ongoing nausea. Patient does report one episode of vomiting on sunday (10/31/24) which he contributed to bad coffee - no vomiting since. Of note last acetaminophen dose was at 7 am today. No other complaints or concerns at this time. MD complaint: Cough, congestion Onset (ago): day(s) Relieving factors: none Exacerbating factors: none Associated symptoms: cough and headaches Related Data Home Medications ?Medication ?Instructions ?Recorded ?Confirmed losartan 25 mg tablet 25 mg PO DAILY 08/06/2409/05 pravastatin 20 mg tablet 20 mg PO DAILY 08/06/2409/05 trazodone 100 mg tablet 100 mg PO BEDTIME 08/06/24 0 08/18/24 Previous Rx's ?Medication ?Instructions ?Recorded albuterol sulfate 90 mcg/actuation 2 inh inhalation Q6 H PRN shortness 01/10/21 aerosol inhaler of breath or wheezing 30 day s #18 grams acetaminophen 325 mg tablet 650 mg (2 x 325 mg) PO Q6H PRN 08/06/24 Pain, Mild 1-3,Fever,Headache 30 days #240 tabs sulfamethoxazole 800 1 tab PO BID 14 days #28 tab s 08/18/24 mg-trimethoprim 160 mg tablet (Bactrim DS) omeprazole 40 mg capsule,delayed 40 mg PO DAILY #90 ca ps 09/01/24 release Allergies Allergy/AdvReac Type Severity Reaction Status Date / Time Penicillins (PCN) Allergy Severe HIVES AND Verified 11/05/24 13:33 EDEMA Review of Systems Review of Systems: Constitutional : No Fever, No Chills ENT/Mouth : No sore throat, +Rhinorrhea Eyes: No Eye Pain, No Swelling, No Redness Cardiovascular : No Chest Pain, No SOB Respiratory : + Cough, No Sputum Gastrointestinal : No Nausea, No Vomiting, No Diarrhea, No abdominal Pain Genitourinary : No Dysuria, No Hematuria Musculoskeletal : No joint pain, No Myalgias, No Joint Swelling Skin : No Skin Lesions Neuro : No Weakness, No Numbness, No Headache All other systems reviewed and are negative Yes all other systems are reviewed and are negative Constitutional: Constitutional: Reports as per [facility] Past Medical History Attestation statement: The following information was validated with the patient. Medical History Pulmonary nodules Bronchitis COPD (chronic obstructive pulmonary disease) Axillary adenopathy Chest pain Emphysema (subcutaneous) (surgical) resulting from a procedure ILD (interstitial lung disease) Abnormal PFTs (pulmonary function tests) Chronic cough Tobacco dependence Asthma Chronic restrictive lung disease Surgical History S/P tendon repair History of vasectomy (~2015) Family History Family History Mother Diabetes Asthma Father No problems noted. Maternal Grandmother Cancer Maternal Aunt Breast cancer Social History Social History Household Members: Spouse Housing: Apartment Are you a primary healthcare administration intern to a significant other at home: No Do you presently have visiting nurse or other home services: No Alcohol intake: unknown Patient Tobacco Use Status: Current everyday Tobacco user Tobacco use type: Cigarette Cigarette Packs Per Day: 1 Cigarettes Per Day: 10 Years Smoked: 30 Second Hand Smoke Exposure: No service: No Current occupational status: disabled Physical Exam ED Vital Signs: Vital Signs - 24 hr 11/05/24 13:32 11/05/24 14:16 11/05/24 16:32 Temperature 98.1 F 0 F L Pulse Rate 91 78 Respiratory Rate 16 18 18 Blood Pressure 164/88 H 168/105 H Pulse Oximetry 99 98 Oxygen Delivery Method Room Air Room Air BMI result Body Mass Index 28.2 Const General: cooperative, comfortable and no acute distress Orientation/consciousness: patient oriented x3 Limitations: no limitations HENMT Other: Right ear canal cerumen impaction noted - after irrigation, right TM intact Head: Yes normal to inspection, Yes normocephalic and Yes atraumatic Ears: hearing grossly normal bilaterally General nose exam: Normal external nose present Face and sinus: Yes normal facial exam and Yes sinuses nontender Mouth: Normal oral and palatal mucosa present, oropharynx normal and moist mucous membranes Throat: Yes posterior oropharynx normal Eyes General: appearance normal, both eyes and all related structures Eyelids: Yes eyelids normal Conjunctivae: conjunctivae normal Sclerae: sclerae normal Pupils: Equal, round and reactive pupils present EOM: EOMs intact bilaterally Neck Neck: Yes normal visual inspection, Yes full ROM and Yes no lymphadenopathy Lymphatic: no lymphadenopathy noted Chest Chest palpation & inspection: normal inspection of the chest Resp Effort & Inspection: normal respiratory effort and able to speak in complete sentences Auscultation: clear to auscultation bilaterally, no crackles, no rales, no rhonchi and no wheezes Cardio Rate: regular rate Rhythm: regular rhythm Heart sounds: S1 normal heart sound present and S2 normal heart sound present GI Inspection: Yes normal to inspection Skin General skin exam: no rashes or lesions noted Trauma: no lacerations or abrasions Wounds: no wounds Neuro General: patient oriented x3 and moves all extremities Cranial nerves: Yes Equal, round and reactive pupils present Extrem General: Yes normal to inspection Right upper extremity: normal to inspection Left upper extremity: normal to inspection Right lower extremity: normal to inspection Left lower extremity: normal to inspection Course Course Course Narrative: This is a rapid medical exam performed by Phong Velázquez NP: Additional HPI, ROS, PE not included below will be deferred to primary provider. Patient is a 44y/o M presenting with complaint of congestion since Sunday. Plan: strep and viral swabs Medications Administered Discontinued Medications Generic Name Dose Route Start Last Admin Trade Name Freq PRN Reason Stop Dose Admin Docusate Sodium 100 mg 11/05/24 14:52 11/05/24 15:04 Docusate Sodium 100 Mg/10 Ml Liquid PO 11/05/24 14:53 100 mg ONCE ONE Administration Procedures Ear Wax Removal Right Ear: Cerumenolytic Used: Colace Results: Re-examined: cerumen removed completely TM Examination: TM(s) intact, normal appearance Ear Canal Exam: atraumatic Patient Tolerated Procedure: well and no complications Complications: no problems Technique: ear canal irrigated and ear canal curetted Additional Comments: Large, harden cerumen removed, pt tolerated procedure well without complications or concerns. Medical Decision Making Medical Decision Making [facility] Narrative: 44 yo male with a PMH of emphysema, asthma and HTN who presents to the ED with chest congestion, productive cough, chest tightness, ear fullness, headache, and body aches refractory to albuterol, DayQuil and acetaminophen. Most likely diagnosis is viral upper respiratory infection given acute onset of cough, congestion that transiently improves with albuterol inhaler. Bacterial pneumonia was considered but less likely as the patient is afebrile, without focal lung findings, hypoxia, or persistent systemic symptoms. Acute bacterial sinusitis considered less likely as symptoms have not persisted beyond 10 days and there is no severe facial pain.. Allergic rhinitis is considered given nasal congestion but less likely given productive cough and systemic complaints. Otitis media considered but ear exam limited left ear due to cerumen impaction but right TM was WNL, and no ear pain reported. Clinical picture remains consistent with viral URI. Cerumen disimpaction performed - see procedure note for details. D/C with conservative measures, pt stable for d/c. Differential Diagnosis Differential Diagnoses: The differential diagnosis associated with the presentation includes see above Lab Data [facility] Lab Attestation statement: I reviewed the patient's lab results. negative Labs: Lab Results 11/05/24 Range/Units 14:56 COVID-19 (MIKO) Negative (Negative) COVID-19 Clin Com See Note Influenza Type A (ALHAJI) Negative (Negative) Influenza Type B (ALHAJI) Negative (Negative) Influenza A & B Note See Note S. pyogenes GrpA ALHAJI Negative (Negative) Radiology Impression Discussion of test interpretation with radiology: I have reviewed the radiologist's reading. Radiologist Impression: TECHNIQUE: 2 views of the chest were obtained. FINDINGS: The cardiac, hilar, and mediastinal contours are normal. The lungs are clear bilaterally. There is no pneumothorax or pleural effusion. There is no focal osseous or soft tissue abnormality. XR/XR chest 2V IMPRESSION: Normal chest. Electronically signed by: Thuan Mooney MD 11/05/2024 03:12 PM EDT RP Dictated By: hTuan Mooney MD Discharge Plan Discharge Clinical Impression: Impacted cerumen of right ear, Upper respiratory infection Patient Disposition: Home, Self-Care Additional Instructions: You were seen in the emergency department and your symptom are likely due to a virus. Drink plenty of fluids get plenty of rest. Alternate between ibuprofen and or Tylenol as needed for pain and symptoms. You tested negative for COVID and flu. Chest x-ray was unremarkable. We also flushed your right ear as it was blocked with ear wax. Avoid placing Q- tips in your ear. If any new or worsening symptoms occur including but not limited to severe chest pain or shortness of breath, please return for re-evaluation. Prescriptions: No Action omeprazole 40 mg capsule,delayed release(DR/EC) 40 mg PO DAILY Qty: 90 3RF trazodone 100 mg tablet 100 mg PO BEDTIME losartan 25 mg tablet 25 mg PO DAILY pravastatin 20 mg tablet 20 mg PO DAILY acetaminophen 325 mg Tablet 650 mg PO Q6H PRN (Reason: Pain, Mild 1-3,Fever,Headache) 30 Days Qty: 240 0RF albuterol sulfate 90 mcg/actuation HFA aerosol inhaler 2 inh inhalation Q6H PRN (Reason: shortness of breath or wheezing) 30 Days Qty: 18 12RF sulfamethoxazole-trimethoprim [Bactrim DS] 800-160 mg tablet 1 tab PO BID 14 Days Qty: 28 0RF Stand Alone Forms: Work/School Release Interventions: ED Discharge Assessment Last Done: 11/05/24 16:32 Discharge Date/Time: 11/05/24 16:36 Print Language: Kinyarwanda
[2024-11-05 14:16] VITALS: RESP 18
[2024-11-05 15:14] LABS: IDNOW Serial# 08D9AD1C; Strep A Nucleic Acid Negative (Negative)
[2024-11-05 15:19] LABS: IDNOW Serial# 58CA691E
[2024-11-05 15:20] LABS: Influenza B2 Negative (Negative)
[2024-11-05 15:21] LABS: COVID-19 Test Negative (Negative); IDNOW Serial# 55D5AD1C
[2024-11-05 16:32] VITALS: BP 168/105; PULSE 78; RESP 18; TEMP -17.7; TEMP 0; O2SAT 98
--- OUTSIDE RECORDS SUMMARY | 2024-11-05 17:08 | XMS_ITS | Clinical Summary ---
Author Organization [employer] Address [address] [facility] 7[address] [place] [address] Care Team Providers Care Scalloper Name Role Phone Savannah Milner MD Primary Care Provide r Cande Lewis RN Unavailable [phone] Melida Figueroa Unavailable Allergies Active Allergy Reactions Criticality Noted Date [...] breath. 75 mL 1 12/30/19 23 Active pravastatin (Pravachol) 20 MG tabletIndicatio ns:Primary hypertension Take 1 tablet (20 mg) by mouth Once per day. 30 tablet 11 12/05/19 24 2024 Active Viagra 50 MG tabletIndicatio ns:Erectile dysfunction, unspecified erectile dysfunction type TAKE 1 TABLET 1 HOUR BEFORE SEXUAL RELATIONS ONCE DAILY NEEDED. 10 tablet 08/20/19 25 Active traZODone (Desyrel) 100 MG tabletIndicatio ns:Primary insomnia TAKE 1 TABLET BY MOUTH AT BEDTIME 30 tablet 1 10/04/19 25 Active losartan (Cozaar) 25 MG tabletIndicatio ns:Primary hypertension TAKE 1 TABLET (25 MG) BY MOUTH ONCE PER DAY. 90 tablet 3 10/15/19 25 Active psyllium (Metamucil) 400 MG capsule Take 6 capsules (2.4 g) by mouth Once per day. 180 capsule 1 10/19/19 24 2024 losartan (Cozaar) 25 MG tabletIndicatio ns:Primary hypertension Take 1 tablet (25 mg) by mouth Once per day. 30 tablet 11 12/05/19 24 2024 Discontinued Active Problems Problem Noted Date Diagnosed Date Primary insomnia 07/05/2024 Assessment & Plan (07/05/2024 10:48 AM EDT): Sleep hygiene counseling done Trazodone dose was increased to 100 mg at bedtime Tear of biceps tendon 07/05/2024 Assessment & Plan (07/05/2024 10:48 AM EDT): Continue to follow-up with orthopedics Patient is not taking anything for pain today I prescribed for him ibuprofen short course at 100 mg every 8 hours since it is needed and also Flexeril 5 mg every 8 hours patient is aware of side effects somnolence and that he cannot drive while taking this medication Erectile dysfunction 12/05/2023 Depression with anxiety 12/05/2023 [...] Encounters Date Type Department Care Team Description 11/05/2024 Orders Only GENERIC EXTERNAL DATA DEPARTMENT Provider, Generic External Data 11/03/2024 Patient Outreach [address] [address] Savannah Milner MD Pre-visit Planning ((Unable to reach for PVP screening, LVM) to be completed in office ) 10/13/[address] [address] Savannah Milner MD Primary hypertension 10/03/2024 Refill [facility] [address] [place] [phone] Savannah Milner MD Primary insomnia 09/02/2024 Patient Outreach [address] [address] Savannah Milner MD Care Management (C3CM- initial assessment/ enrollment. Not available.) 09/02/2024 Refill [facility] [address] [place] [phone] Savannah Milner MD Primary insomnia 09/01/2024 Patient Outreach [address] [address] Savannah Milner MD Care Coordination (CM/CHW appt reminder) 08/28/2024 Patient Outreach [address] [address] Savannah Milner MD Care Coordination (CM/CHW appt) 08/27/2024 Patient Outreach [address] [address] Savannah Milner MD Care Coordination (CM/CHW outreach) 08/26/2024 1:15 PM EDT Office Visit [facility] [address] [place] [phone] Tapan, Rosita, OD Regular astigmatism, bilateral (Primary Dx) 08/26/2024 Travel 08/18/2024 Refill [facility] [address] [place] [address] Savannah Milner MD Erectile dysfunction, unspecified erectile dysfunction type 08/18/2024 Patient Outreach [facility] [address] [place] [address] Savannah Milner MD 08/11/2024 Patient Outreach [facility] [address] [place], [place] [phone] Savannah Milner MD from Last 3 Months Immunizations Immunization Administration [...] Sign Reading Time Taken Comments Blood Pressure 128/84 07/05/2024 10:15 AM EDT Pulse 84 07/05/2024 9:53 AM EDT Temperature 36.6 C (97.9 F) 07/05/2024 9:53 AM EDT Respiratory Rate 20 07/05/2024 9:53 AM EDT Oxygen Saturation 97% 12/05/2023 10:56 AM EDT Inhaled Oxygen Concentration - - Weight 81.6 kg (180 lb) 07/05/2024 9:53 AM EDT Height 170.2 cm (5' 7 ) 12/05/2023 10:56 AM EDT Body Mass Index 28.19 12/05/2023 10:56 AM EDT Plan of Treatment Upcoming Encounters Date Type Department Care Team (Late st Contact Info) Description 11/11/2024 9:00 AM EDT Office Visit [facility] [address] [place] [address] Savannah Milner MD [address] [place], [place] [phone] Health Maintenance Due Date Last Done Comments Disability Screening 1980 Family Planning (PISQ) 07/29/1995 HPV Vaccines (1 - Male 3-dose series) 07/29/1995 Pneumococcal Vaccine: Pediatrics (0 to 5 Years) and At-Risk Patients (6 to 49) Years (1 of 2 - PCV) 07/29/1999 Depression Screening 10/11/2024 10/12/2023, 10/12/19 Diabetes: Hemoglobin A1C 10/11/2024 024, 04/01/2021, 07/18/2019 Influenza Vaccine (#1) 2024 4, 09/30/2022, 02/21/2022, Additional history exists Alcohol/Substance Use Screening 12/04/2024 12/05/2023 SDOH Screening 12/04/2024 12/05/2023 Tobacco Screening 03/20/2025 03/20/2024 Lipid Panel 10/11/2028 10/12/2023, 03/15, 07/18/2019 Zoster Vaccines (1 of 2) 2030 DTaP/Tdap/Td Vaccines (3 - Td or Tdap) 01/10/2032 01/09/2022, 01/13/2020, 06/03/2018 RSV Patients and Patients Aged 60 years or older (1 - 1-dose 75+ series) 07/29/2055 COVID-19 Vaccine Completed 10/10/2023, , 08/19/2020, Additional [...] Procedure Name Priority Date/Time Associated Diagnosis Comments XR CHEST 2 VIEWS Routine 11/05/2024 3:05 PM EDT COVID-19 ID NOW (XIONG) Routine 11/05/2024 2:56 PM EDT INFLUENZA A B2 ID NOW (XIONG) Routine 11/05/2024 2:56 PM EDT STREP A NUCLEIC ACID Routine 11/05/2024 2:56 PM EDT HEPATITIS PANEL, GENERAL Routine 10/12/2023 3:08 PM [...] Recently Relevant to Health Maintenance Results * XR Chest 2 Views (11/05/2024 3:05 PM EDT) Anatomical Region Laterality Modality Chest Radiographic Jadya ging 11/05/2024 3:05 PM EDT Narrative 11/05/2024 3:15 PM EDT [address] [address] XRay Report Signed Patient: Parish PerezJatinderarun Thurston MR#: [id number] : 1980 Acct:[id number] Age/Sex: 44 / M ADM Date: 11/05/24 Loc: HO.ED Attending Dr: Ordering Physician: Cheli Garcia Date of Service: 11/05/24 Procedure(s): XR chest 2V Accession Number(s): [id number] cc: Savannah Milner MD; Cheli Garcia Reason for Exam: congestion, SOB EXAMINATION: XR CHEST CLINICAL INFORMATION: congestion, SOB COMPARISON: 12/19/2021. CT chest 05/14/2024. TECHNIQUE: 2 views of the chest were obtained. FINDINGS: The cardiac, hilar, and mediastinal contours are normal. The lungs are clear bilaterally. There is no pneumothorax or pleural effusion. There is no focal osseous or soft tissue abnormality. XR/XR chest 2V IMPRESSION: Normal chest. Electronically signed by: Thuan Mooney MD 11/05/2024 03:12 PM EDT RP Dictated By: Thuan Mooney MD Signed By: <Electronically signed by Thuan Mooney MD in OV> 11/05/24 1512 DD/ 1505 TD/TT: 11/05/24 1508 [employer] Maintenance Worker: Procedure Note Donotuseinterpreter, Image - 11/05/2024 [place] [address] XRay Report Signed Patient: Chris Klein CMR#: [id number] : 1980Acct:[id number] Age/Sex: 44 / MADM Date: 11/05/24 Loc: HO.ED Attending Dr: Ordering Physician: Cheli Garcia Date of Service: 11/05/24 Procedure(s): XR chest 2V Accession Number(s): [id number] cc: Savannah Milner MD; Cheli Garcia Reason for Exam: congestion, SOB EXAMINATION: XR CHEST CLINICAL INFORMATION: congestion, SOB COMPARISON: 12/19/2021. CT chest 05/14/2024. TECHNIQUE: 2 views of the chest were obtained. FINDINGS: The cardiac, hilar, and mediastinal contours are normal. The lungs are clear bilaterally. There is no pneumothorax or pleural effusion. There is no focal osseous or soft tissue abnormality. XR/XR chest 2V IMPRESSION: Normal chest. Electronically signed by: Thuan Mooney MD 11/05/2024 03:12 PM EDT RP Dictated By: Thuan Mooney MD Signed By: <Electronically signed by Thuan Mooney MD in OV> 11/05/24 1512 DD/ 1505 TD/TT: 11/05/24 1508 [employer] Maintenance Worker: [facility] External Provider IMG XR PROCEDURES Final Result * Influenza A B2 ID NOW (Xiong) (11/05/2024 2:56 PM EDT) IDNOW SERIAL# [id number] [facility] Influenza A Negative Negative [facility] Influenza B2 Negative Negative [facility] Influenza A B2 Note See Note [facility] Comment:The Xiong ID NOW In fluenza A B2 test is used for thequalitative detection of influenza A and B from patientswith signs and symptoms of respiratory infection.Negative results do not preclude influenza virus infectionand should not be used as the sole basis for diagnosis,treatment or other patient management decisions.There is a risk of false negative results due to thepresence of variants in the viral targets of the assay, lowlevels of virus in the specimen and co- infection withRespiratory Syncytial Virus. 11/05/2024 2:56 PM EDT 11/05/2024 2:59 PM EDT Generic External Data Provider LAB MICROBIOLOGY - GENERAL ORDERABLES Final Result [facility] [address] [place] [phone] * Strep A Nucleic Acid (11/05/2024 2:56 PM EDT) IDNOW SERIAL# [id number] [facility] Strep A Nucleic Acid Negative Negative [facility] Comment:All test results mus t be correlated with clinical findings.This test has not been evaluated for monitoring treatment ofinfection.Additional follow-up testing using the culture method isrequired if the result is negative and clinical symptomspersist, or in the event of an acute rheumatic feveroutbreak. 11/05/2024 2:56 PM EDT 11/05/2024 2:59 PM EDT us Generic External Data Provider LAB MICROBIOLOGY - GENERAL ORDERABLES Final Result [facility] [address] [place] [address] [phone] * COVID-19 ID NOW ([employer]) (11/05/2024 2:56 PM EDT) IDNOW SERIAL# [id number] [facility] COVID-19 TEST Negative Negative [facility] COVID-19 NOTE See Note [facility] Comment: Results are for the identification of SARS-CoV2 RNA. TheSARS-CoV2 RNA is generally detectable in respiratory samplesduring the acute phase of infection. Positive results areindicative of the presence of SARS-CoV-2 RNA; clinicalcorrelation with patient history and other diagnosticinformation is necessary to determine patient infectionstatus. Positive results do not rule out bacterial infectionor co- infection with other viruses.Testing facilities within the [facility] and itsterritories are required to report all positive results tothe appropriate public health authorities.Negative results should be treated as presumptive and, ifinconsistent with clinical signs and symptoms or necessaryfor patient management, should be tested with differentauthorized or cleared molecular tests. Negative results donot preclude SARS-CoV2 RNA infection and should not be usedas the sole basis for patient management decisions. Negativeresults should be considered in the context of a patient'srecent exposures, history and the presence of clinical signsand symptoms consistent with COVID-19.This test has been authorized by the FDA under an EmergencyUse Authorization (EUA) for use by authorized laboratories.Testing performed on the [employer] ID NOW utilizing NAAT. 11/05/2024 2:56 PM EDT 11/05/2024 2:59 PM EDT us Generic External Data Provider LAB MOLECULAR CHRISTEN GNOSTICS ORDERABLES Final Result Performing Organization Address [facility] Co de Phone Number [facility] [address] [place] [address] [phone] * (ABNORMAL) Lipid Panel with Reflex to Direct LDL (10/12/2023 3:08 PM EDT) Triglycerides 116 <150 mg/dL [facility] Comment:Desirable Triglyceri de: less than 150 mg/dLBorderline High Triglyceride 150-199 mg/dLHigh Triglyceride: 200-499 mg/dLVery High Triglyceride: greater than or equal to 5OO mg/dL Cholesterol 168 <200 mg/dL [facility] Comment:Desirable Cholestero l: less than 200 mg/dLBorderline High Cholesterol: 200-239 mg/dLHigh Cholesterol: greater than 239 mg/dL LDL Cholesterol Calculated 108(H) <100 mg/dL [facility] Comment:Desirable LDL: less than 100 mg/dLNear Optimal/Above Optimal LDL: 110- 129 mg/dLBorderline High LDL: 130-159 mg/dLHigh LDL: 160-189 mg/dLVery High LDL: greater than or equal to 190 mg/dL HDL Cholesterol 37(L) >40 mg/dL [facility] Comment:Desirable HDL: great er than 40 mg/dL Note: This HDL assay may give artificially low results in patients with liver disease. Blood 10/12/2023 3:08 PM EDT 10/12/2023 4:18 PM EDT us Savannah Licea MD LAB BLOOD ORDERABLES Final Result Performing Organization Address [facility]/ZIP Co de Phone Number [facility] [address] [place] [address] [phone] * Hepatitis Panel, General (10/12/2023 3:08 PM EDT) Hepatitis A IgM Nonreactive Nonreactive [facility] Comment:IgM antibodies to FLORES V not detected; does not exclude earlyacute or recovered HAV infection. ~Hepatitis B Surface Antibody REACTIVE Nonreactive [facility] Comment:REACTIVE: > 11.99 mI U/mL Hepatitis B Core Antibody Nonreactive Nonreactive [facility] Hepatitis C Antibody Nonreactive Nonreactive [facility] Comment:Antibodies to HCV no t detected; does not exclude early acuteHCV infection. Hepatitis B Surface Ag Negative Negative [facility] Blood 10/12/2023 3:08 PM EDT 10/12/2023 4:18 PM EDT us Savannah Licea MD LAB BLOOD ORDERABLES Final Result [facility] [address] [place] [phone] * HIV-1/2 Antigen and Antibodies, Fourth Generation, with Reflexes (10/12/2023 3:08 PM EDT) Pathologist [facility] HIV AB/AG Nonreactive Nonreactive [facility] Comment:HIV-1 p24 Ag and/or HIV-1/HIV-2 Ab not detected.A test result that is nonreactive does not exclude thepossibility of exposure to or infection with HIV-1 and/orHIV-2. Nonreactive results in this assay for individualswith prior exposure to HIV-1 and/or HIV-2 may be due toantigen and antibody levels that are below the limit ofdetection of this assay.The [employer] HIV Ag/Ab Combo assay result andsupplemental assay results should be interpreted inconjunction with the patient's clinical presentation,history and other laboratory results. If the results areinconsistent with clinical evidence, additional testing issuggested to confirm the result. Blood Venous blood specimen / Unknown 10/12/2023 3:08 PM EDT 10/12/2023 4:18 PM EDT us Savannah Licea MD LAB BLOOD ORDERABLES Final Result [facility] [address] [place] [address] [phone] * (ABNORMAL) POCT HGB A1C (10/12/2023 2:22 PM EDT) Hemoglobin A1C 6.3(A) 4.0 - 6.0 % QC Media Lot # [id number] Lot# Expiration Date [id number] Blood 10/12/2023 2:22 PM EDT us Savannah Licea MD POINT OF CARE TEST EN TER/EDIT ORDERABLES Final Result from Last 3 Months or Most Recently Relevant to Health Maintenance Insurance [employer] Care Teams Scalloper Relationship Specialty Start Date End Date Savannah Milner MD [address] [place] [phone] PCP - General Internal Medicine 10/19/23 Cande Lewis RN [address] [place] [phone] Registered Nurse Family Medicine 06/30/24 Melida Figueroa 06/30/24
--- OUTSIDE RECORDS SUMMARY | 2024-11-05 17:08 | XMS_ITS | Encounter Summary ---
Author Organization [employer] Address [address] [facility] [address] [place] [address] Care Team Providers Care Occupational Hygienist Name Role Phone Umm Huang ISABEL Primary Care Provider [phone] Savannah Milner MD Primary Care Provide r Cande Leiws RN Unavailable [phone] Melida Figueroa Unavailable Encounter Details Date Type Department Care Team (Late st Contact Info) Description 02/24/2022 Orders Only [facility] [address] [place], [place] [phone] Annabel Peoples LPN Social History Tobacco Use [...] Description 11/11/2024 9:00 AM EDT Office Visit [facility] [address] [place], [place] [phone] Savannah Milner MD [address] [place], [place] [phone] documented as of this encounter Procedures Procedure [...] EDT 09/13/2022 12:45 PM EDT Comment:Sputum Narrative [facility] - 09/15/2022 11:47 AM EDT Gram stain results: 1+ polys 2+ Gram-positive cocci Sputum Culture BAP Sputum Culture 3+ Mixed respiratory tyler. Specimen Source: Sputum [facility] Exter nal Provider LAB MICROBIOLOGY - GENERAL ORDERABLES Final Result Performing Organization Address [facility]/ZIP Co de Phone Number [facility] [address] [place] [phone] * (ABNORMAL) GLUCOSE, WHOLE BLOOD (06/28/2022 7:16 AM EDT) Glucose, Whole Blood 140(H) 60 - 115 mg/dL [facility] Comment:METER #: [id number] 06/28/2022 7:16 AM EDT 06/28/2022 7:20 AM EDT [facility] External Provider LAB BLO OD ORDERABLES Final Result Performing Organization Address [facility]/ZIP Co de Phone Number [facility] [address] [place] [phone] * (ABNORMAL) C-reactive Protein (06/28/2022 2:28 AM EDT) C Reactive Protein 7.80(H) < or = 0.50 mg/dL [facility] 06/28/2022 2:28 AM EDT 06/28/2022 3:04 AM EDT [facility] External Provider LAB BLO OD ORDERABLES Final Result Performing Organization Address City/[facility] Co de Phone Number [facility] [address] [place] [address] [phone] * Lipase (06/28/2022 2:28 AM EDT) Pathologist [facility] Lipase 31 8 - 78 U/L [facility] 06/28/2022 2:28 AM EDT 06/28/2022 3:04 AM EDT [facility] External Provider LAB BLO OD ORDERABLES Final Result Performing Organization Address [facility] de Phone Number [facility] [address] [place] [phone] * (ABNORMAL) Comprehensive Metabolic Panel (06/28/2022 2:28 AM EDT) Pathologist [facility] Sodium 141 135 - 145 mmol/L [facility] Potassium 4.4 3.3 - 5.1 mmol/L [facility] Chloride 107 96 - 108 mmol/L [facility] Carbon Dioxide 28 22 - 29 mmol/L [facility] Anion Gap 10(L) 12 - 20 [facility] Urea Nitrogen (BUN) 12 9 - 16 mg/dL [facility] Creatinine, Serum 0.91 0.5 - 1.4 mg/dL [facility] Creatinine Clr Calc Pharmacy 109.7 [facility] Comment:eGFR (calculated fro m the MDRD study equation) and eCrCl(calculated from the Cockcroft-Gault equation) are based ondifferent parameters and may not yield comparable results.If eCrCl result is absurd, please check patient'sheight/weight. Estimated Glomerular Filt Rate >60 [facility] Comment:NOTE: For -Am erican individuals, multiply the result by 1.210.Chronic Kidney Disease: Estimated GFR < 60 mL/min/1.85e1Sqaxbc Kidney Disease: Estimated GFR < 15 mL/min/1.73m2 Glucose 100 60 - 115 mg/dL [facility] Calcium 9.0 8.4 - 10.2 mg/dL [facility] Bilirubin, Total 0.3 0.0 - 1.0 mg/dL [facility] Aspartate Amino Transferase 16 5 - 37 U/L [facility] Alanine Aminotransferase 25 0 - 40 U/L [facility] Total Protein 6.5 6.5 - 8.0 g/dL [facility] Albumin Level 3.9 3.5 - 5.0 g/dL [facility] Alkaline Phosphatase 86 39 - 117 U/L [facility] 06/28/2022 2:28 AM EDT 06/28/2022 3:04 AM EDT us [facility] External Provider LAB BLO OD ORDERABLES Final Result [facility] [address] [place] [phone] * (ABNORMAL) CBC auto differential (06/28/2022 2:28 AM EDT) White Blood Count 9.1 4.8 - 10.8 X10*3/uL [facility] Red Blood Count 4.67 4.60 - 5.80 X10*6/uL [facility] Hemoglobin 14.5 14.0 - 18.0 g/dl [facility] Hematocrit 43.1 42.0 - 52.0 % [facility] Mean Corpuscular Volume 92.3 80.0 - 98.0 fL [facility] Mean Corpuscular Hemoglobin 31.0 27.0 - 33.0 pg [facility] Mean Corpuscular HGB Conc 33.6 31.0 - 36.0 g/dl [facility] Red Cell Distribution Width 12.6 11.0 - 16.0 % [facility] Platelet Count 284 160 - 400 X10*3/uL [facility] Mean Platelet Volume 8.7(L) 9.4 - 12.4 fL [facility] Neutrophils Percent Auto 66.7 45 - 73 % [facility] Imm Gran Pct Auto 0.2 0.0 - 0.4 % [facility] Lymphocytes Percent Auto 24.4 20 - 40 % [facility] Monocytes Percent Auto 7.4 2 - 11 % [facility] Eosinophils Percent Auto 0.5 0 - 4 % [facility] Basophils Percent Auto 0.8 0 - 2 % [facility] NRBC Pct Auto 0.0 0.0 - 0.2 /100WBC [facility] Neutrophils Absolute Auto 6.1 2.0 - 8.3 x10*3/uL [facility] Imm Gran Abs Auto 0.02 0.00 - 0.03 X10*3/uL [facility] Lymphocytes Absolute Auto 2.2 1.2 - 4.9 X10*3/uL [facility] Monocytes Absolute Auto 0.7 0.1 - 1.2 X10*3/uL [facility] Eosinophils Absolute Auto 0.1 0.0 - 0.4 X10*3/uL [facility] Basophils Absolute Auto 0.1 0.0 - 0.2 X10*3/uL [facility] NRBC Abs Auto 0.000 0.0 - 0.012 X10*3/uL [facility] 06/28/2022 2:28 AM EDT 06/28/2022 3:04 AM EDT us [facility] External Provider LAB BLO OD ORDERABLES Final Result [facility] [address] [place] [phone] documented in this encounter Visit Diagnoses Not on filedocumented in this encounter Care Teams Occupational Hygienist Relationship Specialty Start Date End Date Umm Huang FNP [address] [place] [address] PCP - General Family Medicine 12/06/20 10/18/23 Savannah Milner MD [address] [place] [address] PCP - General Internal Medicine 10/19/23 Cande Lewis RN [address] [place] [phone] Registered Nurse Family Medicine 06/30/24 Melida Figueroa 06/30/24 documented as of this encounter
--- OUTSIDE RECORDS SUMMARY | 2024-11-05 17:08 | XMS_ITS ---
Author Organization [employer] Address [address] [facility] 7[address] [place] [address] Care Team Providers Care Diamond Finishing Supervisor Name Role Phone Savannah Milner MD Primary Care Provide r Cande Lewis RN Unavailable [phone] Melida Figueroa Unavailable CM Complex Status:Outreach In Progress (Enrolling) Start date:06/30/2024 Enrollment reason:ADT Feed Overview ED- Pt went to [facility] ED on 06/29/24. Case Team Name Relationship Phone Cande Lewis RN(Responsible Staff) Registered Nurse [phone] Continued Care and Services Coordination
--- OUTSIDE RECORDS SUMMARY | 2024-11-05 17:08 | XMS_ITS ---
Author Organization [employer] Address [address] [facility] [address] [place] [address] Care Team Providers Care Gamer Name Role Phone Savannah Milner MD Primary Care Provide r Cande Lewis RN Unavailable [phone] Melida Figueroa Unavailable CHW Complex Status:Outreach In Progress (Enrolling) Start date:06/30/2024 Enrollment reason:ADT Feed Overview ED- Pt went to [facility] on 06/29/24. Please outreach for enrollment. Case Team Name Relationship Phone Melida Figueroa(Responsible Staff) [phone] Continued Care and Services Coordination
--- OUTSIDE RECORDS SUMMARY | 2024-11-05 17:09 | XMS_ITS | Encounter Summary ---
Author Organization [employer] Address [address] [facility] [address] [place] [address] Care Team Providers Care Compensation And Hris Analyst Name Role Phone Savannah Milner MD Primary Care Provide r Cande Lewis RN Unavailable [phone] Melida Figueroa Unavailable Reason for Visit * Reason Comments Pre-visit Planning (Unable to reach for PVP screening, LVM) to be completed in office Encounter Details Date Type Department Care Team (Late st Contact Info) Description 11/03/2024 Patient Outreach [facility] [address] [place] [address] Savannah Milner MD [address] [place] [address] Pre-visit Planning ((Unable to reach for PVP screening, LVM) to be completed in office ) Social History Tobacco Use Types Packs/Day Years [...] as of this encounter Progress Notes * Chelsy Montez - 11/03/2024 10:22 AM EDT CC Chelsy. Placed outbound call to patient to complete pre-visit planning. No answer at this time. Patient name and were not confirmed. CC left voicemail requesting return call. Direct contact information provided. documented in this encounter Plan of Treatment Upcoming Encounters Date Type Department Care Team ([facility] st Contact Info) Description 11/11/2024 9:00 AM EDT Office Visit [facility] [address] [place] [address] Savannah Milner MD [address] [place] [address] documented as of this encounter Visit Diagnoses Not on filedocumented in this encounter Additional Health Concerns Assessment Noted Time PHQ-9 Depression Total Score: 8 10/12/19 24 2:03 PM EDT documented as of this encounter Care Teams Compensation And Hris Analyst Relationship Specialty Start Date End Date Savannah Milner MD [address] [place] [address] PCP - General Internal Medicine 10/19/23 Cande Lewis, PABLO [address] [place] [address] Registered Nurse Family Medicine 06/30/24 Melida Figueroa 06/30/24 documented as of this encounter
--- OUTSIDE RECORDS SUMMARY | 2024-11-05 17:09 | XMS_ITS | Encounter Summary ---
Author Organization [employer] Address [address] [facility] [address] [place] [address] Care Team Providers Care Nurse Advisor Name Role Phone Savannah Milner MD Primary Care Provide r Cande Lewis RN Unavailable [phone] Melida Figueroa Unavailable Encounter Details Date Type Department Care Team (Late st Contact Info) Description 11/05/2024 Orders Only GENERIC EXTERNAL DATA DEPARTMENT Provider, Generic External Data Social History Tobacco Use Types Packs/Day Years [...] Description 11/11/2024 9:00 AM EDT Office Visit [facility] [address] [place] [address] Savannah Milner MD [address] [place], [place] [phone] documented as of this encounter Procedures Procedure Name Priority Date/Time Associated Diagnosis Comments XR CHEST 2 VIEWS Routine 11/05/2024 3:05 PM EDT INFLUENZA A B2 ID NOW ([facility]) Routine 11/05/2024 2:56 PM EDT STREP A NUCLEIC ACID Routine 11/05/2024 2:56 PM EDT COVID-19 ID NOW ([facility]) Routine 11/05/2024 2:56 PM EDT documented in this encounter Results * XR Chest 2 Views (11/05/2024 3:05 PM EDT) Anatomical Region Laterality Modality Chest Radiographic Jayda ging 11/05/2024 3:05 PM EDT Narrative 11/05/2024 3:15 PM EDT [address] [address] XRay Report Signed Patient: Chris Klein MR#: [id number] : 1980 Acct:[id number] Age/Sex: 44 / M ADM Date: 11/05/24 Loc: HO.ED Attending Dr: Ordering Physician: Cheli Garcia Date of Service: 11/05/24 Procedure(s): XR chest 2V Accession Number(s): [id number] cc: Savannah Milner MD; Cheli Garcia Reason [...] 11/05/24 1512 DD/ 1505 TD/TT: 11/05/24 1508 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 External Provider IMG XR PROCEDURES Final Result * COVID-19 ID NOW ([employer]) (11/05/2024 2:56 PM EDT) IDNOW SERIAL# [id number] [facility] COVID-19 TEST Negative Negative [facility] COVID-19 NOTE See Note [facility] Comment: Results are for the identification of SARS-CoV2 RNA. TheSARS-CoV2 RNA is generally detectable in respiratory samplesduring the acute phase of infection. Positive results areindicative of the presence of SARS-CoV-2 RNA; clinicalcorrelation with patient history and other diagnosticinformation is necessary to determine patient infectionstatus. Positive results do not rule out bacterial infectionor co- infection with other viruses.Testing facilities within the [facility] and itsterritories are required to report [...] use by authorized laboratories.Testing performed on the Xiong ID NOW utilizing NAAT. 11/05/2024 2:56 PM EDT 11/05/2024 2:59 PM EDT Generic External Data Provider LAB [facility] ORDERABLES Final Result Performing Organization Address City/[facility]/ZIP Co de Phone Number [facility] [address] [place] [address] [phone] * Influenza A B2 ID NOW ([employer]) (11/05/2024 2:56 PM EDT) IDNOW SERIAL# [id number] [facility] Influenza A Negative Negative [facility] Influenza B2 Negative Negative [facility] Influenza A B2 Note See Note [facility] Comment:The Xiong ID NOW In [...] GENERAL ORDERABLES Final Result Performing Organization Address [facility] Co de Phone Number [facility] [address] [place] [address] [phone] * Strep A Nucleic Acid (11/05/2024 2:56 PM EDT) IDNOW SERIAL# [id number] [facility] Strep A Nucleic Acid Negative Negative [facility] Comment:All test results mus t [...] LAB MICROBIOLOGY - GENERAL ORDERABLES Final Result [facility] [address] [place] [address] [phone] documented in this encounter Visit Diagnoses Not on filedocumented in this encounter Additional Health Concerns Assessment Noted Time PHQ-9 Depression Total Score: 8 10/12/19 24 2:03 PM EDT documented as of this encounter Care Teams Nurse Advisor Relationship Specialty Start Date End Date Savannah Milner MD [address] [place] [address] PCP - General Internal Medicine 10/19/23 Cande Lewis RN [address] [place] [phone] Registered Nurse Family Medicine 06/30/24 Melida Figueroa 06/30/24 documented as of this encounter
== END 2024-11-05 16:36 | disposition home or self-care (01) ==
PROVIDERS: Registered Nurse Emergency; Emergency Provider Emergency Medicine; PCP Internal Medicine
DX: H61.21 Impacted cerumen, right ear (principal); J06.9 Acute upper respiratory infection, unspecified; R09.89 Other specified symptoms and signs involving the circulatory and respiratory systems; R05.9 Cough, unspecified; I10 Essential (primary) hypertension; M79.10 Myalgia, unspecified site; R51.9 Headache, unspecified; Z11.52 Encounter for screening for COVID-19; Z79.899 Other long term (current) drug therapy
CPT/HCPCS: 69210; 71046; 87502; 87635; 87651; 99283; 99284

== ENCOUNTER → 2024-11-05 14:56 | Outpatient (BNV) | payer MEDICAID, SELFPAY | PROVIDERS: Emergency Provider Emergency Medicine; PCP Internal Medicine; Visit Provider Radiology Diagnostic Radiology | DX: R06.02 Shortness of breath (principal) | CPT/HCPCS: 71046 ==

== ENCOUNTER 2025-01-30 14:18 | Outpatient (REF) | payer MEDICAID, SELFPAY ==
[2025-01-30 15:02] LABS: MANUAL DIFF FLAG NO
[2025-01-30 15:15] LABS: Hematocrit 42.8 % (42.0-52.0); Hemoglobin 14.0 g/dl (14.0-18.0); Imm Gran Abs Auto 0.04 X10*3/uL (0.00-0.03); Imm Gran Pct Auto 0.5 % (0.0-0.4); Lymphocytes Absolute Auto 2.7 X10*3/uL (1.2-4.9); Mean Corpuscular HGB Conc 32.7 g/dl (31.0-36.0); Mean Corpuscular Hemoglobin 30.6 pg (27.0-33.0); Mean Corpuscular Volume 93.4 fL (80.0-98.0); NRBC Abs Auto 0.000 X10*3/uL (0.0-0.012); NRBC Pct Auto 0.0 /100WBC (0.0-0.2); Platelet Count 317 X10*3/uL (160-400); Red Blood Count 4.58 X10*6/uL (4.60-5.80); White Blood Count 8.4 X10*3/uL (4.8-10.8)
--- OUTSIDE RECORDS SUMMARY | 2025-01-30 15:49 | XMS_ITS ---
Author Organization [employer] Address [address] [facility] [address] [place] [address] Care Team Providers Care Eap Counselor Name Role Phone Savannah Milner MD Primary Care Provide r Cande Lewis RN Unavailable [phone] Melida Figueroa Unavailable CHW Complex Status:Outreach In Progress (Enrolling) Start date:06/30/2024 Enrollment reason:ADT Feed Overview ED- Pt went to [facility] on 06/29/24. Please outreach for enrollment. Case Team Name Relationship Phone Melida Figueroa(Responsible Staff) [phone] Continued Care and Services Coordination
--- OUTSIDE RECORDS SUMMARY | 2025-01-30 15:49 | XMS_ITS ---
Author Organization [employer] Address [address] [facility] [address] [place] [address] Care Team Providers Care Pantographer Name Role Phone Savannah Milner MD Primary Care Provide r Cande Lewis RN Unavailable Melida Figueroa Unavailable CM Complex Status:Outreach In Progress (Enrolling) Start date:06/30/2024 Enrollment reason:ADT Feed Overview ED- Pt went to [facility] on 06/29/24. Case Team Name Relationship Phone Cande Lewis RN(Responsible Staff) Registered Nurse [phone] Continued Care and Services Coordination
--- OUTSIDE RECORDS SUMMARY | 2025-01-30 15:49 | XMS_ITS | Clinical Summary ---
Author Organization [employer] Address [address] [facility] [address] [place] [address] Care Team Providers Care Sequins Winder Name Role Phone Savannah Milner MD Primary Care Provide r Cande Lewis RN Unavailable [phone] Melida Figueroa Unavailable Allergies Active Allergy [...] breath. 75 mL 1 12/30/19 23 Active losartan (Cozaar) 25 MG tabletIndicatio ns:Primary hypertension TAKE 1 TABLET (25 MG) BY MOUTH ONCE PER DAY. 90 tablet 3 10/15/19 25 Active albuterol 108 (90 Base) MCG/ACT inhalerIndicati ons:Chronic obstructive pulmonary disease, unspecified COPD type (CMS/HCC) (HCC) Inhale 2 puffs every 4 (four) hours if needed for wheezing. 18 g 2 11/12/19 25 2025 Active pravastatin (Pravachol) 20 MG tabletIndicatio ns:Primary hypertension TAKE 1 TABLET (20 MG) BY MOUTH ONCE PER DAY. 90 tablet 3 12/04/19 25 Active traZODone (Desyrel) 100 MG tabletIndicatio ns:Primary insomnia TAKE 1 TABLET BY MOUTH AT BEDTIME 30 tablet 1 12/10/19 25 Active PARoxetine (Paxil) 20 MG tabletIndicatio ns:Premature ejaculation Take 1 tablet (20 mg) by mouth in the morning. 30 tablet 11 12/24/19 25 2025 Active fluticasone (Flonase) 50 MCG/ACT nasal sprayIndication s:Post-nasal drip Administer 1-2 sprays into each nostril Once per day. Shake gently. Before first use, prime pump. After use, clean tip and replace cap. 16 g 12/25/19 25 Active Viagra 100 MG tabletIndicatio ns:Erectile dysfunction, unspecified erectile dysfunction type TAKE 1 TABLET 1 HOUR BEFORE SEXUAL RELATIONS ONCE DAILY NEEDED. 10 tablet 5 2:39 PM EST 01/17/20 25 Active sildenafil (Viagra) 100 MG tabletIndicatio ns:Erectile dysfunction, unspecified erectile dysfunction type Take 1 tablet (100 mg) by mouth if needed each day for erectile dysfunction. 10 tablet 5 12:31 PM EST 12/24/19 25 2024 Discontinued valACYclovir (Valtrex) 1 g tabletIndicatio ns:Genital herpes simplex, unspecified site Take 1 tablet (1,000 mg) by mouth Once per day for 14 days. 7 tablet 1 12/24/19 25 2024 guaiFENesin (Mucinex) 600 MG 12 hr tabletIndicatio ns:Acute cough Take 1 tablet (600 mg) by mouth 2 times daily for 10 days. Do not crush, chew, or split. 20 tablet 12/25/19 25 2024 Active Problems Problem Noted Date Diagnosed Date Screening examination for STI 12/23/2024 Syringomyelia ([facility]) 11/11/2024 Assessment & Plan (11/11/2024 11:11 AM EDT): Stable continue with same interventions ILD (interstitial lung disease) ([facility]/HCC) 2024 Assessment & Plan (11/11/2024 11:12 AM EDT): Continue to follow-up with pulmonology Premature ejaculation 11/11/2024 Assessment & Plan (12/23/2024 10:01 AM EST): I will increase paroxetine dose to 20 mg daily and advised to follow-up with urology Assessment & Plan (11/11/2024 11:11 AM EDT): I started patient on paroxetine 10 mg daily plan is to follow-up with him to see how his reacting to the medication I will also refer him to urology Palpitations 11/11/2024 Assessment & Plan (11/11/2024 11:10 AM EDT): Cardiology referral Chest pain 11/11/2024 Assessment & Plan (11/11/2024 11:10 AM EDT): Cardiology referral Genital herpes 11/11/2024 Assessment & Plan (12/23/2024 10:02 AM EST): Valacyclovir refill done today Excessive ear wax, bilateral 11/11/2024 Smoker 11/11/2024 Assessment & Plan (11/11/2024 11:13 AM EDT): Smoking cessation counseling done today Primary insomnia 07/05/2024 Assessment & Plan (07/05/2024 [...] while taking this medication Erectile dysfunction 12/05/2023 Assessment & Plan (12/23/2024 10:01 AM EST): Counseling done today, I increase his Viagra from 50 mg to 100 mg, he tells me 50 mg was not helping him to achieve an erection I will check testosterone levels I already referred patient to urology he has not called for an appointment and encouraged him to call for his appointment Depression with anxiety 12/05/2023 Assessment & Plan (12/05/2023 1:49 PM EDT): Counseling done I will start him on trazodone 50mg at bed time [facility]N referral today Chronic neck pain 12/05/2023 Chronic bilateral low back pain with right-sided sciatica 12/05/2023 Epigastric pain 12/05/2023 Assessment & Plan (11/11/2024 11:11 AM EDT): I advise patient to avoid NSAIDs, spicy and acid food, I advise to eat at the same time every day, I advise to elevate the head of the bed and take medications as prescribe Continue with omeprazole as prescribed Referral to GI done today Assessment & Plan (12/05/2023 1:48 PM EDT): [...] HPI Primary hypertension 10/12/2023 Assessment & Plan (11/11/2024 11:10 AM EDT): Advise low-sodium diet and to take his medication every day without missing any dose I also refer him to cardiology Assessment & Plan (12/05/2023 1:49 PM EDT): [...] (chronic obstructive pulmonary disease) Assessment & Plan (11/11/2024 11:12 AM EDT): Cough possible related to his smoking and his asthma/COPD, I prescribed for him albuterol inhaler to use 2 puffs every 4-6 hours as needed and he may use cough syrup [id number] Counseling for smoking cessation done today Continue to follow-up with pulmonology Assessment & Plan (10/12/2023 2:40 PM EDT): Being follow closely by pulmonology Other constipation 10/12/2023 Assessment & Plan (10/12/2023 2:42 PM EDT): Increase water and fiber on diet Fiber supplements Heart murmur 12/29/2022 12/29/2022 Prediabetes 12/29/2022 12/29/2022 Assessment & Plan (11/11/2024 11:10 AM EDT): Extensive counseling about healthy diet and exercise done today A1c today is 5.9 advised to continue with weight loss Assessment & Plan (10/12/2023 2:43 PM EDT): [...] Encounters Date Type Department Care Team Description 01/16/2025 Refill [facility] MED[facility] [address] [place] [phone] Savannah Milnre MD Erectile dysfunction, unspecified erectile dysfunction type 01/07/[address] [address] Savannah Milner MD feb recall 01/02/[address] [address] Savannah Milner MD 12/24/2024 2:00 PM EST Office Visit [facility] [address] [place] [phone] Mirian Pang NP Acute cough (Primary Dx); Post-nasal drip; Dysphonia; Elevated blood pressure reading in office with diagnosis of hypertension 12/24/2024 Travel 12/23/2024 9:00 AM EST Telemedicine [address] [address] Savannah Milner MD Prediabetes (Primary Dx); Erectile dysfunction, unspecified erectile dysfunction type; Premature ejaculation; Screening examination for STI; Genital herpes simplex, unspecified site 12/23/2024 Travel 12/22/2024 Telephone [facility] [address] [place] [phone] Savannah Milner MD Chart Prep 12/08/2024 Refill [facility] [address] [place] [phone] Savannah Milner MD Primary insomnia 12/02/2024 Refill [facility] [address] [place] [phone] Savannah Milner MD Primary hypertension 11/11/2024 9:00 AM EDT Office Visit [address] [address] Savannah Milner MD Syringomyelia ([facility]) (Primary Dx); Dietary counseling; Exercise counseling; ILD (interstitial lung disease) ([facility]); Chronic obstructive pulmonary disease, unspecified COPD type ([facility]); Primary hypertension; Prediabetes; Premature ejaculation; Palpitations; Chest pain, unspecified type; Genital herpes simplex, unspecified site; Encounter for immunization; Excessive ear wax, bilateral; Epigastric pain; Smoker 11/11/2024 Travel 11/10/[address] [address] Savannah Milner MD Chart Prep 11/07/2024 Patient Outreach [address] [address] Savannah Milner MD 11/05/2024 Orders Only GENERIC EXTERNAL DATA DEPARTMENT Provider, Generic External Data 11/03/2024 Patient Outreach [address] [address] Savannah Milner MD Pre-visit Planning ((Unable to reach for PVP screening, LVM) to be completed in office ) from Last 3 Months Immunizations Immunization Administration Dates Next Due HepB-CpG 11/09/2023,10/10/2023 Influenza Injectable Quadriv alant Preservative Free IIV4 MDCK 09/30/2022,11/13/2018 Influenza injectable quadriv alent preservative free 02/21/2022,11/25/2020,01/13/2020 Influenza, Recombinant, inje ctable, preservative free 09/29/2023 Influenza, seasonal, injecta ble, preservative free 11/11/2024 Meningococcal Polysaccharide A,C,Y,W-135 TT Conjugate 10/18/2023 TD [...] Answer Date Recorded Patient Health Questionnaire-9 Score 0 12/23/2024 Patient Health Questionnaire-9 Score 0 12/23/2024 Last PHQ-9: Questionnaire Data Not on file 1 02/23/2024 Housing Stability Answer Date Recorded What is your housing situation today? I have mary ann sterling 12/23/[address] you li ve. Do you have problems with any of the following? None of the above 12/23/2024 Food Insecurity Answer Date Recorded Within the past 12 months, y ou worried that your food would run out before you got money to buy more: Never True 12/23/2024 Within the past 12 months,th e food you bought just didn't last and you didn't have enough money to get more: Never True 12/2024 Transportation Answer Date Recorded In the past 12 months, has l ack of transportation kept you from medical appts, meetings, work or from getting things needed for daily living? No 12/23/2024 Utilities Answer Date Recorded In the past 12 months, has t he [employer], gas, oil or water company threatened to shut off services in your home? No 12/23/2024 Depression Answer Date Recorded Patient Health Questionnaire-2 Score 0 12/23/2024 Internet Access Answer Date Recorded Internet Access Q1 Yes 12/23/2024 Internet Access Q2 Not on file 12/23/2024 Sex and Gender Information Value Date Recorded Sex Assigned at Male 12/12/2021 10:36 AM EDT Legal Sex Male 10:36 AM EDT Gender Identity Male 12/12/2021 10:36 AM EDT Sexual Orientation Straight 12/12/2021 10 :36 AM EDT Last Filed Vital Signs Vital Sign Reading Time Taken Comments Blood Pressure 128/76 12/24/2024 2:33 PM EST Pulse 80 12/24/2024 2:13 PM EST Temperature 36.3 C (97.4 F) 12/24/2024 2:13 PM EST Respiratory Rate 20 12/24/2024 2:13 PM EST Oxygen Saturation 98% 12/24/2024 2:13 PM EST Inhaled Oxygen Concentration - - Weight 79.5 kg (175 lb 3.2 oz) 12/24/2024 2:13 P M EST Height 170.2 cm (5' 7 ) 12/24/2024 2:13 PM EST Body Mass Index 27.44 12/24/2024 2:13 PM EST Plan of Treatment Upcoming Encounters Date Type Department Care Team (Late st Contact Info) Description 03/17/2025 9:15 AM EST Office Visit [facility] MEDICINE [address] [place], [place] [phone] Savannah Milner MD [address] [place] [address] 06/22/2025 9:30 AM EDT Office Visit [facility] OPTOMETRY [address] [place] [address] Mare Luna, OD [address] [place] [address] Health Maintenance Due Date Last Done Comments Family Planning (PISQ) 07/29/1995 HPV Vaccines (1 - Male 3-dose series) 07/29/1995 Pneumococcal Vaccine: Pediatrics (0 to 5 Years) and At-Risk Patients (6 to 49) Years (1 of 2 - PCV) 07/29/1999 COVID-19 Vaccine ( season) 2024 10/10/2023, 04/08/2021, 08/19/2020, Additional history exists Diabetes: Hemoglobin A1C 11/11/2025 025, 10/12/2023, 04/01/2021, Additional history exists Alcohol/Substance Use Screening 12/23/2025 12/23/2024 Depression Screening 12/23/2025 12/23/2024, 12/24/19 25 Disability Screening 12/23/2025 12/23/2024 SDOH Screening 12/23/2025 12/23/2024 Tobacco Screening 12/24/2025 12/24/2024 Lipid Panel 10/11/2028 10/12/2023, 03/15, 07/18/2019 Zoster Vaccines (1 of 2) 2030 DTaP/Tdap/Td Vaccines (3 - Td or Tdap) 01/10/2032 01/09/2022, 01/13/2020, 06/03/2018 RSV Patients and Patients Aged 60 years or older (1 - 1-dose 75+ series) 07/29/2055 HIV Screening Completed 10/12/2023, 04/01/2021 Hepatitis C Screening Completed 10/12/2023 , 04/01/2021, 07/18/2019 Meningococcal Vaccine Aged Out 10/18/2023 No jd leela eligible based on patient's age to complete this topic Hepatitis B Vaccines Completed 11/09/2023, 10/10/19 24 Influenza Vaccine Completed 11/11/2024, , 09/30/2022, Additional history exists HIB Vaccines Aged Out No longer eligi [...] Procedure Name Priority Date/Time Associated Diagnosis Comments CBC WITH AUTO DIFFERENTIAL Routine 01/30/2025 2:24 PM EST Prediabetes POCT INFLUENZA B (ID NOW RAPID MOLECULAR) Routine 12/24/2024 2:48 PM EST Acute cough POCT INFLUENZA A (ID NOW RAPID MOLECULAR) Routine 12/24/2024 2:48 PM EST Acute cough POCT RAPID COVID ANTIGEN Routine 12/24/2024 2:45 PM EST Acute cough POCT GLYCATED HEMOGLOBIN, TOTAL Routine 11/11/2024 9:55 AM EDT Encounter for immunization XR CHEST 2 VIEWS Routine 11/05/2024 3:05 [...] 3:08 PM EDT Encounter for preventive care from Last 3 Months or Most Recently Relevant to Health Maintenance Results * (ABNORMAL) CBC auto differential (01/30/2025 2:24 PM EST) White Blood Count 8.4 4.8 - 10.8 X10*3/uL [facility] Red Blood Count 4.58(L) 4.60 - 5.80 X10*6/uL [facility] Hemoglobin 14.0 14.0 - 18.0 g/dl [facility] Hematocrit 42.8 42.0 - 52.0 % [facility] Mean Corpuscular Volume 93.4 80.0 - 98.0 fL [facility] Mean Corpuscular Hemoglobin 30.6 27.0 - 33.0 pg [facility] Mean Corpuscular HGB Conc 32.7 31.0 - 36.0 g/dl [facility] Red Cell Distribution Width 12.9 11.0 - 16.0 % [facility] Platelet Count 317 160 - 400 X10*3/uL [facility] Mean Platelet Volume 8.9(L) 9.4 - 12.4 fL [facility] Neutrophils Percent Auto 59.5 45 - 73 % [facility] Imm Gran Pct Auto 0.5(H) 0.0 - 0.4 % [facility] Lymphocytes Percent Auto 32.2 20 - 40 % [facility] Monocytes Percent Auto 6.4 2 - 11 % [facility] Eosinophils Percent Auto 0.7 0 - 4 % [facility] Basophils Percent Auto 0.7 0 - 2 % [facility] NRBC Pct Auto 0.0 0.0 - 0.2 /100WBC [facility] Neutrophils Absolute Auto 5.0 2.0 - 8.3 x10*3/uL [facility] Imm Gran Abs Auto 0.04(H) 0.00 - 0.03 X10*3/uL [facility] Lymphocytes Absolute Auto 2.7 1.2 - 4.9 X10*3/uL [facility] Monocytes Absolute Auto 0.5 0.1 - 1.2 X10*3/uL [facility] Eosinophils Absolute Auto 0.1 0.0 - 0.4 X10*3/uL [facility] Basophils Absolute Auto 0.1 0.0 - 0.2 X10*3/uL [facility] NRBC Abs Auto 0.000 0.0 - 0.012 X10*3/uL [facility] Blood Venous blood specimen / Unknown 01/30/2025 2:24 PM EST 01/30/2025 2:58 PM EST us Savannah Licea MD LAB BLOOD ORDERABLES Final Result [facility] [address] [place] [phone] * POCT Rapid Influenza B XIONG ID NOW (12/24/2024 2:48 PM EST) Pathologist [facility] Influenza B Negative Negative, Indeterminate [facility] QC Media Lot # [id number] [facility] Lot# Expiration Date [facility] Swab 12/24/2024 2:48 PM EST us Mirian Appram TAPER MACHINE POINT OF CARE TEST ENTER/EDIT O RDERABLES Final Result Performing Organization Address [facility]/ZIP Co de Phone Number [facility] [address] [place] [phone] * POCT Rapid Influenza A XIONG ID NOW (12/24/2024 2:48 PM EST) Pathologist [facility] Influenza A Negative Negative, Indeterminate [facility] QC Media Lot # [id number] [facility] Lot# Expiration Date [facility] Swab 12/24/2024 2:48 PM EST us Mirian Appram TAPER MACHINE POINT OF CARE TEST ENTER/EDIT O RDERABLES Final Result Performing Organization Address [facility]/ZIP Co de Phone Number [facility] [address] [place] [phone] * POCT Rapid Covid-19 BinaxNOW (12/24/2024 2:45 PM EST) Pathologist [facility] Rapid COVID Ag Negative QC Media Lot # [id number] Lot# Expiration Date [id number] Swab 12/24/2024 2:45 PM EST us Mirian Appram TAPER MACHINE POINT OF CARE TEST ENTER/EDIT O RDERABLES Final Result * (ABNORMAL) POCT Hgb A1c (11/11/2024 9:55 AM EDT) Pathologist [facility] Hemoglobin A1C 5.9(A) 4.0 - 5.7 % QC Media Lot # [id number] Lot# Expiration Date [id number] Blood 11/11/2024 9:55 AM EDT us Savannah Licea MD POINT OF CARE TEST EN TER/EDIT ORDERABLES Final Result * XR Chest 2 Views (11/05/2024 3:05 PM EDT) Anatomical Region Laterality Modality Chest Radiographic Jayda ging 11/05/2024 3:05 PM EDT Narrative 11/05/2024 3:15 PM EDT [address] [address] XRay Report Signed Patient: Chris Klein MR#: [id number] : 1980 Acct:[id number] Age/Sex: 44 / M ADM Date: 11/05/24 Loc: HO.ED Attending Dr: Ordering Physician: Cheli Garcia Date of Service: 11/05/24 Procedure(s): XR chest 2V Accession Number(s): [id number] cc: Savannah Milner MD; Cheli Garcia Reason [...] Thuan Mooney MD 11/05/2024 03:12 PM EDT Dictated By: Thuan Mooney MD Signed By: <Electronically signed by Thuan Mooney MD in OV> 11/05/24 1512 DD/ 1505 TD/TT: 11/05/24 1508 Circular Saw Filer: Procedure Note Donotuseinterpreter, Image - 11/05/[address] [address] XRay Report Signed Patient: Chris Klein CMR#: [id number] : 1980Acct:[id number] Age/Sex: 44 / MADM Date: 11/05/24 Loc: HO.ED Attending Dr: Ordering Physician: Cheli Garcia Date of Service: 11/05/24 Procedure(s): XR chest 2V Accession Number(s): [id number] cc: Savannah Milner MD; Cheli Garcia Reason [...] Thuan Mooney MD 11/05/2024 03:12 PM EDT Dictated By: Thuan Mooney MD Signed By: <Electronically signed by Thuan Mooney MD in OV> 11/05/24 1512 DD/ 1505 TD/TT: 11/05/24 1508 Circular Saw Filer: [facility] External Provider IMG XR PROCEDURES Final Result * Influenza A B2 ID NOW (Xiong) (11/05/2024 2:56 PM EDT) IDNOW SERIAL# [id number] [facility] Influenza A Negative Negative [facility] Influenza B2 Negative Negative [facility] Influenza A B2 Note See Note [facility] Comment:The Xiong ID NOW In [...] GENERAL ORDERABLES Final Result Performing Organization Address [facility] de Phone Number [facility] [address] [place] [phone] * Strep A Nucleic Acid (11/05/2024 2:56 PM EDT) IDNOW SERIAL# [id number] [facility] Strep A Nucleic Acid Negative Negative [facility] Comment:All test results mus t [...] GENERAL ORDERABLES Final Result Performing Organization Address [facility] de Phone Number [facility] [address] [place] [phone] * COVID-19 ID NOW (XIONG) (11/05/2024 2:56 PM EDT) IDNOW SERIAL# [id number] [facility] COVID-19 TEST Negative Negative [facility] COVID-19 NOTE See Note [facility] Comment: Results are for the identification of SARS-CoV2 RNA. TheSARS-CoV2 RNA is generally detectable in respiratory samplesduring the acute phase of infection. Positive results areindicative of the presence of SARS-CoV-2 RNA; clinicalcorrelation with patient history and other diagnosticinformation is necessary to determine patient infectionstatus. Positive results do not rule out bacterial infectionor co- infection with other viruses.Testing facilities within the [place] and [facility] are required to report all positive results [...] use by authorized laboratories.Testing performed on the [place] NOW utilizing NAAT. 11/05/2024 2:56 PM EDT 11/05/2024 2:59 PM EDT us Generic External Data Provider LAB MOLECULAR [facility] ORDERABLES Final Result [facility] [address] [place] [phone] * (ABNORMAL) Lipid Panel with Reflex to Direct LDL (10/12/2023 3:08 PM EDT) Triglycerides 116 <150 mg/dL [facility] Comment:Desirable Triglyceri de: less than 150 mg/dLBorderline High Triglyceride 150-199 mg/dLHigh Triglyceride: 200-499 mg/dLVery High Triglyceride: greater than or equal to 5OO mg/dL Cholesterol 168 <200 mg/dL [facility] Comment:Desirable Cholestero l: less than 200 mg/dLBorderline High Cholesterol: 200-239 mg/dLHigh Cholesterol: greater than 239 mg/dL LDL Cholesterol Calculated 108(H) <100 mg/dL [facility] Comment:Desirable LDL: less than 100 mg/dLNear Optimal/Above Optimal LDL: 110- 129 mg/dLBorderline High LDL: 130-159 mg/dLHigh LDL: 160-189 mg/dLVery High LDL: greater than or equal to 190 mg/dL HDL Cholesterol 37(L) >40 mg/dL [facility] Comment:Desirable HDL: great er than 40 mg/dL Note: This HDL assay may give artificially low results in patients with liver disease. Blood 10/12/2023 3:08 PM EDT 10/12/2023 4:18 PM EDT Savannah Licea MD LAB BLOOD ORDERABLES Final Result Performing Organization Address [facility] Co de Phone Number [facility] [address] [place] [phone] * Hepatitis Panel, General (10/12/2023 3:08 PM EDT) Hepatitis A IgM Nonreactive Nonreactive [facility] Comment:IgM antibodies to FLORES V not detected; does not exclude earlyacute or recovered HAV infection. ~Hepatitis B Surface Antibody REACTIVE Nonreactive [facility] Comment:REACTIVE: > 11.99 mI U/mL Hepatitis B Core Antibody Nonreactive Nonreactive [facility] Hepatitis C Antibody Nonreactive Nonreactive [facility] Comment:Antibodies to HCV no t detected; does not exclude early acuteHCV infection. Hepatitis B Surface Ag Negative Negative [facility] Blood 10/12/2023 3:08 PM EDT 10/12/2023 4:18 PM EDT Savannah Licea MD LAB BLOOD ORDERABLES Final Result Performing Organization Address [facility] Co de Phone Number [facility] [address] [place] [phone] * HIV-1/2 Antigen and Antibodies, Fourth Generation, with Reflexes (10/12/2023 3:08 PM EDT) HIV AB/AG Nonreactive Nonreactive [facility] Comment:HIV-1 p24 Ag and/or HIV-1/HIV-2 Ab not detected.A test result that is nonreactive does not exclude thepossibility of exposure to or infection with HIV-1 and/orHIV-2. Nonreactive results in this assay for individualswith prior exposure to HIV-1 and/or HIV-2 may be due toantigen and antibody levels that are below the limit ofdetection of this assay.The Flypadnity HIV Ag/Ab Combo assay result andsupplemental assay results should be interpreted inconjunction with the patient's clinical presentation,history and other laboratory results. If the results areinconsistent with clinical evidence, additional testing issuggested to confirm the result. Blood Venous blood specimen / Unknown 10/12/2023 3:08 PM EDT 10/12/2023 4:18 PM EDT us Savannah Licea MD LAB BLOOD ORDERABLES Final Result [facility] [address] [place] [phone] from Last 3 Months or Most Recently Relevant to Health Maintenance Insurance [employer] C[employer] Care Teams Sequins Winder Relationship Specialty Start Date End Date Savannah Milner MD [address] [place] [address] PCP - General Internal Medicine 10/19/23 Cande Lewis, PABLO [address] [place] [phone] Registered Nurse Family Medicine 06/30/24 Melida Figueroa 06/30/24
--- OUTSIDE RECORDS SUMMARY | 2025-01-30 15:49 | XMS_ITS | Encounter Summary ---
Author Organization [employer] Address [address] [facility] [address] [place] [address] Care Team Providers Care Implant Polisher Name Role Phone Umm Huang ISABEL Primary Care Provider [phone] Savannah Milner MD Primary Care Provide r Cande Lewis RN Unavailable [phone] Melida Figueroa Unavailable Encounter Details Date Type Department Care Team (Late st Contact Info) Description 02/24/2022 Orders Only [facility] CHC MED & PEDS [address] [place], [place] [phone] Annabel Peoples LPN Social History Tobacco Use [...] Description 03/17/2025 9:15 AM EST Office Visit [facility] MEDICINE [address] [place], [place] [phone] Savannah Milner MD [address], [place] [phone] 06/22/2025 9:30 AM EDT Office Visit [facility] OPTOMETRY [address] [place], [place] [phone] Mare Luna, OD [address] [place] [address] documented as of this encounter Procedures Procedure [...] EDT 09/13/2022 12:45 PM EDT Comment:Sputum Narrative [facility] - 09/15/2022 11:47 AM EDT Gram stain results: 1+ polys 2+ Gram-positive cocci Sputum Culture BAP Sputum Culture 3+ Mixed respiratory tyler. Specimen Source: Sputum [facility] Exter nal Provider LAB MICROBIOLOGY - GENERAL ORDERABLES Final Result [facility] [address] [place] [phone] * (ABNORMAL) GLUCOSE, WHOLE BLOOD (06/28/2022 7:16 AM EDT) Glucose, Whole Blood 140(H) 60 - 115 mg/dL [facility] Comment:METER #: [id number] 06/28/2022 7:16 AM EDT 06/28/2022 7:20 AM EDT [facility] External Provider LAB BLO OD ORDERABLES Final Result Performing Organization Address [facility] Co de Phone Number [facility] [address] [place] [phone] * (ABNORMAL) C-reactive Protein (06/28/2022 2:28 AM EDT) C Reactive Protein 7.80(H) < or = 0.50 mg/dL [facility] 06/28/2022 2:28 AM EDT 06/28/2022 3:04 AM EDT [facility] External Provider LAB BLO OD ORDERABLES Final Result Performing Organization Address [facility] de Phone Number [facility] [address] [place] [phone] Lipase (06/28/2022 2:28 AM EDT) Pathologist [facility] Lipase 31 8 - 78 U/L [facility] 06/28/2022 2:28 AM EDT 06/28/2022 3:04 AM EDT [facility] External Provider LAB BLO OD ORDERABLES Final Result Performing Organization Address [facility] de Phone Number [facility] [address] [place] [phone] * (ABNORMAL) Comprehensive Metabolic Panel (06/28/2022 2:28 AM EDT) Sodium 141 135 - 145 mmol/L [facility] Potassium 4.4 3.3 - 5.1 mmol/L [facility] Chloride 107 96 - 108 mmol/L [facility] Carbon Dioxide 28 22 - 29 mmol/L [facility] Anion Gap 10(L) 12 - 20 [facility] Urea Nitrogen (BUN) 12 9 - 16 mg/dL [facility] Creatinine, Serum 0.91 0.5 - 1.4 mg/dL [facility] Creatinine Clr Calc Pharmacy 109.7 [facility] Comment:eGFR (calculated fro m the MDRD study equation) and eCrCl(calculated from the Cockcroft-Gault equation) are based ondifferent parameters and may not yield comparable results.If eCrCl result is absurd, please check patient'sheight/weight. Estimated Glomerular Filt Rate >60 [facility] Comment:NOTE: For -Am erican individuals, multiply the result by 1.210.Chronic Kidney Disease: Estimated GFR < 60 mL/min/1.56n2Vtvmqw Kidney Disease: Estimated GFR < 15 mL/min/1.73m2 Glucose 100 60 - 115 mg/dL [facility] Calcium 9.0 8.4 - 10.2 mg/dL [facility] Bilirubin, Total 0.3 0.0 - 1.0 mg/dL [facility] Aspartate Amino Transferase 16 5 - 37 U/L [facility] Alanine Aminotransferase 25 0 - 40 U/L [facility] Total Protein 6.5 6.5 - 8.0 g/dL [facility] Albumin Level 3.9 3.5 - 5.0 g/dL [facility] Alkaline Phosphatase 86 39 - 117 U/L [facility] 06/28/2022 2:28 AM EDT 06/28/2022 3:04 AM EDT [facility] External Provider LAB BLO OD ORDERABLES Final Result [facility] [address] [place] [phone] * (ABNORMAL) CBC auto differential (06/28/2022 2:28 AM EDT) White Blood Count 9.1 4.8 - 10.8 X10*3/uL [facility] Red Blood Count 4.67 4.60 - 5.80 X10*6/uL [facility] Hemoglobin 14.5 14.0 - 18.0 g/dl [facility] Hematocrit 43.1 42.0 - 52.0 % [facility] Mean Corpuscular Volume 92.3 80.0 - 98.0 fL [facility] Mean Corpuscular Hemoglobin 31.0 27.0 - 33.0 pg [facility] Mean Corpuscular HGB Conc 33.6 31.0 - 36.0 g/dl [facility] Red Cell Distribution Width 12.6 11.0 - 16.0 % [facility] Platelet Count 284 160 - 400 X10*3/uL [facility] Mean Platelet Volume 8.7(L) 9.4 - 12.4 fL [facility] Neutrophils Percent Auto 66.7 45 - 73 % [facility] Imm Gran Pct Auto 0.2 0.0 - 0.4 % [facility] Lymphocytes Percent Auto 24.4 20 - 40 % [facility] Monocytes Percent Auto 7.4 2 - 11 % [facility] Eosinophils Percent Auto 0.5 0 - 4 % [facility] Basophils Percent Auto 0.8 0 - 2 % [facility] NRBC Pct Auto 0.0 0.0 - 0.2 /100WBC [facility] Neutrophils Absolute Auto 6.1 2.0 - 8.3 x10*3/uL [facility] Imm Gran Abs Auto 0.02 0.00 - 0.03 X10*3/uL [facility] Lymphocytes Absolute Auto 2.2 1.2 - 4.9 X10*3/uL [facility] Monocytes Absolute Auto 0.7 0.1 - 1.2 X10*3/uL [facility] Eosinophils Absolute Auto 0.1 0.0 - 0.4 X10*3/uL [facility] Basophils Absolute Auto 0.1 0.0 - 0.2 X10*3/uL [facility] NRBC Abs Auto 0.000 0.0 - 0.012 X10*3/uL [facility] 06/28/2022 2:28 AM EDT 06/28/2022 3:04 AM EDT [facility] External Provider LAB BLO OD ORDERABLES Final Result [facility] [address] [place] [phone] documented in this encounter Visit Diagnoses Not on filedocumented in this encounter Care Teams Implant Polisher Relationship Specialty Start Date End Date Umm Huang FNP [address] [place] [phone] PCP - General Family Medicine 12/06/20 10/18/23 Savannah Milner MD [address] [place] [address] PCP - General Internal Medicine 10/19/23 Cande Lewis RN [address] [place] [phone] Registered Nurse Family Medicine 06/30/24 Melida Figueroa 06/30/24 documented as of this encounter
[2025-01-30 16:38] LABS: Alanine Aminotransferase 17 U/L (0-40); Albumin Level 4.3 g/dL (3.5-5.0); Alkaline Phosphatase 79 U/L (39-117); Anion Gap 8 (12-20); Aspartate Amino Transferase 26 U/L (5-37); Blood Urea Nitrogen 17 mg/dL (9-16); Calcium 9.5 mg/dL (8.4-10.2); Carbon Dioxide 29 mmol/L (22-29); Chloride 109 mmol/L (96-108); Estimated Glomerular Filt Rate > 60; Potassium 4.0 mmol/L (3.3-5.1); Sodium 142 mmol/L (135-145); Total Protein 6.9 g/dL (6.5-8.0)
[2025-02-02 04:10] LABS: HBS Num1 > 1000.00 mIU/mL (0-7.99); HBc Num1 0.11 S/CO (0.00-0.79); HBsAGNum1 0.43 S/CO (0.00-0.99); HIV Num 1 0.06 S/CO (0.00-0.99); Hepatitis A Antibody IgM 0.16 Index (0-0.79); Hepatitis B Surface Antigen Negative (Negative); ~HepC Num1 0.12 S/CO (0.00-0.79); ~Hepatitis A Antibody IgM Nonreactive (Nonreactive); ~Hepatitis B Surface Antibody REACTIVE (Nonreactive); ~Hepatitis C Antibody Nonreactive (Nonreactive)
== END 2025-01-30 14:19 | disposition home or self-care (01) ==
LOC: HO.HHCL 14:18
PROVIDERS: PCP Internal Medicine; Visit Provider Internal Medicine
DX: Z11.3 Encounter for screening for infections with a predominantly sexual mode of transmission (principal); Z11.4 Encounter for screening for human immunodeficiency virus [HIV]; Z11.59 Encounter for screening for other viral diseases; N52.9 Male erectile dysfunction, unspecified; R73.03 Prediabetes
CPT/HCPCS: 36415; 80053; 84403; 85025; 86592; 86704; 86706; 86709; 86803; 87340; 87389